=== PATIENT | male | born 1955 | race American Indian/Alaskan Native ===

== ENCOUNTER 2016-11-07 17:17 | Inpatient (IN) | payer OTHER ==
[2016-11-07] MEDS ORDERED: Morphine 2 mg/ml ISec IVP STA (18:21)
[2016-11-07] MEDS ORDERED: Iohexol 240 (50 ml) ONE (18:22)
--- NOTE | 2016-11-07 18:25 | ED PDOC ---
Arrival/HPI - General Chief Complaint: Abdominal Pain Time Seen by Provider: 11/07/16 18:05 Historian: Patient - History of Present Illness Narrative History of Present Illness (Text): 11/07/16 18:22 61 y/o male, pmh including brain and lung cancer which diagnosed 07/2016 metastatic from lung, nkda, c/o rt. sided lower rib and rt. upper quadrant abdominal pain x 3 weeks with no fall or trauma. Aching pain, on and off, no nausea or vomiting, no history of leg or extremity pain currently, no chest pain or shortness of breath, no coughing, no night sweat, no palpitation, no other medical or psychological complaints. Past Medical History - Provider Review Nursing Documentation Reviewed: Yes - Infectious Disease Hx of Infectious Diseases: None - Cardiac Hx Cardiac Disorders: No - Pulmonary Hx Asthma: Yes - Neurological Hx Neurological Disorder: No - HEENT Hx HEENT Disorder: No - Renal Hx Renal Disorder: No - Endocrine/Metabolic Hx Endocrine Disorders: No - Hematological/Oncological Hx Blood Disorders: No - Integumentary Hx Dermatological Disorder: No - Musculoskeletal/Rheumatological Hx Musculoskeletal Disorders: No - Gastrointestinal Hx Gastrointestinal Disorders: No - Genitourinary/Gynecological Hx Genitourinary Disorders: No - Psychiatric Hx Psychophysiologic Disorder: No Hx Substance Use: No - Surgical History Other/Comment: CA brain, left port, B/L lower extremity edema. - Anesthesia Hx Anesthesia: No Hx Anesthesia Reactions: No Hx Malignant Hyperthermia: No Family/Social History - Physician Review Nursing Documentation Reviewed: Yes Family/Social History: Unknown Family HX Smoking Status: Former Smoker Hx Alcohol Use: Yes Frequency of alcohol use: Socially Hx Substance Use: No Allergies/Home Meds Allergies/Adverse Reactions: Allergies No Known Allergies Allergy (Verified 11/07/16 17:56) Home Medications: Home Meds Medication Instructions Recorded Confirmed Dexamethasone [Decadron] 2 mg PO DAILY 11/08/16 11/08/16 Folic Acid 1 mg PO DAILY 11/08/16 11/08/16 Thiamine Mononitrate [Optimum 100 mg PO DAILY 11/08/16 11/08/16 Vitamin B-1] Review of Systems - Review of Systems Constitutional: absent: Fatigue, Fevers Eyes: absent: Vision Changes ENT: absent: Hearing Changes Respiratory: absent: Cough, Sputum Cardiovascular: absent: Chest Pain Gastrointestinal: Abdominal Pain. absent: Diarrhea, Nausea, Vomiting Musculoskeletal: Arthralgias. absent: Back Pain, Neck Pain, Joint Swelling, Myalgias Skin: absent: Rash, Pruritis, Skin Lesions, Laceration, Abscess, Ulcer, Cellulitis Neurological: absent: Headache, Dizziness, Focal Weakness, Gait Changes, Speech Changes, Facial Droop, Disequilibrium, Seizure, Other Physical Exam Vital Signs Reviewed: Yes Vital Signs Temp Pulse Resp BP Pulse Ox 11/08/16 02:00 75 11/08/16 01:00 98 F 80 22 148/81 97 11/07/16 17:57 98.7 F 76 18 153/86 H 92 L Temperature: Afebrile Blood Pressure: Hypertensive Pulse: Regular Respiratory Rate: Normal Appearance: Positive for: Well-Appearing, Non-Toxic, Uncomfortable Pain Distress: Mild Mental Status: Positive for: Alert and Oriented X 3 - Systems Exam Head: Present: Atraumatic, Normocephalic Pupils: Present: PERRL Extroacular Muscles: Present: EOMI Conjunctiva: Present: Normal Mouth: Present: Moist Mucous Membranes Nose (External): Present: Atraumatic. No: Abrasion, Contusion, Laceration, Lesions Nose (Internal): Present: Normal Inspection, No Active Bleeding. No: Rhinorrhea , Septal Hematoma, Epistaxis Neck: Present: Normal Range of Motion Respiratory/Chest: Present: Clear to Auscultation, Good Air Exchange. No: Respiratory Distress, Accessory Muscle Use Cardiovascular: Present: Regular Rate and Rhythm, Normal S1, S2. No: Murmurs Abdomen: Present: Tenderness (+ttp on the rt. upper quadrant. ), Normal Bowel Sounds. No: Distention, Peritoneal Signs, Rebound, Guarding Rectal: Present: Hemorrhoids (external), Normal Rectal Tone, Other (Female Roofing Technician: CATHLEEN Braswell, Guaiac negative). No: Occult Blood, Rectal Tenderness, Gross Blood, Melena, Fissures, Nodule/Mass/Lesions Back: Present: Normal Inspection. No: CVA Tenderness, Midline Tenderness, Paraspinal Tenderness Upper Extremity: Present: Normal Inspection. No: Cyanosis, Edema Lower Extremity: Present: Normal Inspection. No: Edema Neurological: Present: GCS=15, CN II-XII Intact, Speech Normal Skin: Present: Warm, Dry, Normal Color. No: Rashes Psychiatric: Present: Alert, Oriented x 3, Normal Insight, Normal Concentration Medical Decision Making ED Course and Treatment: 11/07/16 18:25 -labs/ua -sonogram gall bladder -CT chest and abdomen -3L oxygen -observe and reassess 11/07/16 22:43 -Sonogram show: incidental rt. pleural effusion, echogenic liver and fatty infiltration. -CT chest/abdomen show possible PE with pleural effusion. -Labs are non-significant except wbc 11.5 and Na 128. -PT/PTT added. -Hyponatremia 128, not dehydrated which I keep him NPO water in the ER. -Pt. is high risk for PE which I will put on the lovenox and he will need v/q scan tomorrow or repeat CTA. There is no emergent indication of the DVT studies as he has no leg pain or history of extremity pain plus I will anticoagulate him. -Pt. is high risk for pneumonia as there is pleural effusion with wbc 11.5 which I will put him on rocephine and azithromycin. Pleural effusion might be an effect of PE vs. Lung cancer vs. Pneumonia which I can not rule out at this time. -Covering Dr. Renteria doesn't accept the [facility] which I will give it to the hospitalist service. -I discussed with the patient and he agreed to be admitted. -I can not rule if the patient has PE or pneumonia that causes pleural effusion but he is hypoxic in room air which I have no baseline to compared to. He will need to be admitted to telemetry for further evaluation with jacquard card cutter and more work up for him. 11/07/16 23:06 -I spoke to Dr. Dumont and the medical terminologist working with him which they will come down to the ER to admit the patient. -I spoke to the current ER attending Dr. Wilson (Dr. Price is off shift now) which he agreed the treatment which he will put in the admission to telemetry. - Lab Interpretations Lab Results: 11/07/16 20:00 11/07/16 20:00 Lab Results 11/07/16 20:00: WBC 11.5 H, RBC 4.26, Hgb 12.7 L, Hct 37.5 L, MCV 88.0, MCH 29.8 , MCHC 33.9, RDW 18.8 H, Plt Count 81 L, MPV 10.6, Neutrophils % (Manual) 84 H, Lymphocytes % (Manual) 9 L, Monocytes % (Manual) 5, Eosinophils % (Manual) 2, Giant Platelets Present, PT 13.4 H, INR 1.24 H, APTT 22.9 L, Sodium 128 L, Potassium 4.3, Chloride 93 L, Carbon Dioxide 30, Anion Gap 9 L, BUN 17, Creatinine 0.6, Est GFR ( Amer) > 60, Est GFR (Non-Af Amer) > 60, Random Glucose 93, Calcium 8.8, Total Bilirubin 0.8, AST 31, ALT 89 H, Alkaline Phosphatase 71, NT-Pro-B Natriuret Pep 287, Total Protein 6.2, Albumin 3.2, Globulin 2.9, Albumin/Globulin Ratio 1.1, Lipase 25 I have reviewed the lab results: Yes Interpretation: Abnormal lab values (Na 128, wbc 11.5) - RAD Interpretation Radiology Orders: 11/07/16 18:19 CHEST,ABD,PEL W/IV&PO CONTRAST [CT] Stat 11/07/16 18:23 GALL BLADDER [US] Stat Gallbladder sonogram: HISTORY: RUQ pain COMPARISON: None available. TECHNIQUE: Sonographic evaluation of the right upper quadrant of the abdomen. FINDINGS: LIVER: Measures 13.2 cm in length. Echogenic liver may be seen in setting of hepatic parenchymal disease or fatty infiltration. No focal hepatic mass identified. The main portal vein appears patent with normal directional flow. No intrahepatic bile duct dilatation. GALLBLADDER: No gallstones. No gallbladder wall thickening or pericholecystic edema. Negative sonographic Dubose's sign as assessed by the translator and interpreter. COMMON BILE DUCT: Measures 5 mm. PANCREAS: Not well-visualized. RIGHT KIDNEY: Measures 10.9 x 3.8 x 5.3 cm. No obstructing calculus or hydronephrosis identified. AORTA: Limited visualization appears grossly unremarkable. IVC: Limited visualization appears grossly unremarkable. OTHER FINDINGS: Incidental note is made of right-sided pleural effusion. IMPRESSION: Echogenic liver may be seen in setting of hepatic parenchymal disease or fatty infiltration. Incidental note is made of right-sided pleural effusion. CT Chest/Abdomen and pelvis: CT Scan CHEST,ABD,PEL W/IV PO CONTRAST Exam Date: 11/07/16 This imaging exam was performed at [facility] ADDENDUM Addendum created by Shelley Obrien MD on 11/07/2016 10:23:53 PM EDT THIS REPORT CONTAINS FINDINGS THAT MAY BE CRITICAL TO PATIENT CARE. The findings were verbally communicated via telephone conference with Ramón Alvares PA-C at 10:23 PM EDT on 11/07/2016. The findings were acknowledged and understood. Initial report created on 11/07/2016 10:21:03 PM EDT EXAM: CT Chest, Abdomen and Pelvis With Intravenous Contrast CLINICAL HISTORY: 61 years old, male; Pain; Abdominal pain; Acute; Chest wall pain; Patient HX : Currently on chemo; Additional info: Lung/brain cancer since 07/2016, rt. Lower rib/stephanie TECHNIQUE: Axial computed tomography images of the chest, abdomen and pelvis with intravenous contrast. This CT exam was performed using one or more of the following dose reduction techniques: automated exposure control, adjustment of the mA and/or kV according to patient size, and/or use of iterative reconstruction technique. Coronal and sagittal reformatted images were created and reviewed. CONTRAST: 100 mL of OMNI administered intravenously. COMPARISON: No relevant prior studies available. FINDINGS: Near complete opacification of right lung field. Moderate right effusion, partially loculated. Right upper lobe bronchus is completely obstructed by a large enhancing masslike area. Right middle lobe and lower lobe bronchi also affected. Adenopathy causing mass effect along right suprahilar through infrahilar region. Supraclavicular adenopathy, right greater than left. Significant mediastinal and hilar adenopathy. Although technique limits evaluation for pulmonary artery embolism, there is concern for filling defects involving pulmonary arteries consistent with pulmonary artery embolism. Left lung field demonstrates emphysematous changes and atelectasis. Atherosclerosis. Small pericardial effusion. The spleen, pancreas and right adrenal gland demonstrate no acute abnormalities. Subtle subcentimeter hypoattenuating lesion in the left lobe of the liver. 1 cm left adrenal nodule. The kidneys are symmetric with no evidence of hydronephrosis. The small and large bowel as visualized demonstrate no evidence of obstruction or clear focus of inflammation. Diverticulosis. No ascites. No free air. Scoliosis. Degenerative changes. IMPRESSION: Although technique limits evaluation for pulmonary artery embolism, there is concern for filling defects involving pulmonary arteries consistent with pulmonary artery embolism. Followup evaluation recommended for confirmation. Near complete opacification of right lung field. Moderate right effusion, partially loculated. Right upper lobe bronchus is completely obstructed by a large enhancing masslike area. Right middle lobe and lower lobe bronchi also affected. Adenopathy causing mass effect along right suprahilar through infrahilar region. Supraclavicular adenopathy, right greater than left. Significant mediastinal and hilar adenopathy. Small pericardial effusion. Subtle subcentimeter hypoattenuating lesion in the left lobe of the liver. 1 cm left adrenal nodule. Diverticulosis. Additional details/findings as above. Addendum Dictated By: Shelley Obrien Addendum Dictated Date Time:11/07/16 Addendum Signed by:Shelley Obrien Addendum signed Date Time: 11/07/162222 Addendum Transcribed By: RABIA Addendum Transcribed Date Time: 11/07/16 KEN/KANDI EXAM: CT Chest, Abdomen and Pelvis With Intravenous Contrast CLINICAL HISTORY: 61 years old, male; Pain; Abdominal pain; Acute; Chest wall pain; Patient HX : Currently on chemo; Additional info: Lung/brain cancer since 07/2016, rt. Lower rib/stephanie TECHNIQUE: Axial computed tomography images of the chest, abdomen and pelvis with intravenous contrast. This CT exam was performed using one or more of the following dose reduction techniques: automated exposure control, adjustment of the mA and/or kV according to patient size, and/or use of iterative reconstruction technique. Coronal and sagittal reformatted images were created and reviewed. CONTRAST: 100 mL of OMNI administered intravenously. COMPARISON: No relevant prior studies available. FINDINGS: Near complete opacification of right lung field. Moderate right effusion, partially loculated. Right upper lobe bronchus is completely obstructed by a large enhancing masslike area. Right middle lobe and lower lobe bronchi also affected. Adenopathy causing mass effect along right suprahilar through infrahilar region. Supraclavicular adenopathy, right greater than left. Significant mediastinal and hilar adenopathy. Although technique limits evaluation for pulmonary artery embolism, there is concern for filling defects involving pulmonary arteries consistent with pulmonary artery embolism. Left lung field demonstrates emphysematous changes and atelectasis. Atherosclerosis. Small pericardial effusion. The spleen, pancreas and right adrenal gland demonstrate no acute abnormalities. Subtle subcentimeter hypoattenuating lesion in the left lobe of the liver. 1 cm left adrenal nodule. The kidneys are symmetric with no evidence of hydronephrosis. The small and large bowel as visualized demonstrate no evidence of obstruction or clear focus of inflammation. Diverticulosis. No ascites. No free air. Scoliosis. Degenerative changes. IMPRESSION: Although technique limits evaluation for pulmonary artery embolism, there is concern for filling defects involving pulmonary arteries consistent with pulmonary artery embolism. Followup evaluation recommended for confirmation. Near complete opacification of right lung field. Moderate right effusion, partially loculated. Right upper lobe bronchus is completely obstructed by a large enhancing masslike area. Right middle lobe and lower lobe bronchi also affected. Adenopathy causing mass effect along right suprahilar through infrahilar region. Supraclavicular adenopathy, right greater than left. Significant mediastinal and hilar adenopathy. Small pericardial effusion. Subtle subcentimeter hypoattenuating lesion in the left lobe of the liver. 1 cm left adrenal nodule. Diverticulosis. Additional details/findings as above. Dictated By: Shelley Obrien MD Dictated Date/Time: 11/07/162220 Signed By: Shelley Obrien Date Signed: 2220 Transcribed By: RABIA Transcribe Date/Time : 11/07/162220 Russian Language Instructor: Radiologist - Medication Orders Current Medication Orders: Dexamethasone (Decadron) 4 mg PO DAILY [facility] Last Admin: 11/08/16 10:24 Dose: 4 MG Enoxaparin Sodium (Lovenox) 70 mg SC Q12 [facility] PRN Reason: Protocol Last Admin: 11/08/16 10:24 Dose: 70 MG Subcutaneous Administrations Document 11/08/16 10:24 MIKHAIL (Rec: 11/08/16 10:24 MIKHAIL [id number]) Injection Site MAR Injection Site Left Abdomen Charges for Administration # of Subcutaneous Administrations 1 Folic Acid (Folic Acid) 1 mg PO DAILY [facility] Last Admin: 11/08/16 10:23 Dose: 1 MG Piperacillin Sod/Tazobactam Sod (Zosyn 3.375 In Ns 100ml) 100 mls @ 200 mls/hr IVPB Q6 [facility] PRN Reason: Protocol Stop: 11/08/16 18:29 Last Admin: 11/08/16 12:45 Dose: 200 MLS/HR eMAR Start Stop Document 11/08/16 12:45 MIKHAIL (Rec: 11/08/16 12:45 MIKHAIL [id number]) Intravenous Solution Start Date 11/08/16 Start Time 12:45 Vancomycin HCl (Vancomycin 1gm) 250 mls @ 167 mls/hr IVPB Q12H [facility] PRN Reason: Protocol Last Admin: 11/08/16 13:55 Dose: 167 MLS/HR eMAR Start Stop Document 11/08/16 13:55 MIKHAIL (Rec: 11/08/16 13:55 MIKHAIL [id number]) Intravenous Solution Start Date 11/08/16 Start Time 13:55 End Date 11/08/16 End time 15:25 Total Infusion Time 90 Non-Formulary Medication (Thiamine Mononitrate [Vitamin B-1]) 100 mg PO DAILY [facility] Last Admin: 11/08/16 13:20 Dose: Pantoprazole Sodium (Protonix Ec Tab) 40 mg PO ACB [facility] Last Admin: 11/08/16 08:12 Dose: 40 MG Discontinued Medications Enoxaparin Sodium (Lovenox) 70 mg SC STAT STA PRN Reason: Protocol Stop: 11/07/16 22:59 Last Admin: 11/08/16 00:13 Dose: 70 MG Subcutaneous Administrations Document 11/08/16 00:13 FERN (Rec: 11/08/16 00:13 RJR [id number]) Injection Site MAR Injection Site Right Abdomen Charges for Administration # of Subcutaneous Administrations 1 Azithromycin (Zithromax 500mg In Ns) 250 mls @ 167 mls/hr IVPB STAT STA PRN Reason: Protocol Stop: 11/08/16 00:02 Last Admin: 11/08/16 02:03 Dose: 167 MLS/HR eMAR Start Stop Document 11/08/16 02:03 RJR (Rec: 11/08/16 02:04 RJR [id number]) Intravenous Solution Start Date 11/08/16 Start Time 02:03 End Date 11/08/16 End time 03:32 Total Infusion Time 89 Ceftriaxone Sodium (Rocephin 1 Gram Ivpb) 100 mls @ 200 mls/hr IVPB STAT STA PRN Reason: Protocol Stop: 11/07/16 23:02 Last Admin: 11/08/16 00:12 Dose: 200 MLS/HR eMAR Start Stop Document 11/08/16 00:12 RJR (Rec: 11/08/16 00:12 RJR [id number]) Intravenous Solution Start Date 11/08/16 Start Time 00:12 End Date 11/08/16 End time 00:42 Total Infusion Time 30 Iohexol (Omnipaque 240 (50 Ml)) Confirm Administered Dose 50 ml .ROUTE .STK-MED ONE Stop: 11/07/16 18:23 Iohexol (Omnipaque 350 100 Ml) Confirm Administered Dose 350 mg .ROUTE .STK-MED ONE Stop: 11/07/16 20:08 Iohexol (Omnipaque 350 100 Ml) Confirm Administered Dose 350 mg .ROUTE .STK-MED ONE Stop: 11/08/16 01:12 Pneumococcal Polyvalent Vaccine (Pneumovax 23 Vaccine) 0.5 ml IM .ONCE ONE Stop: 11/08/16 02:41 Last Admin: 11/08/16 08:13 Dose: - PA / FORMING MACHINE OPERATOR / Resident Statement / has reviewed & agrees with the documentation as recorded. Disposition/Present on Arrival - Present on Arrival Any Indicators Present on Arrival: No History of DVT/PE: No History of Uncontrolled Diabetes: No Urinary Catheter: No History of Decub. Ulcer: No History Surgical Site Infection Following: None - Disposition Have Diagnosis and Disposition been Completed?: Yes Diagnosis: Hypoxemia, Leukocytosis (leucocytosis), Pleural effusion, Lung cancer, Hyponatremia Disposition: HOSPITALIZED Disposition Time: 22:38 Patient Plan: Admission, Telemetry Patient Problems: Current Active Problems Problem Status Diagnosed Hyponatremia Acute Hypoxemia Acute Leukocytosis (leucocytosis) Acute Lung cancer Acute Pleural effusion Acute Condition: STABLE
--- NOTE | 2016-11-07 18:57 | US ---
HISTORY: RUQ pain COMPARISON: None available. TECHNIQUE: Sonographic evaluation of the right upper quadrant of the abdomen. FINDINGS: LIVER: Measures 13.2 cm in length. Echogenic liver may be seen in setting of hepatic parenchymal disease or fatty infiltration. No focal hepatic mass identified. The main portal vein appears patent with normal directional flow. No intrahepatic bile duct dilatation. GALLBLADDER: No gallstones. No gallbladder wall thickening or pericholecystic edema. Negative sonographic Dubose's sign as assessed by the transportation lead. COMMON BILE DUCT: Measures 5 mm. PANCREAS: Not well-visualized. RIGHT KIDNEY: Measures 10.9 x 3.8 x 5.3 cm. No obstructing calculus or hydronephrosis identified. AORTA: Limited visualization appears grossly unremarkable. IVC: Limited visualization appears grossly unremarkable. OTHER FINDINGS: Incidental note is made of right-sided pleural effusion. IMPRESSION: Echogenic liver may be seen in setting of hepatic parenchymal disease or fatty infiltration. Incidental note is made of right-sided pleural effusion.
[2016-11-07] MEDS ORDERED: Iohexol 350 MG/100 ML VIAL ONE (20:07)
[2016-11-07 20:39] LABS: HEMATOCRIT 37.5 % (42.0-52.0); MEAN CORPUSCULAR HEMOGLOBIN 29.8 pg (25.0-35.0); MEAN CORPUSCULAR HGB CONC 33.9 g/dl (31.0-37.0); MEAN PLATELET VOLUME 10.6 fl (7.0-11.0); PLATELET COUNT 81 10^3/uL (120.0-450.0); RED CELL DISTRIBUTION WIDTH 18.8 % (11.5-14.5); WHITE BLOOD COUNT 11.5 10^3/ul (4.5-11.0)
[2016-11-07 20:44] LABS: ALB/GLOB RATIO 1.1 (1.1-1.8); ALKALINE PHOSPHATASE 71 U/L (38-133); ALT/SGPT 89 U/L (7-56); AST/SGOT 31 U/L (15-59); BILIRUBIN,TOTAL 0.8 mg/dL (0.2-1.3); BLOOD UREA NITROGEN 17 mg/dL (7-21); CALCIUM 8.8 mg/dL (8.4-10.5); CARBON DIOXIDE 30 mmol/L (21-33); CHLORIDE 93 mmol/L (98-107); GFR AFRICAN-AMERICAN > 60; GLUCOSE,RANDOM 93 mg/dL (70-110); LIPASE 25 U/L (23-300); POTASSIUM 4.3 mmol/L (3.6-5.0); SODIUM 128 mmol/L (132-148); TOTAL PROTEIN 6.2 g/dL (5.8-8.3)
[2016-11-07 20:59] LABS: ADD MANUAL DIFF? YES
[2016-11-07 21:21] LABS: EOSINOPHIL 2 % (0.0-3.0); NEUTROPHIL 84 % (50.0-70.0)
[2016-11-07 21:22] LABS: GIANT PLATELETS PRESENT
--- NOTE | 2016-11-07 22:21 | CT ---
EXAM: CT Chest, Abdomen and Pelvis With Intravenous Contrast CLINICAL HISTORY: 61 years old, male; Pain; Abdominal pain; Acute; Chest wall pain; Patient HX: Currently on chemo; Additional info: Lung/brain cancer since 07/2016, rt. Lower rib/stephanie TECHNIQUE: Axial computed tomography images of the chest, abdomen and pelvis with intravenous contrast. This CT exam was performed using one or more of the following dose reduction techniques: automated exposure control, adjustment of the mA and/or kV according to patient size, and/or use of iterative reconstruction technique. Coronal and sagittal reformatted images were created and reviewed. CONTRAST: 100 mL of OMNI administered intravenously. COMPARISON: No relevant prior studies available. FINDINGS: Near complete opacification of right lung field. Moderate right effusion, partially loculated. Right upper lobe bronchus is completely obstructed by a large enhancing masslike area. Right middle lobe and lower lobe bronchi also affected. Adenopathy causing mass effect along right suprahilar through infrahilar region. Supraclavicular adenopathy, right greater than left. Significant mediastinal and hilar adenopathy. Although technique limits evaluation for pulmonary artery embolism, there is concern for filling defects involving pulmonary arteries consistent with pulmonary artery embolism. Left lung field demonstrates emphysematous changes and atelectasis. Atherosclerosis. Small pericardial effusion. The spleen, pancreas and right adrenal gland demonstrate no acute abnormalities. Subtle subcentimeter hypoattenuating lesion in the left lobe of the liver. 1 cm left adrenal nodule. The kidneys are symmetric with no evidence of hydronephrosis. The small and large bowel as visualized demonstrate no evidence of obstruction or clear focus of inflammation. Diverticulosis. No ascites. No free air. Scoliosis. Degenerative changes. IMPRESSION: Although technique limits evaluation for pulmonary artery embolism, there is concern for filling defects involving pulmonary arteries consistent with pulmonary artery embolism. Followup evaluation recommended for confirmation. Near complete opacification of right lung field. Moderate right effusion, partially loculated. Right upper lobe bronchus is completely obstructed by a large enhancing masslike area. Right middle lobe and lower lobe bronchi also affected. Adenopathy causing mass effect along right suprahilar through infrahilar region. Supraclavicular adenopathy, right greater than left. Significant mediastinal and hilar adenopathy. Small pericardial effusion. Subtle subcentimeter hypoattenuating lesion in the left lobe of the liver. 1 cm left adrenal nodule. Diverticulosis. Additional details/findings as above.
[2016-11-07] MEDS ORDERED: cefTRIAXone 1 gm 100 ML IVPB STA (22:33)
[2016-11-07] MEDS ORDERED: Azithromycin 500MG/NS 250ml 250 ML IVPB STA (22:33)
[2016-11-07 22:55] VITALS: BMI 22.6
[2016-11-07] MEDS ORDERED: Enoxaparin 80 mg Syringe SC STA (22:58)
[2016-11-08 00:10] LABS: INR 1.24 (0.93-1.08); PARTIAL THROMBOPLASTIN TIME 22.9 Seconds (23.7-30.8)
[2016-11-08] MEDS ORDERED: Iohexol 350 MG/100 ML VIAL ONE ×2 (01:11→21:33)
--- NOTE | 2016-11-08 01:18 | CP.PCM.HP ---
<Joyce Kidd - Last Filed: 11/08/16 01:05> History of Present Illness - History of Present Illness History of Present Illness: This is a 61Y M with PMH of metastatic lung cancer that came to the ED for abdominal pain x 3 weeks. Patient reports having RUQ abdominal pain that has gotten progressively worse over the past 3 weeks. It is worse with movement and is described as moving back and forth from RUQ to epigastric. It is not associated with food. He does have decreased appetite which he says it is due to chemotherapy He also noticed increased swelling in the leg and SOB for the past two weeks. He finished chemotherapy 2 weeks ago. He also got a power port placed on the L one week ago. In the ED, he had a CT chest/abd/pelvis which showed moderate pleural effusion, possible PE with perfusion defect, obstruction of R upper lobe bronchus due to large mass, and adenopathy. 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 Lives with daughter. also has cancer FH: Mom- 94yo living PMD: Dr. Lockett Oncologist: Dr. Bucky Stock Present on Admission - Present on Admission Any Indicators Present on Admission: No Review of Systems - Review of Systems Review of Systems: Pt admits to increased leg swelling, SOB and abdominal pain. Denies CP, n/v/d, numbness/tingling, vision changes, dysuria or hematuria Past Patient History - Infectious Disease Hx of Infectious Diseases: None - Past Social History Smoking Status: Former Smoker Alcohol: Other (former heavy drinker) Home Situation {Lives}: With Family - CARDIAC Hx Cardiac Disorders: No - PULMONARY Hx Asthma: Yes - NEUROLOGICAL Hx Neurological Disorder: No - HEENT Hx HEENT Problems: No - RENAL Hx Chronic Kidney Disease: No - ENDOCRINE/METABOLIC Hx Endocrine Disorders: No - HEMATOLOGICAL/ONCOLOGICAL Hx Blood Disorders: No - INTEGUMENTARY Hx Dermatological Problems: No - MUSCULOSKELETAL/RHEUMATOLOGICAL Hx Musculoskeletal Disorders: No - GASTROINTESTINAL Hx Gastrointestinal Disorders: No - GENITOURINARY/GYNECOLOGICAL Hx Genitourinary Disorders: No - PSYCHIATRIC Hx Psychophysiologic Disorder: No Hx Substance Use: No - SURGICAL HISTORY Other/Comment: CA brain, left port, B/L lower extremity edema. - ANESTHESIA Hx Anesthesia: No Hx Anesthesia Reactions: No Hx Malignant Hyperthermia: No Meds Allergies/Adverse Reactions: Allergies Allergy/AdvReac Type Severity Reaction Status Date / Time No Known Allergies Allergy Verified 11/07/16 17:56 Physical Exam - Constitutional Appears: No Acute Distress - Head Exam Head Exam: ATRAUMATIC, NORMAL INSPECTION, NORMOCEPHALIC - Eye Exam Eye Exam: Normal appearance Pupil Exam: NORMAL ACCOMODATION, PERRL (on L eye only ) - ENT Exam ENT Exam: Mucous Membranes Moist - Respiratory Exam Respiratory Exam: Decreased Breath Sounds (on R ), Rales (on R base ), Wheezes ( on R ), NORMAL BREATHING PATTERN. absent: Respiratory Distress - Cardiovascular Exam Cardiovascular Exam: REGULAR RHYTHM, +S1, +S2. absent: Gallop, Rubs, Systolic Murmur - GI/Abdominal Exam GI & Abdominal Exam: Normal Bowel Sounds, Soft, Tenderness (mild tenderness on RUQ). absent: Mass, Rebound, Rigid - Extremities Exam Extremities exam: Positive for: pedal edema (+4 pitting edema above knee up to mid thigh ). Negative for: tenderness - Neurological Exam Neurological exam: Alert, CN II-XII Intact, Oriented x3 - Psychiatric Exam Psychiatric exam: Normal Affect, Normal Mood - Skin Skin Exam: Dry, Intact, Normal Color, Warm Results - Vital Signs Recent Vital Signs: Last Vital Signs Temp 98 F 11/08/16 01:00 Pulse 80 11/08/16 01:00 Resp 22 11/08/16 01:00 BP 148/81 11/08/16 01:00 Pulse Ox 97 11/08/16 01:00 - Labs Result Diagrams: 11/07/16 20:00 11/07/16 20:00 Assessment & Plan - Assessment and Plan (Free Text) Assessment: This is a 61Y M with PMH of metastatic lung cancer admitted for pleural effusion of R lung and possible PE. Plan: 1. PE - CT chest showed possible PE with pleural effusion on R - CTA in 24hrs since pt already had IV contrast to r/o PE - Lovenox 70 BID SC - U/S of legs-r/o DVT 2. Bilateral leg edema - U/S of legs-r/o DVT - Echo to r/o CHF 3. Hyponatremia - r/o SIADH - will check Urine Osm and Na - fluid restriction 4. Metastatic cancer - continue Dexamethasone - Will check head CT for extent of metastasis - Consult oncologist Dr. Stock for further hx GI ppx: Protonix DVT ppx: Lovenox Case seen, reviewed and discussed with attending Marleny Kidd PGY1 - Date & Time Date: 11/08/16 Time: 01:24 <Martínez Dumont P - Last Filed: 11/16/16 20:19> Results - Vital Signs Recent Vital Signs: Last Vital Signs Temp 99.6 F 11/16/16 17:11 Pulse 106 H 11/16/16 18:28 Resp 19 11/16/16 17:11 BP 124/85 11/16/16 17:11 Pulse Ox 95 11/16/16 17:11 - Labs Result Diagrams: 11/15/16 07:15 11/15/16 07:15 Attending/Attestation - Attestation I have personally seen and examined this patient.: Yes I have fully participated in the care of the patient.: Yes I have reviewed all pertinent clinical information: Yes
[2016-11-08] MEDS ORDERED: Pneumococcal 23-Valent Vaccine IM ONE (02:40)
[2016-11-08 07:00] LABS: ADD MANUAL DIFF? NO
[2016-11-08 07:04] LABS: BASO # 0.05 K/mm3 (0.0-2.0); BASO % 0.5 % (0.0-3.0); EOS % 0.2 % (1.5-5.0); GRAN # 8.66 (1.4-6.5); GRAN % 82.2 % (50.0-68.0); HEMATOCRIT 39.3 % (42.0-52.0); LYMPH # 1.2 (1.2-3.4); LYMPH % 11.3 % (22.0-35.0); MEAN CELL VOLUME 88.5 fL (80.0-105.0); MEAN CORPUSCULAR HEMOGLOBIN 29.7 pg (25.0-35.0); MEAN CORPUSCULAR HGB CONC 33.6 g/dl (31.0-37.0); MONO # 0.6 (0.1-0.6); MONO % 5.8 % (1.0-6.0); PLATELET COUNT 85 10^3/uL (120.0-450.0); WHITE BLOOD COUNT 10.5 10^3/ul (4.5-11.0)
[2016-11-08 07:26] LABS: ALKALINE PHOSPHATASE 77 U/L (38-133); ALT/SGPT 74 U/L (7-56); AST/SGOT 35 U/L (15-59); BILIRUBIN,TOTAL 0.7 mg/dL (0.2-1.3); BLOOD UREA NITROGEN 16 mg/dL (7-21); CALCIUM 8.4 mg/dL (8.4-10.5); CARBON DIOXIDE 29 mmol/L (21-33); CHLORIDE 97 mmol/L (98-107); GFR AFRICAN-AMERICAN > 60; GLUCOSE,RANDOM 74 mg/dL (70-110); POTASSIUM 4.3 mmol/L (3.6-5.0); SODIUM 129 mmol/L (132-148); TOTAL PROTEIN 5.6 g/dL (5.8-8.3)
[2016-11-08] MEDS: Pantoprazole 40 mg EC Tab PO SCH (08:12)
[2016-11-08] MEDS ORDERED: Non Formulary Medication (Thiamine Mononitrate [Vitamin B-1] 100 MG) PO SCH (10:00)
[2016-11-08] MEDS: Enoxaparin 80 mg Syringe SC SCH ×2 (10:24→22:33)
[2016-11-08] MEDS: Piperacillin/Tazobact 3.375 gm 100 ML IVPB SCH ×3 (12:45→18:15)
--- NOTE | 2016-11-08 12:52 | US ---
HISTORY: Leg pain and swelling. Evaluate for DVT PHYSICIAN(S): Henry Hayden MD. TECHNIQUE: Duplex sonography and color-flow Doppler with graded compression were used to evaluate the deep venous systems of both lower extremities. FINDINGS: There is isolated thrombus in the right posterior tibial veins. The right popliteal vein, right femoral vein, and right common femoral vein are patent and compressible. There is no sonographic evidence for DVT in the visualized segments of left lower extremity. IMPRESSION: Isolated right tibial DVT. A followup ultrasound in 7-10 days is recommended.
--- NOTE | 2016-11-08 13:00 | CT ---
PROCEDURE: CT scan of the brain dated 11/08/2016 HISTORY: brain metastasis COMPARISON: No prior study available for comparison. TECHNIQUE: Axial computed tomography images were obtained through the head/brain without intravenous contrast. Radiation dose: Total exam DLP = 774.23 mGy-cm. This CT exam was performed using one or more of the following dose reduction techniques: Automated exposure control, adjustment of the mA and/or kV according to patient size, and/or use of iterative reconstruction technique. FINDINGS: HEMORRHAGE: No acute parenchymal, subarachnoid or extra-axial hemorrhage. . . BRAIN: There is a vague area of low attenuation in the right cerebellar region with surrounding edema that extends superiorly and anteromedially towards the vermian region. There is also an area of low attenuation in the left vermian region as well. Findings could represent metastatic lesions Recommend pre and post-contrast MRI of the brain to confirm. In addition, there is mild chronic periventricular white matter ischemic changes that extend peripherally into the deep and subcortical regions of both cerebral hemispheres. The changes are somewhat more pronounced and conspicuous in the parietal regions though somewhat more discrete in the right posterior superior parietal white matter above the level of the posterior aspect body right lateral ventricle. Metastatic deposit in this location not excluded. VENTRICLES: Moderate generalized volume loss with enlargement of the ventricles and sulci. No evidence of obstructive hydrocephalus CALVARIUM: There are no acute calvarial fracture seen. No suspicious lytic or blastic calvarial lesions are identified. PARANASAL SINUSES: The frontal sinuses are hypoplastic particularly the right chamber compared the left. The remaining paranasal sinuses are well-developed. No fluid levels seen to suggest acute sinusitis. MASTOID AIR CELLS: Unremarkable as visualized. No inflammatory changes. OTHER FINDINGS: Status post buckle procedure right globe. IMPRESSION: Low-attenuation lesion right cerebellar hemisphere what could represent metastatic deposit. Low-attenuation changes extend superiorly and anteromedially into the vermian region. . Recommend followup of pre and post-contrast MRI of the brain for further evaluation. Chronic white matter low attenuation ischemic changes of somewhat more conspicuous in the parietal regions right greater than left. Metastatic deposit in this location also not excluded.
[2016-11-08] MEDS: Non Formulary Medication (Thiamine Mononitrate [Vitamin B-1] 100 MG) PO SCH (13:20)
[2016-11-08] MEDS: Vancomycin 1gm in NS 250ml 250 ML IVPB SCH ×2 (13:55→22:33)
--- NOTE | 2016-11-08 17:57 | CP.PCM.CON ---
History of Present Illness - History of Present Illness History of Present Illness: Infectious Disease Consultation: November 08, 2016 61 yo male with history of metastatic lung cancer with three week history of abdominal pain that has progressively worsened. Last chemotherapy was two weeks ago. CT displays large mass in Right upper lobe bronchus with obstruction and possible PE with moderate pleural effusion. He also has increased leg swelling and SOB for the past two weeks as well. PMHx: Metastatic lung cancer to brain, loss of vision in Right eye due to detached retina PSHx: Detached retina repair 2001, tonsilectomy, Left power port placement 1 week ago. Allergies: NKDA Social Hx: Heavy smoker stopped 3 months ago, heavy drinker (manuel mostly) stopped 3 weeks ago, no illicit drug use. Lives with daughter. also has cancer. Active Medications Arformoterol Tartrate (Brovana) 15 mcg IH [id number] FRANCO Budesonide (Pulmicort Respules) 0.5 mg IH [id number] FRANCO Dexamethasone (Decadron) 4 mg PO DAILY [facility] Last Admin: 11/08/16 10:24 Dose: 4 mg Doxycycline Hyclate (Doryx) 100 mg PO Q12 FRANCO PRN Reason: Protocol Enoxaparin Sodium (Lovenox) 70 mg SC Q12 FRANCO PRN Reason: Protocol Last Admin: 11/08/16 10:24 Dose: 70 mg Folic Acid (Folic Acid) 1 mg PO DAILY [facility] Last Admin: 11/08/16 10:23 Dose: 1 mg Piperacillin Sod/Tazobactam Sod (Zosyn 3.375 In Ns 100ml) 100 mls @ 200 mls/hr IVPB Q6 FRANCO PRN Reason: Protocol Stop: 11/08/16 18:29 Last Admin: 11/08/16 17:36 Dose: 200 mls/hr Vancomycin HCl (Vancomycin 1gm) 250 mls @ 167 mls/hr IVPB Q12H FRANCO PRN Reason: Protocol Last Admin: 11/08/16 13:55 Dose: 167 mls/hr Non-Formulary Medication (Thiamine Mononitrate [Vitamin B-1]) 100 mg PO DAILY [facility] Last Admin: 11/08/16 13:20 Dose: Not Given Pantoprazole Sodium (Protonix Ec Tab) 40 mg PO ACB [facility] Last Admin: 11/08/16 08:12 Dose: 40 mg Family Hx: Mother alive at 94 yo. ROS: Abdominal pain. SOB. Leg swelling. No fevers, chills, nausea, vomiting, diarrhea, headaches, dizziness, chest pain, melena, hematuria, hematemesis, hematochezia. Past Patient History - Infectious Disease Hx of Infectious Diseases: None - Past Social History Smoking Status: Former Smoker - CARDIAC Hx Cardiac Disorders: No - PULMONARY Hx Asthma: Yes - NEUROLOGICAL Hx Neurological Disorder: No - HEENT Hx HEENT Problems: No - RENAL Hx Chronic Kidney Disease: No - ENDOCRINE/METABOLIC Hx Endocrine Disorders: No - HEMATOLOGICAL/ONCOLOGICAL Hx Blood Disorders: No - INTEGUMENTARY Hx Dermatological Problems: No - MUSCULOSKELETAL/RHEUMATOLOGICAL Hx Musculoskeletal Disorders: No - GASTROINTESTINAL Hx Gastrointestinal Disorders: No - GENITOURINARY/GYNECOLOGICAL Hx Genitourinary Disorders: No - PSYCHIATRIC Hx Psychophysiologic Disorder: No Hx Substance Use: No - SURGICAL HISTORY Other/Comment: CA brain, left port, B/L lower extremity edema. - ANESTHESIA Hx Anesthesia: No Hx Anesthesia Reactions: No Hx Malignant Hyperthermia: No Meds Allergies/Adverse Reactions: Allergies Allergy/AdvReac Type Severity Reaction Status Date / Time No Known Allergies Allergy Verified 11/07/16 17:56 - Medications Medications: Current Medications Dexamethasone (Decadron) 4 mg PO DAILY [facility] Last Admin: 11/08/16 10:24 Dose: 4 mg Enoxaparin Sodium (Lovenox) 70 mg SC Q12 FRANCO PRN Reason: Protocol Last Admin: 11/08/16 10:24 Dose: 70 mg Folic Acid (Folic Acid) 1 mg PO DAILY [facility] Last Admin: 11/08/16 10:23 Dose: 1 mg Piperacillin Sod/Tazobactam Sod (Zosyn 3.375 In Ns 100ml) 100 mls @ 200 mls/hr IVPB Q6 FRANCO PRN Reason: Protocol Stop: 11/08/16 18:29 Last Admin: 11/08/16 12:45 Dose: 200 mls/hr Vancomycin HCl (Vancomycin 1gm) 250 mls @ 167 mls/hr IVPB Q12H FRANCO PRN Reason: Protocol Last Admin: 11/08/16 13:55 Dose: 167 mls/hr Non-Formulary Medication (Thiamine Mononitrate [Vitamin B-1]) 100 mg PO DAILY [facility] Last Admin: 11/08/16 13:20 Dose: Not Given Pantoprazole Sodium (Protonix Ec Tab) 40 mg PO ACB FRANCO Last Admin: 11/08/16 08:12 Dose: 40 mg Physical Exam - Constitutional Appears: Non-toxic, No Acute Distress, Chronically Ill - Head Exam Head Exam: ATRAUMATIC, NORMOCEPHALIC - Eye Exam Eye Exam: EOMI, PERRL Pupil Exam: NORMAL ACCOMODATION, PERRL - ENT Exam ENT Exam: Mucous Membranes Moist, Normal External Ear Exam, TM's Normal Bilaterally - Neck Exam Neck exam: Positive for: Full Rom, Normal Inspection - Respiratory Exam Respiratory Exam: Decreased Breath Sounds, Rales, NORMAL BREATHING PATTERN. absent: Rhonchi, Wheezes Additional comments: Right lower lung rales with no air movement in right upper lobe. - Cardiovascular Exam Cardiovascular Exam: REGULAR RHYTHM, RRR, +S1, +S2 - Extremities Exam Extremities exam: Positive for: full ROM, normal inspection - Neurological Exam Neurological exam: Alert, CN II-XII Intact, Normal Gait, Oriented x3 - Psychiatric Exam Psychiatric exam: Normal Affect, Normal Mood - Skin Skin Exam: Intact, Normal Color Results - Vital Signs Recent Vital Signs: Last Vital Signs Temp 98.8 F 11/08/16 17:00 Pulse 72 11/08/16 17:00 Resp 18 11/08/16 17:00 BP 125/81 11/08/16 17:00 Pulse Ox 96 11/08/16 17:00 - Labs Result Diagrams: 11/08/16 06:30 11/08/16 06:30 Labs: Laboratory Results - last 24 hr 11/08/16 06:30 WBC 10.5 RBC 4.44 Hgb 13.2 L Hct 39.3 L MCV 88.5 MCH 29.7 MCHC 33.6 RDW 19.0 H Plt Count 85 L MPV 10.0 Gran % 82.2 H Lymph % (Auto) 11.3 L [place] % (Auto) 5.8 Eos % (Auto) 0.2 L Baso % (Auto) 0.5 Gran # 8.66 H Lymph # 1.2 [place] # 0.6 Eos # 0.0 Baso # 0.05 Sodium 129 L Potassium 4.3 Chloride 97 L Carbon Dioxide 29 Anion Gap 7 L BUN 16 Creatinine 0.6 Est GFR ( Amer) > 60 Est GFR (Non-Af Amer) > 60 Random Glucose 74 Calcium 8.4 Total Bilirubin 0.7 AST 35 ALT 74 H Alkaline Phosphatase 77 Total Protein 5.6 L Albumin 2.8 L Globulin 2.8 Albumin/Globulin Ratio 1.0 L TSH 3rd Generation 2.71 Assessment & Plan - Assessment and Plan (Free Text) Assessment: 61 yo male with metastatic lung cancer to the brain with worsening abdominal pain, lower leg edema, and SOB. Only on dexamethasone on admission. Unable to rule out pneumonia. On Vancomycin, Doxycycline, and Zosyn for antibiotic coverage for now. Will maintain this regimen for the time being. Supportive care. Thank you for allowing me to participate in the care of this patient, we will follow with you.
--- NOTE | 2016-11-08 19:42 | CON ---
DATE: 11/08/2016 REFERRING PHYSICIAN: . REASON FOR CONSULT: Chronic lung disease, pleural effusion, has a lung cancer with metastases to the brain. HISTORY OF PRESENT ILLNESS: This is a 61-year-old gentleman with known history of lung cancer with m ets to the brain. Recently completed radiation therapy to the brain; also has a placement of the Por [id number]. Been having abdominal pain for a few days which progressively getting worse. Also com plaining about shortness of breath. No hemoptysis, no hematemesis, no melena. No dysuria. No leg p ain or leg swelling reported. PAST MEDICAL HISTORY: Metastatic lung cancer, mets to the brain, status post completing radiation th erapy to the brain, status post left chest , pleural effusion, chronic lung disease. ALLERGIES: None known. SOCIAL HISTORY: Positive history of smoking, just recently stopped. Denies any excessive alcohol us e. FAMILY HISTORY: No significant cardiopulmonary disease reported. MEDICATIONS: He is on Decadron 4 mg p.o. daily, folic acid 1 mg daily, Lovenox 70 mg subQ twice a da y, Protonix 40 mg ACB, thiamine 100 mg daily, vancomycin 1 g q. 12 hours, Zosyn 3.375 g IV q. 6 hours . REVIEW OF SYSTEMS: No headache, no rhinitis. Admits to have shortness of breath, has some cough. N o chest pain, no nausea, or abdominal discomfort. No dysuria. He does have leg swelling. PHYSICAL EXAMINATION: Lying in the bed, mild distress. Temp is 98, heart rate 72, respiratory rate is 20, blood pressure 137/81, pulse ox 96% on nasal cannu la. HENT: Moist mucous membranes. Crowded airway. NECK: Supple. No JVD. LUNGS: Has decreased breath sounds 1/3 up on the right with scattered rhonchi and few wheezing. HEART: S1 and S2. ABDOMEN: Soft, nontender. No organomegaly. EXTREMITIES: Does have edema. NEUROLOGICALLY: Awake, alert. Follows simple commands. LABORATORY DATA: Shows hemoglobin 13.2, hematocrit 39.3, WBC 10.5, platelet count is 85. INR 1.24. PTT is 23. Sodium is 129, potassium 4.3, chloride 97, bicarbonate 29, BUN 16, creatinine 0.6, calci um 8.4, total bilirubin 0.7. AST 35, ALT 74, alk phos is 77, albumin is 2.8. TSH is 2.71. VENOUS DOPPLER OF LOWER EXTREMITIES: There is a right tibial DVT. CAT scan of the head is done in ER; shows low attenuation lesion in the right cerebral hemisphere, pr obably representing metastatic disease. There is also chronic white matter low attenuation. Ischemi c changes somewhat more in the parietal region, right greater than the left, and it could be me tastatic deposits. Echocardiogram is done; report is pending. Also had abdominal ultrasound done which shows echogenic liver may be seen in the setting hepatic par enchymal disease. There is also right-sided pleural effusion. There is also CT of the abdomen was d one which incidentally also shows that there is an artery embolism, large right pleural effusion, hil ar mass. Bronchus of upper lobe is completely obstructed by large enhancing mass-like area. Right m iddle and lower lobe bronchus is also affected. There is also adenopathy. IMPRESSION AND PLAN: Metastatic lung cancer with endobronchial obstruction, pleural effusion, metast ases to the brain status post radiation therapy, now also have a pulmonary embolism, some mild deep v ein thrombosis, hypernatremia. The patient already started on weight-based heparin protocol. Gastric prophylaxis. Add inhaled bron chodilator. Also added IV Solu-Medrol. Will speak to oncology services. Hope the patient responds so far on what chemotherapy he received. He may need radiation to the right hilar area. Once stable with pulmonary embolism will also consider for debulking tumor endobronchially, and may benefit in t he stent, but those issues will be discussed once we can treat the PE and stabilize the patient. Thank you, and will follow with you. Ashia Fletcher MD cc: [phone] TT: 11/08/2016 19:41:49 Confirmation # [id number] Dictation # [id number] tammy
[2016-11-08] MEDS: Arformoterol 15 mcg/2 ml Inh Sol IH SCH (21:09)
[2016-11-08] MEDS: Budesonide 0.5 mg/2 ml Inhal Susp UD IH SCH (21:09)
[2016-11-09] MEDS: Piperacillin/Tazobact 3.375 gm 100 ML IVPB SCH ×4 (00:23→17:22)
[2016-11-09 04:37] LABS: URINE BILIRUBIN NEGATIVE (NEGATIVE); URINE BLOOD TRACE-INTACT (NEGATIVE); URINE GLUCOSE (UA) NEGATIVE (NEGATIVE); URINE KETONE NEGATIVE (NEGATIVE); URINE LEUKOCYTE ESTERASE NEGATIVE Leu/uL (NEGATIVE); URINE PROTEIN NEGATIVE mg/dL (<30 mg/dL); URINE UROBILINOGEN 0.2 E.U./dL (<1 E.U./dL)
[2016-11-09 04:41] LABS: URINE APPEARANCE CLEAR (CLEAR); URINE COLOR YELLOW (YELLOW)
[2016-11-09 04:43] LABS: URINE EPITHELIAL CELLS 0 - 2 /hpf (0-5); URINE RBC 0 - 2 /hpf (0-2); URINE WBC 0 - 2 /hpf (0-6)
[2016-11-09 07:00] LABS: ADD MANUAL DIFF? NO
[2016-11-09 07:23] LABS: BASO # 0.01 K/mm3 (0.0-2.0); BASO % 0.1 % (0.0-3.0); EOS % 0.1 % (1.5-5.0); GRAN % 85.4 % (50.0-68.0); HEMATOCRIT 35.2 % (42.0-52.0); LYMPH # 0.9 (1.2-3.4); LYMPH % 10.8 % (22.0-35.0); MEAN CELL VOLUME 88.2 fL (80.0-105.0); MEAN CORPUSCULAR HEMOGLOBIN 29.6 pg (25.0-35.0); MEAN CORPUSCULAR HGB CONC 33.5 g/dl (31.0-37.0); MEAN PLATELET VOLUME 9.9 fl (7.0-11.0); MONO # 0.3 (0.1-0.6); MONO % 3.6 % (1.0-6.0); PLATELET COUNT 97 10^3/uL (120.0-450.0); RED CELL DISTRIBUTION WIDTH 19.6 % (11.5-14.5); WHITE BLOOD COUNT 7.9 10^3/ul (4.5-11.0)
[2016-11-09 07:26] LABS: ALB/GLOB RATIO 1.1 (1.1-1.8); ALKALINE PHOSPHATASE 64 U/L (38-133); ALT/SGPT 60 U/L (7-56); AST/SGOT 21 U/L (15-59); BILIRUBIN,TOTAL 0.6 mg/dL (0.2-1.3); BLOOD UREA NITROGEN 15 mg/dL (7-21); CALCIUM 7.7 mg/dL (8.4-10.5); CARBON DIOXIDE 26 mmol/L (21-33); CHLORIDE 99 mmol/L (95-110); GFR AFRICAN-AMERICAN > 60; GLUCOSE,RANDOM 81 mg/dL (70-110); POTASSIUM 3.9 mmol/L (3.6-5.0); SODIUM 131 mmol/L (132-148); TOTAL PROTEIN 5.2 g/dL (5.8-8.3)
[2016-11-09] MEDS: Pantoprazole 40 mg EC Tab PO SCH (08:29)
[2016-11-09] MEDS: Arformoterol 15 mcg/2 ml Inh Sol IH SCH ×2 (08:30→21:30)
[2016-11-09] MEDS: Budesonide 0.5 mg/2 ml Inhal Susp UD IH SCH ×2 (08:30→21:30)
--- NOTE | 2016-11-09 09:28 | CARD ---
APPROVED REPORT EXAM: Two-dimensional and M-mode echocardiogram with Doppler and color Doppler. Other Information Quality : AverageRhythm : INDICATION CHF, PE 2D DIMENSIONS Left Atrium (2D)2.1 (1.6-4.0cm)IVSd0.9 (0.7-1.1cm) LVDd4.4 (3.9-5.9cm)PWd1.1 (0.7-1.1cm) LVDs3.1 (2.5-4.0cm)FS (%) 30.8 % LVEF (%)58.0 (>50%) M-Mode DIMENSIONS Aortic Root3.80 (2.2-3.7cm)Aortic Cusp Exc.2.00 (1.5-2.0cm) Aortic Valve AoV Peak Lwkrowqi744.0cm/sAoV VTI21.8cmLVOT Peak Qyfyexvq98.7cm/s LVOT VTI19.10cm Mitral Valve MV E Xarurlni75.2cm/sMV A Jszecakv09.6cm/sE/A ratio0.9 TDI Lateral E' Peak V8.77cm/sMedial E' Peak V5.36cm/sE/Lateral E'7.1 E/Medial E'11.6 Tricuspid Valve TR Peak Cuxazwrb604kp/sTR Peak Gr.97goJhSIOW40sjOu LEFT VENTRICLE The left ventricle is normal size. There is normal left ventricular wall thickness. The left ventricular function is normal. The left ventricular ejection fraction is within the normal range. There is normal LV segmental wall motion. RIGHT VENTRICLE The right ventricle is normal size. ATRIA The left atrium size is normal. The right atrium size is normal. The interatrial septum is intact with no evidence for an atrial septal defect. AORTIC VALVE The aortic valve is normal in structure. MITRAL VALVE The mitral valve is normal in structure. Mitral regurgitation is trace. TRICUSPID VALVE The tricuspid valve is normal in structure. There is trace tricuspid regurgitation. PULMONIC VALVE The pulmonic valve is not well visualized. GREAT VESSELS The aortic root is normal in size. PERICARDIAL EFFUSION There is no pericardial effusion. <Conclusion> The left ventricle is normal size. There is normal left ventricular wall thickness. The left ventricular function is normal.
--- NOTE | 2016-11-09 10:06 | CT ---
PROCEDURE: CT angiogram of the chest dated 11/08/2016. HISTORY: Rule out PE. TECHNIQUE: Technique: CT angiogram of the chest performed in standard fashion following intravenous injection of approximately 96 cc of Omnipaque 350 contrast material employing CTA protocol. Additional 2 dimensional sagittal and coronal reformats provided. Correlation made with noncontrast CT scan chest dated 11/07/2016. . Radiation dose: Total exam DLP = 398.14 mGy-cm. This CT exam was performed using one or more of the following dose reduction techniques: Automated exposure control, adjustment of the mA and/or kV according to patient size, and/or use of iterative reconstruction technique. Findings: The visualized pulmonary trunk, right and left main, segmental and proximal subsegmental branches of the pulmonary arteries are well opacified with no filling defects seen to suggest pulmonary embolus. The pulmonary trunk measures approximately 3.3 cm. Rule out mild pulmonary arterial hypertension. Heart size is within range of normal. There is a small pericardial effusion. Ascending thoracic aorta measures approximately 3.0 cm and descending thoracic aorta measures approximately 2.38 cm. Three-vessel arch. Bulky adenopathy within mediastinum. There also appears to be small lymph nodes in the left hilar region. Evaluation for right hilar adenopathy is limited due to near complete opacification of the right subha thorax however alum bulky adenopathy in the right hilum is of present though seen to better advantage on prior exam. As mentioned above, there is a with large right-sided effusion likely partially loculated with significant atelectasis. There is some aeration of the right lower lobe and to a lesser degree of portion of the right upper lobe. Right upper lobe bronchus appears occluded. Underlying upper lobe mass not excluded. . Upper lobe significant central lobular emphysematous changes with left upper lobe predominance. There may also be some interstitial fibrosis as well. Mild left basilar atelectasis. Moderate dextroscoliosis. Mild multilevel degenerative spondylosis of the thoracic spine. . Questionable infiltrative lesion within C7 segment. Changes of gynecomastia are present bilaterally. Impression: No evidence of pulmonary embolus. Findings suggest mild underlying pulmonary hypertension. Small pericardial effusion. Significant bulky mediastinal and right hilar and to a lesser degree left hilar adenopathy. There is occlusion of the right upper lobe bronchus with large effusion likely partially loculated with atelectasis. There is some aeration of the right lower and to a lesser degree right upper lobes. Underlying right-sided hilar and upper lobe/apical mass suspected Significant centrilobular emphysematous changes seen in the left lung (upper lobe predominance). . . Questionable infiltrative lesion within the C7 vertebral body segment. .
[2016-11-09] MEDS: Enoxaparin 80 mg Syringe SC SCH ×2 (10:18→22:10)
[2016-11-09] MEDS: Non Formulary Medication (Thiamine Mononitrate [Vitamin B-1] 100 MG) PO SCH (10:19)
[2016-11-09 11:12] LABS: INR 1.03 (0.93-1.08); PARTIAL THROMBOPLASTIN TIME 29.6 Seconds (23.7-30.8)
--- NOTE | 2016-11-09 11:15 | CP.PCM.PN ---
<VinodLatha - Last Filed: 11/10/16 07:02> Subjective - Date & Time of Evaluation Date of Evaluation: 11/09/16 Time of Evaluation: 08:50 - Subjective Subjective: Pt seen and evaluated at the bedside. Pt reports improved breathing, eating and walking. Denies N/V. Afebrile overnight. Objective - Vital Signs/Intake and Output Vital Signs (last 24 hours): Temp Pulse Resp BP Pulse Ox 98.4 F 74 20 119/87 98 11/09/16 05:38 11/09/16 05:38 11/09/16 05:38 11/09/16 05:38 11/09/16 05:38 Intake and Output: 11/09/16 11/09/16 06:59 18:59 Intake Total 800 Output Total 1050 Balance -250 - Medications Medications: Current Medications Arformoterol Tartrate (Brovana) 15 mcg IH [id number] [facility] Last Admin: 11/09/16 08:30 Dose: 15 mcg Budesonide (Pulmicort Respules) 0.5 mg IH [id number] [facility] Last Admin: 11/09/16 08:30 Dose: 0.5 mg Dexamethasone (Decadron) 4 mg PO DAILY [facility] Last Admin: 11/09/16 10:17 Dose: 4 mg Doxycycline Hyclate (Doryx) 100 mg PO Q12 [facility]ANCO PRN Reason: Protocol Last Admin: 11/09/16 10:17 Dose: 100 mg Enoxaparin Sodium (Lovenox) 70 mg SC Q12 [facility]ANCO PRN Reason: Protocol Last Admin: 11/09/16 10:18 Dose: 70 mg Folic Acid (Folic Acid) 1 mg PO DAILY [facility] Last Admin: 11/09/16 10:17 Dose: 1 mg Vancomycin HCl (Vancomycin 1gm) 250 mls @ 167 mls/hr IVPB Q12H [facility]ANCO PRN Reason: Protocol Last Admin: 11/08/16 22:33 Dose: 167 mls/hr Piperacillin Sod/Tazobactam Sod (Zosyn 3.375 In Ns 100ml) 100 mls @ 200 mls/hr IVPB Q6 [facility]ANCO PRN Reason: Protocol Stop: 11/14/16 00:29 Last Admin: 11/09/16 05:12 Dose: 200 mls/hr Non-Formulary Medication (Thiamine Mononitrate [Vitamin B-1]) 100 mg PO DAILY [facility] Last Admin: 11/09/16 10:19 Dose: Not Given Pantoprazole Sodium (Protonix Ec Tab) 40 mg PO ACB [facility] Last Admin: 11/09/16 08:29 Dose: 40 mg - Labs Labs: 11/09/16 06:57 11/09/16 06:57 PT 11.1 Seconds (9.9-11.8) 11/09/16 10:59 INR 1.03 (0.93-1.08) 11/09/16 10:59 APTT 29.6 Seconds (23.7-30.8) 11/09/16 10:59 - Additional Findings Additional findings: - Constitutional Appears: No Acute Distress - Head Exam Head Exam: ATRAUMATIC, NORMOCEPHALIC - Eye Exam Eye Exam: Normal appearance, EOMI - ENT Exam ENT Exam: Mucous Membranes Moist - Respiratory Exam Respiratory Exam: NORMAL BREATHING PATTERN absent: Respiratory Distress - Cardiovascular Exam Cardiovascular Exam: REGULAR RHYTHM, +S1, +S2. absent: Gallop, Rubs, Systolic Murmur - GI/Abdominal Exam GI & Abdominal Exam: Normal Bowel Sounds, Soft, R sided abdominal Tenderness, large hard ecchymosis of R abdomen, approximately 10 cm by 3 cm. absent: Mass, Rebound, Rigid - Extremities Exam Extremities exam: Positive for: pedal edema (+3 pitting edema above knee up to mid thigh ). Negative for: tenderness - Neurological Exam Neurological exam: Alert, Oriented x3 - Psychiatric Exam Psychiatric exam: Normal Affect, Normal Mood - Skin Skin Exam: Dry, Intact, Normal Color, Warm Assessment and Plan - Assessment and Plan (Free Text) Plan: This is a 61Y M with PMH of metastatic lung cancer admitted for pleural effusion of R lung and possible PE. Plan: 1. PE - CT chest showed possible PE with pleural effusion on R - CTA negative for PE - Lovenox 70 BID SC - U/S of legs-isolated r tibial DVT -ECHO is unremarkable with EF 58% 2. Bilateral leg edema - U/S of legs-isolated r tibial DVT, repeat u/s in 5 days - Echo to r/o CHF 3. Hyponatremia - r/o SIADH - Urine Osm and Na wnl -fluid restriction 4. Metastatic cancer - continue Dexamethasone - Will check head CT for extent of metastasis - Consult oncologist Dr. Stock for further hx 5. Large ecchymosis of R abdomen -warm compresses ordered monitor h/h GI ppx: Protonix DVT ppx: Lovenox Case seen, reviewed and discussed with attending Marleny Brock PGY1 <Delmar Joyner - Last Filed: 11/10/16 12:10> Objective - Vital Signs/Intake and Output Vital Signs (last 24 hours): Temp Pulse Resp BP Pulse Ox 98.4 F 85 20 131/80 22 L 11/10/16 11:56 11/10/16 11:56 11/10/16 11:56 11/10/16 11:56 11/10/16 05:40 Intake and Output: 11/10/16 11/10/16 06:59 18:59 Intake Total 690 Output Total 775 Balance -85 - Medications Medications: Current Medications Acetaminophen (Tylenol 325mg Tab) 650 mg PO Q6H PRN PRN Reason: Pain, Mild (1-3) Arformoterol Tartrate (Brovana) 15 mcg IH [id number] [facility] Last Admin: 11/10/16 07:13 Dose: 15 mcg Budesonide (Pulmicort Respules) 0.5 mg IH [id number] [facility] Last Admin: 11/10/16 07:12 Dose: 0.5 mg Dexamethasone (Decadron) 2 mg PO DAILY [facility] Doxycycline Hyclate (Doryx) 100 mg PO Q12 FRANCO PRN Reason: Protocol Last Admin: 11/10/16 09:21 Dose: 100 mg Enoxaparin Sodium (Lovenox) 70 mg SC Q12 [facility]ANCO PRN Reason: Protocol Last Admin: 11/09/16 22:10 Dose: 70 mg Folic Acid (Folic Acid) 1 mg PO DAILY [facility] Last Admin: 11/10/16 09:21 Dose: 1 mg Vancomycin HCl (Vancomycin 1gm) 250 mls @ 167 mls/hr IVPB Q12H [facility] PRN Reason: Protocol Last Admin: 11/10/16 11:11 Dose: 167 mls/hr Piperacillin Sod/Tazobactam Sod (Zosyn 3.375 In Ns 100ml) 100 mls @ 200 mls/hr IVPB Q6 [facility]ANCO PRN Reason: Protocol Stop: 11/14/16 00:29 Last Admin: 11/10/16 11:11 Dose: 200 mls/hr Morphine Sulfate (Morphine) 2 mg IVP Q4H PRN PRN Reason: Pain, moderate (4-7) Pantoprazole Sodium (Protonix Ec Tab) 40 mg PO ACB [facility] Last Admin: 11/10/16 09:21 Dose: 40 mg Thiamine HCl (Vitamin B1 Tab) 100 mg PO DAILY [facility] Last Admin: 11/10/16 09:56 Dose: 100 mg - Labs Labs: 11/10/16 06:30 11/10/16 06:30 PT 11.1 Seconds (9.9-11.8) 11/09/16 10:59 INR 1.03 (0.93-1.08) 11/09/16 10:59 APTT 29.6 Seconds (23.7-30.8) 11/09/16 10:59 Attending/Attestation - Attestation I have personally seen and examined this patient.: Yes I have fully participated in the care of the patient.: Yes I have reviewed all pertinent clinical information, including history, physical exam and plan: Yes Notes (Text): 11/09/16 61 year old male with past medical history of metastatic lung cancer who presented with RUQ pain. Workup including sonogram / CT showed fatty liver without gallstones. CT scan also showed moderate right pleural effusion and lung mass. LE doppler was positive for isolated right tibial DVT. Pulmonary, ID and hematology evaluations were appreciated. Patient is on antibiotics. He is on lovenox for anticoagulation. He is on dexamethasone; taper as per hematology. Will request for IR evaluation in AM for evaluation for thoracocentesis and biopsy for tissue diagnosis. He has right abdominal wall ecchymosis from prior lovenox injection site; monitor closely for hematoma. Instructed nursing staff for compresses to site and use alternate site for future injections. Delmar Joyner MD Hospitalist.
--- NOTE | 2016-11-09 11:49 | CP.PCM.CON ---
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 The patient was supposed to have repeat tissue biopsy as prior brushing sample was insufficient to perform further tumor analysis needed for systemic therapy decision but was unable to f/ u with his pulmonary doctor in [place]. The patient notes to increasing shortness of breath and generalized body discomfort. Past medical history: COPD, lung cancer Past surgical history: Portacath placement Family history: Denies hematologic and oncologic problems Social history: Former tobacco abuse, for alcohol, denies illicit drug use. Allergies: NKA Review of systems: All remaining review of systems including HEENT, cardiovacular, respiratory, gastrointestinal, genitourinary, musculoskeletal, dermatologic, neurologic, and psychiatric are negative unless mentioned in the HPI. Past Patient History - Infectious Disease Hx of Infectious Diseases: None - Past Social History Smoking Status: Former Smoker - CARDIAC Hx Cardiac Disorders: No - PULMONARY Hx Asthma: Yes - NEUROLOGICAL Hx Neurological Disorder: No - HEENT Hx HEENT Problems: No - RENAL Hx Chronic Kidney Disease: No - ENDOCRINE/METABOLIC Hx Endocrine Disorders: No - HEMATOLOGICAL/ONCOLOGICAL Hx Blood Disorders: No - INTEGUMENTARY Hx Dermatological Problems: No - MUSCULOSKELETAL/RHEUMATOLOGICAL Hx Musculoskeletal Disorders: No - GASTROINTESTINAL Hx Gastrointestinal Disorders: No - GENITOURINARY/GYNECOLOGICAL Hx Genitourinary Disorders: No - PSYCHIATRIC Hx Psychophysiologic Disorder: No Hx Substance Use: No - SURGICAL HISTORY Other/Comment: CA brain, left port, B/L lower extremity edema. - ANESTHESIA Hx Anesthesia: No Hx Anesthesia Reactions: No Hx Malignant Hyperthermia: No Meds Allergies/Adverse Reactions: Allergies Allergy/AdvReac Type Severity Reaction Status Date / Time No Known Allergies Allergy Verified 11/07/16 17:56 - Medications Medications: Current Medications Arformoterol Tartrate (Brovana) 15 mcg IH [id number] [facility] Last Admin: 11/09/16 08:30 Dose: 15 mcg Budesonide (Pulmicort Respules) 0.5 mg IH [id number] [facility] Last Admin: 11/09/16 08:30 Dose: 0.5 mg Dexamethasone (Decadron) 4 mg PO DAILY [facility] Last Admin: 11/09/16 10:17 Dose: 4 mg Doxycycline Hyclate (Doryx) 100 mg PO Q12 [facility]ANCO PRN Reason: Protocol Last Admin: 11/09/16 10:17 Dose: 100 mg Enoxaparin Sodium (Lovenox) 70 mg SC Q12 [facility]ANCO PRN Reason: Protocol Last Admin: 11/09/16 10:18 Dose: 70 mg Folic Acid (Folic Acid) 1 mg PO DAILY [facility] Last Admin: 11/09/16 10:17 Dose: 1 mg Vancomycin HCl (Vancomycin 1gm) 250 mls @ 167 mls/hr IVPB Q12H [facility] PRN Reason: Protocol Last Admin: 11/08/16 22:33 Dose: 167 mls/hr Piperacillin Sod/Tazobactam Sod (Zosyn 3.375 In Ns 100ml) 100 mls @ 200 mls/hr IVPB Q6 [facility]ANCO PRN Reason: Protocol Stop: 11/14/16 00:29 Last Admin: 11/09/16 11:32 Dose: 200 mls/hr Non-Formulary Medication (Thiamine Mononitrate [Vitamin B-1]) 100 mg PO DAILY [facility] Last Admin: 11/09/16 10:19 Dose: Not Given Pantoprazole Sodium (Protonix Ec Tab) 40 mg PO ACB [facility] Last Admin: 11/09/16 08:29 Dose: 40 mg Physical Exam - Head Exam Head Exam: ATRAUMATIC - Eye Exam Eye Exam: Normal appearance - ENT Exam ENT Exam: Mucous Membranes Dry - Respiratory Exam Respiratory Exam: NORMAL BREATHING PATTERN - Cardiovascular Exam Cardiovascular Exam: +S1, +S2 - GI/Abdominal Exam GI & Abdominal Exam: Normal Bowel Sounds - Extremities Exam Extremities exam: Positive for: pedal edema - Neurological Exam Neurological exam: Oriented x3 - Psychiatric Exam Psychiatric exam: Anxious, Normal Affect - Skin Skin Exam: Warm Results - Vital Signs Recent Vital Signs: Last Vital Signs Temp 98.4 F 11/09/16 05:38 Pulse 74 11/09/16 05:38 Resp 20 11/09/16 05:38 BP 119/87 11/09/16 05:38 Pulse Ox 98 11/09/16 05:38 - Labs Result Diagrams: 11/09/16 06:57 11/09/16 06:57 Labs: Laboratory Results - last 24 hr 11/08/16 11/09/16 11/09/16 14:50 04:25 06:57 WBC 7.9 D RBC 3.99 Hgb 11.8 L Hct 35.2 L MCV 88.2 MCH 29.6 MCHC 33.5 RDW 19.6 H Plt Count 97 L MPV 9.9 Gran % 85.4 H Lymph % (Auto) 10.8 L [place] % (Auto) 3.6 Eos % (Auto) 0.1 L Baso % (Auto) 0.1 Gran # 6.70 H Lymph # 0.9 L [place] # 0.3 Eos # 0.0 Baso # 0.01 PT INR APTT Sodium 131 L Potassium 3.9 Chloride 99 Carbon Dioxide 26 Anion Gap 10 BUN 15 Creatinine 0.7 Est GFR ( Amer) > 60 Est GFR (Non-Af Amer) > 60 Random Glucose 81 Calcium 7.7 L Total Bilirubin 0.6 AST 21 ALT 60 H Alkaline Phosphatase 64 Total Protein 5.2 L Albumin 2.7 L Globulin 2.5 Albumin/Globulin Ratio 1.1 Procalcitonin 0.14 L Urine Color Yellow Urine Appearance Clear Urine pH 6.0 Ur Specific [place] <= 1.005 Urine Protein Negative Urine Glucose (UA) Negative Urine Ketones Negative Urine Blood Trace-intact H Urine Nitrate Negative Urine Bilirubin Negative Urine Urobilinogen 0.2 Ur Leukocyte Esterase Negative Urine RBC 0 - 2 Urine WBC 0 - 2 Ur Epithelial Cells 0 - 2 Urine Osmolality 500 Ur Random Sodium 102 11/09/16 10:59 WBC RBC Hgb Hct MCV MCH MCHC RDW Plt Count MPV Gran % Lymph % (Auto) [place] % (Auto) Eos % (Auto) Baso % (Auto) Gran # Lymph # [place] # Eos # Baso # PT 11.1 INR 1.03 APTT 29.6 Sodium Potassium Chloride Carbon Dioxide Anion Gap BUN Creatinine Est GFR ( Amer) Est GFR (Non-Af Amer) Random Glucose Calcium Total Bilirubin AST ALT Alkaline Phosphatase Total Protein Albumin Globulin Albumin/Globulin Ratio Procalcitonin Urine Color Urine Appearance Urine pH Ur Specific [place] Urine Protein Urine Glucose (UA) Urine Ketones Urine Blood Urine Nitrate Urine Bilirubin Urine Urobilinogen Ur Leukocyte Esterase Urine RBC Urine WBC Ur Epithelial Cells Urine Osmolality Ur Random Sodium Assessment & Plan (1) Pulmonary embolism Assessment and Plan: with DVT provoked from malignancy agree with therapeutic anticoagulation Status: Acute (2) Lung cancer Assessment and Plan: stage IV diffuse lymphadenopathy, liver, adrenal lesion, likely malignant pleural effusion brain mets s/p whole brain radiotherapy will need core tissue biopsy for additional cancer analysis for optimal treatment selection (PDL1, EGFR, ALK testing); pulmonary and IR f/u outpatient chemotherapy +/- radiation and bronchial stenting for palliation Status: Acute (3) Thrombocytopenia Assessment and Plan: improving Status: Acute (4) Anemia Assessment and Plan: chronic disease Thank you for this interesting consult. Status: Acute
[2016-11-09] MEDS: Vancomycin 1gm in NS 250ml 250 ML IVPB SCH ×2 (12:15→22:15)
--- NOTE | 2016-11-09 14:57 | CP.PCM.PN ---
Subjective - Date & Time of Evaluation Date of Evaluation: 11/09/16 Time of Evaluation: 13:00 - Subjective Subjective: Infectious Disease Follow Up: November 09, 2016 61 yo male with history of metastatic lung cancer with three week history of abdominal pain that has progressively worsened. Last chemotherapy was two weeks ago. CT displays large mass in Right upper lobe bronchus with obstruction and possible PE with moderate pleural effusion. He also has increased leg swelling and SOB for the past two weeks as well. He is breathing easier today. Objective - Vital Signs/Intake and Output Vital Signs (last 24 hours): Temp Pulse Resp BP Pulse Ox 98.3 F 77 20 135/81 98 11/09/16 12:00 11/09/16 12:00 11/09/16 12:00 11/09/16 12:00 11/09/16 05:38 Intake and Output: 11/09/16 11/09/16 06:59 18:59 Intake Total 800 0 Output Total 1050 0 Balance -250 0 - Medications Medications: Current Medications Arformoterol Tartrate (Brovana) 15 mcg IH [id number] [facility] Last Admin: 11/09/16 08:30 Dose: 15 mcg Budesonide (Pulmicort Respules) 0.5 mg IH [id number] [facility] Last Admin: 11/09/16 08:30 Dose: 0.5 mg Dexamethasone (Decadron) 4 mg PO DAILY [facility] Last Admin: 11/09/16 10:17 Dose: 4 mg Doxycycline Hyclate (Doryx) 100 mg PO Q12 [facility]ANCO PRN Reason: Protocol Last Admin: 11/09/16 10:17 Dose: 100 mg Enoxaparin Sodium (Lovenox) 70 mg SC Q12 [facility]ANCO PRN Reason: Protocol Last Admin: 11/09/16 10:18 Dose: 70 mg Folic Acid (Folic Acid) 1 mg PO DAILY [facility] Last Admin: 11/09/16 10:17 Dose: 1 mg Vancomycin HCl (Vancomycin 1gm) 250 mls @ 167 mls/hr IVPB Q12H [facility] PRN Reason: Protocol Last Admin: 11/09/16 12:15 Dose: 167 mls/hr Piperacillin Sod/Tazobactam Sod (Zosyn 3.375 In Ns 100ml) 100 mls @ 200 mls/hr IVPB Q6 [facility]ANCO PRN Reason: Protocol Stop: 11/14/16 00:29 Last Admin: 11/09/16 11:32 Dose: 200 mls/hr Non-Formulary Medication (Thiamine Mononitrate [Vitamin B-1]) 100 mg PO DAILY [facility] Last Admin: 11/09/16 10:19 Dose: Not Given Pantoprazole Sodium (Protonix Ec Tab) 40 mg PO ACB [facility] Last Admin: 11/09/16 08:29 Dose: 40 mg - Labs Labs: 11/09/16 06:57 11/09/16 06:57 PT 11.1 Seconds (9.9-11.8) 11/09/16 10:59 INR 1.03 (0.93-1.08) 11/09/16 10:59 APTT 29.6 Seconds (23.7-30.8) 11/09/16 10:59 - Constitutional Appears: Non-toxic, No Acute Distress, Chronically Ill - Head Exam Head Exam: ATRAUMATIC, NORMOCEPHALIC - Eye Exam Eye Exam: EOMI, PERRL Pupil Exam: NORMAL ACCOMODATION, PERRL - ENT Exam ENT Exam: Mucous Membranes Moist, Normal External Ear Exam, TM's Normal Bilaterally - Neck Exam Neck Exam: Full ROM, Normal Inspection - Respiratory Exam Respiratory Exam: Decreased Breath Sounds, Rales. absent: Rhonchi, Wheezes Additional comments: Right lower lung rales with no air movement in right upper lobe. - Cardiovascular Exam Cardiovascular Exam: REGULAR RHYTHM, RRR, +S1, +S2 - GI/Abdominal Exam GI & Abdominal Exam: Soft, Normal Bowel Sounds. absent: Distended, Tenderness - Extremities Exam Extremities Exam: Full ROM, Normal Inspection - Neurological Exam Neurological Exam: Alert, Awake, CN II-XII Intact, Oriented x3 - Psychiatric Exam Psychiatric exam: Normal Affect, Normal Mood - Skin Skin Exam: Intact, Normal Color Assessment and Plan - Assessment and Plan (Free Text) Assessment: 61 yo male with metastatic lung cancer to the brain with worsening abdominal pain, lower leg edema, and SOB. Only on dexamethasone on admission. Unable to rule out pneumonia. On Vancomycin, Doxycycline, and Zosyn for antibiotic coverage for now. Will maintain this regimen for the time being. Supportive care. CT scan of chest suggested lesion in C7. Effusion possibly loculated in right lower lobe. Thank you for allowing me to participate in the care of this patient, we will follow with you.
--- NOTE | 2016-11-09 17:21 | PN ---
DATE: 11/09/2016 REFERRING PHYSICIAN: SUBJECTIVE: He is sitting on the side of the bed, having lunch, feels much better compared to yester day. Breathing is improved. No nausea, no vomiting, tolerating . No abdominal pain, no dysuri a. Still having significant leg swelling. OBJECTIVE: GENERAL: No acute distress. VITAL SIGNS: Temperature is 98, heart rate is 96, respiratory rate is 20, blood pressure 135/81, pul se ox 98% on nasal cannula. HEENT: Moist mucous membranes. Crowded airway. Mallampati score is 4. NECK: Supple. No JVD. LUNGS: Has decreased breath sounds on the right lung, a few scattered rhonchi and wheezing. HEART: S1 and S2. ABDOMEN: Soft, nontender. No organomegaly. EXTREMITIES: Does have significant edema. NEUROLOGIC: Awake, alert, follows simple commands. MEDICATIONS: He is on Brovana 15 mcg inhaled twice a day, Decadron 4 mg daily, doxycycline 100 mg tw ice a day, folic acid 1 mg daily, Lovenox 70 mg subQ q. 12 hours, Protonix 40 mg daily, Pulmicort inh aled twice a day, vitamin B 100 mg daily, vancomycin 1 g q. 12 hours, Zosyn 3.375 g IV q. 6 hours. LABORATORY DATA: Shows hemoglobin 11.8, hematocrit 35.2, WBC 7.9, platelet count is 97. INR 1.03, P TT is 30. Sodium 131, potassium 3.9, chloride 99, bicarbonate 26, BUN 15, creatinine 0.7, glucose is 81, calcium is 7.7, AST 21, ALT 60, alkaline phosphatase is 64, albumin is 2.7. Procalcitonin is 0. 14. He had echocardiogram done, which shows good LV function, right ventricular pressures are not av ailable. IMPRESSION AND PLAN: Metastatic seems like a lung cancer, mets to the brain. There has been no radi ation therapy. He was admitted with nausea, vomiting, shortness of breath, found to have pulmonary e mbolism, started on anticoagulation. Also, bronchial obstruction and deep venous thrombosis, hyperna tremia. According to patient, he was never biopsied and his lung cancer is not biopsy proven. We wi ll check with Dr. Stock, his oncologist. If that is true, before converting to Coumadin, we ca n hold overnight Lovenox the next 2-3 days, and then try to get a thoracentesis and see if the fluid is malignant, but not continue Lovenox. Continue bronchodilator. Keep head at 45 degrees. Has leg swelling, probably related to abdominal ascites and disease. Echocardiogram has no mention of right heart pressure or if there is any right heart failure. Continue with supplemental oxygen and broncho dilators. Ashia Fletcher MD cc: [id number] TT: 11/09/2016 17:20:01 Confirmation # [id number] Dictation # [id number] dn
[2016-11-10] MEDS: Piperacillin/Tazobact 3.375 gm 100 ML IVPB SCH ×4 (00:34→17:18)
[2016-11-10 06:52] LABS: ADD MANUAL DIFF? NO
[2016-11-10 07:05] LABS: BASO # 0.01 K/mm3 (0.0-2.0); BASO % 0.1 % (0.0-3.0); EOS % 0.1 % (1.5-5.0); GRAN # 7.37 (1.4-6.5); GRAN % 83.6 % (50.0-68.0); HEMATOCRIT 34.9 % (42.0-52.0); LYMPH % 11.8 % (22.0-35.0); MEAN CELL VOLUME 88.6 fL (80.0-105.0); MEAN CORPUSCULAR HEMOGLOBIN 29.2 pg (25.0-35.0); MEAN PLATELET VOLUME 9.3 fl (7.0-11.0); MONO # 0.4 (0.1-0.6); MONO % 4.4 % (1.0-6.0); PLATELET COUNT 111 10^3/uL (120.0-450.0); RED CELL DISTRIBUTION WIDTH 19.6 % (11.5-14.5); WHITE BLOOD COUNT 8.8 10^3/ul (4.5-11.0)
[2016-11-10] MEDS: Budesonide 0.5 mg/2 ml Inhal Susp UD IH SCH ×2 (07:12→20:17)
[2016-11-10] MEDS: Arformoterol 15 mcg/2 ml Inh Sol IH SCH ×2 (07:13→20:16)
[2016-11-10 07:46] LABS: ALKALINE PHOSPHATASE 63 U/L (38-133); ALT/SGPT 55 U/L (7-56); AST/SGOT 29 U/L (15-59); BILIRUBIN,TOTAL 0.6 mg/dL (0.2-1.3); BLOOD UREA NITROGEN 13 mg/dL (7-21); CARBON DIOXIDE 28 mmol/L (21-33); CHLORIDE 100 mmol/L (98-107); GFR AFRICAN-AMERICAN > 60; GLUCOSE,RANDOM 83 mg/dL (70-110); SODIUM 133 mmol/L (132-148); TOTAL PROTEIN 5.4 g/dL (5.8-8.3)
[2016-11-10] MEDS: Pantoprazole 40 mg EC Tab PO SCH (09:21)
[2016-11-10] MEDS ORDERED: Morphine 2 mg/ml ISec IVP PRN (10:05)
[2016-11-10] MEDS: Vancomycin 1gm in NS 250ml 250 ML IVPB SCH ×2 (11:11→23:17)
--- NOTE | 2016-11-10 16:38 | CP.PCM.PN ---
<Lionel Sanchez - Last Filed: 11/10/16 16:34> Subjective - Date & Time of Evaluation Date of Evaluation: 11/10/16 Time of Evaluation: 09:00 - Subjective Subjective: Dr. Sanchez PGY 1 Hospitalist note Patient seen and evaluated at bedside. He reports the swelling in his legs has increased but denies any pain. He reports continued pain in the area he has a hematoma but says it is improving. He denies any nausea, vomiting, SOB, chest pain, or diaphoresis. Objective - Vital Signs/Intake and Output Vital Signs (last 24 hours): Temp Pulse Resp BP Pulse Ox 98.4 F 85 20 131/80 22 L 11/10/16 11:56 11/10/16 11:56 11/10/16 11:56 11/10/16 11:56 11/10/16 05:40 Intake and Output: 11/10/16 11/10/16 06:59 18:59 Intake Total 690 600 Output Total 775 Balance -85 600 - Medications Medications: Current Medications Acetaminophen (Tylenol 325mg Tab) 650 mg PO Q6H PRN PRN Reason: Pain, Mild (1-3) Arformoterol Tartrate (Brovana) 15 mcg IH [id number] [facility] Last Admin: 11/10/16 07:13 Dose: 15 mcg Budesonide (Pulmicort Respules) 0.5 mg IH [id number] [facility] Last Admin: 11/10/16 07:12 Dose: 0.5 mg Dexamethasone (Decadron) 2 mg PO DAILY [facility] Doxycycline Hyclate (Doryx) 100 mg PO Q12 [facility] PRN Reason: Protocol Last Admin: 11/10/16 09:21 Dose: 100 mg Enoxaparin Sodium (Lovenox) 70 mg SC Q12 [facility] PRN Reason: Protocol Last Admin: 11/09/16 22:10 Dose: 70 mg Folic Acid (Folic Acid) 1 mg PO DAILY [facility] Last Admin: 11/10/16 09:21 Dose: 1 mg Vancomycin HCl (Vancomycin 1gm) 250 mls @ 167 mls/hr IVPB Q12H [facility] PRN Reason: Protocol Last Admin: 11/10/16 11:11 Dose: 167 mls/hr Piperacillin Sod/Tazobactam Sod (Zosyn 3.375 In Ns 100ml) 100 mls @ 200 mls/hr IVPB Q6 [facility] PRN Reason: Protocol Stop: 11/14/16 00:29 Last Admin: 11/10/16 11:11 Dose: 200 mls/hr Morphine Sulfate (Morphine) 2 mg IVP Q4H PRN PRN Reason: Pain, moderate (4-7) Pantoprazole Sodium (Protonix Ec Tab) 40 mg PO ACB [facility] Last Admin: 11/10/16 09:21 Dose: 40 mg Thiamine HCl (Vitamin B1 Tab) 100 mg PO DAILY [facility] Last Admin: 11/10/16 09:56 Dose: 100 mg - Labs Labs: 11/10/16 06:30 11/10/16 06:30 PT 11.1 Seconds (9.9-11.8) 11/09/16 10:59 INR 1.03 (0.93-1.08) 11/09/16 10:59 APTT 29.6 Seconds (23.7-30.8) 11/09/16 10:59 - Constitutional Appears: Non-toxic, No Acute Distress - Head Exam Head Exam: ATRAUMATIC, NORMOCEPHALIC - Eye Exam Eye Exam: EOMI, Normal appearance, PERRL Pupil Exam: NORMAL ACCOMODATION, PERRL - ENT Exam ENT Exam: Mucous Membranes Moist, Normal Oropharynx - Respiratory Exam Respiratory Exam: Decreased Breath Sounds (RUL and RLL), NORMAL BREATHING PATTERN. absent: Rales, Rhonchi, Wheezes - Cardiovascular Exam Cardiovascular Exam: REGULAR RHYTHM, +S1, +S2. absent: Gallop, Rubs - GI/Abdominal Exam GI & Abdominal Exam: Soft, Tenderness (on hematoma), Normal Bowel Sounds Additional comments: hematoma along right lower quadrant - Extremities Exam Extremities Exam: Normal Capillary Refill, Pedal Edema (+2 bilaterally). absent : Tenderness - Back Exam Back Exam: NORMAL INSPECTION. absent: rash noted, tenderness - Neurological Exam Neurological Exam: Alert, Awake, CN II-XII Intact, Oriented x3 - Psychiatric Exam Psychiatric exam: Normal Affect, Normal Mood - Skin Skin Exam: Dry, Intact, Warm Assessment and Plan - Assessment and Plan (Free Text) Assessment: This is a 61Y M with PMH of metastatic lung cancer admitted for pleural effusion of R lung and possible PE. Bilateral lower extremity edema and abdominal hematoma. Plan: 1. Pleural effusion * Infection vs malignancy vs CHF * ID consulted help appreciated * Pulmonology consulted, help appreciated * IR consulted, help appreciated * CT chest showed possible PE with pleural effusion on R [see full report] * F/U CTA negative for PE [see full report] * Started on Lovenox 70 BID SC, held for thoracentesis * U/S of legs-isolated r tibial DVT [see full report] * ECHO is unremarkable with EF 58% * Continue Vanc, Zosyn, and Doxycycline * Patient afebrile w/o leukocytosis * NPO aftermidnight for thoracentesis and mass biopsy tomorrow * Continue Brovana and pulmicort 2. Bilateral leg edema * U/S of legs-isolated r tibial DVT, repeat u/s in 5 days * Decadron dose decreased to 2mg PO daily * ECHO is unremarkable with EF 58% 3. Hyponatremia * Improved with IVF * r/o SIADH * Urine Osm and Na wnl 4. Metastatic cancer * Consult oncologist Dr. Stock for further hx * continue Dexamethasone * Head CT shows lesion in right cerebella hemisphere, low attenuation changes superiorly and anteromedially to verminal region [see full report] 5. Hematoma of R abdomen * warm compresses ordered * monitor h/h (stable) * Lovenox injections on other side of abdomen GI ppx: Protonix DVT ppx: Lovenox Case seen, reviewed and discussed with attending <Umberto LOPEZ,Ashia - Last Filed: 11/10/16 17:12> Objective - Vital Signs/Intake and Output Vital Signs (last 24 hours): Temp Pulse Resp BP Pulse Ox 98.4 F 85 20 131/80 22 L 11/10/16 11:56 11/10/16 11:56 11/10/16 11:56 11/10/16 11:56 11/10/16 05:40 Intake and Output: 11/10/16 11/10/16 06:59 18:59 Intake Total 690 600 Output Total 775 Balance -85 600 - Medications Medications: Current Medications Acetaminophen (Tylenol 325mg Tab) 650 mg PO Q6H PRN PRN Reason: Pain, Mild (1-3) Arformoterol Tartrate (Brovana) 15 mcg IH [id number] [facility] Last Admin: 11/10/16 07:13 Dose: 15 mcg Budesonide (Pulmicort Respules) 0.5 mg IH [id number] [facility] Last Admin: 11/10/16 07:12 Dose: 0.5 mg Dexamethasone (Decadron) 2 mg PO DAILY [facility] Doxycycline Hyclate (Doryx) 100 mg PO Q12 [facility] PRN Reason: Protocol Last Admin: 11/10/16 09:21 Dose: 100 mg Enoxaparin Sodium (Lovenox) 70 mg SC Q12 [facility] PRN Reason: Protocol Last Admin: 11/09/16 22:10 Dose: 70 mg Folic Acid (Folic Acid) 1 mg PO DAILY [facility] Last Admin: 11/10/16 09:21 Dose: 1 mg Vancomycin HCl (Vancomycin 1gm) 250 mls @ 167 mls/hr IVPB Q12H [facility] PRN Reason: Protocol Last Admin: 11/10/16 11:11 Dose: 167 mls/hr Piperacillin Sod/Tazobactam Sod (Zosyn 3.375 In Ns 100ml) 100 mls @ 200 mls/hr IVPB Q6 [facility] PRN Reason: Protocol Stop: 11/14/16 00:29 Last Admin: 11/10/16 11:11 Dose: 200 mls/hr Morphine Sulfate (Morphine) 2 mg IVP Q4H PRN PRN Reason: Pain, moderate (4-7) Pantoprazole Sodium (Protonix Ec Tab) 40 mg PO ACB [facility] Last Admin: 11/10/16 09:21 Dose: 40 mg Thiamine HCl (Vitamin B1 Tab) 100 mg PO DAILY [facility] Last Admin: 11/10/16 09:56 Dose: 100 mg - Labs Labs: 11/10/16 06:30 11/10/16 06:30 PT 11.1 Seconds (9.9-11.8) 11/09/16 10:59 INR 1.03 (0.93-1.08) 11/09/16 10:59 APTT 29.6 Seconds (23.7-30.8) 11/09/16 10:59 Attending/Attestation - Attestation I have personally seen and examined this patient.: Yes I have fully participated in the care of the patient.: Yes I have reviewed all pertinent clinical information, including history, physical exam and plan: Yes Notes (Text): Patient was seen and examined with medical aides teacher .Agreed with resident assessment and plan. 61 year old male with past medical history of metastatic lung cancer who presented with RUQ pain. Workup including sonogram / CT showed fatty liver without gallstones. CT scan also showed moderate right pleural effusion and lung mass. LE doppler was positive for isolated right tibial DVT.Patient case was discussed with PCP and with IR , plan for tissue biopsy of lung mass and thoracentesis tomorrow by IR. Management plan was discussed in detail with patient and family who is at bed side. Education was provided.
--- NOTE | 2016-11-10 17:54 | CP.PCM.PN ---
Subjective - Date & Time of Evaluation Date of Evaluation: 11/10/16 Time of Evaluation: 17:00 - Subjective Subjective: Infectious Disease Follow Up: November 10, 2016 61 yo male with history of metastatic lung cancer with three week history of abdominal pain that has progressively worsened. Last chemotherapy was two weeks ago. CT displays large mass in Right upper lobe bronchus with obstruction and possible PE with moderate pleural effusion. He also has increased leg swelling and SOB for the past two weeks as well. He is breathing easier today. He is awaiting biopsy of the lung mass and thoracentesis by IR tomorrow. Objective - Vital Signs/Intake and Output Vital Signs (last 24 hours): Temp Pulse Resp BP Pulse Ox 98.4 F 85 20 131/80 22 L 11/10/16 11:56 11/10/16 11:56 11/10/16 11:56 11/10/16 11:56 11/10/16 05:40 Intake and Output: 11/10/16 11/10/16 06:59 18:59 Intake Total 690 600 Output Total 775 Balance -85 600 - Medications Medications: Current Medications Acetaminophen (Tylenol 325mg Tab) 650 mg PO Q6H PRN PRN Reason: Pain, Mild (1-3) Arformoterol Tartrate (Brovana) 15 mcg IH [id number] [facility] Last Admin: 11/10/16 07:13 Dose: 15 mcg Budesonide (Pulmicort Respules) 0.5 mg IH [id number] [facility] Last Admin: 11/10/16 07:12 Dose: 0.5 mg Dexamethasone (Decadron) 2 mg PO DAILY [facility] Doxycycline Hyclate (Doryx) 100 mg PO Q12 [facility] PRN Reason: Protocol Last Admin: 11/10/16 09:21 Dose: 100 mg Enoxaparin Sodium (Lovenox) 70 mg SC Q12 [facility] PRN Reason: Protocol Last Admin: 11/09/16 22:10 Dose: 70 mg Folic Acid (Folic Acid) 1 mg PO DAILY [facility] Last Admin: 11/10/16 09:21 Dose: 1 mg Vancomycin HCl (Vancomycin 1gm) 250 mls @ 167 mls/hr IVPB Q12H [facility] PRN Reason: Protocol Last Admin: 11/10/16 11:11 Dose: 167 mls/hr Piperacillin Sod/Tazobactam Sod (Zosyn 3.375 In Ns 100ml) 100 mls @ 200 mls/hr IVPB Q6 [facility] PRN Reason: Protocol Stop: 11/14/16 00:29 Last Admin: 11/10/16 17:18 Dose: 200 mls/hr Morphine Sulfate (Morphine) 2 mg IVP Q4H PRN PRN Reason: Pain, moderate (4-7) Pantoprazole Sodium (Protonix Ec Tab) 40 mg PO ACB [facility] Last Admin: 11/10/16 09:21 Dose: 40 mg Thiamine HCl (Vitamin B1 Tab) 100 mg PO DAILY [facility] Last Admin: 11/10/16 09:56 Dose: 100 mg - Labs Labs: 11/10/16 06:30 11/10/16 06:30 PT 11.1 Seconds (9.9-11.8) 11/09/16 10:59 INR 1.03 (0.93-1.08) 11/09/16 10:59 APTT 29.6 Seconds (23.7-30.8) 11/09/16 10:59 - Constitutional Appears: Non-toxic, No Acute Distress - Head Exam Head Exam: ATRAUMATIC, NORMOCEPHALIC - Eye Exam Eye Exam: EOMI, PERRL Pupil Exam: NORMAL ACCOMODATION, PERRL - ENT Exam ENT Exam: Mucous Membranes Moist, Normal External Ear Exam, TM's Normal Bilaterally - Neck Exam Neck Exam: Full ROM, Normal Inspection - Respiratory Exam Respiratory Exam: Decreased Breath Sounds. absent: Rhonchi, Wheezes Additional comments: Right lower lung rales with no air movement in right upper lobe. - Cardiovascular Exam Cardiovascular Exam: REGULAR RHYTHM, RRR, +S1, +S2 - GI/Abdominal Exam GI & Abdominal Exam: Soft, Normal Bowel Sounds. absent: Distended, Tenderness Additional comments: RLQ Hematoma. - Extremities Exam Extremities Exam: Full ROM, Normal Inspection - Neurological Exam Neurological Exam: Alert, Awake, CN II-XII Intact, Oriented x3 - Psychiatric Exam Psychiatric exam: Normal Affect, Normal Mood - Skin Skin Exam: Intact, Normal Color Assessment and Plan - Assessment and Plan (Free Text) Assessment: 61 yo male with metastatic lung cancer to the brain with worsening abdominal pain, lower leg edema, and SOB. Only on dexamethasone on admission. Unable to rule out pneumonia. On Vancomycin, Doxycycline, and Zosyn for antibiotic coverage for now. Will maintain this regimen for the time being. Supportive care. CT scan of chest suggested lesion in C7. Effusion possibly loculated in right lower lobe. For biopsy and thoracentesis tomorrow. Thank you for allowing me to participate in the care of this patient, we will follow with you.
--- NOTE | 2016-11-10 19:47 | PN ---
DATE: 11/10/2016 REFERRING PHYSICIAN: Dr. Ramirez. SUBJECTIVE: He is sitting side of the bed, having lunch. The night was unremarkable. He feels bett er, decreased cough, decreased shortness of breath. No nausea, no vomiting, no diarrhea. He does covarrubias ve leg swelling. OBJECTIVE: GENERAL: In no acute distress. VITAL SIGNS: Temperature is 98, heart rate is 94, respiratory rate is 20, blood pressure 131/80, pul se ox 96% on nasal cannula. HEENT: Moist mucous membranes. Crowded airway. NECK: Supple, no JVD. LUNGS: One-third up on the right-sided there is breath sounds. HEART: S1, S2. ABDOMEN: Soft, nontender. No organomegaly. EXTREMITIES: Does have edema. NEUROLOGIC: Awake, alert, follows simple commands. MEDICATIONS: He is on Brovana 15 mcg inhaled twice a day, Decadron 2 mg daily, doxycycline 100 mg tw ice a day, folic acid 1 mg daily, Lovenox 70 mg subQ twice a day, morphine 2 mg IV q.4 hours p.r.n., Protonix 40 mg daily, Pulmicort inhaled twice a day, Tylenol on a p.r.n. basis, vancomycin 1 gram q.1 2 hours, vitamin B 100 mg daily, Zosyn is 3.375 grams q.6 hours. LABORATORY DATA: Shows hemoglobin 11.5, hematocrit 34.9, WBC 8.8, platelet count is 111. Sodium 133 , potassium 4.0, chloride 100, bicarbonate 28, BUN 13, creatinine 0.6, glucose is 83, calcium 8.0, T 29, ALT 55, alkaline phosphatase is 63, albumin is 2.7. Procalcitonin yesterday was 0.14. Microbi ology: Urine culture, there is no growth. IMPRESSION AND PLAN: It seems like a metastatic lung cancer with bronchial lesion, brain metastases, status post radiation therapy, now admitted with shortness of breath, found to have a pulmonary embo lism and also a large right pleural effusion. There is may be a component of chronic obstructive sebastian g disease. Case discussed with Dr. Joyner yesterday in detail. It is okay to Lovenox the night before the procedure and will restart Lovenox after the procedure as dictated by Dr. Henry Hayden. F or now, continue bronchodilator, keep head elevated at 45 degrees, supplement oxygen. Thank you and will follow with you. Ashia Fletcher MD cc: [phone] TT: 11/10/2016 19:46:54 Confirmation # [id number] Dictation # [id number]
[2016-11-11] MEDS: Piperacillin/Tazobact 3.375 gm 100 ML IVPB SCH ×4 (01:04→17:12)
[2016-11-11 06:46] LABS: ADD MANUAL DIFF? NO
[2016-11-11 07:07] LABS: INR 0.98 (0.93-1.08)
[2016-11-11 07:16] LABS: BASO # 0.01 K/mm3 (0.0-2.0); BASO % 0.1 % (0.0-3.0); EOS % 0.3 % (1.5-5.0); GRAN # 7.39 (1.4-6.5); GRAN % 82.5 % (50.0-68.0); HEMATOCRIT 35.8 % (42.0-52.0); LYMPH # 1.2 (1.2-3.4); LYMPH % 12.8 % (22.0-35.0); MEAN CELL VOLUME 88.8 fL (80.0-105.0); MEAN CORPUSCULAR HEMOGLOBIN 29.8 pg (25.0-35.0); MEAN CORPUSCULAR HGB CONC 33.5 g/dl (31.0-37.0); MEAN PLATELET VOLUME 9.4 fl (7.0-11.0); MONO # 0.4 (0.1-0.6); MONO % 4.3 % (1.0-6.0); PLATELET COUNT 128 10^3/uL (120.0-450.0); RED CELL DISTRIBUTION WIDTH 19.8 % (11.5-14.5)
[2016-11-11 07:20] LABS: ALKALINE PHOSPHATASE 66 U/L (38-133); ALT/SGPT 57 U/L (7-56); AST/SGOT 37 U/L (15-59); BILIRUBIN,TOTAL 0.7 mg/dL (0.2-1.3); BLOOD UREA NITROGEN 14 mg/dL (7-21); CALCIUM 8.4 mg/dL (8.4-10.5); CARBON DIOXIDE 27 mmol/L (21-33); CHLORIDE 102 mmol/L (95-110); GFR AFRICAN-AMERICAN > 60; GLUCOSE,RANDOM 76 mg/dL (70-110); SODIUM 135 mmol/L (132-148); TOTAL PROTEIN 5.5 g/dL (5.8-8.3)
[2016-11-11] MEDS: Arformoterol 15 mcg/2 ml Inh Sol IH SCH ×2 (07:36→19:40)
[2016-11-11] MEDS: Budesonide 0.5 mg/2 ml Inhal Susp UD IH SCH ×2 (07:36→19:40)
[2016-11-11] MEDS: Pantoprazole 40 mg EC Tab PO SCH ×2 (07:42→08:06)
[2016-11-11] MEDS: Vancomycin 1gm in NS 250ml 250 ML IVPB SCH ×2 (10:49→21:20)
[2016-11-11] MEDS: Enoxaparin 80 mg Syringe SC SCH (11:41)
[2016-11-11] MEDS ORDERED: Midazolam 2 MG/2 ML VIAL ONE (14:21)
--- NOTE | 2016-11-11 15:29 | CP.PCM.PN ---
<Lionel Sanchez - Last Filed: 11/11/16 15:26> Subjective - Date & Time of Evaluation Date of Evaluation: 11/11/16 Time of Evaluation: 07:35 - Subjective Subjective: Dr. Sancehz PGY1 Hospitalist note Patient seen and evaluated at bedside. He states his abdominal pain is improving ; however, he leg swelling has not improved. He is awaiting his thoracentesis and biopsy today. He says his breathing is improved and denies any chest pain, cough, hemoptysis, palpitations, fever, or chills. No adverse events overnight reported by nursing. Objective - Vital Signs/Intake and Output Vital Signs (last 24 hours): Temp Pulse Resp BP Pulse Ox 98.5 F 84 18 135/96 H 95 11/11/16 11:43 11/11/16 14:00 11/11/16 11:43 11/11/16 11:43 11/11/16 08:33 Intake and Output: 11/11/16 11/11/16 06:59 18:59 Intake Total 1010 Output Total 450 Balance 560 - Medications Medications: Current Medications Acetaminophen (Tylenol 325mg Tab) 650 mg PO Q6H PRN PRN Reason: Pain, Mild (1-3) Arformoterol Tartrate (Brovana) 15 mcg IH [id number] [facility] Last Admin: 11/11/16 07:36 Dose: 15 mcg Budesonide (Pulmicort Respules) 0.5 mg IH [id number] [facility] Last Admin: 11/11/16 07:36 Dose: 0.5 mg Dexamethasone (Decadron) 2 mg PO DAILY [facility] Last Admin: 11/11/16 10:51 Dose: 2 mg Doxycycline Hyclate (Doryx) 100 mg PO Q12 [facility] PRN Reason: Protocol Last Admin: 11/11/16 10:48 Dose: 100 mg Enoxaparin Sodium (Lovenox) 70 mg SC Q12 [facility] PRN Reason: Protocol Last Admin: 11/11/16 11:41 Dose: Not Given Folic Acid (Folic Acid) 1 mg PO DAILY [facility] Last Admin: 11/11/16 10:48 Dose: 1 mg Vancomycin HCl (Vancomycin 1gm) 250 mls @ 167 mls/hr IVPB Q12H [facility] PRN Reason: Protocol Last Admin: 11/11/16 10:49 Dose: 167 mls/hr Piperacillin Sod/Tazobactam Sod (Zosyn 3.375 In Ns 100ml) 100 mls @ 200 mls/hr IVPB Q6 [facility] PRN Reason: Protocol Stop: 11/14/16 00:29 Last Admin: 11/11/16 13:01 Dose: 100 mls/hr Sodium Chloride (Sodium Chloride 0.45%) 1,000 mls @ 80 mls/hr IV .[id number] [facility] Stop: 11/12/16 08:00 Morphine Sulfate (Morphine) 2 mg IVP Q4H PRN PRN Reason: Pain, moderate (4-7) Pantoprazole Sodium (Protonix Ec Tab) 40 mg PO ACB [facility] Last Admin: 11/11/16 08:06 Dose: 40 mg Thiamine HCl (Vitamin B1 Tab) 100 mg PO DAILY [facility] Last Admin: 11/11/16 10:48 Dose: 100 mg - Labs Labs: 11/11/16 06:15 11/11/16 06:15 PT 10.6 Seconds (9.9-11.8) 11/11/16 06:15 INR 0.98 (0.93-1.08) 11/11/16 06:15 APTT 29.6 Seconds (23.7-30.8) 11/09/16 10:59 - Constitutional Appears: Non-toxic, No Acute Distress - Head Exam Head Exam: ATRAUMATIC, NORMOCEPHALIC - Eye Exam Eye Exam: EOMI, PERRL. absent: Normal appearance (cataract right eye) Pupil Exam: NORMAL ACCOMODATION, PERRL - ENT Exam ENT Exam: Mucous Membranes Moist. absent: Normal Oropharynx - Respiratory Exam Respiratory Exam: Decreased Breath Sounds (right side), NORMAL BREATHING PATTERN. absent: Rhonchi, Wheezes - Cardiovascular Exam Cardiovascular Exam: REGULAR RHYTHM, +S1, +S2. absent: Gallop, Rubs, Murmur - GI/Abdominal Exam GI & Abdominal Exam: Soft, Tenderness (right sided hematoma), Normal Bowel Sounds - Extremities Exam Extremities Exam: Pedal Edema. absent: Tenderness - Back Exam Back Exam: NORMAL INSPECTION. absent: rash noted, tenderness - Neurological Exam Neurological Exam: Alert, Awake, CN II-XII Intact, Oriented x3 - Psychiatric Exam Psychiatric exam: Normal Affect, Normal Mood - Skin Skin Exam: Dry, Normal Color, Warm Additional comments: hematoma right side (improving) Assessment and Plan - Assessment and Plan (Free Text) Assessment: This is a 61Y M with PMH of metastatic lung cancer admitted for pleural effusion of R lung and possible PE. Bilateral lower extremity edema and abdominal hematoma. Plan: 1. Pleural effusion * Infection vs malignancy vs CHF * ID consulted help appreciated * Pulmonology consulted, help appreciated * IR consulted, help appreciated * CT chest showed possible PE with pleural effusion on R [see full report] * F/U CTA negative for PE [see full report] * Started on Lovenox 70 BID SC, held for thoracentesis * U/S of legs-isolated r tibial DVT [see full report] * ECHO is unremarkable with EF 58% * Continue Vanc, Zosyn, and Doxycycline * Patient afebrile w/o leukocytosis * NPO aftermidnight * Awaiting thoracentesis and mass biopsy * Continue Brovana and pulmicort 2. Bilateral leg edema * U/S of legs-isolated r tibial DVT, repeat u/s in 5 days * Decadron dose decreased to 2mg PO daily * ECHO is unremarkable with EF 58% 3. Hyponatremia * Improved with IVF * r/o SIADH * Urine Osm and Na wnl 4. Metastatic cancer * Consult oncologist Dr. Stock for further hx * Continue Dexamethasone * Head CT shows lesion in right cerebella hemisphere, low attenuation changes superiorly and anteromedially to verminal region [see full report] 5. Hematoma of R abdomen * Warm compresses ordered * Monitor h/h (stable) * Lovenox injections on other side of abdomen, held till after thoracentesis. GI ppx: Protonix DVT ppx: Lovenox Case seen, reviewed and discussed with attending <Umberto LOPEZ,Ashia - Last Filed: 11/11/16 17:35> Objective - Vital Signs/Intake and Output Vital Signs (last 24 hours): Temp Pulse Resp BP Pulse Ox 98.2 F 74 18 127/81 91 L 11/11/16 16:10 11/11/16 16:10 11/11/16 16:10 11/11/16 16:10 11/11/16 16:10 Intake and Output: 11/11/16 11/11/16 06:59 18:59 Intake Total 1010 50 Output Total 450 Balance 560 50 - Medications Medications: Current Medications Acetaminophen (Tylenol 325mg Tab) 650 mg PO Q6H PRN PRN Reason: Pain, Mild (1-3) Arformoterol Tartrate (Brovana) 15 mcg IH [id number] [facility] Last Admin: 11/11/16 07:36 Dose: 15 mcg Budesonide (Pulmicort Respules) 0.5 mg IH [id number] [facility] Last Admin: 11/11/16 07:36 Dose: 0.5 mg Dexamethasone (Decadron) 2 mg PO DAILY [facility] Last Admin: 11/11/16 10:51 Dose: 2 mg Doxycycline Hyclate (Doryx) 100 mg PO Q12 [facility] PRN Reason: Protocol Last Admin: 11/11/16 10:48 Dose: 100 mg Enoxaparin Sodium (Lovenox) 70 mg SC Q12 [facility] PRN Reason: Protocol Last Admin: 11/11/16 11:41 Dose: Not Given Folic Acid (Folic Acid) 1 mg PO DAILY [facility] Last Admin: 11/11/16 10:48 Dose: 1 mg Vancomycin HCl (Vancomycin 1gm) 250 mls @ 167 mls/hr IVPB Q12H [facility] PRN Reason: Protocol Last Admin: 11/11/16 10:49 Dose: 167 mls/hr Piperacillin Sod/Tazobactam Sod (Zosyn 3.375 In Ns 100ml) 100 mls @ 200 mls/hr IVPB Q6 [facility] PRN Reason: Protocol Stop: 11/14/16 00:29 Last Admin: 11/11/16 17:12 Dose: 100 mls/hr Sodium Chloride (Sodium Chloride 0.45%) 1,000 mls @ 80 mls/hr IV .[id number] [facility] Stop: 11/12/16 08:00 Last Admin: 11/11/16 17:02 Dose: 80 mls/hr Morphine Sulfate (Morphine) 2 mg IVP Q4H PRN PRN Reason: Pain, moderate (4-7) Pantoprazole Sodium (Protonix Ec Tab) 40 mg PO ACB [facility] Last Admin: 11/11/16 08:06 Dose: 40 mg Thiamine HCl (Vitamin B1 Tab) 100 mg PO DAILY [facility] Last Admin: 11/11/16 10:48 Dose: 100 mg - Labs Labs: 11/11/16 06:15 11/11/16 06:15 PT 10.6 Seconds (9.9-11.8) 11/11/16 06:15 INR 0.98 (0.93-1.08) 11/11/16 06:15 APTT 29.6 Seconds (23.7-30.8) 11/09/16 10:59 Attending/Attestation - Attestation I have personally seen and examined this patient.: Yes I have fully participated in the care of the patient.: Yes I have reviewed all pertinent clinical information, including history, physical exam and plan: Yes Notes (Text): Patient was seen and examined with medical director/head team physician .Agreed with resident assessment and plan. 61 year old male with past medical history of metastatic non small cell lung cancer, sp radiation of brain for metastatic lesion was presented with RUQ pain. Workup including sonogram / CT showed fatty liver without gallstones. CT scan also showed moderate right pleural effusion and lung mass. LE doppler was positive for isolated right tibial DVT.Patient is mildly dyspnic today , he is afebrile, and is scheduled for lung biopsy and thoracentesis by IR. The issue of DNR and DNI was discussed in detail with patient.Patient is a full code at this time. Prognosis is guarded. Management plan was discussed in detail with patient Education was provided.
[2016-11-11] MEDS: Sodium Chloride 0.45% 1,000 ML IV SCH (17:02)
--- NOTE | 2016-11-11 17:49 | CP.PCM.PN ---
Subjective - Date & Time of Evaluation Date of Evaluation: 11/11/16 Time of Evaluation: 17:00 - Subjective Subjective: Infectious Disease Follow Up: November 11, 2016 61 yo male with history of metastatic lung cancer with three week history of abdominal pain that has progressively worsened. Last chemotherapy was two weeks ago. CT displays large mass in Right upper lobe bronchus with obstruction and possible PE with moderate pleural effusion. He also has increased leg swelling and SOB for the past two weeks as well. He is breathing easier today. He had biopsy of the lung mass and thoracentesis by IR this afternoon. Objective - Vital Signs/Intake and Output Vital Signs (last 24 hours): Temp Pulse Resp BP Pulse Ox 98.2 F 74 18 127/81 91 L 11/11/16 16:10 11/11/16 16:10 11/11/16 16:10 11/11/16 16:10 11/11/16 16:10 Intake and Output: 11/11/16 11/11/16 06:59 18:59 Intake Total 1010 50 Output Total 450 Balance 560 50 - Medications Medications: Current Medications Acetaminophen (Tylenol 325mg Tab) 650 mg PO Q6H PRN PRN Reason: Pain, Mild (1-3) Arformoterol Tartrate (Brovana) 15 mcg IH [id number] [facility] Last Admin: 11/11/16 07:36 Dose: 15 mcg Budesonide (Pulmicort Respules) 0.5 mg IH [id number] [facility] Last Admin: 11/11/16 07:36 Dose: 0.5 mg Dexamethasone (Decadron) 2 mg PO DAILY [facility] Last Admin: 11/11/16 10:51 Dose: 2 mg Doxycycline Hyclate (Doryx) 100 mg PO Q12 [facility] PRN Reason: Protocol Last Admin: 11/11/16 10:48 Dose: 100 mg Enoxaparin Sodium (Lovenox) 70 mg SC Q12 [facility] PRN Reason: Protocol Last Admin: 11/11/16 11:41 Dose: Not Given Folic Acid (Folic Acid) 1 mg PO DAILY [facility] Last Admin: 11/11/16 10:48 Dose: 1 mg Vancomycin HCl (Vancomycin 1gm) 250 mls @ 167 mls/hr IVPB Q12H [facility] PRN Reason: Protocol Last Admin: 11/11/16 10:49 Dose: 167 mls/hr Piperacillin Sod/Tazobactam Sod (Zosyn 3.375 In Ns 100ml) 100 mls @ 200 mls/hr IVPB Q6 [facility] PRN Reason: Protocol Stop: 11/14/16 00:29 Last Admin: 11/11/16 17:12 Dose: 100 mls/hr Sodium Chloride (Sodium Chloride 0.45%) 1,000 mls @ 80 mls/hr IV .[id number] [facility] Stop: 11/12/16 08:00 Last Admin: 11/11/16 17:02 Dose: 80 mls/hr Morphine Sulfate (Morphine) 2 mg IVP Q4H PRN PRN Reason: Pain, moderate (4-7) Pantoprazole Sodium (Protonix Ec Tab) 40 mg PO ACB [facility] Last Admin: 11/11/16 08:06 Dose: 40 mg Thiamine HCl (Vitamin B1 Tab) 100 mg PO DAILY [facility] Last Admin: 11/11/16 10:48 Dose: 100 mg - Labs Labs: 11/11/16 06:15 11/11/16 06:15 PT 10.6 Seconds (9.9-11.8) 11/11/16 06:15 INR 0.98 (0.93-1.08) 11/11/16 06:15 APTT 29.6 Seconds (23.7-30.8) 11/09/16 10:59 - Constitutional Appears: Non-toxic, No Acute Distress, Chronically Ill - Head Exam Head Exam: ATRAUMATIC, NORMOCEPHALIC - Eye Exam Eye Exam: EOMI, PERRL Pupil Exam: NORMAL ACCOMODATION, PERRL - ENT Exam ENT Exam: Mucous Membranes Moist, Normal External Ear Exam, TM's Normal Bilaterally - Neck Exam Neck Exam: Full ROM, Normal Inspection - Respiratory Exam Respiratory Exam: Decreased Breath Sounds, NORMAL BREATHING PATTERN. absent: Rales, Rhonchi, Wheezes Additional comments: Right lower lung rales with no air movement in right upper lobe. - Cardiovascular Exam Cardiovascular Exam: REGULAR RHYTHM, RRR, +S1, +S2 - GI/Abdominal Exam GI & Abdominal Exam: Soft, Normal Bowel Sounds. absent: Distended, Tenderness Additional comments: RLQ Hematoma. - Extremities Exam Extremities Exam: Full ROM, Normal Inspection - Neurological Exam Neurological Exam: Alert, Awake, CN II-XII Intact, Oriented x3 - Psychiatric Exam Psychiatric exam: Normal Affect, Normal Mood - Skin Skin Exam: Intact, Normal Color Assessment and Plan - Assessment and Plan (Free Text) Assessment: 61 yo male with metastatic lung cancer to the brain with worsening abdominal pain, lower leg edema, and SOB. Only on dexamethasone on admission. Unable to rule out pneumonia. On Vancomycin, Doxycycline, and Zosyn for antibiotic coverage for now. Will maintain this regimen for the time being. Supportive care. CT scan of chest suggested lesion in C7. Effusion possibly loculated in right lower lobe. For biopsy and thoracentesis... done this afternoon. Thank you for allowing me to participate in the care of this patient, we will follow with you.
--- NOTE | 2016-11-11 19:22 | US ---
PROCEDURE: Ultrasound guided right thoracentesis. CLINICAL HISTORY: Lung CA. Moderate to large right pleural effusion with shortness of breath. Needs right thoracentesis PHYSICIAN(S): Henry Hayden MD. TECHNIQUE: The relative risks and indications of the procedure were explained to the patient and consent obtained. The patient was placed in a sitting position on the stretcher and sonography of the right chest performed. This revealed a moderate sized rightpleural effusion. A right posterolateral intercostal approach was selected and the area prepped and draped usual sterile fashion. 1% Xylocaine was used to anesthetize the skin and soft tissues. A 7 Frisian thoracentesis catheter was trocared into the right pleural cavity and 2000ccof zoey fluid aspirated. A cytology specimen was sent. IMPRESSION: 1. Ultrasound guided right thoracentesis. 2000cc of amberfluid were aspirated.
--- NOTE | 2016-11-11 19:34 | CT ---
PROCEDURE: CT guided right hilar biopsy biopsy. HISTORY: Large right hilar mass. Evaluate for malignancy and markers. Known brain metastasis. PHYSICIAN(S): Henry Hayden MD. TECHNIQUE: The relative risks and indications of the procedure were explained to the patient and consent obtained. The patient was placed supine on the CT scanner and preliminary images through the mid lungs obtained. Conscious sedation and monitoring were provided throughout the procedure by a nurse. There is a 5 cm mass in the region of the right hilum. Postobstructive volume loss is seen. There is a small residual pleural effusion. The mass is associated mediastinal adenopathy. . A right anterior approach was selected and the area prepped and draped in the usual sterile fashion. 1% Xylocaine was used to anesthetize the skin and soft tissues. A 19 gauge guiding needle was advanced into the 5 cm right hilar mass. Its position was confirmed with CT. Using coaxial technique, multiple core biopsies were obtained. The postprocedure images show no evidence of pneumothorax or significant hemorrhage.. IMPRESSION: 1. CT-guided right hilum biopsy as described above.
--- NOTE | 2016-11-11 21:16 | PN ---
DATE: 11/11/2016 REFERRING PHYSICIAN: SUBJECTIVE: The patient is sitting out of bed to chair. Family is at bedside. Night was unremarkab le, n.p.o. for possible procedure. Cough is better. Shortness of breath is better. No nausea, no v omiting, no diarrhea. Does have leg swelling. OBJECTIVE: GENERAL: No acute distress. VITAL SIGNS: Temperature is 98, heart rate 76, respiratory rate is 18, blood pressure 144/95. Pulse ox 96% on 3 liters nasal cannula. HEENT: Moist mucous membranes. Crowded airway. NECK: Supple. No JVD. LUNGS: Has a , decreased breath sounds. HEART: S1, S2. ABDOMEN: Soft, nontender. No organomegaly. EXTREMITIES: Does have edema. NEUROLOGIC: Awake, alert, follows simple commands. MEDICATIONS: He is on Brovana 15 mcg inhaled twice a day, Decadron 2 mg daily, doxycycline 100 mg tw ice a day, folic acid 1 mg daily, Lovenox 70 mg subQ twice a day, morphine 2 mg q. 4 hours p.r.n., Pr otonix 40 mg daily, Pulmicort inhaled twice a day, IV fluid half normal saline 80 mL per hour, Tyleno l p.r.n., vancomycin 1 g IV q. 12 hours, vitamin B 100 mg daily, Zosyn 3.375 grams q. 6 hours. LABORATORY DATA: Shows hemoglobin 12.0, hematocrit 35.8, WBC 9.0, platelet is 128. INR is 1.98. So dium 135, potassium 4.0, chloride 102, bicarbonate 27, BUN 14, creatinine 0.7, glucose is 76, calcium is 8.4, AST is 37, ALT 57, alkaline phosphatase is 66, albumin is 2.8. Laboratory data later in the afternoon, the patient has a CT-guided right lung biopsy by Dr. Henry Hayden and also have thoracente sis removing about 2 L of fluid. IMPRESSION AND PLAN: Lung mass with brain metastatic disease, status post radiation therapy to the b rain, bronchial obstruction, chronic obstructive lung disease, pulmonary embolism, pleural effusion s tatus post lung biopsy and thoracentesis. Spoke to patient's family at bedside. All the questions a nswered. Restart anticoagulation. If clear intervention of radiology. Gastric prophylaxis. Continue steroids. Continue bronchodilator. Follow up chest x-ray in the morning. Thank you and we will follow with you. Ashia Fletcher MD cc: [phone] TT: 11/11/2016 21:15:27 Confirmation # [id number] Dictation # [id number] cn
[2016-11-12] MEDS: Piperacillin/Tazobact 3.375 gm 100 ML IVPB SCH ×5 (00:16→23:33)
--- NOTE | 2016-11-12 00:33 | CP.PCM.PN ---
Subjective - Date & Time of Evaluation Date of Evaluation: 11/10/16 Time of Evaluation: 19:00 - Subjective Subjective: No complaints, awaiting biopsy and thoracentesis Objective - Vital Signs/Intake and Output Vital Signs (last 24 hours): Temp Pulse Resp BP Pulse Ox 98.8 F 78 18 144/95 H 96 11/11/16 17:45 11/11/16 22:00 11/11/16 17:45 11/11/16 17:45 11/11/16 16:45 Intake and Output: 11/11/16 11/12/16 18:59 06:59 Intake Total 50 480 Balance 50 480 - Medications Medications: Current Medications Acetaminophen (Tylenol 325mg Tab) 650 mg PO Q6H PRN PRN Reason: Pain, Mild (1-3) Arformoterol Tartrate (Brovana) 15 mcg IH [id number] [facility] Last Admin: 11/11/16 19:40 Dose: 15 mcg Budesonide (Pulmicort Respules) 0.5 mg IH [id number] [facility] Last Admin: 11/11/16 19:40 Dose: 0.5 mg Dexamethasone (Decadron) 2 mg PO DAILY [facility] Last Admin: 11/11/16 10:51 Dose: 2 mg Doxycycline Hyclate (Doryx) 100 mg PO Q12 [facility] PRN Reason: Protocol Last Admin: 11/11/16 21:01 Dose: 100 mg Enoxaparin Sodium (Lovenox) 70 mg SC Q12 [facility] PRN Reason: Protocol Last Admin: 11/11/16 11:41 Dose: Not Given Folic Acid (Folic Acid) 1 mg PO DAILY [facility] Last Admin: 11/11/16 10:48 Dose: 1 mg Vancomycin HCl (Vancomycin 1gm) 250 mls @ 167 mls/hr IVPB Q12H [facility] PRN Reason: Protocol Last Admin: 11/11/16 21:20 Dose: 167 mls/hr Piperacillin Sod/Tazobactam Sod (Zosyn 3.375 In Ns 100ml) 100 mls @ 200 mls/hr IVPB Q6 [facility] PRN Reason: Protocol Stop: 11/14/16 00:29 Last Admin: 11/12/16 00:16 Dose: 200 mls/hr Sodium Chloride (Sodium Chloride 0.45%) 1,000 mls @ 80 mls/hr IV .[id number] [facility] Stop: 11/12/16 08:00 Last Admin: 11/11/16 17:02 Dose: 80 mls/hr Morphine Sulfate (Morphine) 2 mg IVP Q4H PRN PRN Reason: Pain, moderate (4-7) Pantoprazole Sodium (Protonix Ec Tab) 40 mg PO ACB [facility] Last Admin: 11/11/16 08:06 Dose: 40 mg Thiamine HCl (Vitamin B1 Tab) 100 mg PO DAILY [facility] Last Admin: 11/11/16 10:48 Dose: 100 mg - Labs Labs: 11/11/16 06:15 11/11/16 06:15 PT 10.6 Seconds (9.9-11.8) 11/11/16 06:15 INR 0.98 (0.93-1.08) 11/11/16 06:15 APTT 29.6 Seconds (23.7-30.8) 11/09/16 10:59 - Head Exam Head Exam: ATRAUMATIC - Eye Exam Eye Exam: Normal appearance - ENT Exam ENT Exam: Mucous Membranes Dry - Respiratory Exam Respiratory Exam: Decreased Breath Sounds - Cardiovascular Exam Cardiovascular Exam: +S1, +S2 - GI/Abdominal Exam GI & Abdominal Exam: Normal Bowel Sounds - Extremities Exam Extremities Exam: Pedal Edema Assessment and Plan (1) Pulmonary embolism Assessment & Plan: anticoagulation on hold for biopsy restart anticoagulation post biopsy Status: Acute (2) Lung cancer Assessment & Plan: stage IV brain mets s/p whole brain radiotherapy biopsy for additional lung cancer markers to guide treatment Status: Acute (3) Thrombocytopenia Assessment & Plan: mild improving Status: Acute (4) Anemia Assessment & Plan: chronic disease Status: Acute
[2016-11-12] MEDS: Sodium Chloride 0.45% 1,000 ML IV SCH (05:01)
[2016-11-12 07:24] LABS: ADD MANUAL DIFF? NO
[2016-11-12] MEDS: Arformoterol 15 mcg/2 ml Inh Sol IH SCH ×2 (07:28→20:12)
[2016-11-12] MEDS: Budesonide 0.5 mg/2 ml Inhal Susp UD IH SCH ×2 (07:28→20:12)
[2016-11-12 07:30] LABS: BASO # 0.01 K/mm3 (0.0-2.0); BASO % 0.1 % (0.0-3.0); EOS % 0.1 % (1.5-5.0); GRAN % 83.7 % (50.0-68.0); HEMATOCRIT 34.9 % (42.0-52.0); LYMPH % 11.4 % (22.0-35.0); MEAN CELL VOLUME 88.8 fL (80.0-105.0); MEAN CORPUSCULAR HEMOGLOBIN 29.3 pg (25.0-35.0); MEAN PLATELET VOLUME 10.1 fl (7.0-11.0); MONO # 0.4 (0.1-0.6); MONO % 4.7 % (1.0-6.0); PLATELET COUNT 126 10^3/uL (120.0-450.0); RED CELL DISTRIBUTION WIDTH 19.3 % (11.5-14.5); WHITE BLOOD COUNT 9.1 10^3/ul (4.5-11.0)
[2016-11-12] MEDS: Pantoprazole 40 mg EC Tab PO SCH (08:15)
--- NOTE | 2016-11-12 09:20 | RAD ---
HISTORY: rt lung bx and thora COMPARISON: 11/07/2016 FINDINGS: LUNGS: There is a large mass and consolidation in the right lung apex. There is a small right pleural effusion. PLEURA: No significant pleural effusion identified, no pneumothorax apparent. CARDIOVASCULAR: Normal. OSSEOUS STRUCTURES: No significant abnormalities. VISUALIZED UPPER ABDOMEN: Normal. OTHER FINDINGS: None. IMPRESSION: No evidence of pneumothorax. Right apical mass
--- NOTE | 2016-11-12 10:01 | RAD ---
HISTORY: rt thora COMPARISON: 11/11/2016 TECHNIQUE: Chest PA and lateral FINDINGS: LUNGS: No change in right upper lobe lung mass and small pleural effusion. PLEURA: No significant pleural effusion identified. No pneumothorax apparent. CARDIOVASCULAR: Normal. OSSEOUS STRUCTURES: No significant abnormalities. VISUALIZED UPPER ABDOMEN: Normal. OTHER FINDINGS: None. IMPRESSION: No change in right upper lobe lung mass and small right pleural effusion
[2016-11-12 10:03] LABS: ALB/GLOB RATIO 0.9 (1.1-1.8); ALKALINE PHOSPHATASE 52 U/L (38-133); ALT/SGPT 48 U/L (7-56); AST/SGOT 32 U/L (15-59); BILIRUBIN,TOTAL 0.6 mg/dL (0.2-1.3); BLOOD UREA NITROGEN 15 mg/dL (7-21); CALCIUM 8.2 mg/dL (8.4-10.5); CARBON DIOXIDE 28 mmol/L (21-33); CHLORIDE 101 mmol/L (95-110); GFR AFRICAN-AMERICAN > 60; GLUCOSE,RANDOM 67 mg/dL (70-110); SODIUM 134 mmol/L (132-148)
[2016-11-12 10:08] LABS: POTASSIUM 4.1 mmol/L (3.6-5.0)
[2016-11-12] MEDS: Vancomycin 1gm in NS 250ml 250 ML IVPB SCH ×2 (11:48→23:33)
--- NOTE | 2016-11-12 14:02 | CP.PCM.PN ---
Subjective - Date & Time of Evaluation Date of Evaluation: 11/12/16 Time of Evaluation: 13:00 - Subjective Subjective: Infectious Disease Follow Up: November 12, 2016 61 yo male with history of metastatic lung cancer with three week history of abdominal pain that has progressively worsened. Last chemotherapy was two weeks ago. CT displays large mass in Right upper lobe bronchus with obstruction and possible PE with moderate pleural effusion. He also has increased leg swelling and SOB for the past two weeks as well. He is breathing easier today. He had biopsy of the lung mass and thoracentesis by IR yesterday afternoon. He is more comfortable. Bilateral leg swelling has improved significantly. Objective - Vital Signs/Intake and Output Vital Signs (last 24 hours): Temp Pulse Resp BP Pulse Ox 97.4 F L 94 H 18 123/77 95 11/12/16 12:00 11/12/16 12:00 11/12/16 12:00 11/12/16 12:00 11/12/16 05:55 Intake and Output: 11/12/16 11/12/16 06:59 18:59 Intake Total 1680 Output Total 700 Balance 980 - Medications Medications: Current Medications Acetaminophen (Tylenol 325mg Tab) 650 mg PO Q6H PRN PRN Reason: Pain, Mild (1-3) Arformoterol Tartrate (Brovana) 15 mcg IH [id number] [facility] Last Admin: 11/12/16 07:28 Dose: 15 mcg Budesonide (Pulmicort Respules) 0.5 mg IH [id number] [facility] Last Admin: 11/12/16 07:28 Dose: 0.5 mg Dexamethasone (Decadron) 2 mg PO DAILY [facility] Last Admin: 11/12/16 11:31 Dose: 2 mg Doxycycline Hyclate (Doryx) 100 mg PO Q12 [facility] PRN Reason: Protocol Last Admin: 11/12/16 11:32 Dose: 100 mg Enoxaparin Sodium (Lovenox) 70 mg SC Q12 [facility] PRN Reason: Protocol Last Admin: 11/11/16 11:41 Dose: Not Given Folic Acid (Folic Acid) 1 mg PO DAILY [facility] Last Admin: 11/12/16 11:31 Dose: 1 mg Vancomycin HCl (Vancomycin 1gm) 250 mls @ 167 mls/hr IVPB Q12H [facility] PRN Reason: Protocol Last Admin: 11/12/16 11:48 Dose: 167 mls/hr Piperacillin Sod/Tazobactam Sod (Zosyn 3.375 In Ns 100ml) 100 mls @ 200 mls/hr IVPB Q6 [facility] PRN Reason: Protocol Stop: 11/14/16 00:29 Last Admin: 11/12/16 05:02 Dose: 200 mls/hr Morphine Sulfate (Morphine) 2 mg IVP Q4H PRN PRN Reason: Pain, moderate (4-7) Pantoprazole Sodium (Protonix Ec Tab) 40 mg PO ACB [facility] Last Admin: 11/12/16 08:15 Dose: 40 mg Thiamine HCl (Vitamin B1 Tab) 100 mg PO DAILY [facility] Last Admin: 11/12/16 11:31 Dose: 100 mg - Labs Labs: 11/12/16 06:30 11/12/16 06:30 PT 10.6 Seconds (9.9-11.8) 11/11/16 06:15 INR 0.98 (0.93-1.08) 11/11/16 06:15 APTT 29.6 Seconds (23.7-30.8) 11/09/16 10:59 - Constitutional Appears: Non-toxic, No Acute Distress, Chronically Ill - Head Exam Head Exam: ATRAUMATIC, NORMOCEPHALIC - Eye Exam Eye Exam: EOMI, PERRL Pupil Exam: NORMAL ACCOMODATION, PERRL - ENT Exam ENT Exam: Mucous Membranes Moist, Normal External Ear Exam, TM's Normal Bilaterally - Neck Exam Neck Exam: Full ROM, Normal Inspection - Respiratory Exam Respiratory Exam: Decreased Breath Sounds. absent: Rales, Rhonchi, Wheezes Additional comments: Mild Right lower lung rales with no air movement in right upper lobe. - Cardiovascular Exam Cardiovascular Exam: REGULAR RHYTHM, RRR, +S1, +S2 - GI/Abdominal Exam GI & Abdominal Exam: Soft, Normal Bowel Sounds. absent: Distended, Tenderness Additional comments: RLQ Hematoma. - Extremities Exam Extremities Exam: Full ROM, Normal Inspection - Neurological Exam Neurological Exam: Alert, Awake, CN II-XII Intact, Oriented x3 - Psychiatric Exam Psychiatric exam: Normal Affect, Normal Mood - Skin Skin Exam: Intact, Normal Color Assessment and Plan - Assessment and Plan (Free Text) Assessment: 61 yo male with metastatic lung cancer to the brain with worsening abdominal pain, lower leg edema, and SOB. Only on dexamethasone on admission. Unable to rule out pneumonia. On Vancomycin, Doxycycline, and Zosyn for antibiotic coverage for now. Will maintain this regimen for the time being. Supportive care. CT scan of chest suggested lesion in C7. Effusion possibly loculated in right lower lobe. For biopsy and thoracentesis... done yesterday afternoon. Patient is more comfortable now compared to admission. Bilateral leg swelling has improved significantly. Thank you for allowing me to participate in the care of this patient, we will follow with you.
--- NOTE | 2016-11-12 16:10 | PN ---
DATE: 11/12/2016 REFERRING PHYSICIAN: Dr. Riccardo Wick. SUBJECTIVE: He is out of bed to chair. Feels much better. Breathing is better. No chest pain, no nausea, no vomiting, no diarrhea. Still has leg swelling. OBJECTIVE: GENERAL: No acute distress. VITAL SIGNS: Temperature is 98, heart rate 94, respiratory rate is 20, blood pressure 123/77, pulse ox 95% on 2 liters nasal cannula. HEENT: Moist mucous membrane. Crowded airway. NECK: Supple, no JVD. LUNGS: Still has decreased breath sounds on the right base but improved airflow compared to yesterda y. HEART: S1 and S2. ABDOMEN: Soft, nontender. No organomegaly. EXTREMITIES: Does have edema. NEUROLOGIC: Awake, alert, follows simple command. MEDICATIONS: He is on Brovana 15 mcg inhaled twice, Decadron 2 mg daily, doxycycline 100 mg twice a day, folic acid 1 mg daily, Lovenox 70 mg subQ twice a day, morphine 2 mg IV q. 4 hours p.r.n., Alejandra nix 40 mg daily, Pulmicort inhaled twice a day, Tylenol on a p.r.n. basis, vancomycin 1 g IV q. 12 ho urs, vitamin B 100 mg daily, Zosyn 3.375 grams q. 6 hours. LABORATORY DATA: Shows hemoglobin 11.5, hematocrit 34.9, WBC 9.1, platelet is 126. Sodium 134, pota ssium 4.1, chloride 101, bicarbonate 28, BUN 15, creatinine 0.6, glucose 67, calcium 8.2. AST 32, AL T 48, alkaline phosphatase is 52, albumin 2.6. Chest x-ray done today shows no change in right upper lobe lung rosa and small right pleural effusi on. IMPRESSION AND PLAN: Lung mass with brain metastatic disease, right pleural effusion, chronic obstru ctive lung disease, pulmonary embolus, lower extremity edema with deep venous thrombosis. From pulmo nary point of view, he is much improved. Continue supplemental oxygen, incentive spirometer. Contin ue anticoagulation, gastric prophylaxis. Awaiting fluid cytology and pathology report. Thank you, and will follow with you. Ashia Fletcher MD cc: [id number] TT: 11/12/2016 16:09:45 Confirmation # [id number] Dictation # [id number] mn
--- NOTE | 2016-11-12 16:51 | CP.PCM.PN ---
<Lionel Sanchez - Last Filed: 11/12/16 16:46> Subjective - Date & Time of Evaluation Date of Evaluation: 11/12/16 Time of Evaluation: 07:30 - Subjective Subjective: Dr. Sanchez PGY 1 Hospitalist Note Patient seen and evaluated at bedside with family present. He states his abdominal pain has improved and does not feel any tenderness at the biopsy site. He notes some tenderness where the thoracentesis was done. He says the swelling in his legs has improved. He denies any fever, chills, nausea, vomiting , chest pain, but continues to have some SOB but improved since the thoracentesis. He is awaiting physical therapy and social work. He and his voiced concerns about his oncologist and are requesting a second opinion. No adverse events over night per nursing. Objective - Vital Signs/Intake and Output Vital Signs (last 24 hours): Temp Pulse Resp BP Pulse Ox 97.4 F L 94 H 18 123/77 95 11/12/16 12:00 11/12/16 12:00 11/12/16 12:00 11/12/16 12:00 11/12/16 05:55 Intake and Output: 11/12/16 11/12/16 06:59 18:59 Intake Total 1680 480 Output Total 700 700 Balance 980 -220 - Medications Medications: Current Medications Acetaminophen (Tylenol 325mg Tab) 650 mg PO Q6H PRN PRN Reason: Pain, Mild (1-3) Arformoterol Tartrate (Brovana) 15 mcg IH [id number] [facility] Last Admin: 11/12/16 07:28 Dose: 15 mcg Budesonide (Pulmicort Respules) 0.5 mg IH [id number] [facility] Last Admin: 11/12/16 07:28 Dose: 0.5 mg Dexamethasone (Decadron) 2 mg PO DAILY [facility] Last Admin: 11/12/16 11:31 Dose: 2 mg Doxycycline Hyclate (Doryx) 100 mg PO Q12 [facility] PRN Reason: Protocol Last Admin: 11/12/16 11:32 Dose: 100 mg Enoxaparin Sodium (Lovenox) 70 mg SC Q12 [facility] PRN Reason: Protocol Last Admin: 11/11/16 11:41 Dose: Not Given Folic Acid (Folic Acid) 1 mg PO DAILY [facility] Last Admin: 11/12/16 11:31 Dose: 1 mg Vancomycin HCl (Vancomycin 1gm) 250 mls @ 167 mls/hr IVPB Q12H [facility] PRN Reason: Protocol Last Admin: 11/12/16 11:48 Dose: 167 mls/hr Piperacillin Sod/Tazobactam Sod (Zosyn 3.375 In Ns 100ml) 100 mls @ 200 mls/hr IVPB Q6 [facility] PRN Reason: Protocol Stop: 11/14/16 00:29 Last Admin: 11/12/16 14:19 Dose: 200 mls/hr Morphine Sulfate (Morphine) 2 mg IVP Q4H PRN PRN Reason: Pain, moderate (4-7) Pantoprazole Sodium (Protonix Ec Tab) 40 mg PO ACB [facility] Last Admin: 11/12/16 08:15 Dose: 40 mg Thiamine HCl (Vitamin B1 Tab) 100 mg PO DAILY [facility] Last Admin: 11/12/16 11:31 Dose: 100 mg - Labs Labs: 11/12/16 06:30 11/12/16 06:30 PT 10.6 Seconds (9.9-11.8) 11/11/16 06:15 INR 0.98 (0.93-1.08) 11/11/16 06:15 APTT 29.6 Seconds (23.7-30.8) 11/09/16 10:59 - Constitutional Appears: Non-toxic, No Acute Distress - Head Exam Head Exam: ATRAUMATIC, NORMOCEPHALIC - Eye Exam Eye Exam: EOMI. absent: Normal appearance (right eye cataract), PERRL Pupil Exam: NORMAL ACCOMODATION. absent: PERRL - ENT Exam ENT Exam: Mucous Membranes Moist, Normal Oropharynx - Respiratory Exam Respiratory Exam: Decreased Breath Sounds (right upper and lower lobe), NORMAL BREATHING PATTERN. absent: Rhonchi, Wheezes - Cardiovascular Exam Cardiovascular Exam: REGULAR RHYTHM, +S1, +S2. absent: Gallop, Rubs, Murmur - GI/Abdominal Exam GI & Abdominal Exam: Soft, Tenderness (around hematoma on right side of abdomen) , Normal Bowel Sounds - Extremities Exam Extremities Exam: Normal Capillary Refill, Pedal Edema. absent: Normal Inspection, Tenderness - Back Exam Back Exam: tenderness (around thoracentesis site, clean and dressed). absent: NORMAL INSPECTION - Neurological Exam Neurological Exam: Alert, Awake, CN II-XII Intact, Oriented x3 - Psychiatric Exam Psychiatric exam: Normal Affect, Normal Mood - Skin Skin Exam: Dry, Normal Color, Warm. absent: Rash Assessment and Plan - Assessment and Plan (Free Text) Assessment: This is a 61Y M with PMH of metastatic lung cancer admitted for pleural effusion of R lung and possible PE. Bilateral lower extremity edema and abdominal hematoma. S/p lung biopsy and thoracentesis. Plan: 1. Pleural effusion * Infection vs malignancy vs CHF * ID consulted help appreciated * Pulmonology consulted, help appreciated * IR consulted, help appreciated * CT chest showed possible PE with pleural effusion on R [see full report] * CTA negative for PE [see full report] * U/S of legs-isolated r tibial DVT [see full report] * ECHO is unremarkable with EF 58% * Continue Vanc, Zosyn, and Doxycycline * Patient afebrile w/o leukocytosis * S/p thoracentesis and mass biopsy * F/U path and cytology report * Continue Brovana and pulmicort 2. Bilateral leg edema * U/S of legs-isolated r tibial DVT, repeat u/s in 5 days * Decadron dose decreased to 2mg PO daily * ECHO is unremarkable with EF 58% * Continue Lovenox 70 BID SC 3. Hyponatremia * Improved with IVF * r/o SIADH * Urine Osm and Na wnl 4. Metastatic cancer * Oncology consulted, help appreciated * Continue Dexamethasone * Head CT shows lesion in right cerebella hemisphere, low attenuation changes superiorly and anteromedially to verminal region [see full report] * Will discuss consulting another oncologist as per patient request. 5. Hematoma of R abdomen * Improving * Conitnue warm compresses * Monitor h/h (stable) * Lovenox injections on other side of abdomen. GI ppx: Protonix DVT ppx: Lovenox Case seen, reviewed and discussed with attending <Umberto LOPEZ,Ashia - Last Filed: 11/12/16 18:06> Objective - Vital Signs/Intake and Output Vital Signs (last 24 hours): Temp Pulse Resp BP Pulse Ox 97.4 F L 94 H 18 123/77 95 11/12/16 12:00 11/12/16 12:00 11/12/16 12:00 11/12/16 12:00 11/12/16 05:55 Intake and Output: 11/12/16 11/12/16 06:59 18:59 Intake Total 1680 480 Output Total 700 700 Balance 980 -220 - Medications Medications: Current Medications Acetaminophen (Tylenol 325mg Tab) 650 mg PO Q6H PRN PRN Reason: Pain, Mild (1-3) Arformoterol Tartrate (Brovana) 15 mcg IH [id number] [facility] Last Admin: 11/12/16 07:28 Dose: 15 mcg Budesonide (Pulmicort Respules) 0.5 mg IH [id number] [facility] Last Admin: 11/12/16 07:28 Dose: 0.5 mg Dexamethasone (Decadron) 2 mg PO DAILY [facility] Last Admin: 11/12/16 11:31 Dose: 2 mg Doxycycline Hyclate (Doryx) 100 mg PO Q12 [facility] PRN Reason: Protocol Last Admin: 11/12/16 11:32 Dose: 100 mg Enoxaparin Sodium (Lovenox) 70 mg SC Q12 [facility] PRN Reason: Protocol Last Admin: 11/11/16 11:41 Dose: Not Given Folic Acid (Folic Acid) 1 mg PO DAILY [facility] Last Admin: 11/12/16 11:31 Dose: 1 mg Vancomycin HCl (Vancomycin 1gm) 250 mls @ 167 mls/hr IVPB Q12H [facility] PRN Reason: Protocol Last Admin: 11/12/16 11:48 Dose: 167 mls/hr Piperacillin Sod/Tazobactam Sod (Zosyn 3.375 In Ns 100ml) 100 mls @ 200 mls/hr IVPB Q6 [facility] PRN Reason: Protocol Stop: 11/14/16 00:29 Last Admin: 11/12/16 14:19 Dose: 200 mls/hr Morphine Sulfate (Morphine) 2 mg IVP Q4H PRN PRN Reason: Pain, moderate (4-7) Pantoprazole Sodium (Protonix Ec Tab) 40 mg PO ACB [facility] Last Admin: 11/12/16 08:15 Dose: 40 mg Thiamine HCl (Vitamin B1 Tab) 100 mg PO DAILY [facility] Last Admin: 11/12/16 11:31 Dose: 100 mg - Labs Labs: 11/12/16 06:30 11/12/16 06:30 PT 10.6 Seconds (9.9-11.8) 11/11/16 06:15 INR 0.98 (0.93-1.08) 11/11/16 06:15 APTT 29.6 Seconds (23.7-30.8) 11/09/16 10:59 Attending/Attestation - Attestation I have personally seen and examined this patient.: Yes I have fully participated in the care of the patient.: Yes I have reviewed all pertinent clinical information, including history, physical exam and plan: Yes Notes (Text): Patient was seen and examined with medical office secretary .Agreed with resident assessment and plan. 61 year old male with pmh of metastatic lung cancer who presented with RUQ pain. US/CT showed no gallstones but fatty liver. Workup also showed RLE DVT, moderate right pleural effusion, lung mass. He is on lovenox and antibiotics. He had lung biopsy yesterday , procalcitonin is normal, antibiotics can be discontinued.He will need home oxygen prior to discharge.He will also need life long anticoagulation with Lovenox for DVT. Management plan was discussed in detail with patient Education was provided.
[2016-11-12] MEDS: Enoxaparin 80 mg Syringe SC SCH (23:32)
--- NOTE | 2016-11-13 00:49 | CP.PCM.PN ---
Subjective - Date & Time of Evaluation Date of Evaluation: 11/12/16 Time of Evaluation: 18:25 - Subjective Subjective: Breathing better post thoracentesis but still feels better using oxygen Objective - Vital Signs/Intake and Output Vital Signs (last 24 hours): Temp Pulse Resp BP Pulse Ox 98.4 F 100 H 20 119/81 95 11/12/16 18:00 11/12/16 18:00 11/12/16 18:00 11/12/16 18:00 11/12/16 05:55 Intake and Output: 11/12/16 11/13/16 18:59 06:59 Intake Total 480 Output Total 700 Balance -220 - Medications Medications: Current Medications Acetaminophen (Tylenol 325mg Tab) 650 mg PO Q6H PRN PRN Reason: Pain, Mild (1-3) Arformoterol Tartrate (Brovana) 15 mcg IH [id number] [facility] Last Admin: 11/12/16 20:12 Dose: 15 mcg Budesonide (Pulmicort Respules) 0.5 mg IH [id number] [facility] Last Admin: 11/12/16 20:12 Dose: 0.5 mg Dexamethasone (Decadron) 2 mg PO DAILY [facility] Last Admin: 11/12/16 11:31 Dose: 2 mg Doxycycline Hyclate (Doryx) 100 mg PO Q12 [facility] PRN Reason: Protocol Last Admin: 11/12/16 23:32 Dose: 100 mg Enoxaparin Sodium (Lovenox) 70 mg SC Q12 [facility] PRN Reason: Protocol Last Admin: 11/12/16 23:32 Dose: 70 mg Folic Acid (Folic Acid) 1 mg PO DAILY [facility] Last Admin: 11/12/16 11:31 Dose: 1 mg Vancomycin HCl (Vancomycin 1gm) 250 mls @ 167 mls/hr IVPB Q12H [facility] PRN Reason: Protocol Last Admin: 11/12/16 23:33 Dose: 167 mls/hr Piperacillin Sod/Tazobactam Sod (Zosyn 3.375 In Ns 100ml) 100 mls @ 200 mls/hr IVPB Q6 [facility] PRN Reason: Protocol Stop: 11/14/16 00:29 Last Admin: 11/12/16 23:33 Dose: 200 mls/hr Morphine Sulfate (Morphine) 2 mg IVP Q4H PRN PRN Reason: Pain, moderate (4-7) Pantoprazole Sodium (Protonix Ec Tab) 40 mg PO ACB [facility] Last Admin: 11/12/16 08:15 Dose: 40 mg Thiamine HCl (Vitamin B1 Tab) 100 mg PO DAILY [facility] Last Admin: 11/12/16 11:31 Dose: 100 mg - Labs Labs: 11/12/16 06:30 11/12/16 06:30 PT 10.6 Seconds (9.9-11.8) 11/11/16 06:15 INR 0.98 (0.93-1.08) 11/11/16 06:15 APTT 29.6 Seconds (23.7-30.8) 11/09/16 10:59 - Head Exam Head Exam: ATRAUMATIC - Eye Exam Eye Exam: Normal appearance - Respiratory Exam Respiratory Exam: Decreased Breath Sounds - Cardiovascular Exam Cardiovascular Exam: +S1, +S2 - GI/Abdominal Exam GI & Abdominal Exam: Normal Bowel Sounds - Extremities Exam Extremities Exam: Pedal Edema Assessment and Plan (1) Pulmonary embolism Assessment & Plan: right tibial artery DVT repeat CT chest negative for PE on therapeutic lovenox Status: Acute (2) Lung cancer Assessment & Plan: 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 Poe non small cell lung cancer not other pimentel specified; s/p repeat biopsy for further determination of histology and EGFR, EML4-ALK, and PDL1 testing to guide systemic treatment. Pt requesting 2nd opinion regarding lung cancer treatment; recommend oncology consult with Dr. Castillo Status: Acute (3) Thrombocytopenia Assessment & Plan: improving Status: Acute (4) Anemia Status: Acute
[2016-11-13] MEDS: Vancomycin 1gm in NS 250ml 250 ML IVPB SCH ×3 (04:52→22:15)
[2016-11-13] MEDS: Piperacillin/Tazobact 3.375 gm 100 ML IVPB SCH ×3 (05:39→18:00)
[2016-11-13 07:20] LABS: ADD MANUAL DIFF? NO
[2016-11-13 07:24] LABS: BASO # 0.01 K/mm3 (0.0-2.0); BASO % 0.1 % (0.0-3.0); EOS % 0.1 % (1.5-5.0); GRAN # 6.89 (1.4-6.5); GRAN % 80.6 % (50.0-68.0); HEMATOCRIT 34.3 % (42.0-52.0); LYMPH # 1.2 (1.2-3.4); LYMPH % 13.9 % (22.0-35.0); MEAN CELL VOLUME 88.6 fL (80.0-105.0); MEAN CORPUSCULAR HEMOGLOBIN 29.2 pg (25.0-35.0); MEAN CORPUSCULAR HGB CONC 32.9 g/dl (31.0-37.0); MEAN PLATELET VOLUME 10.4 fl (7.0-11.0); MONO # 0.5 (0.1-0.6); MONO % 5.3 % (1.0-6.0); PLATELET COUNT 129 10^3/uL (120.0-450.0); RED CELL DISTRIBUTION WIDTH 19.3 % (11.5-14.5); WHITE BLOOD COUNT 8.6 10^3/ul (4.5-11.0)
[2016-11-13] MEDS: Arformoterol 15 mcg/2 ml Inh Sol IH SCH ×2 (07:40→19:23)
[2016-11-13] MEDS: Budesonide 0.5 mg/2 ml Inhal Susp UD IH SCH ×2 (07:40→19:23)
[2016-11-13 07:44] LABS: BLOOD UREA NITROGEN 13 mg/dL (7-21); CALCIUM 8.1 mg/dL (8.4-10.5); CARBON DIOXIDE 29 mmol/L (21-33); CHLORIDE 102 mmol/L (98-107); GFR AFRICAN-AMERICAN > 60; GLUCOSE,RANDOM 79 mg/dL (70-110); POTASSIUM 3.8 mmol/L (3.6-5.0); SODIUM 136 mmol/L (132-148)
[2016-11-13] MEDS: Pantoprazole 40 mg EC Tab PO SCH (10:28)
[2016-11-13] MEDS: Enoxaparin 80 mg Syringe SC SCH ×2 (10:28→22:15)
--- NOTE | 2016-11-13 16:50 | CP.PCM.PN ---
<Lionel Sanchez - Last Filed: 11/13/16 16:46> Subjective - Date & Time of Evaluation Date of Evaluation: 11/13/16 Time of Evaluation: 07:15 - Subjective Subjective: Dr. Sanchez PGY 1 Hospitalist Note Patient seen and evaluated at bedside. He states his breathing is better and his abdominal pain is well controlled. He does continue to have lower extremity edema. He denies any nausea, vomiting, chest pain, fever, chills, or SOB. He is awaiting evaluation by second oncologist. Objective - Vital Signs/Intake and Output Vital Signs (last 24 hours): Temp Pulse Resp BP Pulse Ox 98.6 F 94 H 18 132/72 93 L 11/13/16 11:58 11/13/16 11:58 11/13/16 11:58 11/13/16 11:58 11/13/16 06:00 Intake and Output: 11/13/16 11/13/16 06:59 18:59 Intake Total 690 360 Output Total 0 Balance 690 360 - Medications Medications: Current Medications Acetaminophen (Tylenol 325mg Tab) 650 mg PO Q6H PRN PRN Reason: Pain, Mild (1-3) Arformoterol Tartrate (Brovana) 15 mcg IH [id number] [facility] Last Admin: 11/13/16 07:40 Dose: 15 mcg Budesonide (Pulmicort Respules) 0.5 mg IH [id number] [facility] Last Admin: 11/13/16 07:40 Dose: 0.5 mg Dexamethasone (Decadron) 2 mg PO DAILY [facility] Last Admin: 11/13/16 10:27 Dose: 2 mg Doxycycline Hyclate (Doryx) 100 mg PO Q12 [facility] PRN Reason: Protocol Last Admin: 11/13/16 10:28 Dose: 100 mg Enoxaparin Sodium (Lovenox) 70 mg SC Q12 [facility] PRN Reason: Protocol Last Admin: 11/13/16 10:28 Dose: 70 mg Folic Acid (Folic Acid) 1 mg PO DAILY [facility] Last Admin: 11/13/16 10:28 Dose: 1 mg Vancomycin HCl (Vancomycin 1gm) 250 mls @ 167 mls/hr IVPB Q12H [facility] PRN Reason: Protocol Last Admin: 11/13/16 10:29 Dose: 167 mls/hr Piperacillin Sod/Tazobactam Sod (Zosyn 3.375 In Ns 100ml) 100 mls @ 200 mls/hr IVPB Q6 [facility] PRN Reason: Protocol Stop: 11/14/16 00:29 Last Admin: 11/13/16 14:15 Dose: 200 mls/hr Morphine Sulfate (Morphine) 2 mg IVP Q4H PRN PRN Reason: Pain, moderate (4-7) Pantoprazole Sodium (Protonix Ec Tab) 40 mg PO ACB [facility] Last Admin: 11/13/16 10:28 Dose: 40 mg Thiamine HCl (Vitamin B1 Tab) 100 mg PO DAILY [facility] Last Admin: 11/13/16 10:28 Dose: 100 mg - Labs Labs: 11/13/16 06:45 11/13/16 06:45 PT 10.6 Seconds (9.9-11.8) 11/11/16 06:15 INR 0.98 (0.93-1.08) 11/11/16 06:15 APTT 29.6 Seconds (23.7-30.8) 11/09/16 10:59 - Constitutional Appears: Non-toxic, No Acute Distress - Head Exam Head Exam: ATRAUMATIC, NORMOCEPHALIC - Eye Exam Eye Exam: PERRL. absent: Normal appearance (right eye cataract ) Pupil Exam: NORMAL ACCOMODATION, PERRL - ENT Exam ENT Exam: Mucous Membranes Moist, Normal Oropharynx - Respiratory Exam Respiratory Exam: Decreased Breath Sounds (right upper and lower lobes), NORMAL BREATHING PATTERN. absent: Rales, Rhonchi, Wheezes - Cardiovascular Exam Cardiovascular Exam: REGULAR RHYTHM, +S1, +S2. absent: Gallop, Rubs, Murmur - GI/Abdominal Exam GI & Abdominal Exam: Soft, Normal Bowel Sounds. absent: Tenderness Additional comments: slow healing hematoma on right flank - Extremities Exam Extremities Exam: Pedal Edema. absent: Tenderness - Back Exam Back Exam: NORMAL INSPECTION. absent: rash noted, tenderness - Neurological Exam Neurological Exam: Alert, Awake, CN II-XII Intact, Oriented x3 - Psychiatric Exam Psychiatric exam: Normal Affect, Normal Mood - Skin Skin Exam: Dry, Normal Color, Warm Additional comments: right flank hematoma Assessment and Plan - Assessment and Plan (Free Text) Assessment: This is a 61Y M with PMH of metastatic lung cancer admitted for pleural effusion of R lung and possible PE. Bilateral lower extremity edema and abdominal hematoma. S/p lung biopsy and thoracentesis awaiting path results. Plan: 1. Pleural effusion * Infection vs malignancy vs CHF * ID consulted help appreciated * Pulmonology consulted, help appreciated * IR consulted, help appreciated * CT chest showed possible PE with pleural effusion on R [see full report] * CTA negative for PE [see full report] * U/S of legs-isolated r tibial DVT [see full report] * ECHO is unremarkable with EF 58% * Continue Vanc, Zosyn, and Doxycycline * Patient afebrile w/o leukocytosis * S/p thoracentesis and mass biopsy * F/U path and cytology report * Continue Brovana and pulmicort 2. Bilateral leg edema * U/S of legs-isolated r tibial DVT, repeat u/s in 5 days * Decadron dose decreased to 2mg PO daily * ECHO is unremarkable with EF 58% * Continue Lovenox 70 BID SC 3. Hyponatremia * Improved with IVF * r/o SIADH * Urine Osm and Na wnl 4. Metastatic cancer * Oncology consulted, help appreciated * Continue Dexamethasone * Head CT shows lesion in right cerebella hemisphere, low attenuation changes superiorly and anteromedially to verminal region [see full report] * Consulted Dr. Call for second opinion. 5. Hematoma of R abdomen * Improving * Conitnue warm compresses * Monitor h/h (stable) * Lovenox injections on other side of abdomen. GI ppx: Protonix DVT ppx: Lovenox Case seen, reviewed and discussed with attending <Delmar Joyner - Last Filed: 11/13/16 17:03> Objective - Vital Signs/Intake and Output Vital Signs (last 24 hours): Temp Pulse Resp BP Pulse Ox 98.6 F 94 H 18 132/72 93 L 11/13/16 11:58 11/13/16 11:58 11/13/16 11:58 11/13/16 11:58 11/13/16 06:00 Intake and Output: 11/13/16 11/13/16 06:59 18:59 Intake Total 690 360 Output Total 0 Balance 690 360 - Medications Medications: Current Medications Acetaminophen (Tylenol 325mg Tab) 650 mg PO Q6H PRN PRN Reason: Pain, Mild (1-3) Arformoterol Tartrate (Brovana) 15 mcg IH [id number] [facility] Last Admin: 11/13/16 07:40 Dose: 15 mcg Budesonide (Pulmicort Respules) 0.5 mg IH [id number] [facility] Last Admin: 11/13/16 07:40 Dose: 0.5 mg Dexamethasone (Decadron) 2 mg PO DAILY [facility] Last Admin: 11/13/16 10:27 Dose: 2 mg Doxycycline Hyclate (Doryx) 100 mg PO Q12 [facility] PRN Reason: Protocol Last Admin: 11/13/16 10:28 Dose: 100 mg Enoxaparin Sodium (Lovenox) 70 mg SC Q12 [facility] PRN Reason: Protocol Last Admin: 11/13/16 10:28 Dose: 70 mg Folic Acid (Folic Acid) 1 mg PO DAILY [facility] Last Admin: 11/13/16 10:28 Dose: 1 mg Vancomycin HCl (Vancomycin 1gm) 250 mls @ 167 mls/hr IVPB Q12H [facility] PRN Reason: Protocol Last Admin: 11/13/16 10:29 Dose: 167 mls/hr Piperacillin Sod/Tazobactam Sod (Zosyn 3.375 In Ns 100ml) 100 mls @ 200 mls/hr IVPB Q6 [facility] PRN Reason: Protocol Stop: 11/14/16 00:29 Last Admin: 11/13/16 14:15 Dose: 200 mls/hr Morphine Sulfate (Morphine) 2 mg IVP Q4H PRN PRN Reason: Pain, moderate (4-7) Pantoprazole Sodium (Protonix Ec Tab) 40 mg PO ACB [facility] Last Admin: 11/13/16 10:28 Dose: 40 mg Thiamine HCl (Vitamin B1 Tab) 100 mg PO DAILY [facility] Last Admin: 11/13/16 10:28 Dose: 100 mg - Labs Labs: 11/13/16 06:45 11/13/16 06:45 PT 10.6 Seconds (9.9-11.8) 11/11/16 06:15 INR 0.98 (0.93-1.08) 11/11/16 06:15 APTT 29.6 Seconds (23.7-30.8) 11/09/16 10:59 Attending/Attestation - Attestation I have personally seen and examined this patient.: Yes I have fully participated in the care of the patient.: Yes I have reviewed all pertinent clinical information, including history, physical exam and plan: Yes Notes (Text): 11/13/16 16:59 61 year old male with past medical history of metastatic lung cancer who presented with RUQ pain. US/CT showed fatty liver without gallstones. CT chest showed moderate right pleural effusion and lung mass. Patient also have RLE DVT. He is on lovenox and antibiotics. He is s/p thoracocentesis and lung biopsy. Patient and have requested for second oncologic opinion. I did discuss with Dr. Devi who will see patient later today. His right abdominal wall ecchymosis is improving. Patient will need home oxygen arrangement prior to discharge. He will also need life long anticoagulation. This was discussed with the patient and at bedside today. Delmar Joyner MD Hospitalist.
--- NOTE | 2016-11-13 18:19 | CP.PCM.PN ---
Subjective - Date & Time of Evaluation Date of Evaluation: 11/13/16 Time of Evaluation: 16:30 - Subjective Subjective: Infectious Disease Follow Up: November 13, 2016 61 yo male with history of metastatic lung cancer with three week history of abdominal pain that has progressively worsened. Last chemotherapy was two weeks ago. CT displays large mass in Right upper lobe bronchus with obstruction and possible PE with moderate pleural effusion. He also has increased leg swelling and SOB for the past two weeks as well. He is breathing easier today. He had biopsy of the lung mass and thoracentesis by IR yesterday afternoon. He is more comfortable. Bilateral leg swelling has improved significantly. Biopsy showing adenocarcinoma that is poorly differentiated with lymphovascular invasion. Objective - Vital Signs/Intake and Output Vital Signs (last 24 hours): Temp Pulse Resp BP Pulse Ox 98.6 F 94 H 18 132/72 93 L 11/13/16 11:58 11/13/16 11:58 11/13/16 11:58 11/13/16 11:58 11/13/16 06:00 Intake and Output: 11/13/16 11/13/16 06:59 18:59 Intake Total 690 360 Output Total 0 Balance 690 360 - Medications Medications: Current Medications Acetaminophen (Tylenol 325mg Tab) 650 mg PO Q6H PRN PRN Reason: Pain, Mild (1-3) Arformoterol Tartrate (Brovana) 15 mcg IH [id number] [facility] Last Admin: 11/13/16 07:40 Dose: 15 mcg Budesonide (Pulmicort Respules) 0.5 mg IH [id number] [facility] Last Admin: 11/13/16 07:40 Dose: 0.5 mg Dexamethasone (Decadron) 2 mg PO DAILY [facility] Last Admin: 11/13/16 10:27 Dose: 2 mg Doxycycline Hyclate (Doryx) 100 mg PO Q12 [facility] PRN Reason: Protocol Last Admin: 11/13/16 10:28 Dose: 100 mg Enoxaparin Sodium (Lovenox) 70 mg SC Q12 [facility] PRN Reason: Protocol Last Admin: 11/13/16 10:28 Dose: 70 mg Folic Acid (Folic Acid) 1 mg PO DAILY [facility] Last Admin: 11/13/16 10:28 Dose: 1 mg Vancomycin HCl (Vancomycin 1gm) 250 mls @ 167 mls/hr IVPB Q12H [facility] PRN Reason: Protocol Last Admin: 11/13/16 10:29 Dose: 167 mls/hr Piperacillin Sod/Tazobactam Sod (Zosyn 3.375 In Ns 100ml) 100 mls @ 200 mls/hr IVPB Q6 [facility] PRN Reason: Protocol Stop: 11/14/16 00:29 Last Admin: 11/13/16 14:15 Dose: 200 mls/hr Morphine Sulfate (Morphine) 2 mg IVP Q4H PRN PRN Reason: Pain, moderate (4-7) Pantoprazole Sodium (Protonix Ec Tab) 40 mg PO ACB [facility] Last Admin: 11/13/16 10:28 Dose: 40 mg Thiamine HCl (Vitamin B1 Tab) 100 mg PO DAILY [facility] Last Admin: 11/13/16 10:28 Dose: 100 mg - Labs Labs: 11/13/16 06:45 11/13/16 06:45 PT 10.6 Seconds (9.9-11.8) 11/11/16 06:15 INR 0.98 (0.93-1.08) 11/11/16 06:15 APTT 29.6 Seconds (23.7-30.8) 11/09/16 10:59 - Constitutional Appears: Non-toxic, No Acute Distress, Chronically Ill - Head Exam Head Exam: ATRAUMATIC, NORMOCEPHALIC - Eye Exam Eye Exam: EOMI, PERRL Pupil Exam: NORMAL ACCOMODATION, PERRL - ENT Exam ENT Exam: Mucous Membranes Moist, Normal External Ear Exam, TM's Normal Bilaterally - Neck Exam Neck Exam: Full ROM, Normal Inspection - Respiratory Exam Respiratory Exam: Decreased Breath Sounds, NORMAL BREATHING PATTERN. absent: Rales, Rhonchi, Wheezes Additional comments: Mild Right lower lung rales with no air movement in right upper lobe. - Cardiovascular Exam Cardiovascular Exam: REGULAR RHYTHM, RRR, +S1, +S2 - GI/Abdominal Exam GI & Abdominal Exam: Soft, Normal Bowel Sounds. absent: Distended, Tenderness Additional comments: RLQ Hematoma. - Extremities Exam Extremities Exam: Full ROM, Normal Inspection - Neurological Exam Neurological Exam: Alert, Awake, CN II-XII Intact, Oriented x3 - Psychiatric Exam Psychiatric exam: Normal Affect, Normal Mood - Skin Skin Exam: Intact, Normal Color Assessment and Plan - Assessment and Plan (Free Text) Assessment: 61 yo male with metastatic lung cancer to the brain with worsening abdominal pain, lower leg edema, and SOB. Only on dexamethasone on admission. Unable to rule out pneumonia. On Vancomycin, Doxycycline, and Zosyn for antibiotic coverage for now. Will maintain this regimen for the time being. Supportive care. CT scan of chest suggested lesion in C7. Effusion possibly loculated in right lower lobe. For biopsy and thoracentesis... done. Patient is more comfortable now compared to admission. Bilateral leg swelling has improved significantly. Biopsy showing adenocarcinoma that is poorly differentiated with lymphovascular invasion. Thank you for allowing me to participate in the care of this patient, we will follow with you.
--- NOTE | 2016-11-13 22:07 | CON ---
DATE: 11/13/2016 This is the patient's hospital consult. For Dr. Castillo. CHIEF COMPLAINT: Poorly-differentiated adenocarcinoma on right lung mass biopsy. Second opinion. 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 One is referred to his notes. He was admitted to [facility] approximately 6 days prior for abdominal pain with the luann ent in need of systemic therapy, with the patient now being seen resting in bed, status post thoracen tesis by Dr. Henry Hayden, with tissue diagnosis as related above for a 7 cm right hilar mass. He celestine ears to be in no acute distress, with his abdominal pain improved; for discharge home soon. ALLERGIES: No known allergies. The patient's medications at present include Brovana, Decadron, doxycycline, folic acid, Lovenox, mor phine, Protonix, Pulmicort, Tylenol, vancomycin, thiamine, and piperacillin/tazobactam. The past medical history for this patient is that of stage IV metastatic lung cancer to the brain, st atus post completed radiation therapy to left chest pleural effusion, COPD, questionable pulmonary em bolism, DVT. History of detached retina on the right, loss of vision there, with repair in 2001; status post port placement. FAMILY HISTORY/SOCIAL HISTORY: Heavy smoker, quit 3 months ago. Heavy drinker, manuel, quit 3 month s ago. Lives with his daughter. also has cancer, according to previous notes. Otherwise, non contributory. REVIEW OF SYSTEMS: Essentially negative to questioning except as above. OBJECTIVE: PHYSICAL EXAMINATION: VITAL SIGNS: Temperature 97.7, pulse 106, respirations 20, blood pressure 130/82, with a pulse ox of 91%. HENT: Unremarkable. Status post detached retina on the left eye with blindness there. NECK: Supple. HEART: Regular rate. Occasional ectopic beat. LUNGS: Minimal decreased breath sounds bilaterally. ABDOMEN: Soft. Minimal tenderness to the right mid-lower quadrant. EXTREMITIES: +1 edema. NEUROLOGIC: Awake, alert, and oriented x 3. SKIN: Otherwise, warm, dry, and clear. The patient's labs were done today. White blood cell count of 8.6, hemoglobin 11.3, hematocrit 34.3, platelet count of 129,000, with a chem metabolic panel done today within normal limits, with a total protein done yesterday of 5.0, albumin of 2.4. Procalcitonin done 5 days prior 0.14. Urinalysis sh owed trace of blood. The patient did have a CT scan of the chest, abdomen, and pelvis done on 11/07. It was read as near- complete opacification of the right lung field with an addendum saying that there is filling defects pulmonary arteries consistent with pulmonary artery embolism. Near-complete opacification of t he right lung field, moderate right pleural effusion, partially loculated right upper lobe bronchus c ompletely obstructed by a large enhancing mass-like area, right middle lobe and lower lobe bronchi al so affect adenopathy causing mass effect along the right suprahilar hilar region. Supraclavic ular adenopathy, right greater than left. Significant mediastinal hilar adenopathy, small pericardia l effusion, subtle subcentimeter hypoattenuating lesion left lower lobe of the liver, 1 cm left adren al nodule, diverticulosis. With this addendum there is a embolism at this time with that reading. He had a gallbladder ultrasound done 11/07. It was read as echogenic liver may be seen in the settin g of hepatic parenchymal disease or fatty infiltration. Right-sided pleural effusion. The patient had echocardiogram done on 11/08. It was read as left ventricular function normal. His extremity ultrasound on 11/08 was read as: His extremity ultrasound which showed isolated right tibial DVT. Followup ultrasound in 7-10 days re commended. The patient had a CT scan of his head done on 11/08. It was read as low-attenuation lesion right cer ebellar hemisphere could represent metastatic deposit; low-attenuation changes, extensive. Anteromed ial region. Recommend followup pre and post-contrast MRI of the brain for further evaluation. Chronic white matter low-attenuation ischemic changes. Metastatic deposits of this location is also not excluded. The patient had a CT scan of his chest done 11/08. It was read as no evidence of pulmonary wall embo lism, however, the previous testing was addended finally suggesting pulmonary hypertension, small per icardial effusion, significant bulky mediastinal right hilar, left hilar adenopathy, occlusion of the right upper lobe bronchus, large effusion likely partially loculated with atelectasis. Some a eriation in the right lower right upper lobe, underlying right-sided hilar super and upper lobe apical mass. Suspected significant centrilobular emphysematous changes in the left lung, question o f infiltrative lesions C7 in vertebral body segment. The patient had a thoracentesis ultrasound done on 11/11 for which 2 L of zoey fluid were obtained, with tissue biopsy also done. The pathologic specimen from 11/11 was read as 7 cm right hilar mass. CT-guided biopsy adenocarcinoma with poorly differentiated lymphovascular invasion. A chest x-ray was done 11/11. It was read as no evidence of pneumothorax, right apical mass. A ches t x-ray was done yesterday, 11/12. It was read as no change in right upper lung mass with small righ t pleural effusion. The assessment for this patient is stage IV poorly differentiated adenocarcinoma with lymphovascular invasion, with pleural effusion status post thoracentesis of 2 L. Chronic obstructive pulmonary dise ase. Mediastinal involvement. Questionable C7 lesion. Pulmonary embolism, DVT, suspected hepatic i nvolvement. Adrenal nodules. Brain metastases status post brain radiotherapy completed 10/06/2016 w carla Poe. Thrombocytopenia, improved. Mild anemia. The plan for this patient after conversation with Dr. Castillo, is to continue present medical regimen as per Dr. Stock, and current consultants, Dr. Jeter, Dr. Fletcher, with monitoring clinically and with l abs, with anticoagulation and steroid use, with prognosis for this patient guarded. We will add a CE A to his labs and monitor clinically. Dr. Castillo will see the patient tomorrow prior to discharge, if he is planned for discharge home, with further treatment as an outpatient as indicated as per Dr. Stock, or with Dr. Castillo as per the patient and family's request. Jesus Davis MD cc: [phone] TT: 11/13/2016 22:07:15 Confirmation # [id number] Dictation # [id number] tammy
[2016-11-14] MEDS: Piperacillin/Tazobact 3.375 gm 100 ML IVPB SCH ×2 (00:03→17:44)
--- NOTE | 2016-11-14 00:12 | PN ---
DATE: 11/13/2016 REFERRING PHYSICIAN: Dr. Riccardo Wick. SUBJECTIVE: The patient is sitting side of the bed. Son is at bedside. Feels better and would like to go home. No headache, no rhinitis. Cough is better. No nausea, no vomiting, no diarrhea. Stil l having leg swelling. OBJECTIVE: GENERAL: No acute distress. VITAL SIGNS: Temperature is 98, heart rate is 106, respiratory rate is 20, blood pressure 139/82, pu lse ox 93% on nasal cannula. HEENT: Moist mucous membranes. Crowded airway. Mallampati score is 4. NECK: Supple. No JVD. LUNGS: Have decreased breath sounds in the right lung. HEART: S1, S2. ABDOMEN: Soft, nontender. No organomegaly. EXTREMITY: Does have edema. NEUROLOGIC: Awake, alert, follows simple command. MEDICATIONS: He is on Brovana 15 mcg inhaled twice a day, Decadron 2 mg daily, doxycycline 100 mg tw ice a day, folic acid 1 mg daily, Lovenox 70 mg subQ twice a day, morphine 2 mg q. 4 hours p.r.n., Pr otonix 40 mg daily, Pulmicort inhaled twice a day, Tylenol on a p.r.n. basis, vancomycin 1 g q. 12 ho urs, vitamin D 100 mg daily, Zosyn 3.375 grams q. 6 hours. LABORATORY DATA: Shows hemoglobin 11.3, hematocrit 34.3, WBC 8.6, platelet count is 129. Sodium 136 , potassium 3.8, chloride 102, bicarbonate 29, BUN 16, creatinine 0.8, glucose is 79, calcium is 8.1. IMPRESSION AND PLAN: Lung pain, metastatic disease. Pathologist poor positive or poorly diffe rentiated adenocarcinoma, recurrent pleural effusion, chronic obstructive lung disease, pulmonary emb olus, lower extremity edema. Pulmonary point of view, doing okay. Continue anticoagulation, bronchodilator. Oncology followup. Need attended sleep study as the patient needs supplement oxygen for discharge. Ashia Fletcher MD cc: [phone] TT: 11/14/2016 00:11:42 Confirmation # [id number] Dictation # [id number] mn
[2016-11-14 07:17] LABS: ADD MANUAL DIFF? NO
[2016-11-14 07:31] LABS: BASO # 0.01 K/mm3 (0.0-2.0); BASO % 0.1 % (0.0-3.0); GRAN # 6.74 (1.4-6.5); GRAN % 80.7 % (50.0-68.0); HEMATOCRIT 34.8 % (42.0-52.0); LYMPH # 1.1 (1.2-3.4); MEAN CELL VOLUME 89.2 fL (80.0-105.0); MEAN CORPUSCULAR HGB CONC 32.5 g/dl (31.0-37.0); MONO # 0.5 (0.1-0.6); MONO % 6.2 % (1.0-6.0); PLATELET COUNT 146 10^3/uL (120.0-450.0); RED CELL DISTRIBUTION WIDTH 19.6 % (11.5-14.5); WHITE BLOOD COUNT 8.4 10^3/ul (4.5-11.0)
[2016-11-14] MEDS: Arformoterol 15 mcg/2 ml Inh Sol IH SCH ×2 (07:54→19:56)
[2016-11-14] MEDS: Budesonide 0.5 mg/2 ml Inhal Susp UD IH SCH ×2 (07:54→19:56)
[2016-11-14 08:02] LABS: ALKALINE PHOSPHATASE 61 U/L (38-133); ALT/SGPT 46 U/L (7-56); AST/SGOT 30 U/L (15-59); BILIRUBIN,TOTAL 0.6 mg/dL (0.2-1.3); BLOOD UREA NITROGEN 13 mg/dL (7-21); CALCIUM 8.3 mg/dL (8.4-10.5); CARBON DIOXIDE 29 mmol/L (21-33); CHLORIDE 102 mmol/L (98-107); GFR AFRICAN-AMERICAN > 60; GLUCOSE,RANDOM 76 mg/dL (70-110); SODIUM 138 mmol/L (132-148); TOTAL PROTEIN 5.3 g/dL (5.8-8.3)
[2016-11-14] MEDS: Pantoprazole 40 mg EC Tab PO SCH (08:03)
[2016-11-14] MEDS: Vancomycin 1gm in NS 250ml 250 ML IVPB SCH ×2 (10:15→22:15)
[2016-11-14] MEDS: Enoxaparin 80 mg Syringe SC SCH ×2 (10:21→22:15)
--- NOTE | 2016-11-14 13:18 | CP.PCM.PN ---
Subjective - Date & Time of Evaluation Date of Evaluation: 11/14/16 Time of Evaluation: 11:30 - Subjective Subjective: Infectious Disease Follow Up: November 14, 2016 61 yo male with history of metastatic lung cancer with three week history of abdominal pain that has progressively worsened. Last chemotherapy was two weeks ago. CT displays large mass in Right upper lobe bronchus with obstruction and possible PE with moderate pleural effusion. He also has increased leg swelling and SOB for the past two weeks as well. He is breathing easier today. He had biopsy of the lung mass and thoracentesis by IR yesterday afternoon. He is more comfortable. Bilateral leg swelling has improved significantly. Biopsy showing adenocarcinoma that is poorly differentiated with lymphovascular invasion. Objective - Vital Signs/Intake and Output Vital Signs (last 24 hours): Temp Pulse Resp BP Pulse Ox 98.1 F 102 H 20 133/88 94 L 11/14/16 12:00 11/14/16 12:00 11/14/16 12:00 11/14/16 12:00 11/14/16 06:00 Intake and Output: 11/14/16 11/14/16 06:59 18:59 Intake Total 700 Output Total 200 Balance 500 - Medications Medications: Current Medications Acetaminophen (Tylenol 325mg Tab) 650 mg PO Q6H PRN PRN Reason: Pain, Mild (1-3) Arformoterol Tartrate (Brovana) 15 mcg IH [id number] [facility] Last Admin: 11/14/16 07:54 Dose: 15 mcg Budesonide (Pulmicort Respules) 0.5 mg IH [id number] [facility] Last Admin: 11/14/16 07:54 Dose: 0.5 mg Dexamethasone (Decadron) 1 mg PO DAILY [facility] Last Admin: 11/14/16 10:31 Dose: 1 mg Doxycycline Hyclate (Doryx) 100 mg PO Q12 [facility] PRN Reason: Protocol Last Admin: 11/14/16 10:14 Dose: 100 mg Enoxaparin Sodium (Lovenox) 70 mg SC Q12 [facility] PRN Reason: Protocol Last Admin: 11/14/16 10:21 Dose: 70 mg Folic Acid (Folic Acid) 1 mg PO DAILY [facility] Last Admin: 11/14/16 10:14 Dose: 1 mg Vancomycin HCl (Vancomycin 1gm) 250 mls @ 167 mls/hr IVPB Q12H [facility] PRN Reason: Protocol Last Admin: 11/14/16 10:15 Dose: 167 mls/hr Morphine Sulfate (Morphine) 2 mg IVP Q4H PRN PRN Reason: Pain, moderate (4-7) Pantoprazole Sodium (Protonix Ec Tab) 40 mg PO ACB [facility] Last Admin: 11/14/16 08:03 Dose: 40 mg Thiamine HCl (Vitamin B1 Tab) 100 mg PO DAILY [facility] Last Admin: 11/14/16 10:13 Dose: 100 mg - Labs Labs: 11/14/16 07:00 11/14/16 07:00 PT 10.6 Seconds (9.9-11.8) 11/11/16 06:15 INR 0.98 (0.93-1.08) 11/11/16 06:15 APTT 29.6 Seconds (23.7-30.8) 11/09/16 10:59 - Constitutional Appears: Non-toxic, No Acute Distress, Chronically Ill - Head Exam Head Exam: ATRAUMATIC, NORMOCEPHALIC - Eye Exam Eye Exam: EOMI, PERRL Pupil Exam: NORMAL ACCOMODATION, PERRL - ENT Exam ENT Exam: Mucous Membranes Moist, Normal External Ear Exam, TM's Normal Bilaterally - Neck Exam Neck Exam: Full ROM, Normal Inspection - Respiratory Exam Respiratory Exam: Decreased Breath Sounds, NORMAL BREATHING PATTERN. absent: Rales, Rhonchi, Wheezes - Cardiovascular Exam Cardiovascular Exam: REGULAR RHYTHM, RRR, +S1, +S2 Additional comments: Mild Right lower lung rales with no air movement in right upper lobe. - GI/Abdominal Exam GI & Abdominal Exam: Soft, Normal Bowel Sounds. absent: Distended, Tenderness Additional comments: RLQ Hematoma. - Extremities Exam Extremities Exam: Full ROM, Normal Inspection - Neurological Exam Neurological Exam: Alert, Awake, CN II-XII Intact, Oriented x3 - Psychiatric Exam Psychiatric exam: Normal Affect, Normal Mood - Skin Skin Exam: Intact, Normal Color Assessment and Plan - Assessment and Plan (Free Text) Assessment: 61 yo male with metastatic lung cancer to the brain with worsening abdominal pain, lower leg edema, and SOB. Only on dexamethasone on admission. Unable to rule out pneumonia. On Vancomycin, Doxycycline, and Zosyn for antibiotic coverage for now. Will maintain this regimen for the time being. Supportive care. CT scan of chest suggested lesion in C7. Effusion possibly loculated in right lower lobe. For biopsy and thoracentesis... done. Patient is more comfortable now compared to admission. Bilateral leg swelling has improved significantly. Biopsy showing adenocarcinoma that is poorly differentiated with lymphovascular invasion. Can maintain on Doxycycline and Zosyn while in hospital. Thank you for allowing me to participate in the care of this patient, we will follow with you.
--- NOTE | 2016-11-14 13:33 | RAD ---
HISTORY: lung congestion COMPARISON: 11/12/2016 TECHNIQUE: Chest PA and lateral FINDINGS: LUNGS: Complete opacification of the right lung which has increased PLEURA: No significant pleural effusion identified. No pneumothorax apparent. CARDIOVASCULAR: Normal. OSSEOUS STRUCTURES: No significant abnormalities. VISUALIZED UPPER ABDOMEN: Normal. OTHER FINDINGS: None. IMPRESSION: Complete opacification right lung. No mediastinal shift
--- NOTE | 2016-11-14 14:58 | CP.PCM.PN ---
<Lionel Sanchez - Last Filed: 11/14/16 14:55> Subjective - Date & Time of Evaluation Date of Evaluation: 11/14/16 Time of Evaluation: 14:55 - Subjective Subjective: Dr. Sanchez PGY 1 Hospitalist Note Patient seen and evaluated at bedside with family present. He says his breathing is worsening and he has coughed up some blood tinged sputum. He notes he continues to have edema in both legs. His appetite has diminished a little while here but he attributes it to not moving around much. He denies any fever, chills, nausea, vomiting, diarrhea, or constipation. He reports his abdominal pain has improved and the hematoma is getting better. Objective - Vital Signs/Intake and Output Vital Signs (last 24 hours): Temp Pulse Resp BP Pulse Ox 98.1 F 102 H 20 133/88 94 L 11/14/16 12:00 11/14/16 12:00 11/14/16 12:00 11/14/16 12:00 11/14/16 06:00 Intake and Output: 11/14/16 11/14/16 06:59 18:59 Intake Total 700 420 Output Total 200 1500 Balance 500 -1080 - Medications Medications: Current Medications Acetaminophen (Tylenol 325mg Tab) 650 mg PO Q6H PRN PRN Reason: Pain, Mild (1-3) Arformoterol Tartrate (Brovana) 15 mcg IH [id number] [facility] Last Admin: 11/14/16 07:54 Dose: 15 mcg Budesonide (Pulmicort Respules) 0.5 mg IH [id number] [facility] Last Admin: 11/14/16 07:54 Dose: 0.5 mg Dexamethasone (Decadron) 1 mg PO DAILY [facility] Last Admin: 11/14/16 10:31 Dose: 1 mg Doxycycline Hyclate (Doryx) 100 mg PO Q12 [facility] PRN Reason: Protocol Last Admin: 11/14/16 10:14 Dose: 100 mg Enoxaparin Sodium (Lovenox) 70 mg SC Q12 [facility] PRN Reason: Protocol Last Admin: 11/14/16 10:21 Dose: 70 mg Folic Acid (Folic Acid) 1 mg PO DAILY [facility] Last Admin: 11/14/16 10:14 Dose: 1 mg Vancomycin HCl (Vancomycin 1gm) 250 mls @ 167 mls/hr IVPB Q12H [facility] PRN Reason: Protocol Last Admin: 11/14/16 10:15 Dose: 167 mls/hr Piperacillin Sod/Tazobactam Sod (Zosyn 3.375 In Ns 100ml) 100 mls @ 200 mls/hr IVPB Q6 [facility] PRN Reason: Protocol Stop: 11/15/16 00:29 Morphine Sulfate (Morphine) 2 mg IVP Q4H PRN PRN Reason: Pain, moderate (4-7) Pantoprazole Sodium (Protonix Ec Tab) 40 mg PO ACB [facility] Last Admin: 11/14/16 08:03 Dose: 40 mg Thiamine HCl (Vitamin B1 Tab) 100 mg PO DAILY [facility] Last Admin: 11/14/16 10:13 Dose: 100 mg - Labs Labs: 11/14/16 07:00 11/14/16 07:00 PT 10.6 Seconds (9.9-11.8) 11/11/16 06:15 INR 0.98 (0.93-1.08) 11/11/16 06:15 APTT 29.6 Seconds (23.7-30.8) 11/09/16 10:59 - Constitutional Appears: Non-toxic, No Acute Distress, Older Than Stated Age - Head Exam Head Exam: ATRAUMATIC, NORMOCEPHALIC - Eye Exam Eye Exam: EOMI, PERRL. absent: Normal appearance (right eye cataract) Pupil Exam: NORMAL ACCOMODATION, PERRL - ENT Exam ENT Exam: Mucous Membranes Moist, Normal Oropharynx - Neck Exam Neck Exam: Normal Inspection. absent: Tenderness, Thyromegaly - Respiratory Exam Respiratory Exam: Decreased Breath Sounds (right upper lobe and lower lobe), Rhonchi (bilateral lower lobes), NORMAL BREATHING PATTERN - Cardiovascular Exam Cardiovascular Exam: REGULAR RHYTHM, +S1, +S2. absent: Gallop, Rubs, Murmur - GI/Abdominal Exam GI & Abdominal Exam: Soft, Normal Bowel Sounds. absent: Distended, Tenderness Additional comments: hematoma right lower quadrant - Extremities Exam Extremities Exam: Pedal Edema. absent: Tenderness - Back Exam Back Exam: NORMAL INSPECTION. absent: rash noted, tenderness - Neurological Exam Neurological Exam: Alert, Awake, CN II-XII Intact, Oriented x3 - Psychiatric Exam Psychiatric exam: Normal Affect, Normal Mood - Skin Skin Exam: Dry, Intact, Normal Color, Warm Assessment and Plan - Assessment and Plan (Free Text) Assessment: This is a 61Y M with PMH of metastatic lung cancer admitted for pleural effusion of R lung and possible PE. Bilateral lower extremity edema and abdominal hematoma. S/p lung biopsy and thoracentesis, path results show poorly differentiated adenocarcinoma with lymphovascular invasion, cytology positive for malignant non-small cell carcinoma. Plan: Pleural effusion * Infection vs malignancy vs CHF * ID consulted help appreciated * Pulmonology consulted, help appreciated * IR consulted, help appreciated * CT chest showed possible PE with pleural effusion on R [see full report] * CTA negative for PE [see full report] * U/S of legs-isolated r tibial DVT [see full report] * ECHO is unremarkable with EF 58% * Continue Vanc, Zosyn, and Doxycycline as per ID * Patient afebrile w/o leukocytosis * S/p thoracentesis and mass biopsy- 2000cc drained * Path results show poorly differentiated adenocarcinoma with lymphovascular invasion * Cytology positive for malignant non-small cell carcinoma * Continue Brovana and pulmicort * Patient SOB today, * Chest x-ray today showed complete opacification right lung. no mediastinal shift. * given 40mg IV lasix, * possible pigtail drain by IR Metastatic cancer * Oncology consulted, help appreciated * Continue Dexamethasone * Head CT shows lesion in right cerebella hemisphere, low attenuation changes superiorly and anteromedially to verminal region [see full report] * Consulted Dr. Call for second opinion. * consider drain placement by IR * Chemo and radiation as per oncology Bilateral leg edema * U/S of legs-isolated r tibial DVT, repeat u/s in 5 days * Decadron dose decreased to 2mg PO daily * ECHO is unremarkable with EF 58% * Continue Lovenox 70 BID SC * Start SCD's and tammy wraps Hyponatremia * Improved with IVF * r/o SIADH * Urine Osm and Na wnl Hematoma of R abdomen * Improving * Continue warm compresses * Monitor h/h (stable) * Lovenox injections on other side of abdomen. GI ppx: Protonix DVT ppx: Lovenox Case seen, reviewed and discussed with attending <Delmar Joyner - Last Filed: 11/14/16 15:30> Objective - Vital Signs/Intake and Output Vital Signs (last 24 hours): Temp Pulse Resp BP Pulse Ox 98.1 F 102 H 20 133/88 94 L 11/14/16 12:00 11/14/16 12:00 11/14/16 12:00 11/14/16 12:00 11/14/16 06:00 Intake and Output: 11/14/16 11/14/16 06:59 18:59 Intake Total 700 420 Output Total 200 1500 Balance 500 -1080 - Medications Medications: Current Medications Acetaminophen (Tylenol 325mg Tab) 650 mg PO Q6H PRN PRN Reason: Pain, Mild (1-3) Arformoterol Tartrate (Brovana) 15 mcg IH [id number] [facility] Last Admin: 11/14/16 07:54 Dose: 15 mcg Budesonide (Pulmicort Respules) 0.5 mg IH [id number] [facility] Last Admin: 11/14/16 07:54 Dose: 0.5 mg Dexamethasone (Decadron) 1 mg PO DAILY [facility] Last Admin: 11/14/16 10:31 Dose: 1 mg Doxycycline Hyclate (Doryx) 100 mg PO Q12 [facility] PRN Reason: Protocol Last Admin: 11/14/16 10:14 Dose: 100 mg Enoxaparin Sodium (Lovenox) 70 mg SC Q12 [facility] PRN Reason: Protocol Last Admin: 11/14/16 10:21 Dose: 70 mg Folic Acid (Folic Acid) 1 mg PO DAILY [facility] Last Admin: 11/14/16 10:14 Dose: 1 mg Vancomycin HCl (Vancomycin 1gm) 250 mls @ 167 mls/hr IVPB Q12H [facility] PRN Reason: Protocol Last Admin: 11/14/16 10:15 Dose: 167 mls/hr Piperacillin Sod/Tazobactam Sod (Zosyn 3.375 In Ns 100ml) 100 mls @ 200 mls/hr IVPB Q6 [facility] PRN Reason: Protocol Stop: 11/15/16 00:29 Morphine Sulfate (Morphine) 2 mg IVP Q4H PRN PRN Reason: Pain, moderate (4-7) Pantoprazole Sodium (Protonix Ec Tab) 40 mg PO ACB [facility] Last Admin: 11/14/16 08:03 Dose: 40 mg Thiamine HCl (Vitamin B1 Tab) 100 mg PO DAILY [facility] Last Admin: 11/14/16 10:13 Dose: 100 mg - Labs Labs: 11/14/16 07:00 11/14/16 07:00 PT 10.6 Seconds (9.9-11.8) 11/11/16 06:15 INR 0.98 (0.93-1.08) 11/11/16 06:15 APTT 29.6 Seconds (23.7-30.8) 11/09/16 10:59 Attending/Attestation - Attestation I have personally seen and examined this patient.: Yes I have fully participated in the care of the patient.: Yes I have reviewed all pertinent clinical information, including history, physical exam and plan: Yes Notes (Text): 11/14/16 15:26 61 year old male with past medical history of metastatic lung cancer who presented with RUQ pain. US/CT showed fatty liver without gallstones. CT chest showed moderate right pleural effusion and lung mass and LE doppler showed RLE DVT. He was started on iv antibiotics and lovenox. He is also s/p thoracocentesis and lung biopsy. Family and patient requested second oncologic opinion for which Dr. Devi was consulted. Today patient complains of shortness of breath. Repeat cxr shows opacification of right lung. IR has been notified for re-evaluation for possible pleurex catheter. He received iv lasix today as well. His right abdominal wall ecchymosis is imroving. Case was discussed with caseworker protective services earlier today as patient will need home O2 arrangement prior to discharge. Delmar Joyner MD Hospitalist.
--- NOTE | 2016-11-14 17:41 | PN ---
DATE: 11/14/2016 REFERRING PHYSICIAN: Dr. Wick. SUBJECTIVE: He is lying in the bed, head at 45 degrees, more short of breath today. No headache, no rhinitis, no nausea, no vomiting. Does have leg swelling. OBJECTIVE: GENERAL: No acute distress. VITAL SIGNS: Temperature is 98, heart rate is 110, respiratory rate is 20, blood pressure 133/88, pu lse ox 94% on nasal cannula. HEENT: Moist mucous membranes. Crowded airway. Mallampati score is 4. NECK: Supple, no JVD. LUNGS: No breath sounds in the right lung. HEART: S1, S2. ABDOMEN: Soft, nontender. No organomegaly. EXTREMITIES: Does have edema. NEUROLOGIC: Awake, alert, follows simple command. MEDICATIONS: He is on Brovana 15 mcg inhaled twice a day, Decadron 1 mg daily, doxycycline 100 mg tw ice a day, folic acid 1 mg daily, Lovenox 70 mg subQ twice a day, morphine 2 mg IV q. 4 hours p.r.n., Protonix 40 mg daily, Pulmicort inhaled twice a day, Tylenol on a p.r.n. basis, vancomycin 1 gram q. 12 hours, vitamin B 100 mg daily, Zosyn 3.375 grams q. 6 hours. LABORATORY DATA: Shows hemoglobin 11.3, hematocrit 34.8, WBC 8.4, platelet count is 146. Sodium 138 , potassium 4.0, chloride 102, bicarbonate 29, BUN 13, creatinine 0.7, glucose is 76, calcium 8.3, T 30, ALT 46, alkaline phosphatase is 61, albumin is 2.6, carcinoembryonic antigen 12.3. Chest x-ray today showed totally white out right lung. IMPRESSION AND PLAN: Metastatic adenocarcinoma, mets to the brain, requiring radiation therapy, admi tted with acute PE, has a large right pleural effusion status post thoracentesis. Also, status post right lung biopsy with pathology poorly differentiated adenocarcinoma, had recurrent effusion, reoccu rred within 3 days of first thoracentesis. Case discussed in detail with Dr. Castillo. I agree with his ____, the patient showed a PleurX catheter. Dr. Castillo already spoke to Dr. Henry Hayden. Of co urse will continue anticoagulation after the PleurX catheter placement. May not be a bad idea to rad iate his right hilar area. If we can open up bronchus to the extent that for interventional pulmonar y, they can place the ____ and may be able to put the stent. Will continue steroids, continue inhale d bronchodilator. Elevate lower extremity. Also, need to get echocardiogram to assure the LV functi on is normal. Thank you and will follow with you. Ashia Fletcher MD cc: [id number] TT: 11/14/2016 17:40:19 Confirmation # [id number] Dictation # [id number]
[2016-11-15] MEDS: Piperacillin/Tazobact 3.375 gm 100 ML IVPB SCH ×3 (00:15→18:44)
--- NOTE | 2016-11-15 04:35 | PN ---
DATE: 11/14/2016 The patient is in room 363, bed 2. REASON FOR CONSULTATION: This is a 61-year-old -Citizen Of [place] male who [facility], the background history of having a diagnosis of stage IV carcinoma of the lung, status post radiation to the brain with a large right hilar mass, which has not yet been biopsied prior to admission. The patient's information was obtained through the notes from this adm ission including notes from ____ and upon my interviewing the patient and his , who happens t o be at the bedside. Apparently, the patient is a heavy smoker and has history of ethanolism also in the past. 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 The patient has only vision through the left eye and rece ntly at the beginning of the year, he was having problems where he was having coordination issues. T he thought he may be coming down with a stroke and and that is when they had discovered th at the patient had metastatic disease to the cerebellum very close to the vermis and the patient rece ived 10 treatments with radiation. Subsequent to that, the patient was supposed to get a biopsy to d elineate a treatment plan and management based on molecular analysis. The patient was admitted to [facility] with right upper quadrant pain. At that time, workup showed that the pain was p robably related to local injection for Lovenox and there was no significant findings in the abdomen. The patient on the workup was also noted to have DVT in the tibial vein for which he has been placed on blood thinners. The patient also was noted to have DVT with PE based upon the testing that he covarrubias d upon admission. CT of the chest done showed that the patient had a very large right-sided pleural effusion with significant atelectasis. There is a small pericardial effusion. There is bulky adenop athy within the mediastinum. Also, there were small lymph nodes in the left hilar region. Evaluatio n of the right hilum was not possible because of the significant effusion. There was some aeration o f the right lower lobe and to a lesser extent of the right upper lobe. The right upper lobe bronchus appears to be occluded from possibly underlying mass. Upper lobe significant centrilobular emphysem atous changes are seen with left upper lobe predominance. This might be some interstitial fibrosis a s well. There is no evidence of pulmonary embolus on the CAT scan of the chest with findings suggest [place] of underlying pulmonary hypertension with a small pericardial effusion along with the bulky adeno adrianna. As I mentioned, the DVT study also was done and the patient was noted to have on the DVT stud y an isolated right tibial DVT for which he has been placed on blood thinners. The patient has just had a CT-guided biopsy of the right lung mass and mediastinal adenopathy. Along with this, the patie nt had a pleural tap as well. More than 2 liters of serosanguineous fluid has been removed. I review ed the pathology on both the lung biopsy and the pleural fluid. Both are consistent with poorly diff erentiated adenocarcinoma. The pleural fluid cytology is loaded with tumor cells indicating the reas on why he has such a significant pleural effusion. There is also a vascular invasion seen on the sebastian g biopsy of the mass itself. Objectively, the patient says that he felt a little bit better after the tapping yesterday. It laste d for 20 hours and he feels again that his breathing has worsened today after the tap. The patient d enies any fevers or chills, denies any problems with headaches, nausea or vomiting. Denies any leg s welling. He is lying in bed with head end at 45 degrees. PHYSICAL EXAMINATION: GENERAL: The patient is examined at the bedside. He is not in any acute distress with nasal cannula on. VITAL SIGNS: Stable. T-max is 98.4, heart rate is 110, respirations are 20, blood pressure is 133/8 8 and pulse ox is 94% on nasal cannula. HEENT: Head is normocephalic, atraumatic. Conjunctivae pale. Sclerae are anicteric. Temporal musc le wasting is noted. Pupils are equally reactive to light and accommodation. Examination of the [place] pharynx reveals no oropharyngeal lesions. NECK: Supple. There is no adenopathy. No jugular venous distention noted. LUNGS: Reveals absent breath sounds in the right lung posteriorly. HEART: Reveals S1 and S2 to be normal. No gallop or murmur is heard. ABDOMEN: Soft and nontender. Liver and spleen not palpable. There is a huge ecchymosis on the righ t side of his upper quadrant of his abdomen that he probably had a Lovenox injection. No rebound, ri gidity or guarding is noted. EXTREMITIES: Reveals no cyanosis, clubbing or edema. NEUROLOGIC: functions are normal. No focal deficits are noted. MEDICATIONS: Were reviewed. He is on Brovana 15 mcg inhaled twice a day, Decadron 1 mg daily, doxyc ycline 100 mg twice a day and folic acid 1 mg daily. He is on Lovenox 70 mg subcu twice a day, morph ine 2 mg IV q. 4 hours, Protonix 40 mg daily, Pulmicort inhaled twice a day, Tylenol p.r.n., vancomyc in 1 gram IV q. 12 hours, vitamin B 100 mg daily and Zosyn 3.375 grams q. 6 hours. LABORATORY DATA: Shows a hemoglobin of 11.3, hematocrit 34, platelet count 146,000 with a white coun t of 8.4. Sodium is 138, K is 4, chloride is 102, bicarbonate is 29, BUN is 13, creatinine 0.7, gluc ose is 76, calcium is 8.3, AST is 30, ALT is 46, alkaline phosphatase is 61, albumin is 2.6 and CEA i s 12.3. Chest x-ray shows a total white out of the right lung. ASSESSMENT NOTES AND PLAN: I had a detailed discussion with the patient, the patient's and expl ained to them what the problem with the situation right now is, but it is indefinitely upon review of the slides and have given the copies of the path report to the as well as metastatic adenocarci noma with the finding of compressive atelectasis of the right main stem bronchus with decreased air e ntry into the right upper lobe and now with persistent pleural effusion with encasement of the pulmon yusuf artery as well by the tumor. The question at this time would be how best to approach it, especia lly in the fact that he is still symptomatic with breathing. I discussed the case with wallace Gerber division service manager. I discussed the case with Dr. Henry Hayden. I presented the case to our radiation oncologist, and we came up with the plan which is as follows: 1. The patient is going to be assessed for radiation on Thursday to relieve the compressive obstructiv e atelectasis in the right mainstem area. 2. The patient is going to have Dr. Henry Hayden evaluate and assess him for a PleurX catheter also o n Thursday. Subsequent to this, Dr. Fletcher is going to see if he is a candidate after weeks of radiati on therapy whether we should put in a stent to alleviate and help the patient to breathe easier. 3. We are going to assess the patient for treatment based on molecular targeting. The patient's darren or specimen has already been sent at the request of and later on by me for the following: He has been sent for EGFR, ALK and PL1. They have added as well. These tests will take some time to come back. In the meantime, if we have to initiate therapy, we will proceed and go ahea d with systemic chemotherapy. Since he already had brain mets, a combinations such as Alimta m ay not be unreasonable, especially because he has adenocarcinoma. Carboplatin does penetrate the blo od brain barrier. The only relative concern would be that the pleural effusion we have to be careful with the doses of Alimta is better to give it after complete drainage or maximal drainage. I told the patient and his that he may also need a PET/CT scan and this would include the brain at the same time to see the response to the therapy. Prognosis is guarded. The patient and the a re willing to fight it and I told them that what needs to take we will offer it to them along as long as they are willing to understand that there is no magic in the management of metastatic cancer. Beltran th the and the are cognizant of all these facts and they want to proceed and the want me to be involved in the care and I told them that I would be happy to do so with the understanding brielle t I did not want to step on anybody's toes. Family is understanding and I would reach out to the othe r physicians as well involved in the care of this patient. Pan Castillo MD cc: [id number] TT: 11/15/2016 02:12:36 Confirmation # [id number] Dictation # [id number]
[2016-11-15 07:28] LABS: ADD MANUAL DIFF? NO
[2016-11-15 07:30] LABS: BASO # 0.02 K/mm3 (0.0-2.0); BASO % 0.3 % (0.0-3.0); EOS % 0.1 % (1.5-5.0); GRAN # 6.07 (1.4-6.5); GRAN % 77.5 % (50.0-68.0); HEMATOCRIT 33.1 % (42.0-52.0); LYMPH # 1.1 (1.2-3.4); LYMPH % 14.4 % (22.0-35.0); MEAN CELL VOLUME 88.5 fL (80.0-105.0); MEAN CORPUSCULAR HEMOGLOBIN 29.1 pg (25.0-35.0); MEAN CORPUSCULAR HGB CONC 32.9 g/dl (31.0-37.0); MEAN PLATELET VOLUME 9.8 fl (7.0-11.0); MONO # 0.6 (0.1-0.6); MONO % 7.7 % (1.0-6.0); PLATELET COUNT 147 10^3/uL (120.0-450.0); WHITE BLOOD COUNT 7.8 10^3/ul (4.5-11.0)
[2016-11-15 07:40] LABS: BLOOD UREA NITROGEN 14 mg/dL (7-21); CALCIUM 8.7 mg/dL (8.4-10.5); CARBON DIOXIDE 29 mmol/L (21-33); CHLORIDE 102 mmol/L (95-110); GFR AFRICAN-AMERICAN > 60; GLUCOSE,RANDOM 84 mg/dL (70-110); POTASSIUM 3.6 mmol/L (3.6-5.0); SODIUM 137 mmol/L (132-148)
[2016-11-15] MEDS: Budesonide 0.5 mg/2 ml Inhal Susp UD IH SCH ×2 (08:09→19:40)
[2016-11-15] MEDS: Arformoterol 15 mcg/2 ml Inh Sol IH SCH ×2 (08:09→19:40)
[2016-11-15] MEDS: Enoxaparin 80 mg Syringe SC SCH ×2 (09:32→22:00)
[2016-11-15] MEDS: Pantoprazole 40 mg EC Tab PO SCH (09:32)
[2016-11-15] MEDS: Vancomycin 1gm in NS 250ml 250 ML IVPB SCH ×2 (11:08→22:15)
--- NOTE | 2016-11-15 11:09 | CP.PCM.PN ---
<Lionel Sanchez - Last Filed: 11/15/16 11:05> Subjective - Date & Time of Evaluation Date of Evaluation: 11/15/16 Time of Evaluation: 07:45 - Subjective Subjective: Dr. Sanchez PGY 1 Hospitalist Note Patient seen and evaluated at bedside. He says his breathing has improved after getting lasix yesterday. He reports urinating well and the swelling in his legs decreasing. He currently reports feeling tired and not having an appetite. He denies any nausea, vomiting, chest pain, cough, abdominal pain, diarrhea, constipation or dysurea. As per nursing, no adverse events over night. Objective - Vital Signs/Intake and Output Vital Signs (last 24 hours): Temp Pulse Resp BP Pulse Ox 99.4 F 95 H 20 128/82 93 L 11/15/16 06:00 11/15/16 06:00 11/15/16 06:00 11/15/16 06:00 11/15/16 06:00 Intake and Output: 11/15/16 11/15/16 06:59 18:59 Intake Total 880 Output Total 525 Balance 355 - Medications Medications: Current Medications Acetaminophen (Tylenol 325mg Tab) 650 mg PO Q6H PRN PRN Reason: Pain, Mild (1-3) Arformoterol Tartrate (Brovana) 15 mcg IH [id number] [facility] Last Admin: 11/15/16 08:09 Dose: 15 mcg Budesonide (Pulmicort Respules) 0.5 mg IH [id number] [facility] Last Admin: 11/15/16 08:09 Dose: 0.5 mg Dexamethasone (Decadron) 1 mg PO DAILY [facility] Last Admin: 11/14/16 10:31 Dose: 1 mg Doxycycline Hyclate (Doryx) 100 mg PO Q12 [facility] PRN Reason: Protocol Last Admin: 11/15/16 09:32 Dose: 100 mg Enoxaparin Sodium (Lovenox) 70 mg SC Q12 [facility] PRN Reason: Protocol Last Admin: 11/15/16 09:32 Dose: 70 mg Folic Acid (Folic Acid) 1 mg PO DAILY [facility] Last Admin: 11/15/16 09:32 Dose: 1 mg Vancomycin HCl (Vancomycin 1gm) 250 mls @ 167 mls/hr IVPB Q12H [facility] PRN Reason: Protocol Last Admin: 11/14/16 22:15 Dose: 167 mls/hr Piperacillin Sod/Tazobactam Sod (Zosyn 3.375 In Ns 100ml) 100 mls @ 200 mls/hr IVPB Q6 [facility] PRN Reason: Protocol Stop: 11/15/16 18:29 Morphine Sulfate (Morphine) 2 mg IVP Q4H PRN PRN Reason: Pain, moderate (4-7) Pantoprazole Sodium (Protonix Ec Tab) 40 mg PO ACB [facility] Last Admin: 11/15/16 09:32 Dose: 40 mg Thiamine HCl (Vitamin B1 Tab) 100 mg PO DAILY [facility] Last Admin: 11/15/16 09:32 Dose: 100 mg - Labs Labs: 11/15/16 07:15 11/15/16 07:15 PT 10.6 Seconds (9.9-11.8) 11/11/16 06:15 INR 0.98 (0.93-1.08) 11/11/16 06:15 APTT 29.6 Seconds (23.7-30.8) 11/09/16 10:59 - Constitutional Appears: Non-toxic, No Acute Distress - Head Exam Head Exam: ATRAUMATIC, NORMOCEPHALIC - Eye Exam Eye Exam: EOMI, PERRL. absent: Normal appearance (cataract right eye) Pupil Exam: NORMAL ACCOMODATION, PERRL - ENT Exam ENT Exam: Mucous Membranes Moist, Normal Oropharynx - Respiratory Exam Respiratory Exam: Decreased Breath Sounds (right side), Rhonchi (right side), NORMAL BREATHING PATTERN - Cardiovascular Exam Cardiovascular Exam: REGULAR RHYTHM, +S1, +S2. absent: Gallop, Rubs, Murmur - GI/Abdominal Exam GI & Abdominal Exam: Soft, Normal Bowel Sounds. absent: Tenderness Additional comments: RLQ hematoma - Extremities Exam Extremities Exam: Normal Capillary Refill, Pedal Edema. absent: Normal Inspection, Tenderness - Back Exam Back Exam: NORMAL INSPECTION. absent: rash noted, tenderness - Neurological Exam Neurological Exam: Alert, Awake, CN II-XII Intact, Oriented x3 - Psychiatric Exam Psychiatric exam: Normal Affect, Normal Mood - Skin Skin Exam: Dry, Intact Additional comments: right flank hematoma Assessment and Plan - Assessment and Plan (Free Text) Assessment: This is a 61Y M with PMH of metastatic lung cancer admitted for pleural effusion of R lung and possible PE. Bilateral lower extremity edema and abdominal hematoma. S/p lung biopsy and thoracentesis, path results show poorly differentiated adenocarcinoma with lymphovascular invasion, cytology positive for malignant non-small cell carcinoma. Awaiting pleurex placement. Plan: Pleural effusion * Infection vs malignancy vs CHF * ID consulted help appreciated * Pulmonology consulted, help appreciated * IR consulted, help appreciated * CT chest showed possible PE with pleural effusion on R [see full report] * CTA negative for PE [see full report] * U/S of legs-isolated r tibial DVT [see full report] * ECHO is unremarkable with EF 58% * Continue Vanc, Zosyn, and Doxycycline as per ID * Patient afebrile w/o leukocytosis * S/p thoracentesis and mass biopsy- 2000cc drained * Path results show poorly differentiated adenocarcinoma with lymphovascular invasion * Cytology positive for malignant non-small cell carcinoma * Continue Brovana and pulmicort * Patient SOB improved * Chest x-ray today showed complete opacification right lung. no mediastinal shift. * Give Lasix 20mg PO once * pleaurex to be placed by IR thursday * will hold Lovenox thursday night Metastatic cancer * Oncology consulted, help appreciated * Continue Dexamethasone * Head CT shows lesion in right cerebella hemisphere, low attenuation changes superiorly and anteromedially to verminal region [see full report] * Consulted Dr. Call for second opinion. * pleaurex to be placed by IR thursday * Chemo and radiation as per oncology Bilateral leg edema * U/S of legs-isolated r tibial DVT, repeat u/s in 5 days * Decadron dose decreased to 2mg PO daily * ECHO is unremarkable with EF 58% * Continue Lovenox 70 BID SC * Continue Papi wraps, SCD's held due to edema Hyponatremia * Improved with IVF * r/o SIADH * Urine Osm and Na wnl Hematoma of R abdomen * Improving * Continue warm compresses * Monitor h/h (stable) * Lovenox injections on other side of abdomen. GI ppx: Protonix DVT ppx: Lovenox Case seen, reviewed and discussed with attending <Umberto LOPEZ,Ashia - Last Filed: 11/15/16 11:25> Objective - Vital Signs/Intake and Output Vital Signs (last 24 hours): Temp Pulse Resp BP Pulse Ox 99.4 F 95 H 20 110/70 93 L 11/15/16 06:00 11/15/16 06:00 11/15/16 06:00 11/15/16 11:05 11/15/16 06:00 Intake and Output: 11/15/16 11/15/16 06:59 18:59 Intake Total 880 Output Total 525 Balance 355 - Medications Medications: Current Medications Acetaminophen (Tylenol 325mg Tab) 650 mg PO Q6H PRN PRN Reason: Pain, Mild (1-3) Arformoterol Tartrate (Brovana) 15 mcg IH [id number] [facility] Last Admin: 11/15/16 08:09 Dose: 15 mcg Budesonide (Pulmicort Respules) 0.5 mg IH [id number] [facility] Last Admin: 11/15/16 08:09 Dose: 0.5 mg Dexamethasone (Decadron) 1 mg PO DAILY [facility] Last Admin: 11/15/16 11:04 Dose: 1 mg Doxycycline Hyclate (Doryx) 100 mg PO Q12 [facility] PRN Reason: Protocol Last Admin: 11/15/16 09:32 Dose: 100 mg Enoxaparin Sodium (Lovenox) 70 mg SC Q12 [facility] PRN Reason: Protocol Last Admin: 11/15/16 09:32 Dose: 70 mg Folic Acid (Folic Acid) 1 mg PO DAILY [facility] Last Admin: 11/15/16 09:32 Dose: 1 mg Vancomycin HCl (Vancomycin 1gm) 250 mls @ 167 mls/hr IVPB Q12H [facility] PRN Reason: Protocol Last Admin: 11/15/16 11:08 Dose: 167 mls/hr Piperacillin Sod/Tazobactam Sod (Zosyn 3.375 In Ns 100ml) 100 mls @ 200 mls/hr IVPB Q6 [facility] PRN Reason: Protocol Stop: 11/15/16 18:29 Last Admin: 11/15/16 11:09 Dose: 200 mls/hr Morphine Sulfate (Morphine) 2 mg IVP Q4H PRN PRN Reason: Pain, moderate (4-7) Pantoprazole Sodium (Protonix Ec Tab) 40 mg PO ACB [facility] Last Admin: 11/15/16 09:32 Dose: 40 mg Thiamine HCl (Vitamin B1 Tab) 100 mg PO DAILY [facility] Last Admin: 11/15/16 09:32 Dose: 100 mg - Labs Labs: 11/15/16 07:15 11/15/16 07:15 PT 10.6 Seconds (9.9-11.8) 11/11/16 06:15 INR 0.98 (0.93-1.08) 11/11/16 06:15 APTT 29.6 Seconds (23.7-30.8) 11/09/16 10:59 Attending/Attestation - Attestation I have personally seen and examined this patient.: Yes I have fully participated in the care of the patient.: Yes I have reviewed all pertinent clinical information, including history, physical exam and plan: Yes Notes (Text): Patient was seen and examined with biomedical equipment specialist .Agreed with resident assessment and plan. 61 year old male with metastatic non small cell lung cancer,SP Radiation of brain,with recent thoracentesis and repeat biopsy of lung to find the molecular status, now with complate opacification of right lung resulting in dyspnea and hypoxia, dyspnea is better today.Patient is for pleurex catheter on Thursday.Patient will also be evaluated by radiation oncology on Thursday. Low grade fever is likely due to mailidnancy, may have post obstructive Pneumonia, on broad spectrum antibiotics as per ID Right lower extremity DVT, on anticoagulation with lovenox. Management plan was discussed in detail with patient Education was provided.
--- NOTE | 2016-11-15 15:12 | PN ---
DATE: 11/15/2016 REFERRING PHYSICIAN: Dr. Riccardo Wick. SUBJECTIVE: The patient is lying in the bed, head at 45 degrees. Short of breath with exertion. No cough, no sputum production, no nausea, no vomiting, and no diarrhea. Decreased leg swelling. OBJECTIVE: GENERAL: No acute distress. VITAL SIGNS: Temp is 98, heart rate is 99, respiratory rate is 20, blood pressure 125/75, pulse ox 9 3% on nasal cannula. HEENT: Moist mucous membrane. Crowded airway. NECK: Supple, no JVD. LUNGS: Have no breath sounds on the right lung. HEART: S1 and S2. ABDOMEN: Soft, nontender. No organomegaly. EXTREMITIES: Decreased edema. NEUROLOGIC: Awake, alert, follows simple commands. MEDICATIONS: He is on Brovana 15 mcg inhaled twice a day, Decadron 1 mg daily, doxycycline 100 mg tw ice a day, folic acid 1 mg daily, Lovenox 70 mg subQ q. 12 hours, morphine 2 mg q. 4 hours for pain, Pulmicort inhaled twice a day, Tylenol p.r.n. basis, vancomycin 1 g IV q. 12 hours, vitamin B1100 mg daily, Zosyn 3.375 grams q. 6 hours. LABORATORY DATA: Shows hemoglobin 10.9, hematocrit 33.1, WBC 7.8, platelet is 147. Sodium 137, pota ssium 3.6, chloride 102, bicarbonate 29, BUN 14, creatinine 0.8, glucose is 84, calcium is 8.7. IMPRESSION AND PLAN: Metastatic adenocarcinoma, malignant effusion, metastasis to the brain, status post brain radiation, status post thoracentesis, reoccurrence of right pleural effusion with a pulmon yusuf embolus, chronic obstructive lung disease, awaiting for PleurX catheter to be replaced. Also rec ommended start right mediastinal area radiation. Continue bronchodilator. Continue steroids, antibi otics as per infectious diseases. Gastric prophylaxis. Anticoagulation. Need to hold anticoagulati on before PleurX catheter. We will follow with you. Ashia Fletcher MD cc: [id number] TT: 11/15/2016 15:11:46 Confirmation # [id number] Dictation # [id number]
--- NOTE | 2016-11-15 17:31 | CP.PCM.PN ---
Subjective - Date & Time of Evaluation Date of Evaluation: 11/15/16 Time of Evaluation: 15:00 - Subjective Subjective: No acute problems. Getting some sleep earlier today. ROS: 12 ROS otherwise negative Objective - Vital Signs/Intake and Output Vital Signs (last 24 hours): Temp Pulse Resp BP Pulse Ox 97.1 F L 97 H 19 125/75 93 L 11/15/16 12:00 11/15/16 14:00 11/15/16 12:00 11/15/16 12:00 11/15/16 06:00 Intake and Output: 11/15/16 11/15/16 06:59 18:59 Intake Total 880 Output Total 525 Balance 355 - Medications Medications: Current Medications Acetaminophen (Tylenol 325mg Tab) 650 mg PO Q6H PRN PRN Reason: Pain, Mild (1-3) Arformoterol Tartrate (Brovana) 15 mcg IH [id number] COUNT INCLUDES [facility] Last Admin: 11/15/16 08:09 Dose: 15 mcg Budesonide (Pulmicort Respules) 0.5 mg IH [id number] COUNT INCLUDES THE [facility] Last Admin: 11/15/16 08:09 Dose: 0.5 mg Dexamethasone (Decadron) 1 mg PO DAILY COUNT INCLUDES [facility] Last Admin: 11/15/16 11:04 Dose: 1 mg Doxycycline Hyclate (Doryx) 100 mg PO Q12 [facility] PRN Reason: Protocol Last Admin: 11/15/16 09:32 Dose: 100 mg Enoxaparin Sodium (Lovenox) 70 mg SC Q12 [facility] PRN Reason: Protocol Last Admin: 11/15/16 09:32 Dose: 70 mg Folic Acid (Folic Acid) 1 mg PO DAILY [facility]CLUDES [facility] Last Admin: 11/15/16 09:32 Dose: 1 mg Vancomycin HCl (Vancomycin 1gm) 250 mls @ 167 mls/hr IVPB Q12H [facility] PRN Reason: Protocol Last Admin: 11/15/16 11:08 Dose: 167 mls/hr Piperacillin Sod/Tazobactam Sod (Zosyn 3.375 In Ns 100ml) 100 mls @ 200 mls/hr IVPB Q6 [facility] PRN Reason: Protocol Stop: 11/15/16 18:29 Last Admin: 11/15/16 11:09 Dose: 200 mls/hr Morphine Sulfate (Morphine) 2 mg IVP Q4H PRN PRN Reason: Pain, moderate (4-7) Pantoprazole Sodium (Protonix Ec Tab) 40 mg PO ACB [facility] Last Admin: 11/15/16 09:32 Dose: 40 mg Thiamine HCl (Vitamin B1 Tab) 100 mg PO DAILY COUNT INCLUDES [facility] Last Admin: 11/15/16 09:32 Dose: 100 mg - Labs Labs: 11/15/16 07:15 11/15/16 07:15 PT 10.6 Seconds (9.9-11.8) 11/11/16 06:15 INR 0.98 (0.93-1.08) 11/11/16 06:15 APTT 29.6 Seconds (23.7-30.8) 11/09/16 10:59 - Constitutional Appears: Well - Head Exam Head Exam: ATRAUMATIC, NORMAL INSPECTION, NORMOCEPHALIC - Eye Exam Eye Exam: EOMI, Normal appearance, PERRL - Respiratory Exam Respiratory Exam: Decreased Breath Sounds. absent: Accessory Muscle Use, Chest Wall Tenderness, Respiratory Distress - Cardiovascular Exam Cardiovascular Exam: REGULAR RHYTHM, +S1, +S2. absent: Murmur - GI/Abdominal Exam GI & Abdominal Exam: Soft, Normal Bowel Sounds. absent: Tenderness - Extremities Exam Extremities Exam: Full ROM, Normal Capillary Refill, Normal Inspection. absent : Joint Swelling, Pedal Edema Assessment and Plan (1) Lung cancer Status: Acute - Assessment and Plan (Free Text) Assessment: Mr. Garcia is a 61 y/o kamron with pmhx significant for stage IV NSCLC s/p XRT to brain and LLE DVT (on lovenox) admitted with RLL mass s/p CT guided biopsy and currently being treated empirically for infection and consideration of pleurex catheter. Patient doing ok. Continue to await complete pathology with molecular and PDL1 testing. Patient will likely require XRT and/or possibly bronchial stenting. Continue anticoagulation for now but will hold evening dose prior to pleurex procedure. Ultimately will require some form of systemic treatment for cancer
--- NOTE | 2016-11-15 17:50 | CP.PCM.PN ---
Subjective - Date & Time of Evaluation Date of Evaluation: 11/15/16 Time of Evaluation: 16:30 - Subjective Subjective: Infectious Disease Follow Up: November 15, 2016 61 yo male with history of metastatic lung cancer with three week history of abdominal pain that has progressively worsened. Last chemotherapy was two weeks ago. CT displays large mass in Right upper lobe bronchus with obstruction and possible PE with moderate pleural effusion. He also has increased leg swelling and SOB for the past two weeks as well. He is breathing easier today. He had biopsy of the lung mass and thoracentesis by IR yesterday afternoon. He is more comfortable. Bilateral leg swelling has improved significantly since admission. Biopsy showing adenocarcinoma that is poorly differentiated with lymphovascular invasion. Objective - Vital Signs/Intake and Output Vital Signs (last 24 hours): Temp Pulse Resp BP Pulse Ox 97.1 F L 97 H 19 125/75 93 L 11/15/16 12:00 11/15/16 14:00 11/15/16 12:00 11/15/16 12:00 11/15/16 06:00 Intake and Output: 11/15/16 11/15/16 06:59 18:59 Intake Total 880 Output Total 525 Balance 355 - Medications Medications: Current Medications Acetaminophen (Tylenol 325mg Tab) 650 mg PO Q6H PRN PRN Reason: Pain, Mild (1-3) Arformoterol Tartrate (Brovana) 15 mcg IH [id number] [facility] Last Admin: 11/15/16 08:09 Dose: 15 mcg Budesonide (Pulmicort Respules) 0.5 mg IH [id number] [facility] Last Admin: 11/15/16 08:09 Dose: 0.5 mg Dexamethasone (Decadron) 1 mg PO DAILY [facility] Last Admin: 11/15/16 11:04 Dose: 1 mg Doxycycline Hyclate (Doryx) 100 mg PO Q12 [facility] PRN Reason: Protocol Last Admin: 11/15/16 09:32 Dose: 100 mg Enoxaparin Sodium (Lovenox) 70 mg SC Q12 [facility] PRN Reason: Protocol Last Admin: 11/15/16 09:32 Dose: 70 mg Folic Acid (Folic Acid) 1 mg PO DAILY [facility] Last Admin: 11/15/16 09:32 Dose: 1 mg Vancomycin HCl (Vancomycin 1gm) 250 mls @ 167 mls/hr IVPB Q12H [facility] PRN Reason: Protocol Last Admin: 11/15/16 11:08 Dose: 167 mls/hr Piperacillin Sod/Tazobactam Sod (Zosyn 3.375 In Ns 100ml) 100 mls @ 200 mls/hr IVPB Q6 [facility] PRN Reason: Protocol Stop: 11/15/16 18:29 Last Admin: 11/15/16 11:09 Dose: 200 mls/hr Morphine Sulfate (Morphine) 2 mg IVP Q4H PRN PRN Reason: Pain, moderate (4-7) Pantoprazole Sodium (Protonix Ec Tab) 40 mg PO ACB [facility] Last Admin: 11/15/16 09:32 Dose: 40 mg Thiamine HCl (Vitamin B1 Tab) 100 mg PO DAILY [facility] Last Admin: 11/15/16 09:32 Dose: 100 mg - Labs Labs: 11/15/16 07:15 11/15/16 07:15 PT 10.6 Seconds (9.9-11.8) 11/11/16 06:15 INR 0.98 (0.93-1.08) 11/11/16 06:15 APTT 29.6 Seconds (23.7-30.8) 11/09/16 10:59 - Eye Exam Eye Exam: EOMI, PERRL Pupil Exam: NORMAL ACCOMODATION, PERRL - ENT Exam ENT Exam: Mucous Membranes Moist, Normal External Ear Exam, TM's Normal Bilaterally - Neck Exam Neck Exam: Full ROM, Normal Inspection - Respiratory Exam Respiratory Exam: Decreased Breath Sounds, NORMAL BREATHING PATTERN. absent: Rales, Rhonchi, Wheezes Additional comments: Mild Right lower lung rales with no air movement in right upper lobe. - Cardiovascular Exam Cardiovascular Exam: REGULAR RHYTHM, RRR, +S1, +S2 - GI/Abdominal Exam GI & Abdominal Exam: Soft, Normal Bowel Sounds. absent: Distended, Tenderness Additional comments: RLQ Hematoma. - Extremities Exam Extremities Exam: Full ROM, Normal Inspection - Neurological Exam Neurological Exam: Alert, Awake, CN II-XII Intact, Oriented x3 - Psychiatric Exam Psychiatric exam: Normal Affect, Normal Mood - Skin Skin Exam: Intact, Normal Color Assessment and Plan - Assessment and Plan (Free Text) Assessment: 61 yo male with metastatic lung cancer to the brain with worsening abdominal pain, lower leg edema, and SOB. Only on dexamethasone on admission. Unable to rule out pneumonia. On Vancomycin, Doxycycline, and Zosyn for antibiotic coverage for now. Will maintain this regimen for the time being. Supportive care. CT scan of chest suggested lesion in C7. Effusion possibly loculated in right lower lobe. For biopsy and thoracentesis... done. Patient is more comfortable now compared to admission. Bilateral leg swelling has improved significantly. Biopsy showing adenocarcinoma that is poorly differentiated with lymphovascular invasion. Can maintain on Doxycycline and Zosyn while in hospital. Thank you for allowing me to participate in the care of this patient, we will follow with you.
[2016-11-16] MEDS: Pantoprazole 40 mg EC Tab PO SCH (07:41)
[2016-11-16] MEDS: Budesonide 0.5 mg/2 ml Inhal Susp UD IH SCH ×2 (07:49→19:43)
[2016-11-16] MEDS: Arformoterol 15 mcg/2 ml Inh Sol IH SCH ×2 (07:49→19:43)
--- NOTE | 2016-11-16 09:14 | CP.PCM.PN ---
<Lionel Sanchez - Last Filed: 11/16/16 11:39> Subjective - Date & Time of Evaluation Date of Evaluation: 11/16/16 Time of Evaluation: 09:00 - Subjective Subjective: Dr. Sanchez PGY 1 Hospitalist Note Patient seen and evaluated at bedside with attending physician. He states his breathing and leg swelling has improved with the lasix. He has more appetite today and ate breakfast. He denies any nausea, vomiting, chest pain, cough, fever, chills, or body aches. He states his abdominal pain has improved and has minimal tenderness on his side. Objective - Vital Signs/Intake and Output Vital Signs (last 24 hours): Temp Pulse Resp BP Pulse Ox 98.8 F 96 H 20 126/89 96 11/16/16 05:47 11/16/16 05:47 11/16/16 05:47 11/16/16 05:47 11/16/16 05:47 Intake and Output: 11/16/16 11/16/16 06:59 18:59 Intake Total 360 Output Total 1400 Balance -1040 - Medications Medications: Current Medications Acetaminophen (Tylenol 325mg Tab) 650 mg PO Q6H PRN PRN Reason: Pain, Mild (1-3) Arformoterol Tartrate (Brovana) 15 mcg IH [id number] [facility] Last Admin: 11/16/16 07:49 Dose: 15 mcg Budesonide (Pulmicort Respules) 0.5 mg IH [id number] [facility] Last Admin: 11/16/16 07:49 Dose: 0.5 mg Dexamethasone (Decadron) 1 mg PO DAILY [facility] Last Admin: 11/15/16 11:04 Dose: 1 mg Doxycycline Hyclate (Doryx) 100 mg PO Q12 [facility] PRN Reason: Protocol Last Admin: 11/15/16 21:59 Dose: 100 mg Enoxaparin Sodium (Lovenox) 70 mg SC Q12 [facility] PRN Reason: Protocol Last Admin: 11/15/16 22:00 Dose: 70 mg Folic Acid (Folic Acid) 1 mg PO DAILY [facility] Last Admin: 11/15/16 09:32 Dose: 1 mg Furosemide (Lasix) 20 mg PO ONCE ONE Stop: 11/16/16 10:01 Vancomycin HCl (Vancomycin 1gm) 250 mls @ 167 mls/hr IVPB Q12H [facility] PRN Reason: Protocol Last Admin: 11/15/16 22:15 Dose: 167 mls/hr Morphine Sulfate (Morphine) 2 mg IVP Q4H PRN PRN Reason: Pain, moderate (4-7) Pantoprazole Sodium (Protonix Ec Tab) 40 mg PO ACB [facility] Last Admin: 11/16/16 07:41 Dose: Not Given Thiamine HCl (Vitamin B1 Tab) 100 mg PO DAILY [facility] Last Admin: 11/15/16 09:32 Dose: 100 mg - Labs Labs: 11/15/16 07:15 11/15/16 07:15 PT 10.6 Seconds (9.9-11.8) 11/11/16 06:15 INR 0.98 (0.93-1.08) 11/11/16 06:15 APTT 29.6 Seconds (23.7-30.8) 11/09/16 10:59 - Constitutional Appears: Non-toxic, No Acute Distress, Older Than Stated Age - Head Exam Head Exam: ATRAUMATIC, NORMOCEPHALIC - Eye Exam Eye Exam: EOMI, PERRL. absent: Normal appearance (cataract right eye) Pupil Exam: NORMAL ACCOMODATION, PERRL - ENT Exam ENT Exam: Mucous Membranes Moist, Normal Oropharynx - Respiratory Exam Respiratory Exam: Decreased Breath Sounds (right upper and lower lobe), NORMAL BREATHING PATTERN. absent: Rales, Rhonchi, Wheezes - Cardiovascular Exam Cardiovascular Exam: REGULAR RHYTHM, +S1, +S2. absent: Gallop, Rubs, Murmur - GI/Abdominal Exam GI & Abdominal Exam: Soft, Normal Bowel Sounds. absent: Tenderness Additional comments: hematoma RLQ - Extremities Exam Extremities Exam: Pedal Edema (bilateral up to calf). absent: Normal Inspection , Tenderness - Back Exam Back Exam: NORMAL INSPECTION. absent: rash noted, tenderness - Neurological Exam Neurological Exam: Alert, Awake, CN II-XII Intact, Oriented x3 - Psychiatric Exam Psychiatric exam: Normal Affect, Normal Mood - Skin Skin Exam: Dry, Intact, Normal Color, Warm Additional comments: hematoma RLQ Assessment and Plan - Assessment and Plan (Free Text) Assessment: This is a 61Y M with PMH of metastatic lung cancer admitted for pleural effusion of R lung and possible PE. Bilateral lower extremity edema and abdominal hematoma. S/p lung biopsy and thoracentesis, path results show poorly differentiated adenocarcinoma with lymphovascular invasion, cytology positive for malignant non-small cell carcinoma. Awaiting pleurex placement. Plan: Pleural effusion * Infection vs malignancy vs CHF * ID consulted help appreciated * Pulmonology consulted, help appreciated * IR consulted, help appreciated * CT chest showed possible PE with pleural effusion on R [see full report] * CTA negative for PE [see full report] * U/S of legs-isolated r tibial DVT [see full report] * ECHO is unremarkable with EF 58% * Continue Vanc, Zosyn, and Doxycycline as per ID * Patient afebrile w/o leukocytosis * S/p thoracentesis and mass biopsy- 2000cc drained * Path results show poorly differentiated adenocarcinoma with lymphovascular invasion * Cytology positive for malignant non-small cell carcinoma * Continue Brovana and pulmicort * Patient SOB improved * Chest x-ray today showed complete opacification right lung. no mediastinal shift. * Continue Lasix 20mg PO as improved symptoms, continue to monitor BP * pleaurex to be placed by IR thursday * will hold Lovenox tonight Metastatic cancer * Oncology consulted, help appreciated * Continue Dexamethasone * Head CT shows lesion in right cerebella hemisphere, low attenuation changes superiorly and anteromedially to verminal region [see full report] * Consulted Dr. Call for second opinion. * pleaurex to be placed by IR tomorrow * Chemo and radiation as per oncology Bilateral leg edema * U/S of legs-isolated r tibial DVT, prior to discharge * Decadron dose decreased to 2mg PO daily * ECHO is unremarkable with EF 58% * Continue Lovenox 70 BID SC (held for procedure) * Continue Papi wraps, SCD's held due to edema Hyponatremia * Improved with IVF * r/o SIADH * Urine Osm and Na wnl Hematoma of R abdomen * Improving * Continue warm compresses * Monitor h/h (stable) * Lovenox injections on other side of abdomen. GI ppx: Protonix DVT ppx: Lovenox Case seen, reviewed and discussed with attending <Umberto LOPEZ,Ashia - Last Filed: 11/16/16 12:01> Objective - Vital Signs/Intake and Output Vital Signs (last 24 hours): Temp Pulse Resp BP Pulse Ox 98.8 F 112 H 20 126/89 96 11/16/16 05:47 11/16/16 11:46 11/16/16 05:47 11/16/16 10:31 11/16/16 05:47 Intake and Output: 11/16/16 11/16/16 06:59 18:59 Intake Total 360 Output Total 1400 Balance -1040 - Medications Medications: Current Medications Acetaminophen (Tylenol 325mg Tab) 650 mg PO Q6H PRN PRN Reason: Pain, Mild (1-3) Arformoterol Tartrate (Brovana) 15 mcg IH [id number] [facility] Last Admin: 11/16/16 07:49 Dose: 15 mcg Budesonide (Pulmicort Respules) 0.5 mg IH [id number] [facility] Last Admin: 11/16/16 07:49 Dose: 0.5 mg Dexamethasone (Decadron) 1 mg PO DAILY [facility] Last Admin: 11/16/16 10:28 Dose: 1 mg Doxycycline Hyclate (Doryx) 100 mg PO Q12 [facility] PRN Reason: Protocol Last Admin: 11/16/16 10:28 Dose: 100 mg Enoxaparin Sodium (Lovenox) 70 mg SC Q12 [facility] PRN Reason: Protocol Last Admin: 11/16/16 10:43 Dose: Not Given Folic Acid (Folic Acid) 1 mg PO DAILY [facility] Last Admin: 11/16/16 10:28 Dose: 1 mg Vancomycin HCl (Vancomycin 1gm) 250 mls @ 167 mls/hr IVPB Q12H [facility] PRN Reason: Protocol Last Admin: 11/16/16 10:27 Dose: 167 mls/hr Piperacillin Sod/Tazobactam Sod (Zosyn 3.375 In Ns 100ml) 100 mls @ 200 mls/hr IVPB Q6 [facility] PRN Reason: Protocol Stop: 11/16/16 18:29 Morphine Sulfate (Morphine) 2 mg IVP Q4H PRN PRN Reason: Pain, moderate (4-7) Pantoprazole Sodium (Protonix Ec Tab) 40 mg PO ACB [facility] Last Admin: 11/16/16 07:41 Dose: Not Given Thiamine HCl (Vitamin B1 Tab) 100 mg PO DAILY [facility] Last Admin: 11/16/16 10:29 Dose: 100 mg - Labs Labs: 11/15/16 07:15 11/15/16 07:15 PT 10.6 Seconds (9.9-11.8) 11/11/16 06:15 INR 0.98 (0.93-1.08) 11/11/16 06:15 APTT 29.6 Seconds (23.7-30.8) 11/09/16 10:59 Attending/Attestation - Attestation I have personally seen and examined this patient.: Yes I have fully participated in the care of the patient.: Yes I have reviewed all pertinent clinical information, including history, physical exam and plan: Yes Notes (Text): Patient was seen and examined with medical technologist clinical .Agreed with resident assessment and plan. 61 year old male with pmh of metastatic lung cancer who presented with RUQ pain. US/CT showed no gallstones but fatty liver. Patient workup revealed RLE DVT, moderate right pleural effusion, lung mass. 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 Hypoxia is stable, scheduled for pleurex catheter by Dr. Maurizio Tavarez , he will also be evaluated by radiation oncology.He is on anticoagulation with lovenox for right tibial vein DVT., also on antibiotics for post obstructive Pneumonia as per Id Management plan was discussed in detail with patient Education was provided.
[2016-11-16] MEDS: Vancomycin 1gm in NS 250ml 250 ML IVPB SCH ×2 (10:27→22:27)
[2016-11-16] MEDS: Enoxaparin 80 mg Syringe SC SCH ×3 (10:29→13:57)
[2016-11-16] MEDS: Piperacillin/Tazobact 3.375 gm 100 ML IVPB SCH ×2 (13:56→17:28)
--- NOTE | 2016-11-16 15:53 | CP.PCM.PN ---
Subjective - Date & Time of Evaluation Date of Evaluation: 11/16/16 Time of Evaluation: 14:00 - Subjective Subjective: Slept well yesterday. Continues to have non-productive cough. But otherwise doing ok. Refused lovenox earlier this morning b/c he though he was not suppose to have it today. ROS: 12 ROS otherwise negative Objective - Vital Signs/Intake and Output Vital Signs (last 24 hours): Temp Pulse Resp BP Pulse Ox 98.7 F 101 H 19 137/91 H 96 11/16/16 12:00 11/16/16 15:36 11/16/16 12:00 11/16/16 12:00 11/16/16 05:47 Intake and Output: 11/16/16 11/16/16 06:59 18:59 Intake Total 360 Output Total 1400 Balance -1040 - Medications Medications: Current Medications Acetaminophen (Tylenol 325mg Tab) 650 mg PO Q6H PRN PRN Reason: Pain, Mild (1-3) Arformoterol Tartrate (Brovana) 15 mcg IH [id number] [facility] Last Admin: 11/16/16 07:49 Dose: 15 mcg Budesonide (Pulmicort Respules) 0.5 mg IH [id number] [facility] Last Admin: 11/16/16 07:49 Dose: 0.5 mg Dexamethasone (Decadron) 1 mg PO DAILY [facility] Last Admin: 11/16/16 10:28 Dose: 1 mg Doxycycline Hyclate (Doryx) 100 mg PO Q12 [facility] PRN Reason: Protocol Last Admin: 11/16/16 10:28 Dose: 100 mg Enoxaparin Sodium (Lovenox) 70 mg SC Q12 [facility] PRN Reason: Protocol Last Admin: 11/16/16 13:57 Dose: 70 mg Folic Acid (Folic Acid) 1 mg PO DAILY [facility] Last Admin: 11/16/16 10:28 Dose: 1 mg Vancomycin HCl (Vancomycin 1gm) 250 mls @ 167 mls/hr IVPB Q12H [facility] PRN Reason: Protocol Last Admin: 11/16/16 10:27 Dose: 167 mls/hr Piperacillin Sod/Tazobactam Sod (Zosyn 3.375 In Ns 100ml) 100 mls @ 200 mls/hr IVPB Q6 [facility] PRN Reason: Protocol Stop: 11/16/16 18:29 Last Admin: 11/16/16 13:56 Dose: 200 mls/hr Morphine Sulfate (Morphine) 2 mg IVP Q4H PRN PRN Reason: Pain, moderate (4-7) Pantoprazole Sodium (Protonix Ec Tab) 40 mg PO ACB [facility] Last Admin: 11/16/16 07:41 Dose: Not Given Thiamine HCl (Vitamin B1 Tab) 100 mg PO DAILY [facility] Last Admin: 11/16/16 10:29 Dose: 100 mg - Labs Labs: 11/15/16 07:15 11/15/16 07:15 PT 10.6 Seconds (9.9-11.8) 11/11/16 06:15 INR 0.98 (0.93-1.08) 11/11/16 06:15 APTT 29.6 Seconds (23.7-30.8) 11/09/16 10:59 - Constitutional Appears: Well, Non-toxic - Respiratory Exam Respiratory Exam: Decreased Breath Sounds. absent: Accessory Muscle Use, Wheezes, Respiratory Distress - Cardiovascular Exam Cardiovascular Exam: REGULAR RHYTHM, +S1, +S2. absent: Murmur - GI/Abdominal Exam GI & Abdominal Exam: Soft, Normal Bowel Sounds. absent: Tenderness - Extremities Exam Extremities Exam: Full ROM, Normal Capillary Refill, Normal Inspection. absent : Joint Swelling, Pedal Edema - Skin Skin Exam: Dry, Intact, Normal Color, Warm Assessment and Plan (1) Lung cancer Status: Acute (2) Pulmonary embolism Status: Acute - Assessment and Plan (Free Text) Assessment: Mr. Garcia is a 61 y/o kamron with pmhx significant for stage IV NSCLC s/p XRT to brain and LLE DVT (on lovenox) admitted with RLL mass s/p CT guided biopsy and currently being treated empirically for infection and consideration of pleurex catheter. Patient doing ok. Continue to await complete pathology with molecular and PDL1 testing. Patient will likely require XRT and/or possibly bronchial stenting. Patient to get AM dose of loveox now (which he had previously declined ) but will hold subsequent evening dosing in preparation for procedure tomorrow Noé Vera MD Oncology Service
--- NOTE | 2016-11-16 17:41 | PN ---
DATE: 11/16/2016 REFERRING PHYSICIAN: Dr. Riccardo Wick. SUBJECTIVE: The patient is lying in the bed, head at 45 degrees, elevated lower extremity feels oka y. Short of breath with minimal exertion. No cough, no sputum production, no nausea, no vomiting, n o diarrhea. Still has leg swelling. OBJECTIVE: GENERAL: No acute distress. VITAL SIGNS: Temperature is 98, heart rate is 110, respiratory rate is 20, blood pressure 137/91, pu lse ox 96% on nasal cannula. HEENT: Moist mucous membranes. Crowded airway. Mallampati score is 4. NECK: Supple. No JVD. LUNGS: There are no breath sounds in the right lung. HEART: S1, S2. ABDOMEN: Soft, nontender. No organomegaly. EXTREMITIES: There is edema of the lower extremities. NEUROLOGIC: Awake, alert, follows simple commands. MEDICATIONS: He is on Brovana 15 mcg inhaled twice a day, Decadron 1 mg daily, doxycycline 100 mg tw ice a day, folic acid 1 mg daily, Lovenox 70 mg subQ twice a day, morphine 2 mg q. 4 hours p.r.n., Pr otonix 40 mg daily, Pulmicort inhaled twice a day, Tylenol on a p.r.n. basis, vancomycin 1 g IV q. 12 hours, vitamin B 100 mg daily, Zosyn 3.375 g IV q. 6 hours. LABORATORY DATA: Reviewed. No new lab is available since yesterday. IMPRESSION AND PLAN: Metastatic adenocarcinoma, malignant effusion, mets to the brain, status post r adiation therapy, has a pulmonary embolism, recurrent accumulation of pleural effusion present in the right chest cavity, waiting for PleurX catheter. Will see how much lung can inflate out the PleurX catheter. Agree with radiation therapy to the right hilar area. Try to shrink the tumor and see if the endobronchial opening will be good enough to do the bronchial stent. Continue bronchodilator. K eep head elevated at 45 degrees. Continue anticoagulation, gastric prophylaxis. We will follow with you. Ashia Fletcher MD cc: [id number] TT: 11/16/2016 17:40:28 Confirmation # [id number] Dictation # [id number] rn
--- NOTE | 2016-11-16 18:11 | CP.PCM.PN ---
Subjective - Date & Time of Evaluation Date of Evaluation: 11/16/16 Time of Evaluation: 17:00 - Subjective Subjective: Infectious Disease Follow Up: November 16, 2016 61 yo male with history of metastatic lung cancer with three week history of abdominal pain that has progressively worsened. Last chemotherapy was two weeks ago. CT displays large mass in Right upper lobe bronchus with obstruction and possible PE with moderate pleural effusion. He also has increased leg swelling and SOB for the past two weeks as well. He is breathing easier today. He had biopsy of the lung mass and thoracentesis by IR yesterday afternoon. He is more comfortable. Bilateral leg swelling has improved significantly since admission. Biopsy showing adenocarcinoma that is poorly differentiated with lymphovascular invasion. No new issues. Objective - Vital Signs/Intake and Output Vital Signs (last 24 hours): Temp Pulse Resp BP Pulse Ox 99.6 F 101 H 19 124/85 95 11/16/16 17:11 11/16/16 17:11 11/16/16 17:11 11/16/16 17:11 11/16/16 17:11 Intake and Output: 11/16/16 11/16/16 06:59 18:59 Intake Total 360 Output Total 1400 Balance -1040 - Medications Medications: Current Medications Acetaminophen (Tylenol 325mg Tab) 650 mg PO Q6H PRN PRN Reason: Pain, Mild (1-3) Arformoterol Tartrate (Brovana) 15 mcg IH [id number] [facility] Last Admin: 11/16/16 07:49 Dose: 15 mcg Budesonide (Pulmicort Respules) 0.5 mg IH [id number] [facility] Last Admin: 11/16/16 07:49 Dose: 0.5 mg Dexamethasone (Decadron) 1 mg PO DAILY [facility] Last Admin: 11/16/16 10:28 Dose: 1 mg Doxycycline Hyclate (Doryx) 100 mg PO Q12 [facility] PRN Reason: Protocol Last Admin: 11/16/16 10:28 Dose: 100 mg Enoxaparin Sodium (Lovenox) 70 mg SC Q12 [facility] PRN Reason: Protocol Last Admin: 11/16/16 13:57 Dose: 70 mg Folic Acid (Folic Acid) 1 mg PO DAILY [facility] Last Admin: 11/16/16 10:28 Dose: 1 mg Vancomycin HCl (Vancomycin 1gm) 250 mls @ 167 mls/hr IVPB Q12H [facility] PRN Reason: Protocol Last Admin: 11/16/16 10:27 Dose: 167 mls/hr Piperacillin Sod/Tazobactam Sod (Zosyn 3.375 In Ns 100ml) 100 mls @ 200 mls/hr IVPB Q6 [facility] PRN Reason: Protocol Stop: 11/16/16 18:29 Last Admin: 11/16/16 17:28 Dose: 200 mls/hr Morphine Sulfate (Morphine) 2 mg IVP Q4H PRN PRN Reason: Pain, moderate (4-7) Pantoprazole Sodium (Protonix Ec Tab) 40 mg PO ACB [facility] Last Admin: 11/16/16 07:41 Dose: Not Given Thiamine HCl (Vitamin B1 Tab) 100 mg PO DAILY [facility] Last Admin: 11/16/16 10:29 Dose: 100 mg - Labs Labs: 11/15/16 07:15 11/15/16 07:15 PT 10.6 Seconds (9.9-11.8) 11/11/16 06:15 INR 0.98 (0.93-1.08) 11/11/16 06:15 APTT 29.6 Seconds (23.7-30.8) 11/09/16 10:59 - Constitutional Appears: Non-toxic, No Acute Distress, Chronically Ill - Head Exam Head Exam: ATRAUMATIC, NORMOCEPHALIC - Eye Exam Eye Exam: EOMI, PERRL Pupil Exam: NORMAL ACCOMODATION, PERRL - ENT Exam ENT Exam: Mucous Membranes Moist, Normal External Ear Exam, TM's Normal Bilaterally - Neck Exam Neck Exam: Full ROM, Normal Inspection - Respiratory Exam Respiratory Exam: Decreased Breath Sounds, NORMAL BREATHING PATTERN. absent: Rales, Rhonchi, Wheezes Additional comments: Mild Right lower lung rales with no air movement in right upper lobe. - Cardiovascular Exam Cardiovascular Exam: REGULAR RHYTHM, RRR, +S1, +S2 - GI/Abdominal Exam GI & Abdominal Exam: Soft, Normal Bowel Sounds. absent: Distended, Tenderness Additional comments: RLQ Hematoma. - Extremities Exam Extremities Exam: Full ROM, Normal Inspection - Neurological Exam Neurological Exam: Alert, Awake, CN II-XII Intact, Oriented x3 - Psychiatric Exam Psychiatric exam: Normal Affect, Normal Mood - Skin Skin Exam: Intact, Normal Color Assessment and Plan - Assessment and Plan (Free Text) Assessment: 61 yo male with metastatic lung cancer to the brain with worsening abdominal pain, lower leg edema, and SOB. Only on dexamethasone on admission. Unable to rule out pneumonia. On Vancomycin, Doxycycline, and Zosyn for antibiotic coverage for now. Will maintain this regimen for the time being. Supportive care. CT scan of chest suggested lesion in C7. Effusion possibly loculated in right lower lobe. For biopsy and thoracentesis... done. Patient is more comfortable now compared to admission. Bilateral leg swelling has improved significantly. Biopsy showing adenocarcinoma that is poorly differentiated with lymphovascular invasion. Can maintain on Doxycycline and Zosyn while in hospital. Has chronic non- productive cough. No major complaints. Thank you for allowing me to participate in the care of this patient, we will follow with you.
[2016-11-17 07:53] LABS: ADD MANUAL DIFF? NO
[2016-11-17 07:58] LABS: BASO # 0.01 K/mm3 (0.0-2.0); BASO % 0.1 % (0.0-3.0); EOS % 0.2 % (1.5-5.0); GRAN # 6.31 (1.4-6.5); GRAN % 77.3 % (50.0-68.0); HEMATOCRIT 33.4 % (42.0-52.0); LYMPH # 1.2 (1.2-3.4); LYMPH % 14.9 % (22.0-35.0); MEAN CELL VOLUME 89.8 fL (80.0-105.0); MEAN CORPUSCULAR HEMOGLOBIN 28.8 pg (25.0-35.0); MEAN PLATELET VOLUME 10.6 fl (7.0-11.0); MONO # 0.6 (0.1-0.6); MONO % 7.5 % (1.0-6.0); PLATELET COUNT 163 10^3/uL (120.0-450.0); RED CELL DISTRIBUTION WIDTH 19.1 % (11.5-14.5); WHITE BLOOD COUNT 8.2 10^3/ul (4.5-11.0)
[2016-11-17 08:22] LABS: BLOOD UREA NITROGEN 15 mg/dL (7-21); CALCIUM 8.7 mg/dL (8.4-10.5); CARBON DIOXIDE 28 mmol/L (21-33); CHLORIDE 102 mmol/L (95-110); GFR AFRICAN-AMERICAN > 60; GLUCOSE,RANDOM 104 mg/dL (70-110); POTASSIUM 3.6 mmol/L (3.6-5.0); SODIUM 138 mmol/L (132-148)
[2016-11-17] MEDS: Pantoprazole 40 mg EC Tab PO SCH ×2 (08:38→08:45)
[2016-11-17] MEDS: Arformoterol 15 mcg/2 ml Inh Sol IH SCH ×3 (08:38→20:06)
[2016-11-17] MEDS: Budesonide 0.5 mg/2 ml Inhal Susp UD IH SCH ×2 (08:51→20:06)
[2016-11-17 10:22] LABS: INR 0.97 (0.93-1.08)
[2016-11-17] MEDS: Lidocaine 2% Inj (20ml) ONE ×2 (12:37→14:29)
[2016-11-17] MEDS: Midazolam 2 MG/2 ML VIAL ONE ×2 (12:37→14:29)
[2016-11-17] MEDS ORDERED: Sodium Chloride 0.45% 1,000 ML IV SCH (13:00)
--- NOTE | 2016-11-17 14:07 | CP.PCM.PN ---
<Lionel Sanchez - Last Filed: 11/17/16 14:42> Subjective - Date & Time of Evaluation Date of Evaluation: 11/17/16 Time of Evaluation: 07:45 - Subjective Subjective: Dr. Sanchez PGY 1 Hospitalist Note Patient seen and evaluated at bedside. He says his breathing has become worse and he feels the fluid in his chest but notes the swelling in his legs has improved. He says he has no appetite today and has not eaten anything since last night. His abdominal tenderness has drastically improved over the past few days. He denies any fever,chills, nausea, vomiting, chest pain, abdominal pain or diarrhea. Per nursing, no adverse events reported over night. Objective - Vital Signs/Intake and Output Vital Signs (last 24 hours): Temp Pulse Resp BP Pulse Ox 99.3 F 68 18 127/69 99 11/17/16 13:35 11/17/16 13:35 11/17/16 13:35 11/17/16 13:35 11/17/16 13:35 Intake and Output: 11/17/16 11/17/16 06:59 18:59 Intake Total 420 Output Total 1100 Balance -680 - Medications Medications: Current Medications Acetaminophen (Tylenol 325mg Tab) 650 mg PO Q6H PRN PRN Reason: Pain, Mild (1-3) Arformoterol Tartrate (Brovana) 15 mcg IH [id number] [facility] Last Admin: 11/17/16 08:51 Dose: 15 mcg Budesonide (Pulmicort Respules) 0.5 mg IH [id number] [facility] Last Admin: 11/17/16 08:51 Dose: 0.5 mg Dexamethasone (Decadron) 1 mg PO DAILY [facility] Last Admin: 11/16/16 10:28 Dose: 1 mg Doxycycline Hyclate (Doryx) 100 mg PO Q12 [facility] PRN Reason: Protocol Last Admin: 11/16/16 22:27 Dose: 100 mg Enoxaparin Sodium (Lovenox) 70 mg SC Q12 [facility] PRN Reason: Protocol Last Admin: 11/16/16 13:57 Dose: 70 mg Folic Acid (Folic Acid) 1 mg PO DAILY [facility] Last Admin: 11/16/16 10:28 Dose: 1 mg Vancomycin HCl (Vancomycin 1gm) 250 mls @ 167 mls/hr IVPB Q12H [facility] PRN Reason: Protocol Last Admin: 11/16/16 22:27 Dose: 167 mls/hr Sodium Chloride (Sodium Chloride 0.45%) 1,000 mls @ 80 mls/hr IV .[id number] [facility] Stop: 11/17/16 21:00 Morphine Sulfate (Morphine) 2 mg IVP Q4H PRN PRN Reason: Pain, moderate (4-7) Pantoprazole Sodium (Protonix Ec Tab) 40 mg PO ACB [facility] Last Admin: 11/17/16 08:45 Dose: 40 mg Thiamine HCl (Vitamin B1 Tab) 100 mg PO DAILY [facility] Last Admin: 11/16/16 10:29 Dose: 100 mg - Labs Labs: 11/17/16 06:45 11/17/16 06:45 PT 10.5 Seconds (9.9-11.8) 11/17/16 09:45 INR 0.97 (0.93-1.08) 11/17/16 09:45 APTT 29.6 Seconds (23.7-30.8) 11/09/16 10:59 - Constitutional Appears: Non-toxic, No Acute Distress - Head Exam Head Exam: ATRAUMATIC, NORMOCEPHALIC - Eye Exam Eye Exam: EOMI, PERRL. absent: Normal appearance (right eye cataract) Pupil Exam: NORMAL ACCOMODATION, PERRL - ENT Exam ENT Exam: Mucous Membranes Moist, Normal Oropharynx - Respiratory Exam Respiratory Exam: Decreased Breath Sounds (right upper and lower lobe), Rhonchi (bilaterally), NORMAL BREATHING PATTERN. absent: Wheezes - Cardiovascular Exam Cardiovascular Exam: REGULAR RHYTHM, +S1, +S2 - GI/Abdominal Exam GI & Abdominal Exam: Soft, Normal Bowel Sounds. absent: Tenderness Additional comments: hematoma on right lower quadrant - Extremities Exam Extremities Exam: Normal Capillary Refill, Pedal Edema. absent: Tenderness - Neurological Exam Neurological Exam: Alert, Awake, CN II-XII Intact, Oriented x3 - Psychiatric Exam Psychiatric exam: Normal Affect, Normal Mood - Skin Skin Exam: Dry, Intact, Normal Color, Warm Additional comments: hematoma right lower quadrant abdomen Assessment and Plan - Assessment and Plan (Free Text) Assessment: This is a 61Y M with PMH of metastatic lung cancer admitted for pleural effusion of R lung and possible PE. Bilateral lower extremity edema and abdominal hematoma. S/p lung biopsy and thoracentesis, path results show poorly differentiated adenocarcinoma with lymphovascular invasion, cytology positive for malignant non-small cell carcinoma. Awaiting pleurex placement. Plan: Pleural effusion * Infection vs malignancy vs CHF * ID consulted help appreciated * Pulmonology consulted, help appreciated * IR consulted, help appreciated * CT chest showed possible PE with pleural effusion on R [see full report] * CTA negative for PE [see full report] * U/S of legs-isolated r tibial DVT [see full report] * ECHO is unremarkable with EF 58% * Continue Vanc, Zosyn, and Doxycycline as per ID * Patient afebrile w/o leukocytosis * S/p thoracentesis and mass biopsy- 2000cc drained * Path results show poorly differentiated adenocarcinoma with lymphovascular invasion * Cytology positive for malignant non-small cell carcinoma * Continue Brovana and pulmicort * Patient SOB worsened today * Per pulmonology, hold lasix until after thoracentesis and pleurex cath * pleaurex to be placed by It this morning * Lovenox held over night, NPO. Metastatic cancer * Oncology consulted, help appreciated * Continue Dexamethasone * Head CT shows lesion in right cerebella hemisphere, low attenuation changes superiorly and anteromedially to verminal region [see full report] * Consulted Dr. Call for second opinion. * pleaurex to be placed by IR today * Chemo and radiation as per oncology Bilateral leg edema * U/S of legs-isolated r tibial DVT, prior to discharge * Decadron dose decreased to 2mg PO daily * ECHO is unremarkable with EF 58% * Continue Lovenox 70 BID SC (held for procedure) * Continue Papi wraps, SCD's held due to edema Hyponatremia * Improved with IVF * r/o SIADH * Urine Osm and Na wnl Hematoma of R abdomen * Improving * Continue warm compresses * Monitor h/h (stable) * Lovenox injections on other side of abdomen. GI ppx: Protonix DVT ppx: Lovenox Case seen, reviewed and discussed with attending <Delmar Joyner - Last Filed: 11/17/16 16:05> Objective - Vital Signs/Intake and Output Vital Signs (last 24 hours): Temp Pulse Resp BP Pulse Ox 99.3 F 68 18 127/69 99 11/17/16 13:35 11/17/16 13:35 11/17/16 13:35 11/17/16 13:35 11/17/16 13:35 Intake and Output: 11/17/16 11/17/16 06:59 18:59 Intake Total 420 0 Output Total 1100 200 Balance -680 -200 - Medications Medications: Current Medications Acetaminophen (Tylenol 325mg Tab) 650 mg PO Q6H PRN PRN Reason: Pain, Mild (1-3) Arformoterol Tartrate (Brovana) 15 mcg IH [id number] [facility] Last Admin: 11/17/16 08:51 Dose: 15 mcg Budesonide (Pulmicort Respules) 0.5 mg IH [id number] [facility] Last Admin: 11/17/16 08:51 Dose: 0.5 mg Dexamethasone (Decadron) 1 mg PO DAILY [facility] Last Admin: 11/17/16 14:55 Dose: 1 mg Doxycycline Hyclate (Doryx) 100 mg PO Q12 [facility] PRN Reason: Protocol Last Admin: 11/17/16 14:54 Dose: 100 mg Enoxaparin Sodium (Lovenox) 70 mg SC Q12 [facility] PRN Reason: Protocol Last Admin: 11/16/16 13:57 Dose: 70 mg Folic Acid (Folic Acid) 1 mg PO DAILY [facility] Last Admin: 11/17/16 14:55 Dose: 1 mg Vancomycin HCl (Vancomycin 1gm) 250 mls @ 167 mls/hr IVPB Q12H [facility] PRN Reason: Protocol Last Admin: 11/17/16 14:54 Dose: 167 mls/hr Sodium Chloride (Sodium Chloride 0.45%) 1,000 mls @ 80 mls/hr IV .[id number] [facility] Stop: 11/17/16 21:00 Last Admin: 11/17/16 14:54 Dose: 80 mls/hr Morphine Sulfate (Morphine) 2 mg IVP Q4H PRN PRN Reason: Pain, moderate (4-7) Pantoprazole Sodium (Protonix Ec Tab) 40 mg PO ACB [facility] Last Admin: 11/17/16 08:45 Dose: 40 mg Thiamine HCl (Vitamin B1 Tab) 100 mg PO DAILY [facility] Last Admin: 11/17/16 14:55 Dose: 100 mg - Labs Labs: 11/17/16 06:45 11/17/16 06:45 PT 10.5 Seconds (9.9-11.8) 11/17/16 09:45 INR 0.97 (0.93-1.08) 11/17/16 09:45 APTT 29.6 Seconds (23.7-30.8) 11/09/16 10:59 Attending/Attestation - Attestation I have personally seen and examined this patient.: Yes I have fully participated in the care of the patient.: Yes I have reviewed all pertinent clinical information, including history, physical exam and plan: Yes Notes (Text): 11/17/16 15:57 61 year old male with past medical history of recently diagnosed metastatic lung cancer s/p radiation therapy for brain lesion who presented with complaint of right upper quadrant pain. Ultrasound and CT showed fatty liver without gallstones CT chest showed lung mass and right pleural effusion. He thoracocentesis last week. However repeat CXR few days later showed complete opacification. Plan is for pleurex catheter today. He is also on antibiotics for pneumonia. He is being followed by hematology/oncology and radiation/ oncology. He is on lovenox for anticoagulation for right tibial DVT. is at bedside and questions were answered. Delmar Joyner MD Hospitalist.
[2016-11-17] MEDS: Vancomycin 1gm in NS 250ml 250 ML IVPB SCH (14:54)
--- NOTE | 2016-11-17 15:48 | CP.PCM.PN ---
Subjective - Date & Time of Evaluation Date of Evaluation: 11/17/16 Time of Evaluation: 14:30 - Subjective Subjective: Infectious Disease Follow Up: November 17, 2016 61 yo male with history of metastatic lung cancer with three week history of abdominal pain that has progressively worsened. Last chemotherapy was two weeks ago. CT displays large mass in Right upper lobe bronchus with obstruction and possible PE with moderate pleural effusion. He also has increased leg swelling and SOB for the past two weeks as well. He is breathing easier today. He had biopsy of the lung mass and thoracentesis by IR yesterday afternoon. He is more comfortable. Bilateral leg swelling has improved significantly since admission. Biopsy showing adenocarcinoma that is poorly differentiated with lymphovascular invasion. No new issues but patient feels that his breathing is a little worse today. Objective - Vital Signs/Intake and Output Vital Signs (last 24 hours): Temp Pulse Resp BP Pulse Ox 99.3 F 68 18 127/69 99 11/17/16 13:35 11/17/16 13:35 11/17/16 13:35 11/17/16 13:35 11/17/16 13:35 Intake and Output: 11/17/16 11/17/16 06:59 18:59 Intake Total 420 0 Output Total 1100 200 Balance -680 -200 - Medications Medications: Current Medications Acetaminophen (Tylenol 325mg Tab) 650 mg PO Q6H PRN PRN Reason: Pain, Mild (1-3) Arformoterol Tartrate (Brovana) 15 mcg IH [id number] [facility] Last Admin: 11/17/16 08:51 Dose: 15 mcg Budesonide (Pulmicort Respules) 0.5 mg IH [id number] [facility] Last Admin: 11/17/16 08:51 Dose: 0.5 mg Dexamethasone (Decadron) 1 mg PO DAILY [facility] Last Admin: 11/17/16 14:55 Dose: 1 mg Doxycycline Hyclate (Doryx) 100 mg PO Q12 [facility] PRN Reason: Protocol Last Admin: 11/17/16 14:54 Dose: 100 mg Enoxaparin Sodium (Lovenox) 70 mg SC Q12 [facility] PRN Reason: Protocol Last Admin: 11/16/16 13:57 Dose: 70 mg Folic Acid (Folic Acid) 1 mg PO DAILY [facility] Last Admin: 11/17/16 14:55 Dose: 1 mg Vancomycin HCl (Vancomycin 1gm) 250 mls @ 167 mls/hr IVPB Q12H [facility] PRN Reason: Protocol Last Admin: 11/17/16 14:54 Dose: 167 mls/hr Sodium Chloride (Sodium Chloride 0.45%) 1,000 mls @ 80 mls/hr IV .[id number] [facility] Stop: 11/17/16 21:00 Last Admin: 11/17/16 14:54 Dose: 80 mls/hr Morphine Sulfate (Morphine) 2 mg IVP Q4H PRN PRN Reason: Pain, moderate (4-7) Pantoprazole Sodium (Protonix Ec Tab) 40 mg PO ACB [facility] Last Admin: 11/17/16 08:45 Dose: 40 mg Thiamine HCl (Vitamin B1 Tab) 100 mg PO DAILY [facility] Last Admin: 11/17/16 14:55 Dose: 100 mg - Labs Labs: 11/17/16 06:45 11/17/16 06:45 PT 10.5 Seconds (9.9-11.8) 11/17/16 09:45 INR 0.97 (0.93-1.08) 11/17/16 09:45 APTT 29.6 Seconds (23.7-30.8) 11/09/16 10:59 - Constitutional Appears: Non-toxic, No Acute Distress, Chronically Ill - Head Exam Head Exam: ATRAUMATIC, NORMOCEPHALIC - Eye Exam Eye Exam: EOMI, PERRL Pupil Exam: NORMAL ACCOMODATION, PERRL - ENT Exam ENT Exam: Mucous Membranes Moist, Normal External Ear Exam, TM's Normal Bilaterally - Neck Exam Neck Exam: Full ROM, Normal Inspection - Respiratory Exam Respiratory Exam: Decreased Breath Sounds Additional comments: Mild Right lower lung rales with no air movement in right upper lobe. - Cardiovascular Exam Cardiovascular Exam: REGULAR RHYTHM, RRR, +S1, +S2 - GI/Abdominal Exam GI & Abdominal Exam: Soft, Normal Bowel Sounds. absent: Distended, Tenderness Additional comments: RLQ Hematoma. - Extremities Exam Extremities Exam: Full ROM, Normal Inspection - Neurological Exam Neurological Exam: Alert, Awake, CN II-XII Intact, Oriented x3 - Psychiatric Exam Psychiatric exam: Normal Affect, Normal Mood - Skin Skin Exam: Intact, Normal Color Assessment and Plan - Assessment and Plan (Free Text) Assessment: 61 yo male with metastatic lung cancer to the brain with worsening abdominal pain, lower leg edema, and SOB. Only on dexamethasone on admission. Unable to rule out pneumonia. On Vancomycin, Doxycycline, and Zosyn for antibiotic coverage for now. Will maintain this regimen for the time being. Supportive care. CT scan of chest suggested lesion in C7. Effusion possibly loculated in right lower lobe. For biopsy and thoracentesis... done. Patient is more comfortable now compared to admission. Bilateral leg swelling has improved significantly. Biopsy showing adenocarcinoma that is poorly differentiated with lymphovascular invasion. Can maintain on Doxycycline and Zosyn while in hospital. Has chronic non- productive cough. No major complaints. Would consider no more than 14 days of antibiotics. Thank you for allowing me to participate in the care of this patient, we will follow with you.
--- NOTE | 2016-11-17 17:22 | PN ---
DATE: 11/17/2016 REFERRING PHYSICIAN: Dr. Riccardo Wick SUBJECTIVE: He is lying in the bed. residential manager at bedside. Mildly short of breath with cough , no sputum production, no nausea, no vomiting, no diarrhea. Still having leg swelling. OBJECTIVE: GENERAL: In no acute distress. VITAL SIGNS: Temp is 98, heart rate is 68, respiratory rate is 18, blood pressure 127/69, pulse ox 9 9% on 2 liters nasal cannula. HEENT: Moist mucous membranes. Crowded airway. NECK: Supple. No JVD. LUNGS: the right lung. HEART: S1, S2. ABDOMEN: Soft, nontender. No organomegaly. EXTREMITIES: Does have edema. NEUROLOGIC: Awake, alert, follows simple commands. MEDICATIONS: Brovana 15 mcg inhaled twice a day, Decadron 1 mg daily, doxycycline 100 mg twice a day , folic acid 1 mg daily, Lovenox 70 mg subQ twice a day, morphine 2 mg IV q. 4 hours p.r.n., Protoni x 40 mg daily, Pulmicort inhaled twice a day, IV fluid half normal saline Tylenol p.r.n., vitam in mg daily. LABORATORY DATA: Shows hemoglobin 10.7, hematocrit 33.4, WBC 8.2, platelet count is . INR 0.97 . Sodium 138, potassium 3.6, chloride 102, bicarbonate 28, BUN 15, creatinine 0.9, glucose is 104, c alcium is 8.7. IMPRESSION AND PLAN: Poorly differentiated adenocarcinoma with metastatic disease to the brain and m alignant pleural effusion, white out right chest cavity, status post radiation therapy to the brain, also pulmonary embolism on anticoagulation, scheduled for PleurX catheter. We will restart anticoagu lation once cleared by interventional radiology. Awaiting start of radiation therapy to the right hi lar and mediastinal areas. Continue bronchodilator. Keep head elevated at 45 degrees, elevate lower extremities. Follow up labs in the morning. We will follow with you. Ashia Fletcher MD cc: [phone] TT: 11/17/2016 17:21:52 Confirmation # [id number] Dictation # [id number]
--- NOTE | 2016-11-17 19:07 | VASCULAR ---
PROCEDURE: Ultrasound and fluoroscopically placed tunneled right pleural catheter HISTORY: Advanced lung carcinoma. Recurrent malignant pleural effusion with shortness of breath. Needs tunneled catheter PHYSICIAN(S): Henry Hayden MD. TECHNIQUE: The relative risks and indication of the procedure were explained the patient consent obtained. The patient is placed supine on the arteriogram table in a slight left decubitus position and sonography of the right chest performed. This revealed a recurrent large right pleural effusion. A right posterior lateral intercostal approach was selected the area prepped and draped usual sterile fashion. Conscious sedation monitoring were provided throughout the procedure by a nurse. The right pleural space was punctured with an 18 gauge needle. A 0.035 glidewire was directed posteriorly and superiorly. The peel-away sheath was placed. Next the 15.5 Mongolian aspirate tunneled pleural catheter was advanced over the guidewire and through the sheath. The catheter was tunneled along the costal margin. The catheter was secured. Thoracentesis was performed. 2700 cc of serosanguineous fluid was removed. No labs were sent. FINDINGS: . IMPRESSION: Ultrasound and fluoroscopically placed tunneled right pleural catheter. Thoracentesis. 2700 cc of serosanguineous fluid were removed from the right pleural space.
[2016-11-17] MEDS: Enoxaparin 80 mg Syringe SC SCH (22:14)
--- NOTE | 2016-11-17 22:40 | PN ---
DATE: 11/17/2016 The patient is in room 263, bed 2. SUBJECTIVE: The patient is lying in bed. The patient had a PleurX catheter placed on the right side , 2700 mL of serosanguineous fluid was removed. The patient feels a whole lot better with his breath ing at this point in time. He can breath and talk at the same time, which he could not do until yest erday. No coughing. No nausea, no vomiting, no diarrhea. Still has lower extremity swelling. PHYSICAL EXAMINATION: GENERAL: The patient is in no acute distress. VITAL SIGNS: T-max is 98.4, heart rate is 68, respirations 18, blood pressure is 126/69, pulse ox is 99% on 2 liters of nasal cannula. HEENT: Head is normocephalic, atraumatic. Temporal muscle wasting is noted. No oropharyngeal lesio ns. NECK: Supple. There is no adenopathy. No jugular venous distention noted. LUNGS: Decreased breath sounds on the right side posteriorly is noted, scattered wheezes. Left lung is clear. CARDIOVASCULAR: Reveals S1 and S2 to be normal. No gallop is heard. ABDOMEN: Soft, nontender. Liver and spleen not palpable. Ecchymosis from the prior Lovenox injecti ons noted. EXTREMITIES: Reveals no significant edema, but it is still present. The patient is being treated fo r DVT in the tibial vein on the right side. NEUROLOGIC: Reveals higher functions to be normal, no focal deficits noted. GENITOURINARY: Rectal is deferred. MEDICATIONS: The patient's medications were reviewed. He is on Brovana 15 mcg inhaled twice a day, Decadron 1 mg daily, doxycycline 100 mg twice a day, folic acid 1 mg daily, Lovenox 70 mg subQ twice a day, morphine 2 mg IV q. 4 hours p.r.n., Protonix 40 mg daily, Pulmicort inhaled twice a day. He i s on normal saline IV fluids, Tylenol p.r.n. LABORATORY DATA: From today shows a white count of 8.2, hemoglobin 10.7, hematocrit 33.4. Platelet count was all within normal limits. Sodium is 138, K is 3.6, chloride is 102, bicarbonate is 28, BUN is 15, creatinine 0.8, glucose is 104, calcium is 8.7. ASSESSMENT NOTES AND PLAN: The patient has stage IV metastatic poorly differentiated adenocarcinoma of the lung based on the biopsy and the pleural fluid state, history of documented brain mets, status post radiation with dramatic response to the treatment, had PleurX catheter put on the right side fo r recurrent pleural effusion and large volume thoracentesis has been required x 2. The patient is go ing to restart his anticoagulation after the radiology gives the clearance. The patient had 1 dose o f radiation therapy today. Plan is to give him 5 days' worth of radiation and reassess him at that p oint. We will continue the patient on PPIs and also medications for his DVT of the lower extremities . Will follow the labs in a.m. The patient will also be assessed for systemic chemotherapy while we are waiting for the molecular testing guidelines to come through. I told the patient that I will ta lk to him and his once we have all the details. Labs for the a.m. have been requested. Pan Castillo MD cc: [id number] TT: 11/17/2016 22:39:47 Confirmation # [id number] Dictation # [id number] tammy
[2016-11-18 07:06] LABS: ADD MANUAL DIFF? NO
[2016-11-18 07:10] LABS: BASO # 0.01 K/mm3 (0.0-2.0); BASO % 0.1 % (0.0-3.0); EOS % 0.4 % (1.5-5.0); GRAN # 5.99 (1.4-6.5); GRAN % 79.8 % (50.0-68.0); HEMATOCRIT 34.2 % (42.0-52.0); LYMPH % 13.3 % (22.0-35.0); MEAN CELL VOLUME 89.8 fL (80.0-105.0); MEAN CORPUSCULAR HEMOGLOBIN 29.1 pg (25.0-35.0); MEAN CORPUSCULAR HGB CONC 32.5 g/dl (31.0-37.0); MEAN PLATELET VOLUME 10.5 fl (7.0-11.0); MONO # 0.5 (0.1-0.6); MONO % 6.4 % (1.0-6.0); PLATELET COUNT 159 10^3/uL (120.0-450.0); RED CELL DISTRIBUTION WIDTH 18.9 % (11.5-14.5); WHITE BLOOD COUNT 7.5 10^3/ul (4.5-11.0)
[2016-11-18 07:15] LABS: ALB/GLOB RATIO 0.8 (1.1-1.8); ALKALINE PHOSPHATASE 71 U/L (38-133); ALT/SGPT 38 U/L (7-56); AST/SGOT 34 U/L (15-59); BILIRUBIN,TOTAL 0.6 mg/dL (0.2-1.3); BLOOD UREA NITROGEN 20 mg/dL (7-21); CALCIUM 8.4 mg/dL (8.4-10.5); CARBON DIOXIDE 26 mmol/L (21-33); CHLORIDE 102 mmol/L (98-107); GFR AFRICAN-AMERICAN > 60; GLUCOSE,RANDOM 105 mg/dL (70-110); POTASSIUM 3.9 mmol/L (3.6-5.0); SODIUM 138 mmol/L (132-148); TOTAL PROTEIN 5.7 g/dL (5.8-8.3)
[2016-11-18 07:54] LABS: ARTERIAL BLOOD GAS HCO3 25.4 mmol/L (21-28); ARTERIAL BLOOD GAS O2 CAPACITY 16.5 mL/dl (16-24); ARTERIAL BLOOD GAS O2 CONTENT 16.2 ML/dl (15-23); ARTERIAL BLOOD HGB O2 SAT 94.8 % (95.0-98.0); CARBOXYHEMOGLOBIN 2.9 % (0.5-1.5); HHB 1.7 % (0-5); METHEMOGLOBIN 0.7 % (0.0-3.0)
[2016-11-18] MEDS: Arformoterol 15 mcg/2 ml Inh Sol IH SCH ×2 (08:00→19:52)
[2016-11-18] MEDS: Budesonide 0.5 mg/2 ml Inhal Susp UD IH SCH ×2 (08:00→19:52)
--- NOTE | 2016-11-18 08:21 | RAD ---
HISTORY: rt chest tube COMPARISON: 11/14/2016 FINDINGS: LUNGS: Almost complete diffuse right-sided pulmonary opacity, minimally improved compared to prior examination. Extensive ill-defined left-sided pulmonary opacity, nonspecific. This has worsened when compared to prior examination. PLEURA: No definite pleural effusion. CARDIOVASCULAR: Normal heart size. Left central venous infusion port. OSSEOUS STRUCTURES: No significant abnormalities. VISUALIZED UPPER ABDOMEN: Normal. OTHER FINDINGS: None. IMPRESSION: Almost complete opacification of right subha thorax, nominally improved. Increasing ill-defined opacity in left subha thorax, possibly infectious etiology.
[2016-11-18] MEDS: Pantoprazole 40 mg EC Tab PO SCH (09:07)
[2016-11-18] MEDS: Vancomycin 1gm in NS 250ml 1 GM/250 ML BAG IVPB SCH ×2 (11:01→21:48)
[2016-11-18] MEDS: Piperacillin/Tazobact 3.375 gm 100 ML IVPB SCH ×2 (11:01→17:11)
--- NOTE | 2016-11-18 14:31 | CP.PCM.PN ---
<Lionel Sanchez - Last Filed: 11/18/16 14:27> Subjective - Date & Time of Evaluation Date of Evaluation: 11/18/16 Time of Evaluation: 07:30 - Subjective Subjective: Dr. Sanchez PGY 1 Hospitalist Note Patient seen and evaluated at bedside. He stated he felt as though he has ten breaths left and he won't be able to breathe more. He was then placed on a non- rebreather mask and chest x-ray and ABG ordered. After placement on non- rebreather, he stated his breathing was becoming easier. He was given a stat dose of Lasix 40mg. He currently denies any abdominal pain, chest pain, palpitations, nausea, or vomiting. He is awaiting radiation therapy this morning. Objective - Vital Signs/Intake and Output Vital Signs (last 24 hours): Temp Pulse Resp BP Pulse Ox 98.0 F 111 H 20 114/71 99 11/18/16 12:00 11/18/16 12:00 11/18/16 12:00 11/18/16 12:00 11/17/16 13:35 Intake and Output: 11/18/16 11/18/16 06:59 18:59 Intake Total 360 Output Total 300 Balance 60 - Medications Medications: Current Medications Acetaminophen (Tylenol 325mg Tab) 650 mg PO Q6H PRN PRN Reason: Pain, Mild (1-3) Last Admin: 11/17/16 17:48 Dose: 650 mg Arformoterol Tartrate (Brovana) 15 mcg IH [id number] [facility] Last Admin: 11/18/16 08:00 Dose: 15 mcg Budesonide (Pulmicort Respules) 0.5 mg IH [id number] [facility] Last Admin: 11/18/16 08:00 Dose: 0.5 mg Dexamethasone (Decadron) 1 mg PO DAILY [facility] Last Admin: 11/18/16 09:06 Dose: 1 mg Doxycycline Hyclate (Doryx) 100 mg PO Q12 [facility] PRN Reason: Protocol Last Admin: 11/18/16 09:07 Dose: 100 mg Enoxaparin Sodium (Lovenox) 70 mg SC Q12 [facility] PRN Reason: Protocol Last Admin: 11/17/16 22:14 Dose: 70 mg Folic Acid (Folic Acid) 1 mg PO DAILY [facility] Last Admin: 11/18/16 09:07 Dose: 1 mg Vancomycin HCl (Vancomycin 1gm) 1 gm in 250 mls @ 167 mls/hr IVPB Q12H [facility] PRN Reason: Protocol Last Admin: 11/18/16 11:01 Dose: 167 mls/hr Piperacillin Sod/Tazobactam Sod (Zosyn 3.375 In Ns 100ml) 100 mls @ 200 mls/hr IVPB Q6 [facility] PRN Reason: Protocol Stop: 11/18/16 18:29 Last Admin: 11/18/16 11:01 Dose: 200 mls/hr Morphine Sulfate (Morphine) 2 mg IVP Q4H PRN PRN Reason: Pain, moderate (4-7) Last Admin: 11/17/16 22:14 Dose: 2 mg Pantoprazole Sodium (Protonix Ec Tab) 40 mg PO ACB [facility] Last Admin: 11/18/16 09:07 Dose: 40 mg Thiamine HCl (Vitamin B1 Tab) 100 mg PO DAILY [facility] Last Admin: 11/18/16 09:06 Dose: 100 mg - Labs Labs: 11/18/16 06:30 11/18/16 06:30 PT 10.5 Seconds (9.9-11.8) 11/17/16 09:45 INR 0.97 (0.93-1.08) 11/17/16 09:45 APTT 29.6 Seconds (23.7-30.8) 11/09/16 10:59 - Constitutional Appears: In Acute Distress, Cachectic - Head Exam Head Exam: ATRAUMATIC, NORMOCEPHALIC - Eye Exam Eye Exam: EOMI, PERRL. absent: Normal appearance (cataract in right eye) Pupil Exam: NORMAL ACCOMODATION, PERRL - ENT Exam ENT Exam: Mucous Membranes Moist, Normal Oropharynx - Respiratory Exam Respiratory Exam: Decreased Breath Sounds (right side), Rales (bilaterally), Wheezes. absent: NORMAL BREATHING PATTERN (tachypnic) - Cardiovascular Exam Cardiovascular Exam: Tachycardia, +S1, +S2. absent: Gallop, Rubs, Murmur - GI/Abdominal Exam GI & Abdominal Exam: Soft, Normal Bowel Sounds. absent: Distended, Guarding, Tenderness Additional comments: healing hematoma on RLQ - Extremities Exam Extremities Exam: Pedal Edema. absent: Tenderness - Back Exam Back Exam: NORMAL INSPECTION. absent: rash noted, tenderness - Neurological Exam Neurological Exam: Alert, Awake, CN II-XII Intact, Oriented x3 - Psychiatric Exam Psychiatric exam: Anxious - Skin Skin Exam: Dry, Intact, Normal Color, Warm Additional comments: hematoma right lower quadrant of abdomen Assessment and Plan - Assessment and Plan (Free Text) Assessment: This is a 61Y M with PMH of metastatic lung cancer admitted for pleural effusion of R lung and possible PE. Bilateral lower extremity edema and abdominal hematoma. S/p lung biopsy and thoracentesis, path results show poorly differentiated adenocarcinoma with lymphovascular invasion, cytology positive for malignant non-small cell carcinoma. Became dyspnic and started on non- rebreather mask. Fevers overnight so restarted IV abx. Plan: Pleural effusion * Infection vs malignancy vs CHF * ID consulted help appreciated * Pulmonology consulted, help appreciated * IR consulted, help appreciated * CT chest showed possible PE with pleural effusion on R [see full report] * CTA negative for PE [see full report] * U/S of legs-isolated r tibial DVT [see full report] * ECHO is unremarkable with EF 58% * Continue Vanc, Zosyn, and Doxycycline as per ID * Patient had fever overnight, Tmax- 102 * S/p thoracentesis and mass biopsy (11/12/16)- 2000cc drained * repeate thoracentesis (11/18) 2700cc drained * Path results show poorly differentiated adenocarcinoma with lymphovascular invasion * Cytology positive for malignant non-small cell carcinoma * Continue Brovana and pulmicort * Patient SOB worsened today (11/18) * Given stat Lasix 40mg * Chest xray (11/18) almost complete opacification of right hemithorax, nominally improved, increasing ill-defined opacity in left hemithorax. * Pleurex tubein place, * Continue monitoring I's and O's * Daily weights Metastatic cancer * Oncology consulted, help appreciated * Continue Dexamethasone * Head CT shows lesion in right cerebella hemisphere, low attenuation changes superiorly and anteromedially to verminal region [see full report] * Consulted Dr. Call for second opinion. * Chemo and radiation as per oncology Bilateral leg edema * U/S of legs-isolated r tibial DVT, prior to discharge * Decadron dose decreased to 2mg PO daily * ECHO is unremarkable with EF 58% * Continue Lovenox 70 BID SC * Continue Papi wraps, SCD's held due to edema Hyponatremia * Improved with IVF * r/o SIADH * Urine Osm and Na wnl Hematoma of R abdomen * Improving * Continue warm compresses * Monitor h/h (stable) * Lovenox injections on other side of abdomen. GI ppx: Protonix DVT ppx: Lovenox Case seen, reviewed and discussed with attending <Delmar Joyner - Last Filed: 11/18/16 14:49> Objective - Vital Signs/Intake and Output Vital Signs (last 24 hours): Temp Pulse Resp BP Pulse Ox 98.0 F 111 H 20 114/71 99 11/18/16 12:00 11/18/16 12:00 11/18/16 12:00 11/18/16 12:00 11/17/16 13:35 Intake and Output: 11/18/16 11/18/16 06:59 18:59 Intake Total 360 540 Output Total 300 550 Balance 60 -10 - Medications Medications: Current Medications Acetaminophen (Tylenol 325mg Tab) 650 mg PO Q6H PRN PRN Reason: Pain, Mild (1-3) Last Admin: 11/17/16 17:48 Dose: 650 mg Arformoterol Tartrate (Brovana) 15 mcg IH [id number] [facility] Last Admin: 11/18/16 08:00 Dose: 15 mcg Budesonide (Pulmicort Respules) 0.5 mg IH [id number] [facility] Last Admin: 11/18/16 08:00 Dose: 0.5 mg Dexamethasone (Decadron) 1 mg PO DAILY [facility] Last Admin: 11/18/16 09:06 Dose: 1 mg Doxycycline Hyclate (Doryx) 100 mg PO Q12 [facility] PRN Reason: Protocol Last Admin: 11/18/16 09:07 Dose: 100 mg Enoxaparin Sodium (Lovenox) 70 mg SC Q12 [facility] PRN Reason: Protocol Last Admin: 11/17/16 22:14 Dose: 70 mg Folic Acid (Folic Acid) 1 mg PO DAILY [facility] Last Admin: 11/18/16 09:07 Dose: 1 mg Vancomycin HCl (Vancomycin 1gm) 1 gm in 250 mls @ 167 mls/hr IVPB Q12H [facility] PRN Reason: Protocol Last Admin: 11/18/16 11:01 Dose: 167 mls/hr Piperacillin Sod/Tazobactam Sod (Zosyn 3.375 In Ns 100ml) 100 mls @ 200 mls/hr IVPB Q6 [facility] PRN Reason: Protocol Stop: 11/18/16 18:29 Last Admin: 11/18/16 11:01 Dose: 200 mls/hr Morphine Sulfate (Morphine) 2 mg IVP Q4H PRN PRN Reason: Pain, moderate (4-7) Last Admin: 11/17/16 22:14 Dose: 2 mg Pantoprazole Sodium (Protonix Ec Tab) 40 mg PO ACB [facility] Last Admin: 11/18/16 09:07 Dose: 40 mg Thiamine HCl (Vitamin B1 Tab) 100 mg PO DAILY [facility] Last Admin: 11/18/16 09:06 Dose: 100 mg - Labs Labs: 11/18/16 06:30 11/18/16 06:30 PT 10.5 Seconds (9.9-11.8) 11/17/16 09:45 INR 0.97 (0.93-1.08) 11/17/16 09:45 APTT 29.6 Seconds (23.7-30.8) 11/09/16 10:59 Attending/Attestation - Attestation I have personally seen and examined this patient.: Yes I have fully participated in the care of the patient.: Yes I have reviewed all pertinent clinical information, including history, physical exam and plan: Yes Notes (Text): 11/18/16 14:47 61 year old male with past medical history of recently diagnosed metastatic lung cancer s/p radiation therapy for brain lesion who presented with complaint of right upper quadrant pain. Ultrasound and CT showed fatty liver without gallstones CT chest showed lung mass and right pleural effusion. He thoracocentesis last week and pleurex catheter placement yesterday. He is on antibiotics as per ID. Hematology and pulmonary are also following the patient. He is on lovenox for anticoagulation for right tibial DVT. This morning he was short of breath. Repeat CXR was reviewed. Symptoms improved with lasix and oxygen supplementation. IR follow up was requested. is at bedside and questions were answered. Delmar Joyner MD Hospitalist.
--- NOTE | 2016-11-18 16:44 | US ---
HISTORY: Leg pain and swelling. Evaluate for DVT PHYSICIAN(S): Henry Hayden MD. TECHNIQUE: Duplex sonography and color-flow Doppler with graded compression were used to evaluate the deep venous systems of both lower extremities. FINDINGS: The visualized deep venous systems of both lower extremities are sonographically normal and compressible. Normal wave forms and augmentation are seen. There is no sonographic evidence for deep venous thrombosis in the visualized segments of both lower extremities. IMPRESSION: No sonographic evidence for deep venous thrombosis in the visualized segments of both lower extremities.
--- NOTE | 2016-11-18 16:59 | CP.PCM.PN ---
Subjective - Date & Time of Evaluation Date of Evaluation: 11/18/16 Time of Evaluation: 16:00 - Subjective Subjective: Infectious Disease Follow Up: November 18, 2016 61 yo male with history of metastatic lung cancer with three week history of abdominal pain that has progressively worsened. Last chemotherapy was two weeks ago. CT displays large mass in Right upper lobe bronchus with obstruction and possible PE with moderate pleural effusion. He also has increased leg swelling and SOB for the past two weeks as well. He is breathing easier today. He had biopsy of the lung mass and thoracentesis by IR during this hospitalization. He is more comfortable. Bilateral leg swelling has improved significantly since admission. Biopsy showing adenocarcinoma that is poorly differentiated with lymphovascular invasion. No new issues but patient feels that his breathing is worse today. Patient required non-rebreather mask today. Objective - Vital Signs/Intake and Output Vital Signs (last 24 hours): Temp Pulse Resp BP Pulse Ox 98.0 F 111 H 20 114/71 99 11/18/16 12:00 11/18/16 12:00 11/18/16 12:00 11/18/16 12:00 11/17/16 13:35 Intake and Output: 11/18/16 11/18/16 06:59 18:59 Intake Total 360 540 Output Total 300 550 Balance 60 -10 - Medications Medications: Current Medications Acetaminophen (Tylenol 325mg Tab) 650 mg PO Q6H PRN PRN Reason: Pain, Mild (1-3) Last Admin: 11/17/16 17:48 Dose: 650 mg Arformoterol Tartrate (Brovana) 15 mcg IH [id number] [facility] Last Admin: 11/18/16 08:00 Dose: 15 mcg Budesonide (Pulmicort Respules) 0.5 mg IH [id number] [facility] Last Admin: 11/18/16 08:00 Dose: 0.5 mg Dexamethasone (Decadron) 1 mg PO DAILY [facility] Last Admin: 11/18/16 09:06 Dose: 1 mg Doxycycline Hyclate (Doryx) 100 mg PO Q12 [facility] PRN Reason: Protocol Last Admin: 11/18/16 09:07 Dose: 100 mg Enoxaparin Sodium (Lovenox) 70 mg SC Q12 [facility] PRN Reason: Protocol Last Admin: 11/17/16 22:14 Dose: 70 mg Folic Acid (Folic Acid) 1 mg PO DAILY [facility] Last Admin: 11/18/16 09:07 Dose: 1 mg Vancomycin HCl (Vancomycin 1gm) 1 gm in 250 mls @ 167 mls/hr IVPB Q12H [facility] PRN Reason: Protocol Last Admin: 11/18/16 11:01 Dose: 167 mls/hr Piperacillin Sod/Tazobactam Sod (Zosyn 3.375 In Ns 100ml) 100 mls @ 200 mls/hr IVPB Q6 [facility] PRN Reason: Protocol Stop: 11/18/16 18:29 Last Admin: 11/18/16 11:01 Dose: 200 mls/hr Morphine Sulfate (Morphine) 2 mg IVP Q4H PRN PRN Reason: Pain, moderate (4-7) Last Admin: 11/17/16 22:14 Dose: 2 mg Pantoprazole Sodium (Protonix Ec Tab) 40 mg PO ACB [facility] Last Admin: 11/18/16 09:07 Dose: 40 mg Thiamine HCl (Vitamin B1 Tab) 100 mg PO DAILY [facility] Last Admin: 11/18/16 09:06 Dose: 100 mg - Labs Labs: 11/18/16 06:30 11/18/16 06:30 PT 10.5 Seconds (9.9-11.8) 11/17/16 09:45 INR 0.97 (0.93-1.08) 11/17/16 09:45 APTT 29.6 Seconds (23.7-30.8) 11/09/16 10:59 - Constitutional Appears: Non-toxic, Chronically Ill - Head Exam Head Exam: ATRAUMATIC, NORMOCEPHALIC - Eye Exam Eye Exam: EOMI, PERRL Pupil Exam: NORMAL ACCOMODATION, PERRL - ENT Exam ENT Exam: Mucous Membranes Moist, Normal External Ear Exam, TM's Normal Bilaterally - Neck Exam Neck Exam: Full ROM, Normal Inspection - Respiratory Exam Respiratory Exam: Decreased Breath Sounds, Rales. absent: Rhonchi, Wheezes Additional comments: Mild Right lower lung rales with no air movement in right upper lobe. - Cardiovascular Exam Cardiovascular Exam: REGULAR RHYTHM, RRR, +S1, +S2 - GI/Abdominal Exam GI & Abdominal Exam: Soft, Normal Bowel Sounds. absent: Distended, Tenderness Additional comments: RLQ Hematoma. - Extremities Exam Extremities Exam: Full ROM, Normal Inspection - Neurological Exam Neurological Exam: Alert, Awake, CN II-XII Intact, Oriented x3 - Psychiatric Exam Psychiatric exam: Normal Affect, Normal Mood - Skin Skin Exam: Intact, Normal Color Assessment and Plan - Assessment and Plan (Free Text) Assessment: 61 yo male with metastatic lung cancer to the brain with worsening abdominal pain, lower leg edema, and SOB. Only on dexamethasone on admission. Unable to rule out pneumonia. On Vancomycin, Doxycycline, and Zosyn for antibiotic coverage for now. Will maintain this regimen for the time being. Supportive care. CT scan of chest suggested lesion in C7. Effusion possibly loculated in right lower lobe. For biopsy and thoracentesis... done. Patient is more comfortable now compared to admission. Bilateral leg swelling has improved significantly. Biopsy showing adenocarcinoma that is poorly differentiated with lymphovascular invasion. Can maintain on Doxycycline and Zosyn while in hospital. Has chronic non- productive cough. Increasing SOB the last 48 hours. Would consider no more than 14 days of antibiotics. Thank you for allowing me to participate in the care of this patient, we will follow with you.
[2016-11-18] MEDS: Enoxaparin 80 mg Syringe SC SCH (21:49)
--- NOTE | 2016-11-19 00:25 | PN ---
DATE: 11/18/2016 REFERRING PHYSICIAN: . SUBJECTIVE: He is lying in the bed, requiring high flow oxygen, status post PleurX catheter placemen t, more than 2500 fluid was obtained. Increased shortness of breath after fluid removal, no na usea, no vomiting, no diarrhea. Decreased leg swelling. OBJECTIVE: GENERAL: No acute distress. VITAL SIGNS: Temperature is 98, heart rate is 105, respiratory rate is 20, blood pressure 135/90, pu lse ox 99% noted with breathing mask. HEENT: Moist mucous membrane. Crowded airway. NECK: Supple. No JVD. LUNGS: Has crackles on the right lung. HEART: S1, S2. ABDOMEN: Soft, nontender. No organomegaly. EXTREMITIES: There is no edema. NEUROLOGIC: Awake, alert, follows simple commands. Ashia Fletcher MD cc: [phone] TT: 11/19/2016 00:25:30 Confirmation # [id number] Dictation # [id number] mn
--- NOTE | 2016-11-19 00:32 | PN ---
DATE: 11/18/2016 ADDENDUM: LABORATORY DATA: Shows hemoglobin 11.1, hematocrit 34.2, WBC 7.5, platelet count is 159. Blood gase s today shows pH 7.40, pCO2 of 41, O2 88. This is on nonrebreather mask. Sodium 138, potassium 3.9, chloride 102, bicarbonate 26, BUN 20, creatinine 1.2, glucose 105, calcium is 8.4, AST 34, ALT 38, a lkaline phosphatase is 71. Albumin is 2.6. Had a venous Doppler done today, which shows no evidence of DVT of both lower extremities post PleurX catheter. Chest x-ray shows almost complete opacificat ion of the right hemithorax, many, many improvement. IMPRESSION AND PLAN: Poorly differentiated adenocarcinoma with metastatic disease to brain requiring radiation therapy to the brain, had a malignant pleural effusion, status post PleurX catheter removal, no more than 2.5 li ters of serosanguinous fluid, also had a pulmonary embolism, chronic obstructive lung disease. Proba janeth, he is in reexpansion pulmonary edema. I agree with the Lasix, high flow oxygen. Continue to mo nitor patient closely. If his condition deteriorates, we may have to transfer to intensive care unit . Follow up chest x-ray, in the morning. Thank you and will follow with you. Ashia Fletcher MD cc: [phone] TT: 11/19/2016 00:31:43 Confirmation # [id number] Dictation # [id number] mn
[2016-11-19 07:15] LABS: ADD MANUAL DIFF? NO
[2016-11-19 07:23] LABS: BASO # 0.01 K/mm3 (0.0-2.0); BASO % 0.2 % (0.0-3.0); EOS % 0.5 % (1.5-5.0); GRAN # 5.22 (1.4-6.5); HEMATOCRIT 30.6 % (42.0-52.0); LYMPH # 0.7 (1.2-3.4); LYMPH % 10.5 % (22.0-35.0); MEAN CELL VOLUME 89.7 fL (80.0-105.0); MEAN CORPUSCULAR HGB CONC 32.4 g/dl (31.0-37.0); MEAN PLATELET VOLUME 9.9 fl (7.0-11.0); MONO # 0.3 (0.1-0.6); MONO % 4.8 % (1.0-6.0); PLATELET COUNT 141 10^3/uL (120.0-450.0); RED CELL DISTRIBUTION WIDTH 18.9 % (11.5-14.5); WHITE BLOOD COUNT 6.2 10^3/ul (4.5-11.0)
[2016-11-19 07:46] LABS: BLOOD UREA NITROGEN 24 mg/dL (7-21); CALCIUM 8.5 mg/dL (8.4-10.5); CARBON DIOXIDE 28 mmol/L (21-33); CHLORIDE 105 mmol/L (95-110); GFR AFRICAN-AMERICAN > 60; GLUCOSE,RANDOM 101 mg/dL (70-110); POTASSIUM 3.5 mmol/L (3.6-5.0); SODIUM 141 mmol/L (132-148)
[2016-11-19] MEDS ORDERED: Potassium Chloride 40 mEq/30 ml LIQ UD PO ONE (08:22)
[2016-11-19] MEDS: Arformoterol 15 mcg/2 ml Inh Sol IH SCH ×3 (10:20→19:29)
[2016-11-19] MEDS: Pantoprazole 40 mg EC Tab PO SCH (10:22)
[2016-11-19] MEDS: Vancomycin 1gm in NS 250ml 1 GM/250 ML BAG IVPB SCH ×2 (10:23→22:00)
[2016-11-19] MEDS: Enoxaparin 80 mg Syringe SC SCH (10:24)
[2016-11-19] MEDS: Budesonide 0.5 mg/2 ml Inhal Susp UD IH SCH ×3 (10:25→19:29)
--- NOTE | 2016-11-19 10:58 | CP.PCM.PN ---
<Lionel Sanchez - Last Filed: 11/19/16 10:51> Subjective - Date & Time of Evaluation Date of Evaluation: 11/19/16 Time of Evaluation: 07:30 - Subjective Subjective: Dr. Sanchez PGY 1 Hospitalist Note Patient seen and evaluated at beside. He says he slept with the ventimask last night and had little SOB. He says his breathing has been improving but when he takes the ventimask off he gets anxious. He describes this as feeling the ventimask is a safety blanket. He said he would try to only use the nasal cannula for this morning. His abdominal pain is subsided and denies any nausea, vomiting, chest pain, fever, or chills. He says his care goal is to see his son advance to the next stage of his life. He is anticipating radiation therapy today. Objective - Vital Signs/Intake and Output Vital Signs (last 24 hours): Temp Pulse Resp BP Pulse Ox 98.7 F 105 H 20 134/92 H 99 11/19/16 06:00 11/19/16 06:00 11/19/16 06:00 11/19/16 10:21 11/17/16 13:35 Intake and Output: 11/19/16 11/19/16 06:59 18:59 Intake Total 360 Output Total 400 Balance -40 - Medications Medications: Current Medications Acetaminophen (Tylenol 325mg Tab) 650 mg PO Q6H PRN PRN Reason: Pain, Mild (1-3) Last Admin: 11/17/16 17:48 Dose: 650 mg Arformoterol Tartrate (Brovana) 15 mcg IH [id number] [facility] Last Admin: 11/19/16 10:20 Dose: Not Given Budesonide (Pulmicort Respules) 0.5 mg IH [id number] [facility] Last Admin: 11/19/16 10:25 Dose: Not Given Dexamethasone (Decadron) 1 mg PO DAILY [facility] Last Admin: 11/19/16 10:20 Dose: 1 mg Doxycycline Hyclate (Doryx) 100 mg PO Q12 [facility] PRN Reason: Protocol Last Admin: 11/19/16 10:21 Dose: 100 mg Enoxaparin Sodium (Lovenox) 70 mg SC Q12 [facility] PRN Reason: Protocol Last Admin: 11/19/16 10:24 Dose: 70 mg Folic Acid (Folic Acid) 1 mg PO DAILY [facility] Last Admin: 11/19/16 10:21 Dose: 1 mg Vancomycin HCl (Vancomycin 1gm) 1 gm in 250 mls @ 167 mls/hr IVPB Q12H [facility] PRN Reason: Protocol Last Admin: 11/19/16 10:23 Dose: 167 mls/hr Piperacillin Sod/Tazobactam Sod (Zosyn 3.375 In Ns 100ml) 100 mls @ 200 mls/hr IVPB Q6 [facility] PRN Reason: Protocol Stop: 11/19/16 18:29 Morphine Sulfate (Morphine) 2 mg IVP Q4H PRN PRN Reason: Pain, moderate (4-7) Last Admin: 11/17/16 22:14 Dose: 2 mg Pantoprazole Sodium (Protonix Ec Tab) 40 mg PO ACB [facility] Last Admin: 11/19/16 10:22 Dose: 40 mg Thiamine HCl (Vitamin B1 Tab) 100 mg PO DAILY [facility] Last Admin: 11/19/16 10:23 Dose: 100 mg - Labs Labs: 11/19/16 06:30 11/19/16 06:30 PT 10.5 Seconds (9.9-11.8) 11/17/16 09:45 INR 0.97 (0.93-1.08) 11/17/16 09:45 APTT 29.6 Seconds (23.7-30.8) 11/09/16 10:59 - Constitutional Appears: No Acute Distress, Older Than Stated Age, Chronically Ill - Head Exam Head Exam: ATRAUMATIC, NORMOCEPHALIC - Eye Exam Eye Exam: EOMI. absent: Normal appearance (cataract right eye) Pupil Exam: NORMAL ACCOMODATION, PERRL - ENT Exam ENT Exam: Mucous Membranes Moist - Respiratory Exam Respiratory Exam: Rales, Rhonchi. absent: Wheezes, NORMAL BREATHING PATTERN ( tachypnic) - Cardiovascular Exam Cardiovascular Exam: REGULAR RHYTHM, +S1, +S2. absent: Gallop, Rubs, Murmur - GI/Abdominal Exam GI & Abdominal Exam: Soft, Normal Bowel Sounds. absent: Tenderness Additional comments: hematoma right lower quadrant - Extremities Exam Extremities Exam: Pedal Edema (bilateral lower ext improving). absent: Calf Tenderness, Tenderness - Back Exam Back Exam: NORMAL INSPECTION. absent: rash noted, tenderness - Neurological Exam Neurological Exam: Alert, Awake, CN II-XII Intact, Oriented x3 - Psychiatric Exam Psychiatric exam: Anxious - Skin Skin Exam: Dry, Intact, Normal Color, Warm Additional comments: heamtoma right lower quadrant abdomen Assessment and Plan - Assessment and Plan (Free Text) Assessment: This is a 61Y M with PMH of metastatic lung cancer admitted for pleural effusion of R lung and possible PE. Bilateral lower extremity edema and abdominal hematoma. S/p lung biopsy and thoracentesis, path results show poorly differentiated adenocarcinoma with lymphovascular invasion, cytology positive for malignant non-small cell carcinoma. Breathing has improved on venti-mask and fevers have resolved on abx. Plan: Pleural effusion * Infection vs malignancy vs CHF * ID consulted help appreciated * Pulmonology consulted, help appreciated * IR consulted, help appreciated * CT chest showed possible PE with pleural effusion on R [see full report] * CTA negative for PE [see full report] * ECHO is unremarkable with EF 58% * Continue Zosyn, and Doxycycline as per ID, however Zosyn continues to fall of SEP * Patient had fever of Tmax- 102 (11/17) remains afebrile overnight * S/p thoracentesis and mass biopsy (11/12/16)- 2000cc drained * repeat thoracentesis (11/18) 2700cc drained * Path results show poorly differentiated adenocarcinoma with lymphovascular invasion * Cytology positive for malignant non-small cell carcinoma * Continue Brovana and pulmicort * Patient SOB improved today (11/19) * Continue Lasix 40mg * Chest xray (11/18) almost complete opacification of right hemithorax, nominally improved, increasing ill-defined opacity in left hemithorax. * Pleurex tube in place, minimal drainage yesterday * Continue monitoring I's and O's * Daily weights Metastatic cancer * Oncology consulted, help appreciated * Continue Dexamethasone * Head CT shows lesion in right cerebella hemisphere, low attenuation changes superiorly and anteromedially to verminal region [see full report] * Consulted Dr. Call for second opinion. * Chemo and radiation as per oncology Bilateral leg edema * U/S of legs-isolated r tibial DVT * repeat U/S (11/18) shows no evidence of DVT * Decadron dose decreased to 2mg PO daily * ECHO is unremarkable with EF 58% * Will speak with heme/onc about anticoagulation plans * Continue Lovenox 70 BID SC * Continue Papi wraps, SCD's held due to edema Electrolyte Imbalance * Potassium low * Possibly due to Lasix * replenish as needed Hematoma of R abdomen * Improving * Continue warm compresses * Monitor h/h (stable) * Lovenox injections on other side of abdomen. GI ppx: Protonix DVT ppx: Lovenox Case seen, reviewed and discussed with attending <Delmar Joyner - Last Filed: 11/19/16 11:35> Objective - Vital Signs/Intake and Output Vital Signs (last 24 hours): Temp Pulse Resp BP Pulse Ox 98.7 F 105 H 20 134/92 H 99 11/19/16 06:00 11/19/16 06:00 11/19/16 06:00 11/19/16 10:21 11/17/16 13:35 Intake and Output: 11/19/16 11/19/16 06:59 18:59 Intake Total 360 Output Total 400 Balance -40 - Medications Medications: Current Medications Acetaminophen (Tylenol 325mg Tab) 650 mg PO Q6H PRN PRN Reason: Pain, Mild (1-3) Last Admin: 11/17/16 17:48 Dose: 650 mg Arformoterol Tartrate (Brovana) 15 mcg IH [id number] [facility] Last Admin: 11/19/16 11:02 Dose: 15 mcg Budesonide (Pulmicort Respules) 0.5 mg IH [id number] [facility] Last Admin: 11/19/16 11:02 Dose: 0.5 mg Dexamethasone (Decadron) 1 mg PO DAILY [facility] Last Admin: 11/19/16 10:20 Dose: 1 mg Doxycycline Hyclate (Doryx) 100 mg PO Q12 [facility] PRN Reason: Protocol Last Admin: 11/19/16 10:21 Dose: 100 mg Enoxaparin Sodium (Lovenox) 70 mg SC Q12 [facility] PRN Reason: Protocol Last Admin: 11/19/16 10:24 Dose: 70 mg Folic Acid (Folic Acid) 1 mg PO DAILY [facility] Last Admin: 11/19/16 10:21 Dose: 1 mg Vancomycin HCl (Vancomycin 1gm) 1 gm in 250 mls @ 167 mls/hr IVPB Q12H [facility] PRN Reason: Protocol Last Admin: 11/19/16 10:23 Dose: 167 mls/hr Piperacillin Sod/Tazobactam Sod (Zosyn 3.375 In Ns 100ml) 100 mls @ 200 mls/hr IVPB Q6 [facility] PRN Reason: Protocol Stop: 11/19/16 18:29 Morphine Sulfate (Morphine) 2 mg IVP Q4H PRN PRN Reason: Pain, moderate (4-7) Last Admin: 11/17/16 22:14 Dose: 2 mg Pantoprazole Sodium (Protonix Ec Tab) 40 mg PO ACB [facility] Last Admin: 11/19/16 10:22 Dose: 40 mg Thiamine HCl (Vitamin B1 Tab) 100 mg PO DAILY [facility] Last Admin: 11/19/16 10:23 Dose: 100 mg - Labs Labs: 11/19/16 06:30 11/19/16 06:30 PT 10.5 Seconds (9.9-11.8) 11/17/16 09:45 INR 0.97 (0.93-1.08) 11/17/16 09:45 APTT 29.6 Seconds (23.7-30.8) 11/09/16 10:59 Attending/Attestation - Attestation I have personally seen and examined this patient.: Yes I have fully participated in the care of the patient.: Yes I have reviewed all pertinent clinical information, including history, physical exam and plan: Yes Notes (Text): 11/19/16 11:31 61 year old male with past medical history of recently diagnosed metastatic lung cancer s/p radiation therapy for brain lesion who presented with complaint of right upper quadrant pain. Ultrasound and CT showed fatty liver without gallstones CT chest showed lung mass and right pleural effusion. He thoracocentesis last week and pleurex catheter placement on Thursday. Repeat CXR this morning is stable. Continue with antibiotics as per ID. He was also started on anticoagulation as his initial dopplers showed right tibial DVT. However repeat doppler is negative. Will discuss with hematology regarding anticoagulation goals. This morning he reports he is feeling better than yesterday. Still gets short of breath at times. He is on intermittent lasix and supplemental oxygen. He is getting radiation therapy. Hematology/oncology is also following. Case was discussed with Dr. Hayden who recommended to continue with radiation therapy and consider bronchial stenting. Will discuss with pulmonary. Will replete and repeat potassium. Delmar Joyner MD Hospitalist.
--- NOTE | 2016-11-19 11:18 | RAD ---
HISTORY: rexpansion pul. edema COMPARISON: 11/18/2016 FINDINGS: LUNGS: There is an extensive alveolar infiltrate in the right lung. There is a minimal interstitial infiltrate in the left lung. Findings are unchanged PLEURA: No significant pleural effusion identified, no pneumothorax apparent. CARDIOVASCULAR: Normal. OSSEOUS STRUCTURES: No significant abnormalities. VISUALIZED UPPER ABDOMEN: Normal. OTHER FINDINGS: None. IMPRESSION: There is an extensive alveolar infiltrate in the right lung. There is a minimal interstitial infiltrate in the left lung. Findings are unchanged
[2016-11-19] MEDS ORDERED: Piperacillin/Tazobact 3.375 gm 100 ML IVPB SCH (12:00)
--- NOTE | 2016-11-19 15:10 | PN ---
DATE: 11/19/2016 REFERRING PHYSICIAN: Dr. Joyner. SUBJECTIVE: He is lying in the bed on high flow oxygen. Has some cough and secretion. No nausea, n o vomiting, no diarrhea. Decreased leg swelling. OBJECTIVE: GENERAL: Mild to moderate distress. VITAL SIGNS: Temp is 98, heart rate is 109, respiratory rate is 20, blood pressure 137/99, pulse ox is 99% on high flow oxygen. HEENT: Moist mucous membrane. Crowded airway. NECK: Supple. No JVD. LUNGS: Have crackles on the right lung, poor air flow, scattered rhonchi on the left lung. HEART: S1 and S2. ABDOMEN: Soft, nontender. No organomegaly. EXTREMITIES: There is trace edema. NEUROLOGIC: Awake, alert, follows simple commands. MEDICATIONS: He is on Brovana 15 mcg inhaled twice a day, Decadron 1 mg daily, doxycycline 100 mg tw ice a day, folic acid 1 mg daily, Lovenox 70 mg subQ twice a day, morphine 2 mg IV q. 4 hours p.r.n., Protonix 40 mg ACB, Pulmicort inhaled twice a day, vancomycin 1 g IV q. 12 hours, vitamin B 100 mg d aily, Zosyn 3.375 IV q. 6 hours. Chest x-ray this morning shows still whiteout of right lung. IMPRESSION AND PLAN: Poorly differentiated adenocarcinoma involving the lung metastasis to the brain , malignant effusion, status post PleurX catheter reexpansion, pulmonary edema, chronic lung disease, history of deep venous thrombosis. Will increase Decadron to 4 mg daily. Continue doxycycline. Co ntinue high flow oxygen. Change Lovenox to DVT prophylaxis. Aspiration precaution. Continue nebuli zer treatment. Case discussed with medical billing and coding specialist. Thank you, and will follow with you. Ashia Fletcher MD cc: [phone] TT: 11/19/2016 15:10:19 Confirmation # [id number] Dictation # [id number] mn
--- NOTE | 2016-11-19 17:27 | CP.PCM.PN ---
Subjective - Date & Time of Evaluation Date of Evaluation: 11/19/16 Time of Evaluation: 16:00 - Subjective Subjective: Infectious Disease Follow Up: November 19, 2016 61 yo male with history of metastatic lung cancer with three week history of abdominal pain that has progressively worsened. Last chemotherapy was two weeks ago. CT displays large mass in Right upper lobe bronchus with obstruction and possible PE with moderate pleural effusion. He also has increased leg swelling and SOB for the past two weeks as well. He is breathing easier today. He had biopsy of the lung mass and thoracentesis by IR during this hospitalization. He is more comfortable. Bilateral leg swelling has improved significantly since admission. Biopsy showing adenocarcinoma that is poorly differentiated with lymphovascular invasion. No new issues but patient feels that his breathing is a little better today. Patient required non-rebreather mask but he feels worse once off the ventimask. Anxious. Objective - Vital Signs/Intake and Output Vital Signs (last 24 hours): Temp Pulse Resp BP Pulse Ox 97 F L 109 H 18 137/99 H 99 11/19/16 11:44 11/19/16 11:44 11/19/16 11:44 11/19/16 11:44 11/17/16 13:35 Intake and Output: 11/19/16 11/19/16 06:59 18:59 Intake Total 360 Output Total 400 Balance -40 - Medications Medications: Current Medications Acetaminophen (Tylenol 325mg Tab) 650 mg PO Q6H PRN PRN Reason: Pain, Mild (1-3) Last Admin: 11/17/16 17:48 Dose: 650 mg Arformoterol Tartrate (Brovana) 15 mcg IH [id number] [facility] Last Admin: 11/19/16 11:02 Dose: 15 mcg Budesonide (Pulmicort Respules) 0.5 mg IH [id number] [facility] Last Admin: 11/19/16 11:02 Dose: 0.5 mg Dexamethasone (Decadron) 4 mg PO DAILY [facility] Doxycycline Hyclate (Doryx) 100 mg PO Q12 [facility] PRN Reason: Protocol Last Admin: 11/19/16 10:21 Dose: 100 mg Enoxaparin Sodium (Lovenox) 40 mg SC Q24H [facility] PRN Reason: Protocol Folic Acid (Folic Acid) 1 mg PO DAILY [facility] Last Admin: 11/19/16 10:21 Dose: 1 mg Vancomycin HCl (Vancomycin 1gm) 1 gm in 250 mls @ 167 mls/hr IVPB Q12H [facility] PRN Reason: Protocol Last Admin: 11/19/16 10:23 Dose: 167 mls/hr Piperacillin Sod/Tazobactam Sod (Zosyn 3.375 In Ns 100ml) 100 mls @ 200 mls/hr IVPB Q6 [facility] PRN Reason: Protocol Stop: 11/19/16 18:29 Morphine Sulfate (Morphine) 2 mg IVP Q4H PRN PRN Reason: Pain, moderate (4-7) Last Admin: 11/17/16 22:14 Dose: 2 mg Pantoprazole Sodium (Protonix Ec Tab) 40 mg PO ACB [facility] Last Admin: 11/19/16 10:22 Dose: 40 mg Thiamine HCl (Vitamin B1 Tab) 100 mg PO DAILY [facility] Last Admin: 11/19/16 10:23 Dose: 100 mg - Labs Labs: 11/19/16 06:30 11/19/16 06:30 PT 10.5 Seconds (9.9-11.8) 11/17/16 09:45 INR 0.97 (0.93-1.08) 11/17/16 09:45 APTT 29.6 Seconds (23.7-30.8) 11/09/16 10:59 - Constitutional Appears: Non-toxic, No Acute Distress, Chronically Ill - Head Exam Head Exam: ATRAUMATIC, NORMOCEPHALIC - Eye Exam Eye Exam: EOMI, PERRL Pupil Exam: NORMAL ACCOMODATION, PERRL - ENT Exam ENT Exam: Mucous Membranes Moist, Normal External Ear Exam, TM's Normal Bilaterally - Neck Exam Neck Exam: Full ROM, Normal Inspection - Respiratory Exam Respiratory Exam: Decreased Breath Sounds, NORMAL BREATHING PATTERN. absent: Rhonchi, Wheezes Additional comments: Mild Right lower lung rales with no air movement in right upper lobe. - Cardiovascular Exam Cardiovascular Exam: REGULAR RHYTHM, RRR, +S1, +S2 - GI/Abdominal Exam GI & Abdominal Exam: Soft, Normal Bowel Sounds. absent: Distended, Tenderness Additional comments: RLQ Hematoma. - Extremities Exam Extremities Exam: Full ROM, Normal Inspection - Neurological Exam Neurological Exam: Alert, Awake, CN II-XII Intact, Oriented x3 - Psychiatric Exam Psychiatric exam: Normal Affect, Normal Mood - Skin Skin Exam: Intact, Normal Color Assessment and Plan - Assessment and Plan (Free Text) Assessment: 61 yo male with metastatic lung cancer to the brain with worsening abdominal pain, lower leg edema, and SOB. Only on dexamethasone on admission. Unable to rule out pneumonia. On Vancomycin, Doxycycline, and Zosyn for antibiotic coverage for now. Will maintain this regimen for the time being. Supportive care. CT scan of chest suggested lesion in C7. Effusion possibly loculated in right lower lobe. For biopsy and thoracentesis... done. Patient is more comfortable now compared to admission. Bilateral leg swelling has improved significantly. Biopsy showing adenocarcinoma that is poorly differentiated with lymphovascular invasion. Can maintain on Doxycycline and Zosyn while in hospital. Has chronic non- productive cough. Increasing SOB the last 48 hours. Would consider no more than 14 days of antibiotics. Can consider stopping antibiotics tomorrow. Thank you for allowing me to participate in the care of this patient, we will follow with you.
--- NOTE | 2016-11-19 22:33 | PN ---
DATE: 11/19/2016 This is the patient's hospital visit on the telemetry floor for Dr. Castillo. SUBJECTIVE: The patient is a 61-year-old male seen sitting up in bed, reports he may be going home t omorrow, status post placement of PleurX catheter on the right side after approximately 2700 mL of fl uid was removed recently, with breathing better. The patient suffers from stage IV metastatic poorly differentiated adenocarcinoma of the lung with documented brain mets with radiation treatment improv ing his condition. With this, he is to get total of 5 days of radiation treatments with consideratio n for anticoagulation to restart as indicated. With this, he is in no acute distress this visit. OBJECTIVE: VITAL SIGNS: Temperature 98.5, pulse 111, respirations 20, blood pressure 128/76, pulse ox 93%. HEENT: Unremarkable. NECK: Supple. HEART: Tachy rate, regular rhythm. LUNGS: Faint crackles at the right base. Occasional rhonchi, left. ABDOMEN: Soft, nontender. EXTREMITIES: Faint +1 edema, bilateral lower extremities. NEUROLOGIC: Awake, alert and oriented. SKIN: Otherwise warm, dry and clear. LABORATORY DATA: The patient's labs were done. White blood cell count of 6.2, hemoglobin 9.9, hemat ocrit , platelet count 141,000 with a chem metabolic panel showing a potassium of 3.5, BUN of 24 , creatinine 1.2. The patient had a chest x-ray done today, which was read as extensive alveolar inf iltrate of right lung, minimal interstitial infiltrate of left lung, findings are unchanged. The pat ient had a Doppler ultrasound yesterday of his lower extremities, showed no evidence of DVT bilateral ly. ASSESSMENT: Stage IV metastatic poorly differentiated adenocarcinoma of the lung with brain metastas es, status post radiation, PleurX catheter right side for recurrent pleural effusion status post thor acenteses, pulmonary edema, chronic obstructive pulmonary disease, history of deep venous thrombosis, possible C7 lesion, adrenal nodules, thrombocytopenia improved, anemia. PLAN: To continue present medical regimen as per Dr. Castillo. His CEA value from 11/14/2016 was 12. 3. He is to continue his present medical regimen with Lovenox to continue in the interim. He is to continue radiation treatments with consideration for possible treatment with Keytruda as per Dr. Arie almanza's protocol with humidification of his oxygen in the interim. If he is discharged, he is to follow up with Dr. Castillo in approximately 1 week's time or earlier in the outpatient setting. We will mo nitor clinically and with labs as indicated. Also hypokalemia, labs to be checked in a.m. Jesus Davis MD cc: [phone] TT: 11/19/2016 22:32:44 Confirmation # [id number] Dictation # [id number]
[2016-11-20 06:57] LABS: ADD MANUAL DIFF? NO
[2016-11-20 07:08] LABS: BASO # 0.01 K/mm3 (0.0-2.0); BASO % 0.2 % (0.0-3.0); EOS % 0.5 % (1.5-5.0); GRAN % 83.4 % (50.0-68.0); HEMATOCRIT 32.8 % (42.0-52.0); LYMPH # 0.7 (1.2-3.4); LYMPH % 11.3 % (22.0-35.0); MEAN CELL VOLUME 90.4 fL (80.0-105.0); MEAN CORPUSCULAR HEMOGLOBIN 28.9 pg (25.0-35.0); MEAN PLATELET VOLUME 10.1 fl (7.0-11.0); MONO # 0.3 (0.1-0.6); MONO % 4.6 % (1.0-6.0); PLATELET COUNT 159 10^3/uL (120.0-450.0); RED CELL DISTRIBUTION WIDTH 18.9 % (11.5-14.5); WHITE BLOOD COUNT 6.4 10^3/ul (4.5-11.0)
[2016-11-20 07:29] LABS: BLOOD UREA NITROGEN 22 mg/dL (7-21); CALCIUM 8.8 mg/dL (8.4-10.5); CARBON DIOXIDE 32 mmol/L (21-33); CHLORIDE 104 mmol/L (98-107); GFR AFRICAN-AMERICAN > 60; GLUCOSE,RANDOM 86 mg/dL (70-110); POTASSIUM 3.9 mmol/L (3.6-5.0); SODIUM 139 mmol/L (132-148)
[2016-11-20] MEDS: Arformoterol 15 mcg/2 ml Inh Sol IH SCH ×2 (07:43→19:51)
[2016-11-20] MEDS: Budesonide 0.5 mg/2 ml Inhal Susp UD IH SCH ×2 (07:43→19:51)
[2016-11-20] MEDS: Pantoprazole 40 mg EC Tab PO SCH (07:59)
--- NOTE | 2016-11-20 09:59 | RAD ---
HISTORY: infiltrate COMPARISON: 11/19/2016 FINDINGS: LUNGS: Complete opacification of the right lung. Increased interstitial infiltrate in the left lung PLEURA: No significant pleural effusion identified, no pneumothorax apparent. CARDIOVASCULAR: Normal. OSSEOUS STRUCTURES: No significant abnormalities. VISUALIZED UPPER ABDOMEN: Normal. OTHER FINDINGS: None. IMPRESSION: Complete opacification of the right lung. Increased interstitial infiltrate in the left lung
[2016-11-20] MEDS: Vancomycin 1gm in NS 250ml 1 GM/250 ML BAG IVPB SCH (10:23)
--- NOTE | 2016-11-20 13:23 | CP.PCM.PN ---
<Lionel Sanchez - Last Filed: 11/20/16 13:14> Subjective - Date & Time of Evaluation Date of Evaluation: 11/20/16 Time of Evaluation: 07:20 - Subjective Subjective: Dr. Sanchez PGY 1 Hospitalist Note Patient seen and evaluated at bedside. He was wearing a nasal canula and ventimask. When asked why he had the mask on, he said he felt he could breathe more comfortably with it. He then took the mask off. He says he sometimes has SOB but no chest pain or productive cough. He denies any dizziness, lightheadedness, nausea, vomiting, fever, chills or abdominal pain. Per nursing , no adverse events over night. He went for radiation this morning and when re- evaluated found to be hypoxic on nasal canula with O2 st of 83%. He was placed on non-rebreather and O2 saturation went up to 94%. Spoke with he and his spouse and were amenable to speaking with palliative nurse. Objective - Vital Signs/Intake and Output Vital Signs (last 24 hours): Temp Pulse Resp BP Pulse Ox 98.7 F 102 H 18 130/92 H 100 11/20/16 12:00 11/20/16 12:00 11/20/16 12:00 11/20/16 12:00 11/20/16 05:27 Intake and Output: 11/20/16 11/20/16 06:59 18:59 Intake Total 250 Output Total 400 Balance -150 - Medications Medications: Current Medications Acetaminophen (Tylenol 325mg Tab) 650 mg PO Q6H PRN PRN Reason: Pain, Mild (1-3) Last Admin: 11/17/16 17:48 Dose: 650 mg Arformoterol Tartrate (Brovana) 15 mcg IH [id number] [facility] Last Admin: 11/20/16 07:43 Dose: 15 mcg Budesonide (Pulmicort Respules) 0.5 mg IH [id number] [facility] Last Admin: 11/20/16 07:43 Dose: 0.5 mg Dexamethasone (Decadron) 4 mg PO DAILY [facility] Doxycycline Hyclate (Doryx) 100 mg PO Q12 [facility] PRN Reason: Protocol Last Admin: 11/20/16 10:21 Dose: 100 mg Enoxaparin Sodium (Lovenox) 40 mg SC Q24H [facility] PRN Reason: Protocol Folic Acid (Folic Acid) 1 mg PO DAILY [facility] Last Admin: 11/20/16 10:21 Dose: 1 mg Furosemide (Lasix) 20 mg PO DAILY [facility] Last Admin: 11/20/16 10:21 Dose: 20 mg Vancomycin HCl (Vancomycin 1gm) 1 gm in 250 mls @ 167 mls/hr IVPB Q12H [facility] PRN Reason: Protocol Last Admin: 11/20/16 10:23 Dose: 167 mls/hr Morphine Sulfate (Morphine) 2 mg IVP Q4H PRN PRN Reason: Pain, moderate (4-7) Last Admin: 11/17/16 22:14 Dose: 2 mg Pantoprazole Sodium (Protonix Ec Tab) 40 mg PO ACB [facility] Last Admin: 11/20/16 07:59 Dose: 40 mg Thiamine HCl (Vitamin B1 Tab) 100 mg PO DAILY [facility] Last Admin: 11/20/16 10:23 Dose: 100 mg - Labs Labs: 11/20/16 05:00 11/20/16 05:00 PT 10.5 Seconds (9.9-11.8) 11/17/16 09:45 INR 0.97 (0.93-1.08) 11/17/16 09:45 APTT 29.6 Seconds (23.7-30.8) 11/09/16 10:59 - Constitutional Appears: Older Than Stated Age, Chronically Ill - Head Exam Head Exam: ATRAUMATIC, NORMOCEPHALIC - Eye Exam Eye Exam: EOMI, PERRL. absent: Normal appearance (right eye cataract) Pupil Exam: absent: NORMAL ACCOMODATION, PERRL - ENT Exam ENT Exam: Mucous Membranes Moist - Respiratory Exam Respiratory Exam: Decreased Breath Sounds (right upper and lower), Rhonchi. absent: Rales, Wheezes, NORMAL BREATHING PATTERN (tchypnic) - Cardiovascular Exam Cardiovascular Exam: REGULAR RHYTHM, +S1, +S2. absent: Gallop, Rubs, Murmur - GI/Abdominal Exam GI & Abdominal Exam: Soft, Normal Bowel Sounds. absent: Tenderness Additional comments: hematoma right lower quadrant - Extremities Exam Extremities Exam: Pedal Edema. absent: Tenderness - Back Exam Back Exam: NORMAL INSPECTION. absent: rash noted, tenderness - Neurological Exam Neurological Exam: Alert, Awake, CN II-XII Intact, Oriented x3 - Psychiatric Exam Psychiatric exam: Normal Affect, Normal Mood - Skin Skin Exam: Dry, Intact, Normal Color, Warm Additional comments: hematoma right lower quadrant Assessment and Plan - Assessment and Plan (Free Text) Assessment: This is a 61Y M with PMH of metastatic lung cancer admitted for pleural effusion of R lung and possible PE. Bilateral lower extremity edema and abdominal hematoma. S/p lung biopsy and thoracentesis, path results show poorly differentiated adenocarcinoma with lymphovascular invasion, cytology positive for malignant non-small cell carcinoma. Breathing has improved on venti-mask and fevers have resolved on abx. Palliative consult. Plan: Pleural effusion * Infection vs malignancy vs CHF * ID consulted help appreciated * Pulmonology consulted, help appreciated * IR consulted, help appreciated * CT chest showed possible PE with pleural effusion on R [see full report] * CTA negative for PE [see full report] * ECHO is unremarkable with EF 58% * Continue Zosyn, and Doxycycline as per ID, however Zosyn continues to fall of SEP * Patient had fever of Tmax- 102 (11/17) remains afebrile * S/p thoracentesis and mass biopsy (11/12/16)- 2000cc drained * repeat thoracentesis (11/18) 2700cc drained * Path results show poorly differentiated adenocarcinoma with lymphovascular invasion * Cytology positive for malignant non-small cell carcinoma * Continue Brovana and pulmicort * Patient SOB improved today (11/19) * Continue Lasix 20mg daily * Chest xray (11/18) almost complete opacification of right hemithorax, nominally improved, increasing ill-defined opacity in left hemithorax. * chest xray (11/20) shows increased infiltrate on left lung * Pleurex tube in place, minimal drainage * Continue monitoring I's and O's * Daily weights * continue dexamethasone 4mg daily as per pulm * f/u ABG Metastatic cancer * Oncology consulted, help appreciated * Continue Dexamethasone 4mg daily * Head CT shows lesion in right cerebella hemisphere, low attenuation changes superiorly and anteromedially to verminal region [see full report] * Consulted Dr. Call for second opinion. * Chemo and radiation as per oncology * PT for physical therapy * Palliative consult, help appreciated Bilateral leg edema * U/S of legs-isolated r tibial DVT * repeat U/S (11/18) shows no evidence of DVT * Decadron dose decreased to 2mg PO daily * ECHO is unremarkable with EF 58% * Will speak with heme/onc about anticoagulation plans * Continue Lovenox 70 BID SC * Continue Papi wraps, SCD's held due to edema Electrolyte Imbalance * replenish as needed Hematoma of R abdomen * Improving * Continue warm compresses * Monitor h/h (stable) * Lovenox injections on other side of abdomen. GI ppx: Protonix DVT ppx: Lovenox Case seen, reviewed and discussed with attending <Ashia Shipman MD - Last Filed: 11/20/16 15:31> Objective - Vital Signs/Intake and Output Vital Signs (last 24 hours): Temp Pulse Resp BP Pulse Ox 98.7 F 102 H 18 130/92 H 100 11/20/16 12:00 11/20/16 12:00 11/20/16 12:00 11/20/16 12:00 11/20/16 05:27 Intake and Output: 11/20/16 11/20/16 06:59 18:59 Intake Total 250 Output Total 400 Balance -150 - Medications Medications: Current Medications Acetaminophen (Tylenol 325mg Tab) 650 mg PO Q6H PRN PRN Reason: Pain, Mild (1-3) Last Admin: 11/17/16 17:48 Dose: 650 mg Arformoterol Tartrate (Brovana) 15 mcg IH [id number] [facility] Last Admin: 11/20/16 07:43 Dose: 15 mcg Budesonide (Pulmicort Respules) 0.5 mg IH [id number] [facility] Last Admin: 11/20/16 07:43 Dose: 0.5 mg Dexamethasone (Decadron) 4 mg PO DAILY [facility] Doxycycline Hyclate (Doryx) 100 mg PO Q12 [facility] PRN Reason: Protocol Last Admin: 11/20/16 10:21 Dose: 100 mg Enoxaparin Sodium (Lovenox) 40 mg SC Q24H [facility] PRN Reason: Protocol Folic Acid (Folic Acid) 1 mg PO DAILY [facility] Last Admin: 11/20/16 10:21 Dose: 1 mg Furosemide (Lasix) 20 mg PO DAILY [facility] Last Admin: 11/20/16 10:21 Dose: 20 mg Furosemide (Lasix) 40 mg IVP DAILY [facility] Vancomycin HCl (Vancomycin 1gm) 1 gm in 250 mls @ 167 mls/hr IVPB Q12H [facility] PRN Reason: Protocol Last Admin: 11/20/16 10:23 Dose: 167 mls/hr Morphine Sulfate (Morphine) 2 mg IVP Q4H PRN PRN Reason: Pain, moderate (4-7) Last Admin: 11/17/16 22:14 Dose: 2 mg Pantoprazole Sodium (Protonix Ec Tab) 40 mg PO ACB [facility] Last Admin: 11/20/16 07:59 Dose: 40 mg Thiamine HCl (Vitamin B1 Tab) 100 mg PO DAILY [facility] Last Admin: 11/20/16 10:23 Dose: 100 mg - Labs Labs: 11/20/16 05:00 11/20/16 05:00 PT 10.5 Seconds (9.9-11.8) 11/17/16 09:45 INR 0.97 (0.93-1.08) 11/17/16 09:45 APTT 29.6 Seconds (23.7-30.8) 11/09/16 10:59 Attending/Attestation - Attestation I have personally seen and examined this patient.: Yes I have fully participated in the care of the patient.: Yes I have reviewed all pertinent clinical information, including history, physical exam and plan: Yes Notes (Text): Patient was seen and examined with medical administrative technician .Agreed with resident assessment and plan. 61 yrs old male with metastatic lung cancer with brain and bony metastasis, malignant pleural effusion and DVT. Patient hypoxic Respiratory failure is getting worse, Chest X rays shows complete opacification of right lung, has left lung congestion, will get ABG, will give extra lasix.The issue of DNR/DNI was discussed with patient and , patient is still full code.Patient case was discussed with his Glass Cleaner who recommended ICU evaluation.Patient case was discussed with ICU attending . Prognosis is guarded. Management plan was discussed in detail with patient Education was provided.
--- NOTE | 2016-11-20 14:04 | CP.PCM.CON ---
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 Social History: Former smoker, no alcohol or drug use. lives with spouse who is very supportive. Family History: Non contributory Review of Systems: Shortness of breath, fatigue, swelling of lower extremities.All other systems reviewed and are negative Past Patient History - Infectious Disease Hx of Infectious Diseases: None - Past Social History Smoking Status: Former Smoker - CARDIAC Hx Cardiac Disorders: No - PULMONARY Hx Chronic Obstructive Pulmonary Disease (COPD): Yes - NEUROLOGICAL Hx Neurological Disorder: No - HEENT Hx HEENT Problems: No - RENAL Hx Chronic Kidney Disease: No - ENDOCRINE/METABOLIC Hx Endocrine Disorders: No - HEMATOLOGICAL/ONCOLOGICAL Hx Blood Transfusions: No Hx Blood Transfusion Reaction: No - INTEGUMENTARY Hx Dermatological Problems: No - MUSCULOSKELETAL/RHEUMATOLOGICAL Hx Musculoskeletal Disorders: No - GASTROINTESTINAL Hx Gastrointestinal Disorders: No - GENITOURINARY/GYNECOLOGICAL Hx Genitourinary Disorders: No - PSYCHIATRIC Hx Psychophysiologic Disorder: No Hx Substance Use: No - SURGICAL HISTORY Hx Surgeries: Yes - ANESTHESIA Hx Anesthesia Reactions: No Hx Malignant Hyperthermia: No Meds Allergies/Adverse Reactions: Allergies Allergy/AdvReac Type Severity Reaction Status Date / Time No Known Allergies Allergy Verified 11/07/16 17:56 - Medications Medications: Current Medications Acetaminophen (Tylenol 325mg Tab) 650 mg PO Q6H PRN PRN Reason: Pain, Mild (1-3) Last Admin: 11/17/16 17:48 Dose: 650 mg Arformoterol Tartrate (Brovana) 15 mcg IH [id number] [facility] Last Admin: 11/20/16 07:43 Dose: 15 mcg Budesonide (Pulmicort Respules) 0.5 mg IH [id number] [facility] Last Admin: 11/20/16 07:43 Dose: 0.5 mg Dexamethasone (Decadron) 4 mg PO DAILY [facility] Doxycycline Hyclate (Doryx) 100 mg PO Q12 [facility] PRN Reason: Protocol Last Admin: 11/20/16 10:21 Dose: 100 mg Enoxaparin Sodium (Lovenox) 40 mg SC Q24H [facility] PRN Reason: Protocol Folic Acid (Folic Acid) 1 mg PO DAILY [facility] Last Admin: 11/20/16 10:21 Dose: 1 mg Furosemide (Lasix) 20 mg PO DAILY [facility] Last Admin: 11/20/16 10:21 Dose: 20 mg Vancomycin HCl (Vancomycin 1gm) 1 gm in 250 mls @ 167 mls/hr IVPB Q12H [facility] PRN Reason: Protocol Last Admin: 11/20/16 10:23 Dose: 167 mls/hr Morphine Sulfate (Morphine) 2 mg IVP Q4H PRN PRN Reason: Pain, moderate (4-7) Last Admin: 11/17/16 22:14 Dose: 2 mg Pantoprazole Sodium (Protonix Ec Tab) 40 mg PO ACB [facility] Last Admin: 11/20/16 07:59 Dose: 40 mg Thiamine HCl (Vitamin B1 Tab) 100 mg PO DAILY [facility] Last Admin: 11/20/16 10:23 Dose: 100 mg Physical Exam - Constitutional Appears: Cachectic, Chronically Ill - Head Exam Head Exam: NORMAL INSPECTION - Eye Exam Eye Exam: Normal appearance, PERRL - ENT Exam ENT Exam: Mucous Membranes Moist, Normal Oropharynx - Neck Exam Neck exam: Positive for: Normal Inspection - Respiratory Exam Respiratory Exam: Decreased Breath Sounds, Rhonchi, Wheezes - Cardiovascular Exam Cardiovascular Exam: REGULAR RHYTHM, +S1, +S2 - GI/Abdominal Exam GI & Abdominal Exam: Normal Bowel Sounds, Soft Additional comments: non tender - Extremities Exam Extremities exam: Positive for: pedal pulses present Additional comments: 2 + edema of both lower extremities - Back Exam Back exam: NORMAL INSPECTION - Skin Skin Exam: Dry, Warm - Additional Findings Additional findings: Palliative performance scale rating 40 % Results - Vital Signs Recent Vital Signs: Last Vital Signs Temp 98.7 F 11/20/16 12:00 Pulse 102 H 11/20/16 12:00 Resp 18 11/20/16 12:00 BP 130/92 H 11/20/16 12:00 Pulse Ox 100 11/20/16 05:27 - Labs Result Diagrams: 11/20/16 05:00 11/20/16 05:00 Labs: Laboratory Results - last 24 hr 11/20/16 11/20/16 05:00 05:00 WBC 6.4 RBC 3.63 Hgb 10.5 L Hct 32.8 L MCV 90.4 MCH 28.9 MCHC 32.0 RDW 18.9 H Plt Count 159 MPV 10.1 Gran % 83.4 H Lymph % (Auto) 11.3 L [place] % (Auto) 4.6 Eos % (Auto) 0.5 L Baso % (Auto) 0.2 Gran # 5.30 Lymph # 0.7 L [place] # 0.3 Eos # 0.0 Baso # 0.01 Sodium 139 Potassium 3.9 Chloride 104 Carbon Dioxide 32 Anion Gap 7 L BUN 22 H Creatinine 1.1 Est GFR ( Amer) > 60 Est GFR (Non-Af Amer) > 60 Random Glucose 86 Calcium 8.8 Assessment & Plan - Assessment and Plan (Free Text) Assessment: 61 year old male with advanced NSCL cancer undergoing palliative RT to brain, pleural effusion s/p chest tube, respiratory insufficiency. Patient is alert and oriented with normal affect. at bedside. Palliative services explained to patient and . We had a very extensive discussion regarding goals of care. Both patient and aware that he has very advanced disease. Patient willing to continue with treatment options such chemotherapy/ biotherapy. Patient is hopeful that he will have some quality time with his children. Both he and his understand that his condition may worsen in the future. It is at that point they will consider other options such as comfort care. We also discussed resuscitation wishes. Benefits and burdens of resuscitation explained. Questions answered. Patient wants full resuscitative efforts at this time, especially if his condition is acute and reversible. Patient will consider DNR/DNI when/if his condition worsens. Patient expressed that he really wants to get home this week.He anticipates spending time with his children. Patient understands that he is not stable enough to leave yet and that doing so may cause his condition to worsen. Psychosocial support give, spiritual support offered. Time spent with patient and in goals of care/ advance care planning discussion, 45 minutes Plan: Case discussed with Dr Nilda Shipman and Dr Nilda Collins. Will assist with advance care planning
[2016-11-20] MEDS: Enoxaparin 80 mg Syringe SC SCH ×2 (15:34→16:24)
[2016-11-20 15:58] LABS: ARTERIAL BLOOD GAS HCO3 25.3 mmol/L (21-28); ARTERIAL BLOOD GAS O2 CAPACITY 14.1 mL/dl (16-24); ARTERIAL BLOOD GAS O2 CONTENT 13.5 ML/dl (15-23); ARTERIAL BLOOD GAS PH 7.48 (7.35-7.45); ARTERIAL BLOOD HGB O2 SAT 92.1 % (95.0-98.0); CARBOXYHEMOGLOBIN 2.7 % (0.5-1.5); HHB 3.9 % (0-5); METHEMOGLOBIN 1.2 % (0.0-3.0)
--- NOTE | 2016-11-20 16:08 | RAD ---
HISTORY: lung mass COMPARISON: Earlier same day FINDINGS: LUNGS: There is improvement in the right-sided alveolar infiltrate. There is a mass in the right lung apex. There is also improvement in the left-sided interstitial infiltrate PLEURA: No significant pleural effusion identified, no pneumothorax apparent. CARDIOVASCULAR: Normal. OSSEOUS STRUCTURES: No significant abnormalities. VISUALIZED UPPER ABDOMEN: Normal. OTHER FINDINGS: None. IMPRESSION: There is improvement in the right-sided alveolar infiltrate. There is a mass in the right lung apex. There is also improvement in the left-sided interstitial infiltrate
--- NOTE | 2016-11-20 16:34 | CP.PCM.CON ---
History of Present Illness - History of Present Illness History of Present Illness: 61 y/o M w/ Undif NSCLCA with large RUL Mass with compression of the R mainstem and Great vessels. I was called by the hospitalist team due to hypoxia and SOB. After reviewing the patient's records and imaging the patient was seen to be resting quite comfortably without distress on Venti-mask. The patient had a alf indwelling Pleural catheter placed for malignant Pleural effusion . Earlier today had drained 400cc and over 24 hrs > 2500cc. Review of Systems - Constitutional Constitutional: As Per HPI - EENT Eyes: Decreased Night Vision. absent: As Per HPI, Blind Spots, Blurred Vision, Change in Vision, Diplopia, Discharge, Dry Eye, Exophthalmos, Floaters, Irritation, Itchy Eyes, Loss of Peripheral Vision, Pain, Photophobia, Requires Corrective Lenses, Sees Flashes, Spots in Vision, Tunnel Vision, Other Visual Disturbances, Loss of Vision, Other Ears: absent: As Per HPI, Decreased Hearing, Ear Discharge, Ear Pain, Tinnitus, Abnormal Hearing, Disequilibrium, Dizziness, Other Nose/Mouth/Throat: absent: As Per HPI, Epistaxis, Nasal Congestion, Nasal Discharge, Nasal Obstruction, Nasal Trauma, Nose Pain, Post Nasal Drip, Sinus Pain, Sinus Pressure, Bleeding Gums, Change in Voice, Dental Pain, Dry Mouth, Dysphagia, Halitosis, Hoarsness, Lip Swelling, Mouth Lesions, Mouth Pain, Odynophagia, Sore Throat, Throat Swelling, Tongue Swelling, Facial Pain, Neck Pain, Neck Mass, Other - Cardiovascular Cardiovascular: absent: As Per HPI, Acrocyanosis, Chest Pain, Chest Pain at Rest , Chest Pain with Activity, Claudication, Diaphoresis, Dyspnea, Dyspnea on Exertion, Edema, Irregular Heart Rhythm, Pain Radiating to Arm/Neck/Jaw, Leg Edema, Leg Ulcers, Lightheadedness, Orthopnea, Palpitations, Paroxysmal Nocturnal Dyspnea, Pedal Edema, Radiating Pain, Rapid Heart Rate, Slow Heart Rate, Syncope, Other - Respiratory Respiratory: Cough, Dyspnea, Dyspnea on Exertion - Gastrointestinal Gastrointestinal: absent: As Per HPI, Abdominal Pain, Belching, Bloating, Change in Bowel Habits, Change in Stool Character, Coffee Ground Emesis, Constipation, Cramping, Diarrhea, Dyspepsia, Dysphagia, Early Satiety, Excessive Flatus, Fecal Incontinence, Heartburn, Hematemesis, Hematochezia, Loose Stools, Melena, Nausea, Odynophagia, Temesmus, Vomiting, Other - Genitourinary Genitourinary: absent: As Per HPI, Change in Urinary Stream, Difficulty Urinating, Dysuria, Flank Pain, Hematuria, Pyuria, Nocturia, Urinary Incontinence, Urinary Frequency, Urinary Hesitance, Urinary Urgency, Voiding Freq/Small Amts, Freq UTI, Hx Renal/Bladder Calculi, Hx /Renal Surgery, Bladder Distension, Other - Integumentary Integumentary: absent: As Per HPI, Acne, Alopecia, Bleeding Lesions, Change in Hair, Change in Nails, Change in Pigmentation, Changing Lesions, Dry Skin, Erythema, Furuncle, Hirsutism, Lesions, New Lesions, Non-Healing Lesions, Photosensitivity, Pruritus, Rash, Skin Pain, Skin Ulcer, Sores, Striae, Swelling , Unusual Bruising, Wounds, Jaundice, Other - Neurological Neurological: absent: As Per HPI, Abnormal Gait, Abnormal Hearing, Abnormal Movements, Abnormal Speech, Behavioral Changes, Burning Sensations, Confusion, Convulsions, Disequilibrium, Dizziness, Numbness, Focal Weakness, Frequent Falls , Headaches, Lack of Coordination, Loss of Vision, Memory Loss, Paresthesias, Radicular Pain, Restless Legs, Sensory Deficit, Syncope, Tingling, Tremor, Vertigo, Weakness, Other Visual Disturbances, Other Past Patient History - Infectious Disease Hx of Infectious Diseases: None - Past Medical History & Family History Past Medical History?: Yes - Past Social History Smoking Status: Former Smoker Alcohol: > 2 Drinks/Day - CARDIAC Hx Cardiac Disorders: No - PULMONARY Hx Chronic Obstructive Pulmonary Disease (COPD): Yes - NEUROLOGICAL Hx Neurological Disorder: No - HEENT Hx HEENT Problems: No - RENAL Hx Chronic Kidney Disease: No - ENDOCRINE/METABOLIC Hx Endocrine Disorders: No - HEMATOLOGICAL/ONCOLOGICAL Hx Blood Transfusions: No Hx Blood Transfusion Reaction: No - INTEGUMENTARY Hx Dermatological Problems: No - MUSCULOSKELETAL/RHEUMATOLOGICAL Hx Musculoskeletal Disorders: No - GASTROINTESTINAL Hx Gastrointestinal Disorders: No - GENITOURINARY/GYNECOLOGICAL Hx Genitourinary Disorders: No - PSYCHIATRIC Hx Psychophysiologic Disorder: No Hx Substance Use: No - SURGICAL HISTORY Hx Surgeries: Yes - ANESTHESIA Hx Anesthesia Reactions: No Hx Malignant Hyperthermia: No Meds Allergies/Adverse Reactions: Allergies Allergy/AdvReac Type Severity Reaction Status Date / Time No Known Allergies Allergy Verified 11/07/16 17:56 - Medications Medications: Current Medications Acetaminophen (Tylenol 325mg Tab) 650 mg PO Q6H PRN PRN Reason: Pain, Mild (1-3) Last Admin: 11/17/16 17:48 Dose: 650 mg Arformoterol Tartrate (Brovana) 15 mcg IH [id number] [facility] Last Admin: 11/20/16 07:43 Dose: 15 mcg Budesonide (Pulmicort Respules) 0.5 mg IH [id number] [facility] Last Admin: 11/20/16 07:43 Dose: 0.5 mg Dexamethasone (Decadron) 4 mg PO DAILY [facility] Doxycycline Hyclate (Doryx) 100 mg PO Q12 [facility] PRN Reason: Protocol Last Admin: 11/20/16 10:21 Dose: 100 mg Enoxaparin Sodium (Lovenox) 40 mg SC Q24H [facility] PRN Reason: Protocol Last Admin: 11/20/16 16:24 Dose: 40 mg Folic Acid (Folic Acid) 1 mg PO DAILY [facility] Last Admin: 11/20/16 10:21 Dose: 1 mg Furosemide (Lasix) 20 mg PO DAILY [facility] Last Admin: 11/20/16 10:21 Dose: 20 mg Furosemide (Lasix) 40 mg IVP DAILY [facility] Last Admin: 11/20/16 16:18 Dose: 40 mg Vancomycin HCl (Vancomycin 1gm) 1 gm in 250 mls @ 167 mls/hr IVPB Q12H [facility] PRN Reason: Protocol Last Admin: 11/20/16 10:23 Dose: 167 mls/hr Morphine Sulfate (Morphine) 2 mg IVP Q4H PRN PRN Reason: Pain, moderate (4-7) Last Admin: 11/17/16 22:14 Dose: 2 mg Pantoprazole Sodium (Protonix Ec Tab) 40 mg PO ACB [facility] Last Admin: 11/20/16 07:59 Dose: 40 mg Thiamine HCl (Vitamin B1 Tab) 100 mg PO DAILY [facility] Last Admin: 11/20/16 10:23 Dose: 100 mg Physical Exam - Head Exam Head Exam: ATRAUMATIC, NORMAL INSPECTION - Eye Exam Eye Exam: EOMI, Normal appearance, PERRL Pupil Exam: NORMAL ACCOMODATION - ENT Exam ENT Exam: Mucous Membranes Moist, Normal Exam - Respiratory Exam Respiratory Exam: Accessory Muscle Use, Decreased Breath Sounds (R base and UL decreased breath sounds. ) - Cardiovascular Exam Cardiovascular Exam: REGULAR RHYTHM - GI/Abdominal Exam GI & Abdominal Exam: Normal Bowel Sounds - Rectal Exam Rectal Exam: Deferred - Exam Exam: NORMAL INSPECTION - Extremities Exam Extremities exam: Positive for: normal inspection Results - Vital Signs Recent Vital Signs: Last Vital Signs Temp 98.7 F 11/20/16 12:00 Pulse 102 H 11/20/16 12:00 Resp 18 11/20/16 12:00 BP 114/82 11/20/16 16:18 Pulse Ox 100 11/20/16 05:27 - Labs Result Diagrams: 11/20/16 05:00 11/20/16 05:00 Labs: Laboratory Results - last 24 hr 11/20/16 11/20/16 11/20/16 05:00 05:00 15:50 WBC 6.4 RBC 3.63 Hgb 10.5 L Hct 32.8 L MCV 90.4 MCH 28.9 MCHC 32.0 RDW 18.9 H Plt Count 159 MPV 10.1 Gran % 83.4 H Lymph % (Auto) 11.3 L [place] % (Auto) 4.6 Eos % (Auto) 0.5 L Baso % (Auto) 0.2 Gran # 5.30 Lymph # 0.7 L [place] # 0.3 Eos # 0.0 Baso # 0.01 pCO2 34 L pO2 62.0 L HCO3 25.3 ABG pH 7.48 H ABG Total CO2 26.3 ABG O2 Saturation 95.9 ABG O2 Content 13.5 L ABG Base Excess 2.0 ABG Hemoglobin 10.4 L ABG Carboxyhemoglobin 2.7 H POC ABG HHb (Measured) 3.9 ABG Methemoglobin 1.2 ABG O2 Capacity 14.1 L Hgb O2 Saturation 92.1 L FiO2 100.0 Sodium 139 Potassium 3.9 Chloride 104 Carbon Dioxide 32 Anion Gap 7 L BUN 22 H Creatinine 1.1 Est GFR ( Amer) > 60 Est GFR (Non-Af Amer) > 60 Random Glucose 86 Calcium 8.8 Assessment & Plan - Assessment and Plan (Free Text) Assessment: 61 y/o M w/ Large RUL mas NSCLCA w/ compression of the R mainstem bronchus and great vessels. No hemoptysis No Respiratory distress. On Venti kenneth ---> can data governance consultant to HFNC 50-60% and 50L Flow or changes to achieve o2 sat > 90%. Would not intubate currently due to such poor prognosis and performance status . Would be unlikely to extubate. Continue with Pleural effusion drainage daily . nebulizers, chest PT . Empiric abx given for possible post obstructive PNA. ONC/ Pulm following.
--- NOTE | 2016-11-20 18:50 | CP.PCM.PN ---
Subjective - Date & Time of Evaluation Date of Evaluation: 11/20/16 Time of Evaluation: 18:00 - Subjective Subjective: Infectious Disease Follow Up: November 20, 2016 61 yo male with history of metastatic lung cancer with three week history of abdominal pain that has progressively worsened. Last chemotherapy was two weeks ago. CT displays large mass in Right upper lobe bronchus with obstruction and possible PE with moderate pleural effusion. He also has increased leg swelling and SOB for the past two weeks as well. He is breathing easier today. He had biopsy of the lung mass and thoracentesis by IR during this hospitalization. He is more comfortable. Bilateral leg swelling has improved significantly since admission. Biopsy showing adenocarcinoma that is poorly differentiated with lymphovascular invasion. No new issues but patient feels that his breathing is a little better today. Pleural catheter placed has drained over 2500 cc since placement. Patient required ventimask mask but he feels worse once off the ventimask. Anxious. Objective - Vital Signs/Intake and Output Vital Signs (last 24 hours): Temp Pulse Resp BP Pulse Ox 99.2 F 109 H 22 114/82 100 11/20/16 18:00 11/20/16 18:00 11/20/16 18:00 11/20/16 18:00 11/20/16 05:27 Intake and Output: 11/20/16 11/20/16 06:59 18:59 Intake Total 250 Output Total 400 Balance -150 - Medications Medications: Current Medications Acetaminophen (Tylenol 325mg Tab) 650 mg PO Q6H PRN PRN Reason: Pain, Mild (1-3) Last Admin: 11/17/16 17:48 Dose: 650 mg Arformoterol Tartrate (Brovana) 15 mcg IH [id number] [facility] Last Admin: 11/20/16 07:43 Dose: 15 mcg Budesonide (Pulmicort Respules) 0.5 mg IH [id number] [facility] Last Admin: 11/20/16 07:43 Dose: 0.5 mg Dexamethasone (Decadron) 4 mg PO DAILY [facility] Doxycycline Hyclate (Doryx) 100 mg PO Q12 [facility] PRN Reason: Protocol Last Admin: 11/20/16 10:21 Dose: 100 mg Enoxaparin Sodium (Lovenox) 40 mg SC Q24H [facility] PRN Reason: Protocol Last Admin: 11/20/16 16:24 Dose: 40 mg Folic Acid (Folic Acid) 1 mg PO DAILY [facility] Last Admin: 11/20/16 10:21 Dose: 1 mg Furosemide (Lasix) 20 mg PO DAILY [facility] Last Admin: 11/20/16 10:21 Dose: 20 mg Furosemide (Lasix) 40 mg IVP DAILY [facility] Last Admin: 11/20/16 16:18 Dose: 40 mg Vancomycin HCl (Vancomycin 1gm) 1 gm in 250 mls @ 167 mls/hr IVPB Q12H [facility] PRN Reason: Protocol Last Admin: 11/20/16 10:23 Dose: 167 mls/hr Morphine Sulfate (Morphine) 2 mg IVP Q4H PRN PRN Reason: Pain, moderate (4-7) Last Admin: 11/17/16 22:14 Dose: 2 mg Pantoprazole Sodium (Protonix Ec Tab) 40 mg PO ACB [facility] Last Admin: 11/20/16 07:59 Dose: 40 mg Thiamine HCl (Vitamin B1 Tab) 100 mg PO DAILY [facility] Last Admin: 11/20/16 10:23 Dose: 100 mg - Labs Labs: 11/20/16 05:00 11/20/16 05:00 PT 10.5 Seconds (9.9-11.8) 11/17/16 09:45 INR 0.97 (0.93-1.08) 11/17/16 09:45 APTT 29.6 Seconds (23.7-30.8) 11/09/16 10:59 - Constitutional Appears: Non-toxic, No Acute Distress, Chronically Ill - Head Exam Head Exam: ATRAUMATIC, NORMOCEPHALIC - Eye Exam Eye Exam: EOMI, PERRL Pupil Exam: NORMAL ACCOMODATION, PERRL - ENT Exam ENT Exam: Mucous Membranes Moist, Normal External Ear Exam, TM's Normal Bilaterally - Respiratory Exam Respiratory Exam: Decreased Breath Sounds. absent: Rhonchi, Wheezes Additional comments: Mild Right lower lung rales with no air movement in right upper lobe. - Cardiovascular Exam Cardiovascular Exam: REGULAR RHYTHM, RRR, +S1, +S2 - GI/Abdominal Exam GI & Abdominal Exam: Soft, Normal Bowel Sounds. absent: Distended, Tenderness - Exam External exam: absent: Erythema - Extremities Exam Extremities Exam: Full ROM, Normal Inspection - Neurological Exam Neurological Exam: Alert, Awake, CN II-XII Intact Additional comments: appears to be AAO x 3 - Psychiatric Exam Psychiatric exam: Normal Affect, Normal Mood - Skin Skin Exam: Intact, Normal Color Assessment and Plan - Assessment and Plan (Free Text) Assessment: 61 yo male with metastatic lung cancer to the brain with worsening abdominal pain, lower leg edema, and SOB. Only on dexamethasone on admission. Unable to rule out pneumonia. On Vancomycin, Doxycycline, and Zosyn for antibiotic coverage for now. Will maintain this regimen for the time being. Supportive care. CT scan of chest suggested lesion in C7. Effusion possibly loculated in right lower lobe. For biopsy and thoracentesis... done. Patient is more comfortable now compared to admission. Bilateral leg swelling has improved significantly. Biopsy showing adenocarcinoma that is poorly differentiated with lymphovascular invasion. Can maintain on Doxycycline and Zosyn while in hospital. Has chronic non- productive cough. Increasing SOB the last 48 hours. Would consider no more than 14 days of antibiotics. Pleural catheter has drained over 2500 mL since placement. Thank you for allowing me to participate in the care of this patient, we will follow with you.
--- NOTE | 2016-11-20 23:56 | PN ---
DATE: 11/20/2016 REFERRING PHYSICIAN: Dr. Shipman SUBJECTIVE: He is lying in the bed, sleepy, arousable, mild to moderate respiratory distress, on hig h flow 100% oxygen. Has some cough sputum production. No nausea, no vomiting, no diarrhea. D oes have leg swelling. Has a right-sided PleurX catheter. OBJECTIVE: GENERAL: Mild to moderate distress secondary to shortness of breath. VITAL SIGNS: Temp is 98.9, heart rate is , respiratory rate is 22, blood pressure 114/82, pulse ox 100% on high flow nasal cannula oxygen. HEENT: Moist mucous membranes. Crowded airway. NECK: Supple. No JVD. LUNGS: Better airflow than yesterday. Left lung has scattered rhonchi with crackles. HEART: S1, S2. ABDOMEN: Soft, nontender. No organomegaly. EXTREMITIES: Does have edema. NEUROLOGIC: Awake, alert, follows simple command. MEDICATIONS: He is on Brovana 15 mcg inhaled twice a day, Decadron 4 mg daily, doxycycline 100 mg t wice a day, folic acid 1 mg daily, Lasix 20 mg daily and 40 mg in the afternoon, Lovenox 40 mg subQ d aily, morphine 2 mg q. 4 hours p.r.n., Protonix 40 mg daily, Pulmicort inhaled twice a day, Tylenol on a p.r.n. basis, vancomycin 1 g IV q. 12 hours, vitamin B 100 mg daily. LABORATORY DATA: Shows hemoglobin 10.5, hematocrit 32.5, WBC 6.4, platelet is 159. Blood gases toda y shows pH 7.48, pCO2 of 34, O2 62 that was on 100% oxygen. Sodium 139, potassium , chloride 10 4, bicarbonate 32, BUN 22, creatinine 1.1, glucose 86, calcium 8.8. Chest x-ray done today shows imp rovement in the effusion on the right side with more aeration. There is tumor in the right apex, also in the left side interstitial infiltrate. 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 I spoke to primary care, Dr. Shipman, today. The patient was evaluated by social worker, Dr. Wick, was recommended to leave the patient on telemetry, especially with poor pr ognosis. From my point of view, I will suggest discontinue Decadron, start Solu-Medrol 40 mg q. 6 ho urs and inhaled bronchodilator. Continue high flow nasal cannula oxygen. Keep head elevated at 45 d egree. Continue diuretics, gastric prophylaxis, deep venous thrombosis prophylaxis. If the patient' s condition does not improve, may need ICU for close monitoring. Keep head elevated at 45 degrees, a spiration precaution. Follow up chest x-ray, CBC, CMP and ABG in the morning. We will follow with manuel mc. Ashia Fletcher MD cc: [phone] TT: 11/20/2016 23:56:35 Confirmation # [id number] Dictation # [id number]
[2016-11-21] MEDS: MethylPREDNISolone 40 mg Vial IVP SCH ×3 (00:22→14:47)
[2016-11-21] MEDS: Vancomycin 1gm in NS 250ml 1 GM/250 ML BAG IVPB SCH ×2 (00:22→09:43)
[2016-11-21 05:27] VITALS: RESP 20
[2016-11-21 06:41] VITALS: TEMP 98.8; O2SAT 97
[2016-11-21 07:23] LABS: ADD MANUAL DIFF? NO
[2016-11-21 07:32] LABS: BASO # 0.01 K/mm3 (0.0-2.0); BASO % 0.2 % (0.0-3.0); GRAN # 6.04 (1.4-6.5); GRAN % 91.6 % (50.0-68.0); HEMATOCRIT 33.2 % (42.0-52.0); LYMPH # 0.4 (1.2-3.4); LYMPH % 6.7 % (22.0-35.0); MEAN CELL VOLUME 89.2 fL (80.0-105.0); MEAN CORPUSCULAR HEMOGLOBIN 28.5 pg (25.0-35.0); MEAN CORPUSCULAR HGB CONC 31.9 g/dl (31.0-37.0); MEAN PLATELET VOLUME 10.2 fl (7.0-11.0); MONO # 0.1 (0.1-0.6); MONO % 1.5 % (1.0-6.0); PLATELET COUNT 174 10^3/uL (120.0-450.0); RED CELL DISTRIBUTION WIDTH 18.4 % (11.5-14.5); WHITE BLOOD COUNT 6.6 10^3/ul (4.5-11.0)
[2016-11-21 07:45] LABS: BLOOD UREA NITROGEN 25 mg/dL (7-21); CALCIUM 8.9 mg/dL (8.4-10.5); CARBON DIOXIDE 31 mmol/L (21-33); CHLORIDE 101 mmol/L (95-110); GFR AFRICAN-AMERICAN > 60; GLUCOSE,RANDOM 126 mg/dL (70-110); POTASSIUM 3.9 mmol/L (3.6-5.0); SODIUM 138 mmol/L (132-148)
[2016-11-21] MEDS: Pantoprazole 40 mg EC Tab PO SCH (08:50)
[2016-11-21] MEDS: Arformoterol 15 mcg/2 ml Inh Sol IH SCH (09:00)
[2016-11-21] MEDS: Budesonide 0.5 mg/2 ml Inhal Susp UD IH SCH (09:01)
--- NOTE | 2016-11-21 09:47 | RAD ---
HISTORY: lung tumor COMPARISON: 11/20/2016 FINDINGS: LUNGS: No change in appearance of right upper lobe lung mass and diffuse infiltrate in both lungs PLEURA: No significant pleural effusion identified, no pneumothorax apparent. CARDIOVASCULAR: Normal. OSSEOUS STRUCTURES: No significant abnormalities. VISUALIZED UPPER ABDOMEN: Normal. OTHER FINDINGS: None. IMPRESSION: No change in appearance of right upper lobe lung mass and diffuse infiltrate in both lungs
[2016-11-21 09:54] VITALS: BP 114/71
[2016-11-21 09:58] LABS: ARTERIAL BLOOD GAS HCO3 28.4 mmol/L (21-28); ARTERIAL BLOOD GAS O2 CAPACITY 15.6 mL/dl (16-24); ARTERIAL BLOOD GAS O2 CONTENT 14.7 ML/dl (15-23); ARTERIAL BLOOD GAS PH 7.46 (7.35-7.45); ARTERIAL BLOOD HGB O2 SAT 90.9 % (95.0-98.0); CARBOXYHEMOGLOBIN 2.7 % (0.5-1.5); HHB 5.3 % (0-5); METHEMOGLOBIN 1.1 % (0.0-3.0)
--- NOTE | 2016-11-21 11:48 | CP.PCM.PN ---
<Lionel Sanchez - Last Filed: 11/21/16 11:45> Subjective - Date & Time of Evaluation Date of Evaluation: 11/21/16 Time of Evaluation: 07:30 - Subjective Subjective: Dr. Sanchez PGY 1 Hospitalist Note Patient seen and evaluated at bedside. He is on high flow oxygen and resting in bed. He states he got worried testerday after coughing up a blood tinged sputum but has not had a reoccurrence. He says he has been breathing better on the high flow oxygen. He denies any chest pain, SOB, fever,chills, nausea, vomiting , diarrhea, or dysuria. He says the pain at the site of his hematoma has resolved. He is awaiting his radiation treatment today. He is hopeful about seeing his son next week. Objective - Vital Signs/Intake and Output Vital Signs (last 24 hours): Temp Pulse Resp BP Pulse Ox 98.8 F 107 H 20 114/71 97 11/21/16 06:00 11/21/16 06:00 11/21/16 06:00 11/21/16 09:42 11/21/16 06:00 Intake and Output: 11/21/16 11/21/16 06:59 18:59 Intake Total 660 Output Total 1150 Balance -490 - Medications Medications: Current Medications Acetaminophen (Tylenol 325mg Tab) 650 mg PO Q6H PRN PRN Reason: Pain, Mild (1-3) Last Admin: 11/17/16 17:48 Dose: 650 mg Arformoterol Tartrate (Brovana) 15 mcg [facility] [id number] Last Admin: 11/21/16 09:00 Dose: 15 mcg Budesonide (Pulmicort Respules) 0.5 mg [facility] [id number] [facility] Last Admin: 11/21/16 09:01 Dose: 0.5 mg Doxycycline Hyclate (Doryx) 100 mg PO Q12 FRANCO PRN Reason: Protocol Last Admin: 11/21/16 09:42 Dose: 100 mg Enoxaparin Sodium (Lovenox) 40 mg SC Q24H FRANCO PRN Reason: Protocol Last Admin: 11/20/16 16:24 Dose: 40 mg Folic Acid (Folic Acid) 1 mg PO DAILY [facility] Last Admin: 11/21/16 09:42 Dose: 1 mg Furosemide (Lasix) 40 mg IVP DAILY [facility] Last Admin: 11/21/16 09:42 Dose: 40 mg Vancomycin HCl (Vancomycin 1gm) 1 gm in 250 mls @ 167 mls/hr IVPB Q12H FRANCO PRN Reason: Protocol Last Admin: 11/21/16 09:43 Dose: 167 mls/hr Methylprednisolone (Solu-Medrol) 40 mg IVP Q8 [facility] Last Admin: 11/21/16 06:19 Dose: 40 mg Morphine Sulfate (Morphine) 2 mg IVP Q4H PRN PRN Reason: Pain, moderate (4-7) Last Admin: 11/17/16 22:14 Dose: 2 mg Pantoprazole Sodium (Protonix Ec Tab) 40 mg PO ACB [facility] Last Admin: 11/21/16 08:50 Dose: 40 mg Thiamine HCl (Vitamin B1 Tab) 100 mg PO DAILY [facility] Last Admin: 11/21/16 09:42 Dose: 100 mg - Labs Labs: 11/21/16 06:30 11/21/16 06:30 PT 10.5 Seconds (9.9-11.8) 11/17/16 09:45 INR 0.97 (0.93-1.08) 11/17/16 09:45 APTT 29.6 Seconds (23.7-30.8) 11/09/16 10:59 - Constitutional Appears: No Acute Distress, Older Than Stated Age, Chronically Ill - Head Exam Head Exam: ATRAUMATIC, NORMOCEPHALIC - Eye Exam Eye Exam: EOMI, PERRL. absent: Normal appearance (right eye cataract) Pupil Exam: NORMAL ACCOMODATION, PERRL - ENT Exam ENT Exam: Mucous Membranes Moist, Normal Oropharynx - Respiratory Exam Respiratory Exam: Decreased Breath Sounds (right upper andlower lobe), Rales, Rhonchi. absent: Wheezes, NORMAL BREATHING PATTERN (tachypnic) - Cardiovascular Exam Cardiovascular Exam: REGULAR RHYTHM, +S1, +S2. absent: Gallop, Rubs, Murmur - GI/Abdominal Exam GI & Abdominal Exam: Soft, Normal Bowel Sounds. absent: Tenderness Additional comments: healing hematoma right lower quadrant - Extremities Exam Extremities Exam: Pedal Edema. absent: Tenderness - Back Exam Back Exam: NORMAL INSPECTION. absent: rash noted, tenderness - Neurological Exam Neurological Exam: Alert, Awake, CN II-XII Intact, Oriented x3 - Psychiatric Exam Psychiatric exam: Depressed, Normal Affect - Skin Skin Exam: Dry, Intact, Normal Color, Warm Additional comments: hematoma right lower quadrant of abdomen Assessment and Plan - Assessment and Plan (Free Text) Assessment: This is a 61Y M with PMH of metastatic lung cancer admitted for pleural effusion of R lung and possible PE. Bilateral lower extremity edema and abdominal hematoma. S/p lung biopsy and thoracentesis, path results show poorly differentiated adenocarcinoma with lymphovascular invasion, cytology positive for malignant non-small cell carcinoma. Critical care consulted and recommended high flow oxygen- patient improved. Palliative care consulted. Plan: Pleural effusion * Infection vs malignancy vs CHF * ID consulted help appreciated * Pulmonology consulted, help appreciated * IR consulted, help appreciated * Critical care consulted, help apprecaited * CT chest showed possible PE with pleural effusion on R [see full report] * CTA negative for PE [see full report] * ECHO is unremarkable with EF 58% * Continue Zosyn, and Doxycycline as per ID, however Zosyn continues to fall of SEP * Patient had fever of Tmax- 102 (11/17) remains afebrile * S/p thoracentesis and mass biopsy (11/12/16)- 2000cc drained * repeat thoracentesis (11/18) 2700cc drained * Path results show poorly differentiated adenocarcinoma with lymphovascular invasion * Cytology positive for malignant non-small cell carcinoma * Continue Brovana and pulmicort * Patient SOB improved today (11/19) * Continue Lasix 40mg daily * Chest xray (11/18) almost complete opacification of right hemithorax, nominally improved, increasing ill-defined opacity in left hemithorax. * chest xray (11/20) shows increased infiltrate on left lung * Chest xray (11/21) shows no change per radiology * Pleurex tube in place, 400 cc's drained yesterday * Continue monitoring I's and O's * Daily weights * continue dexamethasone 4mg daily as per pulm * ABG improved from yesterday * Continue high flow oxygen Metastatic cancer * Oncology consulted, help appreciated * Continue Dexamethasone 4mg daily * Head CT shows lesion in right cerebella hemisphere, low attenuation changes superiorly and anteromedially to verminal region [see full report] * Consulted Dr. Call for second opinion. * Chemo and radiation as per oncology * PT for physical therapy * Palliative consult, help appreciated Bilateral leg edema * U/S of legs-isolated r tibial DVT * repeat U/S (11/18) shows no evidence of DVT * Decadron dose decreased to 2mg PO daily * ECHO is unremarkable with EF 58% * Will speak with heme/onc about anticoagulation plans * Continue Lovenox 70 BID SC * Continue Papi wraps, SCD's held due to edema Electrolyte Imbalance * replenish as needed Hematoma of R abdomen * Improving * Continue warm compresses * Monitor h/h (stable) * Lovenox injections on other side of abdomen. GI ppx: Protonix DVT ppx: Lovenox Case seen, reviewed and discussed with attending <Umberto LOPEZ,Ashia - Last Filed: 11/21/16 15:39> Objective - Vital Signs/Intake and Output Vital Signs (last 24 hours): Temp Pulse Resp BP Pulse Ox 98.8 F 110 H 20 114/71 97 11/21/16 06:00 11/21/16 10:00 11/21/16 06:00 11/21/16 09:42 11/21/16 06:00 Intake and Output: 11/21/16 11/21/16 06:59 18:59 Intake Total 660 537 Output Total 1150 2 Balance -490 535 - Medications Medications: Current Medications Acetaminophen (Tylenol 325mg Tab) 650 mg PO Q6H PRN PRN Reason: Pain, Mild (1-3) Last Admin: 11/17/16 17:48 Dose: 650 mg Arformoterol Tartrate (Brovana) 15 mcg [facility] [id number] [facility] Last Admin: 11/21/16 09:00 Dose: 15 mcg Budesonide (Pulmicort Respules) 0.5 mg [facility] [id number] [facility] Last Admin: 11/21/16 09:01 Dose: 0.5 mg Doxycycline Hyclate (Doryx) 100 mg PO Q12 [facility] PRN Reason: Protocol Last Admin: 11/21/16 09:42 Dose: 100 mg Enoxaparin Sodium (Lovenox) 40 mg SC Q24H [facility] PRN Reason: Protocol Last Admin: 11/21/16 14:47 Dose: 40 mg Folic Acid (Folic Acid) 1 mg PO DAILY [facility] Last Admin: 11/21/16 09:42 Dose: 1 mg Furosemide (Lasix) 40 mg IVP DAILY [facility] Last Admin: 11/21/16 09:42 Dose: 40 mg Vancomycin HCl (Vancomycin 1gm) 1 gm in 250 mls @ 167 mls/hr IVPB Q12H [facility] PRN Reason: Protocol Last Admin: 11/21/16 09:43 Dose: 167 mls/hr Methylprednisolone (Solu-Medrol) 40 mg IVP Q8 [facility] Last Admin: 11/21/16 14:47 Dose: 40 mg Morphine Sulfate (Morphine) 2 mg IVP Q4H PRN PRN Reason: Pain, moderate (4-7) Last Admin: 11/17/16 22:14 Dose: 2 mg Pantoprazole Sodium (Protonix Ec Tab) 40 mg PO ACB [facility] Last Admin: 11/21/16 08:50 Dose: 40 mg Thiamine HCl (Vitamin B1 Tab) 100 mg PO DAILY [facility] Last Admin: 11/21/16 09:42 Dose: 100 mg - Labs Labs: 11/21/16 06:30 11/21/16 06:30 PT 10.5 Seconds (9.9-11.8) 11/17/16 09:45 INR 0.97 (0.93-1.08) 11/17/16 09:45 APTT 29.6 Seconds (23.7-30.8) 11/09/16 10:59 Attending/Attestation - Attestation I have personally seen and examined this patient.: Yes I have fully participated in the care of the patient.: Yes I have reviewed all pertinent clinical information, including history, physical exam and plan: Yes Notes (Text): Patient was seen and examined with medical center representative .Agreed with resident assessment and plan. 61 year old male with PMH of metastatic lung cancer who presented with RUQ pain. US/CT showed no gallstones but fatty liver. Workup also showed RLE DVT, moderate right pleural effusion, lung mass. He is on lovenox and antibiotics. He is s/p thoracentesis and pleurex catheter on Thursday. Patient is hypoxic, was on high flow of oxygen ,now on 5L of oxygen via nasal cannula, saturating 88-92%, he is tolerating well and is not in Respiratory distress, does not want to stay in hospital, He and his want him to be discharged.He will be discharged home on home oxygen/Lovenox for DVT/dexamethasone and Nebs.He has already completed treatment for Pneumonia. He will follow up with and Pulmonary . Prognosis is guarded. The risk of readmission in the hospital is very high. Management plan was discussed in detail with patient and . Education was provided.
[2016-11-21] MEDS: Enoxaparin 80 mg Syringe SC SCH (14:47)
--- NOTE | 2016-11-21 15:03 | CP.PCM.DIS ---
<Lionel Sanchez - Last Filed: 11/21/16 17:05> Provider - Provider Date of Admission: 11/07/16 23:03 Attending physician: Ashia Shipman MD Consults: Dr. Bucky Brown Time Spent in preparation of Discharge (in minutes): 60 Hospital Course - Lab Results Lab Results: Micro Results 11/09/16 04:25 Urine Urine Culture - Final No Growth (<1,000 CFU/ML) Most Recent Lab Values WBC 6.6 10^3/ul (4.5-11.0) 11/21/16 06:30 RBC 3.72 10^6/uL (3.5-6.1) 11/21/16 06:30 Hgb 10.6 gm/dL (14.0-18.0) L 11/21/16 06:30 Hct 33.2 % (42.0-52.0) L 11/21/16 06:30 MCV 89.2 fL (80.0-105.0) 11/21/16 06:30 MCH 28.5 pg (25.0-35.0) 11/21/16 06:30 MCHC 31.9 g/dl (31.0-37.0) 11/21/16 06:30 RDW 18.4 % (11.5-14.5) H 11/21/16 06:30 Plt Count 174 10^3/uL (120.0-450.0) 11/21/16 06:30 MPV 10.2 fl (7.0-11.0) 11/21/16 06:30 Gran % 91.6 % (50.0-68.0) H 11/21/16 06:30 Lymph % (Auto) 6.7 % (22.0-35.0) L 11/21/16 06:30 Garza % (Auto) 1.5 % (1.0-6.0) 11/21/16 06:30 Eos % (Auto) 0.0 % (1.5-5.0) L 11/21/16 06:30 Baso % (Auto) 0.2 % (0.0-3.0) 11/21/16 06:30 Gran # 6.04 (1.4-6.5) 11/21/16 06:30 Lymph # 0.4 (1.2-3.4) L 11/21/16 06:30 Garza # 0.1 (0.1-0.6) 11/21/16 06:30 Eos # 0.0 (0.0-0.7) 11/21/16 06:30 Baso # 0.01 K/mm3 (0.0-2.0) 11/21/16 06:30 Neutrophils % (Manual) 84 % (50.0-70.0) H 11/07/16 20:00 Lymphocytes % (Manual) 9 % (22.0-35.0) L 11/07/16 20:00 Monocytes % (Manual) 5 % (1.0-6.0) 11/07/16 20:00 Eosinophils % (Manual) 2 % (0.0-3.0) 11/07/16 20:00 Giant Platelets Present 11/07/16 20:00 PT 10.5 Seconds (9.9-11.8) 11/17/16 09:45 INR 0.97 (0.93-1.08) 11/17/16 09:45 APTT 29.6 Seconds (23.7-30.8) 11/09/16 10:59 pCO2 40 mm/Hg (35-45) 11/21/16 09:54 pO2 58.0 mm/Hg (80-100) L 11/21/16 09:54 HCO3 28.4 mmol/L (21-28) H 11/21/16 09:54 ABG pH 7.46 (7.35-7.45) H 11/21/16 09:54 ABG Total CO2 29.6 mmol.L (22-28) H 11/21/16 09:54 ABG O2 Saturation 94.5 % (95-98) L 11/21/16 09:54 ABG O2 Content 14.7 ML/dl (15-23) L 11/21/16 09:54 ABG Base Excess 4.2 mmol/L (-2.0-3.0) H 11/21/16 09:54 ABG Hemoglobin 11.5 g/dL (11.7-17.4) L 11/21/16 09:54 ABG Carboxyhemoglobin 2.7 % (0.5-1.5) H 11/21/16 09:54 POC ABG HHb (Measured) 5.3 % (0-5) H 11/21/16 09:54 ABG Methemoglobin 1.1 % (0.0-3.0) 11/21/16 09:54 ABG O2 Capacity 15.6 mL/dl (16-24) L 11/21/16 09:54 Hgb O2 Saturation 90.9 % (95.0-98.0) L 11/21/16 09:54 FiO2 80.0 % 11/21/16 09:54 Sodium 138 mmol/L (132-148) 11/21/16 06:30 Potassium 3.9 mmol/L (3.6-5.0) 11/21/16 06:30 Chloride 101 mmol/L (95-110) 11/21/16 06:30 Carbon Dioxide 31 mmol/L (21-33) 11/21/16 06:30 Anion Gap 10 (10-20) 11/21/16 06:30 BUN 25 mg/dL (7-21) H 11/21/16 06:30 Creatinine 1.1 mg/dL (0.5-1.4) 11/21/16 06:30 Est GFR ( Amer) > 60 11/21/16 06:30 Est GFR (Non-Af Amer) > 60 11/21/16 06:30 Random Glucose 126 mg/dL (70-110) H 11/21/16 06:30 Calcium 8.9 mg/dL (8.4-10.5) 11/21/16 06:30 Total Bilirubin 0.6 mg/dL (0.2-1.3) 11/18/16 06:30 AST 34 U/L (15-59) 11/18/16 06:30 ALT 38 U/L (7-56) 11/18/16 06:30 Alkaline Phosphatase 71 U/L (38-133) 11/18/16 06:30 NT-Pro-B Natriuret Pep 287 pg/mL (0-450) 11/07/16 20:00 Total Protein 5.7 g/dL (5.8-8.3) L 11/18/16 06:30 Albumin 2.6 g/dL (3.0-4.8) L 11/18/16 06:30 Globulin 3.1 gm/dL 11/18/16 06:30 Albumin/Globulin Ratio 0.8 (1.1-1.8) L 11/18/16 06:30 Lipase 25 U/L (23-300) 11/07/16 20:00 Carcinoembryonic Ag 12.3 ng/mL (0.0-3.0) H 11/14/16 07:00 Procalcitonin 0.14 NG/ML (0.19-0.49) L 11/08/16 14:50 TSH 3rd Generation 2.71 mIU/mL (0.46-4.68) 11/08/16 06:30 Urine Color Yellow (YELLOW) 11/09/16 04:25 Urine Appearance Clear (CLEAR) 11/09/16 04:25 Urine pH 6.0 (4.7-8.0) 11/09/16 04:25 Ur Specific [place] <= 1.005 (1.005-1.035) 11/09/16 04:25 Urine Protein Negative mg/dL (<30 mg/dL) 11/09/16 04:25 Urine Glucose (UA) Negative mg/dL (NEGATIVE) 11/09/16 04:25 Urine Ketones Negative mg/dL (NEGATIVE) 11/09/16 04:25 Urine Blood Trace-intact (NEGATIVE) H 11/09/16 04:25 Urine Nitrate Negative (NEGATIVE) 11/09/16 04:25 Urine Bilirubin Negative (NEGATIVE) 11/09/16 04:25 Urine Urobilinogen 0.2 E.U./dL (<1 E.U./dL) 11/09/16 04:25 Ur Leukocyte Esterase Negative Laure/uL (NEGATIVE) 11/09/16 04:25 Urine RBC 0 - 2 /hpf (0-2) 11/09/16 04:25 Urine WBC 0 - 2 /hpf (0-6) 11/09/16 04:25 Ur Epithelial Cells 0 - 2 /hpf (0-5) 11/09/16 04:25 Urine Osmolality 500 mosm/kg (50-645) 11/09/16 04:25 Ur Random Sodium 102 meq/L 11/09/16 04:25 - Hospital Course Hospital Course: H&P: This is a 61Y M with PMH of metastatic lung cancer that came to the ED for abdominal pain x 3 weeks. Patient reports having RUQ abdominal pain that has gotten progressively worse over the past 3 weeks. It is worse with movement and is described as moving back and forth from RUQ to epigastric. It is not associated with food. He does have decreased appetite which he says it is due to chemotherapy He also noticed increased swelling in the leg and SOB for the past two weeks. He finished chemotherapy 2 weeks ago. He also got a power port placed on the L one week ago. In the ED, he had a CT chest/abd/pelvis which showed moderate pleural effusion, possible PE with perfusion defect, obstruction of R upper lobe bronchus due to large mass, and adenopathy. Hospital Course: Patient is a 61 y/o M with diagnosis of metastatic lung cancer who presented to the ED with abdominal pain for three weeks, leg swelling, and SOB. An initial ultrasound of the lower extremities showed evidence of a DVT in the right tibia and he was started on Lovenox. An initial chest xray showed complete opacification of the right hemithorax. A Chest CT was performed which showed a right upper lobe mass, possible PE and pleural effusion. A CTA was performed which was negative for PE. An echo cardiogram was performed which was unremarkable with an EF of 58%. A head CT was performed which showed lesions in the right cerebellar hemisphere, and low attenuation changes supperiorly and alla-medially to the verminal region. Due to his metastatic lung cancer with pleural effusion, hematology and pulmonology were consulted. IR was consulted for a thoracentesis, pleurex catheter placement, and lung mass biopsy. Initially 2000cc of fluid was drained and sent to pathology which was positive for malignant non-small cell carcinoma. The lung mass biopsy showed poorly differentiated adenocarcinoma with lymphovascular invasion. He was started on radiation therapy as per oncology. Repeat chest xray showed increased infiltrate in the left lung. He was placed on IV lasix and breathing improved. He was found to have a hematoma where initial abdominal pain was located. The pain diminished and hematoma began to resolve. A repeat ultrasound of the lower extremities failed to show evidence of DVT. As he has malignancy and non- ambulatory, he was kept on lovenox. He developed SOB and found to desaturate and was placed on a ventimask. His breathing continued to deteriorate and critical care was consulted who recommended high flow oxygen. His steroid dose was increased and he improved on high flow oxygen. Palliative care was consulted and palliative care spoke with family about goals of care. He declined hospice care at this time. He received his final radiation treatment and wished to be discharged. He was placed on a trial of oxygen 5L via nasal canula and his oxygen remained above 88%. Family was adamant about him returning home. He was determined medically stable for discharge. He was advised to: follow up with your primary care physician within a week; follow up with your oncologist and rv repair technician with a week; make your chemotherapy appointments; check your oxygen at home and maintain your oxygen saturation above 88%; resume home medications and take medications as prescribed; refrain from alcohol, tobacco, or drug use;if your symptoms worsen or new condition arises, please return to the emergency room. He and family verbalized understanding and he was discharged with home oxygen, duoneb treatments, decadron, doxycycline, lovenox, and lasix. This is a brief summary of the patient's stay at this facility. For more detail , see patient's full chart. - Date & Time of H&P Date of H&P: 11/08/16 Time of H&P: 01:05 Discharge Exam - Head Exam Head Exam: ATRAUMATIC, NORMOCEPHALIC - Eye Exam Eye Exam: EOMI, PERRL. absent: Normal appearance (cataract right heye) Pupil Exam: NORMAL ACCOMODATION, PERRL - ENT Exam ENT Exam: Mucous Membranes Moist, Normal Oropharynx - Respiratory Exam Respiratory Exam: Decreased Breath Sounds (right upper and lower lobe), Rhonchi. absent: Wheezes, NORMAL BREATHING PATTERN (tachypnic) Additional comments: pleurex drain in place - Cardiovascular Exam Cardiovascular Exam: REGULAR RHYTHM, +S1, +S2. absent: Gallop, Rubs, Systolic Murmur - GI/Abdominal Exam GI & Abdominal Exam: Normal Bowel Sounds, Soft. absent: Tenderness Additional comments: hematoma right lower quadrant - Extremities Exam Extremities exam: pedal edema, pedal pulses present - Back Exam Back exam: NORMAL INSPECTION. absent: rash noted, tenderness - Neurological Exam Neurological exam: Alert, CN II-XII Intact, Oriented x3 - Psychiatric Exam Psychiatric exam: Normal Affect, Normal Mood - Skin Skin Exam: Dry, Intact, Normal Color, Warm Discharge Plan - Discharge Medications Prescriptions: Albuterol/Ipratropium [Duoneb 3 MG/3 Ml-0.5 MG/3 Ml 3 Ml] 3 ml IH Q4 PRN #24 neb PRN Reason: Shortness Of Breath Dexamethasone [Decadron] 4 mg PO DAILY #15 tab Doxycycline Hyclate [Doryx] 100 mg PO Q12 #6 cap Enoxaparin [Lovenox] 40 mg SC Q24H #15 syr Furosemide [Lasix] 40 mg PO DAILY #15 tab - Follow Up Plan Condition: STABLE Disposition: HOME/ ROUTINE Instructions: Pulmonary Embolism (DC), Hyponatremia (DC), Hyponatremia (GEN), Leukocytosis (DC), Leukocytosis (GEN), VQ Scan (Lung Ventilation and Perfusion) (DC) Additional Instructions: You are medically stable for discharge. Please follow up with your primary care physician within a week. Please follow up with your oncologist and rv repair technician with a week. Please make your chemotherapy appointments. Please check your oxygen at home and maintain your oxygen saturation above 88%. You are discharged with duoneb treatments, decadron, doxycycline, lovenox, and lasix. Please resume home medications and take medications as prescribed. Refrain from alcohol, tobacco, or drug use. If your symptoms worsen or new condition arises, please return to the emergency room. Nursing If you begin to experience shortness of breath, chest pain, symptoms return or any changes return to the [facility] emergency room or call 911 See care notes provided for further instructions. Referrals: Pan Castillo MD [Staff Provider] - Ashia Fletcher MD [Staff Provider] - <Ashia Shipman MD - Last Filed: 11/24/16 07:24> Provider - Provider Date of Admission: 11/07/16 23:03 Attending physician: Ashia Shipman MD Hospital Course - Lab Results Lab Results: Micro Results 11/09/16 04:25 Urine Urine Culture - Final No Growth (<1,000 CFU/ML) Most Recent Lab Values WBC 6.6 10^3/ul (4.5-11.0) 11/21/16 06:30 RBC 3.72 10^6/uL (3.5-6.1) 11/21/16 06:30 Hgb 10.6 gm/dL (14.0-18.0) L 11/21/16 06:30 Hct 33.2 % (42.0-52.0) L 11/21/16 06:30 MCV 89.2 fL (80.0-105.0) 11/21/16 06:30 MCH 28.5 pg (25.0-35.0) 11/21/16 06:30 MCHC 31.9 g/dl (31.0-37.0) 11/21/16 06:30 RDW 18.4 % (11.5-14.5) H 11/21/16 06:30 Plt Count 174 10^3/uL (120.0-450.0) 11/21/16 06:30 MPV 10.2 fl (7.0-11.0) 11/21/16 06:30 Gran % 91.6 % (50.0-68.0) H 11/21/16 06:30 Lymph % (Auto) 6.7 % (22.0-35.0) L 11/21/16 06:30 Garza % (Auto) 1.5 % (1.0-6.0) 11/21/16 06:30 Eos % (Auto) 0.0 % (1.5-5.0) L 11/21/16 06:30 Baso % (Auto) 0.2 % (0.0-3.0) 11/21/16 06:30 Gran # 6.04 (1.4-6.5) 11/21/16 06:30 Lymph # 0.4 (1.2-3.4) L 11/21/16 06:30 Garza # 0.1 (0.1-0.6) 11/21/16 06:30 Eos # 0.0 (0.0-0.7) 11/21/16 06:30 Baso # 0.01 K/mm3 (0.0-2.0) 11/21/16 06:30 Neutrophils % (Manual) 84 % (50.0-70.0) H 11/07/16 20:00 Lymphocytes % (Manual) 9 % (22.0-35.0) L 11/07/16 20:00 Monocytes % (Manual) 5 % (1.0-6.0) 11/07/16 20:00 Eosinophils % (Manual) 2 % (0.0-3.0) 11/07/16 20:00 Giant Platelets Present 11/07/16 20:00 PT 10.5 Seconds (9.9-11.8) 11/17/16 09:45 INR 0.97 (0.93-1.08) 11/17/16 09:45 APTT 29.6 Seconds (23.7-30.8) 11/09/16 10:59 pCO2 40 mm/Hg (35-45) 11/21/16 09:54 pO2 58.0 mm/Hg (80-100) L 11/21/16 09:54 HCO3 28.4 mmol/L (21-28) H 11/21/16 09:54 ABG pH 7.46 (7.35-7.45) H 11/21/16 09:54 ABG Total CO2 29.6 mmol.L (22-28) H 11/21/16 09:54 ABG O2 Saturation 94.5 % (95-98) L 11/21/16 09:54 ABG O2 Content 14.7 ML/dl (15-23) L 11/21/16 09:54 ABG Base Excess 4.2 mmol/L (-2.0-3.0) H 11/21/16 09:54 ABG Hemoglobin 11.5 g/dL (11.7-17.4) L 11/21/16 09:54 ABG Carboxyhemoglobin 2.7 % (0.5-1.5) H 11/21/16 09:54 POC ABG HHb (Measured) 5.3 % (0-5) H 11/21/16 09:54 ABG Methemoglobin 1.1 % (0.0-3.0) 11/21/16 09:54 ABG O2 Capacity 15.6 mL/dl (16-24) L 11/21/16 09:54 Hgb O2 Saturation 90.9 % (95.0-98.0) L 11/21/16 09:54 FiO2 80.0 % 11/21/16 09:54 Sodium 138 mmol/L (132-148) 11/21/16 06:30 Potassium 3.9 mmol/L (3.6-5.0) 11/21/16 06:30 Chloride 101 mmol/L (95-110) 11/21/16 06:30 Carbon Dioxide 31 mmol/L (21-33) 11/21/16 06:30 Anion Gap 10 (10-20) 11/21/16 06:30 BUN 25 mg/dL (7-21) H 11/21/16 06:30 Creatinine 1.1 mg/dL (0.5-1.4) 11/21/16 06:30 Est GFR ( Amer) > 60 11/21/16 06:30 Est GFR (Non-Af Amer) > 60 11/21/16 06:30 Random Glucose 126 mg/dL (70-110) H 11/21/16 06:30 Calcium 8.9 mg/dL (8.4-10.5) 11/21/16 06:30 Total Bilirubin 0.6 mg/dL (0.2-1.3) 11/18/16 06:30 AST 34 U/L (15-59) 11/18/16 06:30 ALT 38 U/L (7-56) 11/18/16 06:30 Alkaline Phosphatase 71 U/L (38-133) 11/18/16 06:30 NT-Pro-B Natriuret Pep 287 pg/mL (0-450) 11/07/16 20:00 Total Protein 5.7 g/dL (5.8-8.3) L 11/18/16 06:30 Albumin 2.6 g/dL (3.0-4.8) L 11/18/16 06:30 Globulin 3.1 gm/dL 11/18/16 06:30 Albumin/Globulin Ratio 0.8 (1.1-1.8) L 11/18/16 06:30 Lipase 25 U/L (23-300) 11/07/16 20:00 Carcinoembryonic Ag 12.3 ng/mL (0.0-3.0) H 11/14/16 07:00 Procalcitonin 0.14 NG/ML (0.19-0.49) L 11/08/16 14:50 TSH 3rd Generation 2.71 mIU/mL (0.46-4.68) 11/08/16 06:30 Urine Color Yellow (YELLOW) 11/09/16 04:25 Urine Appearance Clear (CLEAR) 11/09/16 04:25 Urine pH 6.0 (4.7-8.0) 11/09/16 04:25 Ur Specific [place] <= 1.005 (1.005-1.035) 11/09/16 04:25 Urine Protein Negative mg/dL (<30 mg/dL) 11/09/16 04:25 Urine Glucose (UA) Negative mg/dL (NEGATIVE) 11/09/16 04:25 Urine Ketones Negative mg/dL (NEGATIVE) 11/09/16 04:25 Urine Blood Trace-intact (NEGATIVE) H 11/09/16 04:25 Urine Nitrate Negative (NEGATIVE) 11/09/16 04:25 Urine Bilirubin Negative (NEGATIVE) 11/09/16 04:25 Urine Urobilinogen 0.2 E.U./dL (<1 E.U./dL) 11/09/16 04:25 Ur Leukocyte Esterase Negative Laure/uL (NEGATIVE) 11/09/16 04:25 Urine RBC 0 - 2 /hpf (0-2) 11/09/16 04:25 Urine WBC 0 - 2 /hpf (0-6) 11/09/16 04:25 Ur Epithelial Cells 0 - 2 /hpf (0-5) 11/09/16 04:25 Urine Osmolality 500 mosm/kg (50-645) 11/09/16 04:25 Ur Random Sodium 102 meq/L 11/09/16 04:25 Attending/Attestation - Attestation I have personally seen and examined this patient.: Yes I have fully participated in the care of the patient.: Yes I have reviewed all pertinent clinical information, including history, physical exam and plan: Yes Notes (Text): 11/24/16 07:21 Patient was seen and examined with medical accounting clerk .Agreed with resident assessment and plan. 61 year old male with PMH of metastatic lung cancer who was admitted with with RUQ pain. US/CT showed no gallstones but fatty liver. Workup also showed RLE DVT, moderate right pleural effusion, lung mass. He is s/p thoracentesis and pleurex catheter . Patient is hypoxic, was on high flow of oxygen ,now on 5L of oxygen via nasal cannula, saturating > 92%, he is tolerating well and is not in Respiratory distress, does not want to stay in hospital, He and his want him to be discharged.He will be discharged home on home oxygen/ Lovenox for DVT/dexamethasone and Nebs.He is also treated for for possible post obstructive Pneumonia. He will follow up with and Pulmonary . Prognosis is guarded. The risk of readmission in the hospital is very high. Management plan was discussed in detail with patient and . Education was provided.
[2016-11-21 15:23] VITALS: PULSE 110
--- NOTE | 2016-11-21 16:10 | CP.PCM.PN ---
Subjective - Date & Time of Evaluation Date of Evaluation: 11/21/16 Time of Evaluation: 15:00 - Subjective Subjective: Infectious Disease Follow Up: November 21, 2016 61 yo male with history of metastatic lung cancer with three week history of abdominal pain that has progressively worsened. Last chemotherapy was two weeks ago. CT displays large mass in Right upper lobe bronchus with obstruction and possible PE with moderate pleural effusion. He also has increased leg swelling and SOB for the past two weeks as well. He is breathing easier today. He had biopsy of the lung mass and thoracentesis by IR during this hospitalization. He is more comfortable. Bilateral leg swelling has improved significantly since admission. Biopsy showing adenocarcinoma that is poorly differentiated with lymphovascular invasion. No new issues but patient feels that his breathing is a little better today. Pleural catheter placed has drained over 2500 cc since placement. Patient had needed ventimask during this hospitalization. Anxious. He may also be in denial on the seriousness of his lung adenocarcinoma. Objective - Vital Signs/Intake and Output Vital Signs (last 24 hours): Temp Pulse Resp BP Pulse Ox 98.8 F 110 H 20 114/71 97 11/21/16 06:00 11/21/16 10:00 11/21/16 06:00 11/21/16 09:42 11/21/16 06:00 Intake and Output: 11/21/16 11/21/16 06:59 18:59 Intake Total 660 537 Output Total 1150 2 Balance -490 535 - Medications Medications: Current Medications Acetaminophen (Tylenol 325mg Tab) 650 mg PO Q6H PRN PRN Reason: Pain, Mild (1-3) Last Admin: 11/17/16 17:48 Dose: 650 mg Arformoterol Tartrate (Brovana) 15 mcg IH [id number] [facility] Last Admin: 11/21/16 09:00 Dose: 15 mcg Budesonide (Pulmicort Respules) 0.5 mg IH [id number] [facility] Last Admin: 11/21/16 09:01 Dose: 0.5 mg Doxycycline Hyclate (Doryx) 100 mg PO Q12 [facility] PRN Reason: Protocol Last Admin: 11/21/16 09:42 Dose: 100 mg Enoxaparin Sodium (Lovenox) 40 mg SC Q24H [facility] PRN Reason: Protocol Last Admin: 11/21/16 14:47 Dose: 40 mg Folic Acid (Folic Acid) 1 mg PO DAILY [facility] Last Admin: 11/21/16 09:42 Dose: 1 mg Furosemide (Lasix) 40 mg IVP DAILY [facility] Last Admin: 11/21/16 09:42 Dose: 40 mg Vancomycin HCl (Vancomycin 1gm) 1 gm in 250 mls @ 167 mls/hr IVPB Q12H [facility] PRN Reason: Protocol Last Admin: 11/21/16 09:43 Dose: 167 mls/hr Methylprednisolone (Solu-Medrol) 40 mg IVP Q8 [facility] Last Admin: 11/21/16 14:47 Dose: 40 mg Morphine Sulfate (Morphine) 2 mg IVP Q4H PRN PRN Reason: Pain, moderate (4-7) Last Admin: 11/17/16 22:14 Dose: 2 mg Pantoprazole Sodium (Protonix Ec Tab) 40 mg PO ACB [facility] Last Admin: 11/21/16 08:50 Dose: 40 mg Thiamine HCl (Vitamin B1 Tab) 100 mg PO DAILY [facility] Last Admin: 11/21/16 09:42 Dose: 100 mg - Labs Labs: 11/21/16 06:30 11/21/16 06:30 PT 10.5 Seconds (9.9-11.8) 11/17/16 09:45 INR 0.97 (0.93-1.08) 11/17/16 09:45 APTT 29.6 Seconds (23.7-30.8) 11/09/16 10:59 - Constitutional Appears: Non-toxic, No Acute Distress, Chronically Ill - Head Exam Head Exam: ATRAUMATIC, NORMOCEPHALIC - Eye Exam Eye Exam: EOMI, PERRL Pupil Exam: NORMAL ACCOMODATION, PERRL - ENT Exam ENT Exam: Mucous Membranes Moist, Normal External Ear Exam, TM's Normal Bilaterally - Neck Exam Neck Exam: Full ROM, Normal Inspection - Respiratory Exam Respiratory Exam: Decreased Breath Sounds, NORMAL BREATHING PATTERN. absent: Rales, Rhonchi, Wheezes Additional comments: Mild Right lower lung rales with no air movement in right upper lobe. - Cardiovascular Exam Cardiovascular Exam: REGULAR RHYTHM, RRR, +S1, +S2 - GI/Abdominal Exam GI & Abdominal Exam: Soft, Normal Bowel Sounds. absent: Distended, Tenderness - Extremities Exam Extremities Exam: Full ROM, Normal Inspection - Neurological Exam Neurological Exam: Alert, Awake, CN II-XII Intact Additional comments: appears to be AAO x 3 - Psychiatric Exam Psychiatric exam: Normal Affect, Normal Mood - Skin Skin Exam: Intact, Normal Color Assessment and Plan - Assessment and Plan (Free Text) Assessment: 61 yo male with metastatic lung cancer to the brain with worsening abdominal pain, lower leg edema, and SOB. Only on dexamethasone on admission. Unable to rule out pneumonia. On Vancomycin, Doxycycline, and Zosyn for antibiotic coverage for now. Will maintain this regimen for the time being. Supportive care. CT scan of chest suggested lesion in C7. Effusion possibly loculated in right lower lobe. For biopsy and thoracentesis... done. Patient is more comfortable now compared to admission. Bilateral leg swelling has improved significantly. Biopsy showing adenocarcinoma that is poorly differentiated with lymphovascular invasion. Patient may be in denial of the level of severity. Can maintain on Doxycycline and Zosyn while in hospital. Has chronic non- productive cough. Increasing SOB the last 48 hours. Would consider no more than 14 days of antibiotics. Completed now. Pleural catheter has drained over 2500 mL since placement. Thank you for allowing me to participate in the care of this patient, we will follow with you.
--- NOTE | 2016-11-21 20:37 | PN ---
DATE: 11/21/2016 REFERRING PHYSICIAN: Dr. Shipman. SUBJECTIVE: He is sitting side of the bed. Family is at bedside. Ready to leave, threatening to si gn out against medical advice if no discharge. He feels much better than yesterday though, on nasal cannula and feels okay, pulse ox is about 90%. Still having a cough and shortness of breath. No man sea, no vomiting, no diarrhea. Does have small leg swelling. OBJECTIVE: GENERAL: In no acute distress. VITAL SIGNS: Temperature is 98, heart rate is 110, respiratory rate is 22, blood pressure 114/71, pu lse ox 97% on L of nasal cannula. HEENT: Moist mucous membranes. Crowded airway. NECK: Supple. No JVD. LUNGS: Has decreased breath sounds in the right lung. HEART: S1, S2. ABDOMEN: Soft, nontender. No organomegaly. EXTREMITIES: Does have trace edema. NEUROLOGIC: Awake, alert, follows simple commands. MEDICATIONS: Reviewed. No new changes in medication reported. LABORATORY DATA: Shows hemoglobin 10.6, hematocrit 33.2, WBC 6.6, platelet is 174. Blood gases show s pH 7.46, pCO2 of 40, O2 is 58. Sodium 138, potassium , chloride 101, bicarbonate 31, BUN 25, creatinine 1.1, calcium is 8.9. Chest x-ray done today shows improved right effusion and also a left infiltrate. IMPRESSION AND PLAN: Poorly differentiated adenocarcinoma of the lung with malignant effusion. Also , has a brain mass, status post radiation therapy to brain and also radiation to the lungs, status po st PleurX catheter, status post reexpansion, pulmonary edema, chronic obstructive lung disease and a history of deep venous thrombosis. Case discussed with the forensic medical examiner. Spoke to family at bed side. Suggested the patient to stay in the hospital for further care. The patient threatened to sig n out against medical advice. Also recommended he may benefit from subacute type of therapy. The pa yakov refused this and the family understands that his condition may deteriorate. Recommended if the patient does not feel better, to please come back to the Emergency Room for further care. He is liberty ng discharged to home with antibiotics, bronchodilators and p.o. steroids. Will follow up with Dr. Marion vasquez for further care for chemotherapy. Ashia Fletcher MD cc: [phone] TT: 11/21/2016 20:36:58 Confirmation # [id number] Dictation # [id number] dn
== END 2016-11-21 18:31 | disposition home or self-care (01) | DRG 180 ==
LOC: ED 17:17 → ERH 23:03 → 2RNO 11-08 02:23
PROVIDERS: ADMIT Internal Medicine; ATTEND Internal Medicine
PROC: 0W993ZX Drainage of Right Pleural Cavity, Percutaneous Approach, Diagnostic (ICD-10-PCS; 2016-11-11)
PROC: 0BBK3ZX Excision of Right Lung, Percutaneous Approach, Diagnostic (ICD-10-PCS; principal; 2016-11-11 14:00)
PROC: 0B9N30Z Drainage of Right Pleura with Drainage Device, Percutaneous Approach (ICD-10-PCS; 2016-11-17)
DX: C34.01 Malignant neoplasm of right main bronchus (principal); I26.99 Other pulmonary embolism without acute cor pulmonale; J96.91 Respiratory failure, unspecified with hypoxia; J91.0 Malignant pleural effusion; J18.9 Pneumonia, unspecified organism; R64 Cachexia; C79.31 Secondary malignant neoplasm of brain; J44.0 Chronic obstructive pulmonary disease with (acute) lower respiratory infection; E87.1 Hypo-osmolality and hyponatremia; I82.441 Acute embolism and thrombosis of right tibial vein; H33.21 Serous retinal detachment, right eye; Z68.1 Body mass index [BMI] 19.9 or less, adult; D69.6 Thrombocytopenia, unspecified; K76.0 Fatty (change of) liver, not elsewhere classified; E87.6 Hypokalemia; D64.9 Anemia, unspecified; H54.61 Unqualified visual loss, right eye, normal vision left eye; Z87.891 Personal history of nicotine dependence

== ENCOUNTER 2016-12-17 14:22 | Inpatient (IN) | payer OTHER ==
--- NOTE | 2016-12-17 15:25 | ED PDOC ---
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 Patient reports lately he has been feeling short of breath, along with generalized weakness. He states he has felt as though he is disoriented. Patient notes a mild cough, weight loss and mild abdominal pain, but denies any chest pain, nausea, vomiting or other complaints at this time. Oncologist: Dr. Castillo Time/Duration: Other Symptom Onset: Sudden Symptom Course: Worsening Quality: Other Activities at Onset: Rest Context: Home Past Medical History - Provider Review Nursing Documentation Reviewed: Yes - Infectious Disease Hx of Infectious Diseases: None - Cardiac Hx Cardiac Disorders: No - Pulmonary Hx Chronic Obstructive Pulmonary Disease (COPD): Yes Other/Comment: Lung CA - Neurological Hx Neurological Disorder: No - HEENT Hx HEENT Disorder: No - Renal Hx Renal Disorder: No - Endocrine/Metabolic Hx Endocrine Disorders: No - Hematological/Oncological Hx Blood Transfusions: No Hx Blood Transfusion Reaction: No - Integumentary Hx Dermatological Disorder: No - Musculoskeletal/Rheumatological Hx Musculoskeletal Disorders: No - Gastrointestinal Hx Gastrointestinal Disorders: No - Genitourinary/Gynecological Hx Genitourinary Disorders: No - Psychiatric Hx Psychophysiologic Disorder: No Hx Substance Use: No - Surgical History Other/Comment: CA brain, left port, B/L lower extremity edema. - Anesthesia Hx Anesthesia Reactions: No Hx Malignant Hyperthermia: No Family/Social History - Physician Review Nursing Documentation Reviewed: Yes Family/Social History: Unknown Family HX Smoking Status: Former Smoker Hx Alcohol Use: Yes Hx Substance Use: No Allergies/Home Meds Allergies/Adverse Reactions: Allergies No Known Allergies Allergy (Verified 12/17/16 14:54) Home Medications: Home Meds Medication Instructions Recorded Confirmed Folic Acid 1 mg PO DAILY 11/08/16 11/08/16 Thiamine Mononitrate [Vitamin B-1] 100 mg PO DAILY 11/08/16 11/08/16 Review of Systems - Physician Review All systems were reviewed & negative as marked: Yes - Review of Systems Constitutional: Fatigue, Weight Change Respiratory: SOB, Cough Cardiovascular: LEACH. absent: Chest Pain Gastrointestinal: Abdominal Pain. absent: Nausea, Vomiting Physical Exam Vital Signs Reviewed: Yes Vital Signs Temp Pulse Resp BP Pulse Ox 12/17/16 19:16 99.8 F H 12/17/16 19:10 99.0 F 12/17/16 17:38 99 H 16 108/83 100 12/17/16 15:03 18 100 12/17/16 14:42 109 H 26 H 102/77 96 Temperature: Afebrile (99.8 rectal) Blood Pressure: Normal Pulse: Tachycardic Respiratory Rate: Tachypneic Appearance: Positive for: Ill-Appearing Pain Distress: None Mental Status: Positive for: Alert and Oriented X 3 - Systems Exam Head: Present: Atraumatic, Normocephalic Pupils: Present: PERRL Conjunctiva: Present: Normal Mouth: Present: Moist Mucous Membranes Pharnyx: Present: Normal. No: ERYTHEMA, EXUDATE Neck: Present: Normal Range of Motion Respiratory/Chest: Present: Decreased Breath Sounds (on the right side), Tachypneic (mild). No: Respiratory Distress, Accessory Muscle Use Cardiovascular: Present: Normal S1, S2, Tachycardic (mild). No: Murmurs Abdomen: Present: Normal Bowel Sounds. No: Tenderness, Distention, Peritoneal Signs Back: Present: Normal Inspection Upper Extremity: Present: Normal Inspection. No: Cyanosis, Edema Lower Extremity: Present: Normal Inspection. No: Edema Neurological: Present: GCS=15, CN II-XII Intact, Speech Normal Skin: Present: Warm, Dry, Normal Color. No: Rashes Psychiatric: Present: Alert, Oriented x 3, Normal Insight, Normal Concentration Medical Decision Making ED Course and Treatment: 12/17/16 14:55 Impression: A 61 year old male with worsening shortness of breath. Differential Diagnosis include but are not limited to: lung cancer vs. pneumonia vs pleural effusion vs PE Plan: -- EKG -- Chest X-ray -- Reassess and disposition Prior Visits: Notes and results from previous visits were reviewed. The patient last presented to the emergency department on 11/07/16 for evaluation of abdominal pain. Progress Notes: EKG: Ordered, reviewed, and independently interpreted the EKG. Rate : 118 BPM Rhythm : Sinus tachycardia Interpretation : bifascicular T wave in Lead III and aVF, poor R wave progression, normal interval, normal axis Comparison : No previous EKG for comparison. 12/17/16 17:40 Chest X-ray: Creator : Isreal Shearer MD COMPARISON:11/21/2016. FINDINGS: LUNGS:Improved aeration right upper lobe. Dense consolidative changes remain however. More alveolar consolidative changes right lower lobe. PLEURA:Stable right pleural effusion. CARDIOVASCULAR: No radiographic findings to suggest acute or significant cardiovascular disease. Venous access catheter in stable, satisfactory position. OSSEOUS STRUCTURES:No significant abnormalities. VISUALIZED UPPER ABDOMEN:Normal. OTHER FINDINGS:None. IMPRESSION: Pedis interval improvement in aeration right upper lobe. Additional consolidative changes noted previously are unchanged. 12/17/16 19:33 Patient with noted history. CT shows R side consolidation; presumptive lung mass but possible superimposed pneumonia - WBC is 11.8K - will start iv antibiotics. Case discussed with Dr. Castillo, who is aware and agrees with the plan to admit the patient to his services. He notes to consult RENATA Olivera, and Dr. Dr. Fletcher. He notes to get an ICU consult for possible ICU admission. Case discussed with Dr. Khoury, who states he will come down and evaluate the patient. 12/17/16 20:08 Dr. Khoury here with Dr. Davis in the emergency department. Dr. Jeter also seeing the patient. Patient accepted by Dr. Khoury to the ICU. 12/17/16 20:12 Platelets also noted to be at 15K; manual is 24K. Discussed with Dr. Castillo, who said if no fever or bleeding - to hold on platelet transfusion. Will add HIT antibody. - Critical Care Critical Care Minutes: 30 minutes - Lab Interpretations Lab Results: 12/17/16 17:15 12/17/16 16:00 Lab Results 12/17/16 17:15: WBC 11.8 H D, RBC 3.78, Hgb 11.6 L, Hct 35.3 L, MCV 93.4, MCH 30.7, MCHC 32.9, RDW 21.6 H, Plt Count 15 L*, Corrected WBC (Man) 10.7, Neutrophils % (Manual) 86 H, Lymphocytes % (Manual) 12 L, Monocytes % (Manual) 2 , Basophils % (Manual) 2 H, Nucleated RBC % 10, Platelet Evaluation Low, Hypochromasia Slight, Hyperchromasia 1, Microcytosis (manual) Slight 12/17/16 16:30: Blood Type Confirm B POSITIVE 12/17/16 16:00: Blood Type B POSITIVE, Antibody Screen Negative, BBK History Checked No verified bt 12/17/16 16:00: Sodium 129 L, Potassium 4.2, Chloride 94 L, Carbon Dioxide 27, Anion Gap 12, BUN 49 H, Creatinine 1.2, Est GFR ( Amer) > 60, Est GFR ( Non-Af Amer) > 60, Random Glucose 124 H, Calcium 8.9, Magnesium 2.1, Total Bilirubin 0.6, AST 22, ALT 28, Alkaline Phosphatase 87, Lactate Dehydrogenase 1450 H, Total Creatine Kinase < 20 L, Troponin I 0.27 H*, NT-Pro-B Natriuret Pep 98695 H, Total Protein 6.0, Albumin 3.2, Globulin 2.9, Albumin/Globulin Ratio 1.1, Lipase 24 12/17/16 16:00: PT 13.3 H, INR 1.23 H, APTT 26.3 12/17/16 15:15: Manual Plt Count 24 L* - RAD Interpretation Radiology Orders: 12/17/16 15:03 CHEST PORTABLE [RAD] Stat 12/17/16 15:34 ANGIO CHEST PE PROTOCOL [CT] Stat - Medication Orders Current Medication Orders: Sodium Chloride (Sodium Chloride 0.9%) 1,000 mls @ 200 mls/hr IV .Q5H STA Stop: 12/17/16 20:34 Last Admin: 12/17/16 17:37 Dose: 200 mls/hr Vancomycin HCl 1 gm/ Sodium (Chloride) 250 mls @ 133.333 mls/hr IV STAT STA PRN Reason: Protocol Stop: 12/17/16 20:56 Discontinued Medications Sodium Chloride (Sodium Chloride 0.9%) 1,000 mls @ 100 mls/hr IV .Q10H STA Stop: 12/18/16 01:34 Last Admin: 12/17/16 16:19 Dose: 100 mls/hr Cefepime HCl (Maxipime 1gm) 1 gm in 100 mls @ 100 mls/hr IVPB Q24H STA PRN Reason: Protocol Stop: 12/17/16 20:03 Last Admin: 12/17/16 19:41 Dose: 100 mls/hr Iodixanol (Visipaque 320 Mg/Ml 100 Ml) Confirm Administered Dose 100 ml IV .[facility] Stop: 12/17/16 17:42 - Scribe Statement The provider has reviewed the documentation as recorded by the Scribe Regla Gavin Provider Scribe Attestation: All medical record entries made by the Scribe were at my direction and personally dictated by me. I have reviewed the chart and agree that the record accurately reflects my personal performance of the history, physical exam, medical decision making, and the department course for this patient. I have also personally directed, reviewed, and agree with the discharge instructions and disposition. Disposition/Present on Arrival - Present on Arrival Any Indicators Present on Arrival: No History of DVT/PE: No History of Uncontrolled Diabetes: No Urinary Catheter: No History of Decub. Ulcer: No History Surgical Site Infection Following: None - Disposition Have Diagnosis and Disposition been Completed?: Yes Diagnosis: Hypoxemia, Lung cancer, Thrombocytopenia Disposition: HOSPITALIZED Disposition Time: 19:05 Patient Plan: ICU Patient Problems: Current Active Problems Problem Status Onset Hypoxemia Acute Lung cancer Acute Thrombocytopenia Acute Condition: CRITICAL
[2016-12-17 15:29] VITALS: BMI 18.8
[2016-12-17] MEDS ORDERED: Sodium Chloride 0.9% 1,000 ML IV STA ×2 (15:35→16:59)
[2016-12-17 16:51] LABS: ALB/GLOB RATIO 1.1 (1.1-1.8); ALKALINE PHOSPHATASE 87 U/L (38-133); ALT/SGPT 28 U/L (7-56); AST/SGOT 22 U/L (15-59); BILIRUBIN,TOTAL 0.6 mg/dL (0.2-1.3); BLOOD UREA NITROGEN 49 mg/dL (7-21); CALCIUM 8.9 mg/dL (8.4-10.5); CARBON DIOXIDE 27 mmol/L (21-33); CHLORIDE 94 mmol/L (95-110); GFR AFRICAN-AMERICAN > 60; GLUCOSE,RANDOM 124 mg/dL (70-110); LIPASE 24 U/L (23-300); MAGNESIUM 2.1 mg/dL (1.7-2.2); POTASSIUM 4.2 mmol/L (3.6-5.0); SODIUM 129 mmol/L (132-148)
[2016-12-17 16:59] LABS: INR 1.23 (0.93-1.08); PARTIAL THROMBOPLASTIN TIME 26.3 Seconds (23.7-30.8)
[2016-12-17 17:12] LABS: TROPONIN I 0.27 ng/mL
[2016-12-17 17:28] LABS: HEMATOCRIT 35.3 % (42.0-52.0); MEAN CELL VOLUME 93.4 fL (80.0-105.0); MEAN CORPUSCULAR HEMOGLOBIN 30.7 pg (25.0-35.0); MEAN CORPUSCULAR HGB CONC 32.9 g/dl (31.0-37.0); RED CELL DISTRIBUTION WIDTH 21.6 % (11.5-14.5); WHITE BLOOD COUNT 11.8 10^3/ul (4.5-11.0)
[2016-12-17 17:34] LABS: ADD MANUAL DIFF? YES; PLATELET COUNT 15 10^3/uL (120.0-450.0)
--- NOTE | 2016-12-17 17:35 | RAD ---
HISTORY: Shortness of breath. Portable study 15:37. COMPARISON: 11/21/2016. FINDINGS: LUNGS: Improved aeration right upper lobe. Dense consolidative changes remain however. More alveolar consolidative changes right lower lobe. PLEURA: Stable right pleural effusion. CARDIOVASCULAR: No radiographic findings to suggest acute or significant cardiovascular disease. Venous access catheter in stable, satisfactory position. OSSEOUS STRUCTURES: No significant abnormalities. VISUALIZED UPPER ABDOMEN: Normal. OTHER FINDINGS: None. IMPRESSION: Pedis interval improvement in aeration right upper lobe. Additional consolidative changes noted previously are unchanged.
[2016-12-17] MEDS ORDERED: Iodixanol 320 MG/ML 100 ML BOTTLE IV ONE (17:41)
--- NOTE | 2016-12-17 18:32 | CARD ---
APPROVED REPORT EKG Measurement Heart [id number] <Conclusion> Poor data quality, interpretation may be adversely affected Sinus tachycardia Biatrial enlargement Abnormal ECG
--- NOTE | 2016-12-17 18:44 | CT ---
PROCEDURE: CT Chest with contrast (Pulmonary Angiogram) HISTORY: shortness of breath lung CA COMPARISON: Comparison is made to the previous study dated 11/08/2016 TECHNIQUE: Axial computed tomography images were obtained of the chest in the pulmonary arterial phase of enhancement. Coronal and sagittal reformatted images were created and reviewed. Intravenous contrast dose: 100 mL Visipaque Radiation dose: Total exam DLP = 371.41 mGy-cm. This CT exam was performed using one or more of the following dose reduction techniques: Automated exposure control, adjustment of the mA and/or kV according to patient size, and/or use of iterative reconstruction technique. FINDINGS: PULMONARY ARTERIES: No evidence of pulmonary embolism. Narrowing of the right main and upper lobe pulmonary arteries likely due to encasement by tumor. The main pulmonary arteries are otherwise mildly enlarged suggestive of underlying pulmonary hypertension AORTA: No evidence of aneurysm or dissection. LUNGS: Airspace consolidation and opacities at the right lung extending to the right hilum likely represent patient's known lung cancer. Moderate to severe emphysema. PLEURAL SPACES: Right pleural effusion and possible localized effusion at the mid to upper right chest. HEART: [id number] cardiomegaly. LYMPH NODES: Large mediastinal lymphadenopathy and hilar lymphadenopathy consistent with metastasis. BONES, CHEST WALL: Unremarkable. No fracture or destructive lesion OTHER FINDINGS: Unremarkable. IMPRESSION: No evidence of acute pulmonary embolism. Large consolidation at the right lung likely represent patient's known lung cancer. Large mediastinal lymphadenopathy. Right pleural effusion. Possible localize effusion at the mid to upper right chest.
[2016-12-17 18:57] LABS: BASOPHIL 2 % (0.0-1.0); CORRECTED WBC 10.7 K/mm3 (4.5-11.0); HYPOCHROMIA SLIGHT; NEUTROPHIL 86 % (50.0-70.0); NUCLEATED RED BLOOD CELL 10 %; PLATELET ESTIMATE LOW (NORMAL)
[2016-12-17 18:58] LABS: MICROCYTOSIS SLIGHT
[2016-12-17] MEDS ORDERED: Cefepime 1gm in NS 100ml 1 GM/100 ML BAG IVPB STA (19:04)
[2016-12-17] MEDS ORDERED: Sodium Chloride 0.9% 1,000 ML IV SCH (20:30)
--- NOTE | 2016-12-17 20:32 | CP.PCM.CON ---
History of Present Illness - History of Present Illness History of Present Illness: The patient is a 61 year old AAM with a history of COPD and stage IV NSCLC with brain mets (s/p chemo and radiation)(on 2L home O2) and history of DVT (on SC Lovenox) who presented on the evening of 12/17/16 with several days of worsening SOB and generalized weakness. In the ED, he was initially hypoxic on 2L NC ( upper 70's to low 80's) and therefore, an ICU evaluation was requested. Patient reported chills but denied fevers, change in baseline cough, chest pain or wheezing. He also denied AMS, seizures or focal neuro deficits. CT-chest angio rules out acute PE but did show a right-sided effusion with possible co- existing PNA. Review of Systems - Review of Systems All systems: reviewed and no additional remarkable complaints except - Constitutional Constitutional: As Per HPI - EENT Eyes: As Per HPI - Cardiovascular Cardiovascular: As Per HPI - Respiratory Respiratory: As Per HPI - Genitourinary Genitourinary: As Per HPI - Musculoskeletal Musculoskeletal: As Per HPI - Neurological Neurological: As Per HPI Past Patient History - Infectious Disease Hx of Infectious Diseases: None - Past Medical History & Family History Past Medical History?: Yes - Past Social History Smoking Status: Former Smoker - CARDIAC Hx Cardiac Disorders: No - PULMONARY Hx Chronic Obstructive Pulmonary Disease (COPD): Yes Other/Comment: Lung CA - NEUROLOGICAL Hx Neurological Disorder: No - HEENT Hx HEENT Problems: No - RENAL Hx Chronic Kidney Disease: No - ENDOCRINE/METABOLIC Hx Endocrine Disorders: No - HEMATOLOGICAL/ONCOLOGICAL Hx Blood Transfusions: No Hx Blood Transfusion Reaction: No - INTEGUMENTARY Hx Dermatological Problems: No - MUSCULOSKELETAL/RHEUMATOLOGICAL Hx Musculoskeletal Disorders: No - GASTROINTESTINAL Hx Gastrointestinal Disorders: No - GENITOURINARY/GYNECOLOGICAL Hx Genitourinary Disorders: No - PSYCHIATRIC Hx Psychophysiologic Disorder: No Hx Substance Use: No - SURGICAL HISTORY Other/Comment: CA brain, left port, B/L lower extremity edema. - ANESTHESIA Hx Anesthesia Reactions: No Hx Malignant Hyperthermia: No Meds Allergies/Adverse Reactions: Allergies Allergy/AdvReac Type Severity Reaction Status Date / Time No Known Allergies Allergy Verified 12/17/16 14:54 - Medications Medications: Current Medications Sodium Chloride (Sodium Chloride 0.9%) 1,000 mls @ 200 mls/hr IV .Q5H STA Stop: 12/17/16 20:34 Last Admin: 12/17/16 17:37 Dose: 200 mls/hr Vancomycin HCl 1 gm/ Sodium (Chloride) 250 mls @ 133.333 mls/hr IV STAT STA PRN Reason: Protocol Stop: 12/17/16 20:56 Ceftaroline Fosamil 600 mg/ (Sodium Chloride) 100 mls @ 100 mls/hr IVPB Q12 FRANCO PRN Reason: Protocol Sodium Chloride (Sodium Chloride 0.9%) 1,000 mls @ 100 mls/hr IV .Q10H FRANCO Methylprednisolone (Solu-Medrol) 40 mg IVP Q8H FRANCO Ondansetron HCl (Zofran Inj) 4 mg IVP Q6H PRN PRN Reason: Nausea/Vomiting Pantoprazole Sodium (Protonix Ec Tab) 40 mg PO DAILY FRANCO Physical Exam - Constitutional Additional comments: Chronically ill and fatigued appearing; Cachexia; A&OX4; - Head Exam Head Exam: ATRAUMATIC, NORMAL INSPECTION, NORMOCEPHALIC - Eye Exam Eye Exam: Normal appearance Pupil Exam: PERRL - ENT Exam ENT Exam: Mucous Membranes Dry - Neck Exam Neck exam: Positive for: Normal Inspection - Respiratory Exam Additional comments: Decreased breath sounds on right side; Poor inspiratory effort in general; No wheezes or crackles; No accessory muscle use - Cardiovascular Exam Cardiovascular Exam: Tachycardia, REGULAR RHYTHM, +S1, +S2 - GI/Abdominal Exam GI & Abdominal Exam: Normal Bowel Sounds, Soft. absent: Tenderness - Rectal Exam Rectal Exam: Deferred - Extremities Exam Extremities exam: Positive for: normal inspection - Neurological Exam Additional comments: Grossly normal neuro exam; No gross focal deficits Results - Vital Signs Recent Vital Signs: Last Vital Signs Temp 99.8 F H 12/17/16 19:16 Pulse 99 H 12/17/16 17:38 Resp 16 12/17/16 17:38 BP 108/83 12/17/16 17:38 Pulse Ox 100 12/17/16 17:38 - Labs Result Diagrams: 12/24/16 07:00 12/24/16 07:00 - Imaging and Cardiology CT scan - chest Status: Report reviewed by me Assessment & Plan - Assessment and Plan (Free Text) Assessment: A/P: The patient is a 61 year old AAM with a history of COPD and stage IV NSCLC with brain mets (s/p chemo and radiation)(on 2L home O2) and history of DVT (on SC Lovenox), who presents with thrombocytopenia, hypoxia, right pleural effusion and right-sided PNA. 1. Acute on Chronic Hypoxia: -high flow O2 -repeat ABG in AM -empiric IV antibiotics for PNA -acute PE ruled out already -breathing treatments PRN 2. Thrombocytopenia: ddx: HIT (given recently starting SC Lovenox) vs Immunosuppression from recent chemo -will hold SC Lovneox for now -HIT panel already sent -Dr. Solorio (heme/onc) already on board -no obvious signs of bleeding -SCD's 3. Right-sided PNA: -empiric IV antibiotics started by Dr. Jeter (ID) -f/u head-cultures 4. Lower Extremity DVT: -reportedly recently diagnosed -will hold SC Lovenox as stated above due to thromobocytopenia -if pt ultimately cannot tolerate anticoagulation then he may need an IVC filter -SCD's for now 5. Stage IV NSCLC (with brain mets): -s/p recent chemo (reportedly) -palliative care should be involved -seizure ppx -IV Steroids (per request of oncologist) 6. COPD: -breathing treatments PRN -high-flow O2 overnight -no evidence of wheezing on exam GI PPx: Protonix
[2016-12-17] MEDS ORDERED: Albuterol-Ipratrop 3 mg / 0.5 (3 ml) UD IH PRN (20:33)
--- NOTE | 2016-12-17 20:40 | CP.PCM.CON ---
History of Present Illness - History of Present Illness History of Present Illness: Infectious Disease Consultation: December 17, 2016 61 yo male with history of metastatic lung cancer with metastatic disease to the brain and possibly bone presents with worsening shortness of breath and generalized weakness. Patient feels disorientated and has gait abnormalities. The patient with self-perceived weight loss. The patient was started on chemotherapy with last dose about 3 weeks ago. Chest X-ray does not show new changes from noted consolidations in right lung in the past (known lung cancer history). CT Chest shows possible right middle lobe pleural effusion. PMHx: Metastatic lung cancer to brain, loss of vision in Right eye due to detached retina PSHx: Detached retina repair 2001, tonsilectomy, Left power port placement 1 week ago. Allergies: NKDA Social Hx: Heavy smoker stopped 3 months ago, heavy drinker (manuel mostly) stopped 3 weeks ago, no illicit drug use. Lives with daughter. also has cancer. Active Medications Sodium Chloride (Sodium Chloride 0.9%) 1,000 mls @ 200 mls/hr IV .Q5H STA Stop: 12/17/16 20:34 Last Admin: 12/17/16 17:37 Dose: 200 mls/hr Vancomycin HCl 1 gm/ Sodium (Chloride) 250 mls @ 133.333 mls/hr IV STAT STA PRN Reason: Protocol Stop: 12/17/16 20:56 Ceftaroline Fosamil 600 mg/ (Sodium Chloride) 100 mls @ 100 mls/hr IVPB Q12 FRANCO PRN Reason: Protocol Family Hx: Mother alive at 94 yo. ROS: Abdominal pain. SOB. Leg swelling. No fevers, chills, nausea, vomiting, diarrhea, headaches, dizziness, chest pain, melena, hematuria, hematemesis, hematochezia. Past Patient History - Infectious Disease Hx of Infectious Diseases: None - Past Medical History & Family History Past Medical History?: Yes - Past Social History Smoking Status: Former Smoker - CARDIAC Hx Cardiac Disorders: No - PULMONARY Hx Chronic Obstructive Pulmonary Disease (COPD): Yes Other/Comment: Lung CA - NEUROLOGICAL Hx Neurological Disorder: No - HEENT Hx HEENT Problems: No - RENAL Hx Chronic Kidney Disease: No - ENDOCRINE/METABOLIC Hx Endocrine Disorders: No - HEMATOLOGICAL/ONCOLOGICAL Hx Blood Transfusions: No Hx Blood Transfusion Reaction: No - INTEGUMENTARY Hx Dermatological Problems: No - MUSCULOSKELETAL/RHEUMATOLOGICAL Hx Musculoskeletal Disorders: No - GASTROINTESTINAL Hx Gastrointestinal Disorders: No - GENITOURINARY/GYNECOLOGICAL Hx Genitourinary Disorders: No - PSYCHIATRIC Hx Psychophysiologic Disorder: No Hx Substance Use: No - SURGICAL HISTORY Other/Comment: CA brain, left port, B/L lower extremity edema. - ANESTHESIA Hx Anesthesia Reactions: No Hx Malignant Hyperthermia: No Meds Allergies/Adverse Reactions: Allergies Allergy/AdvReac Type Severity Reaction Status Date / Time No Known Allergies Allergy Verified 12/17/16 14:54 - Medications Medications: Current Medications Sodium Chloride (Sodium Chloride 0.9%) 1,000 mls @ 200 mls/hr IV .Q5H STA Stop: 12/17/16 20:34 Last Admin: 12/17/16 17:37 Dose: 200 mls/hr Vancomycin HCl 1 gm/ Sodium (Chloride) 250 mls @ 133.333 mls/hr IV STAT STA PRN Reason: Protocol Stop: 12/17/16 20:56 Ceftaroline Fosamil 600 mg/ (Sodium Chloride) 100 mls @ 100 mls/hr IVPB Q12 FRANCO PRN Reason: Protocol Physical Exam - Constitutional Appears: Non-toxic, No Acute Distress, Cachectic, Chronically Ill - Head Exam Head Exam: ATRAUMATIC, NORMOCEPHALIC Additional comments: poor dentition. - Eye Exam Eye Exam: EOMI, PERRL Pupil Exam: NORMAL ACCOMODATION, PERRL - ENT Exam ENT Exam: Mucous Membranes Moist, Normal External Ear Exam, TM's Normal Bilaterally - Neck Exam Neck exam: Positive for: Full Rom, Normal Inspection - Respiratory Exam Respiratory Exam: Clear to Auscultation Bilateral, NORMAL BREATHING PATTERN. absent: Rales, Rhonchi, Wheezes - Cardiovascular Exam Cardiovascular Exam: REGULAR RHYTHM, RRR, +S1, +S2 - GI/Abdominal Exam GI & Abdominal Exam: Normal Bowel Sounds, Soft. absent: Distended, Tenderness - Extremities Exam Extremities exam: Positive for: full ROM, normal inspection - Neurological Exam Neurological exam: Alert, CN II-XII Intact, Oriented x3 - Psychiatric Exam Psychiatric exam: Normal Affect, Normal Mood - Skin Skin Exam: Intact, Normal Color Results - Vital Signs Recent Vital Signs: Last Vital Signs Temp 99.8 F H 12/17/16 19:16 Pulse 99 H 12/17/16 17:38 Resp 16 12/17/16 17:38 BP 108/83 12/17/16 17:38 Pulse Ox 100 12/17/16 17:38 - Labs Result Diagrams: 12/17/16 17:15 12/17/16 16:00 Assessment & Plan - Assessment and Plan (Free Text) Assessment: 61 yo male with metastatic lung cancer to the brain with general weakness and SOB. On Teflaro for antibiotic coverage for now. Will maintain this regimen for the time being. Supportive care. Possible pneumonia on right middle lobe. Noted elevated creatinine and significantly elevated BNP (normal on last hospitalization). The patient does not have a history of heart disease to my recollection. The patient is current awake and alert and answering questions appropriately. Admitted to MICU for monitoring for now. Supportive care. Thank you for allowing me to participate in the care of this patient, we will follow with you.
[2016-12-17] MEDS ORDERED: Morphine 2 mg/ml ISec IVP PRN (21:15)
[2016-12-17] MEDS: MethylPREDNISolone 40 mg Vial IVP SCH (22:15)
[2016-12-17] MEDS: Nystatin 100,000 Units/ml Oral Susp 5 ml UD PO SCH (22:47)
[2016-12-17 23:11] LABS: TROPONIN I 0.25 ng/mL
[2016-12-17] MEDS: Ceftaroline 600 MG in Sodium Chloride 0.9% 100 ML IVPB SCH (23:20)
--- NOTE | 2016-12-17 23:50 | HP ---
Patient admitted to the ICU. CHIEF COMPLAINT: Increasing shortness of breath. HISTORY OF PRESENT ILLNESS: The patient is a 61-year-old black male who was directed to the Emergenc y Room by Dr. Castillo earlier today as he was to have an office visit, but the patient reporting incr easing shortness of breath and pain in his mid-upper back. 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 The patient w as recently hospitalized. One is referred to those records. He is also status post treatment with K eytruda approximately 1 week ago with the patient also being treated with Lovenox for pulmonary embol ism DVT and status post placement of a PleurX catheter with the patient reporting that his drain ed approximately 70 mL from the catheter yesterday. ALLERGIES: No known allergies. MEDICATIONS: At this point include Decadron 2 mg a day, folic acid, Lasix, Lovenox 40 subQ daily, Pr otonix, Tylenol, and vitamin B1. 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 Stock, status post thoracentesis on his right side by Dr. 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 FAMILY HISTORY AND SOCIAL HISTORY: Heavy smoker, quit 4 months ago, heavy drinker manuel quit 4 kahlil hs ago. Lives with his daughter and also has cancer. Otherwise noncontributory. REVIEW OF SYSTEMS: Essentially negative to questioning except as above. PHYSICAL EXAMINATION: VITAL SIGNS: Temperature 99.8 rectal, pulse 99, respirations 16, blood pressure 108/83, pulse ox 100 % on nasal cannula. HEENT: Unremarkable except for blindness on the right eye. NECK: Supple. HEART: Tachy rate, regular rhythm. LUNGS: Scattered rhonchi. Decreased breath sounds bilaterally. Right-sided PleurX catheter, Aspira catheter. ABDOMEN: Soft, nontender. EXTREMITIES: +1 edema. NEUROLOGIC: Awake, alert and oriented. SKIN: Otherwise, warm, dry and clear. No petechiae to inspection of the oral palate. No active ble eding. LABORATORY: The patient's labs were done, white blood cell count 11.8, hemoglobin 11.6, hematocrit 3 5.3, platelet count of 15,000 with a manual of 24,000. His chem metabolic panel shows sodium of 129, chloride of 94, BUN of 49 with a creatinine of 1.2. His troponin 0.27 with a B-natriuretic peptide of 14,800. LDH of 1450. INR of 1.2. The patient had a CT of the chest done earlier today. It was read as no evidence of pulmonary emboli sm, large consolidation right lung, likely represents known cancer of the lung, large mediastinal lym phadenopathy, right pleural effusion and possible localized effusion at the mid to upper right chest. His chest x-ray was also done earlier today. It was read as interval improvement in aeration , right upper lobe additional consolidative changes noted previously are unchanged with a venous cath eter stable satisfactory position. EKG was done earlier today. It was read as sinus tachycardia, bi atrial enlargement, abnormal EKG. The patient had a PET CT scan done on 12/09/2016. It was read as multiple foci of intense increased FDG uptake seen in the central upper portion of the right lung consistent with the patient's known porter ng cancer, multiple foci of increased FDG uptake in the right pleural associated with small to modera te pleural effusion, lower neck and mediastinal FDG avid lymphadenopathy consistent with metastases, liver lesions with increased FDG uptake consistent with metastases, left adrenal 2 cm FDG lesion at n odule consistent with metastases, multiple upper abdominal FDG avid lymph nodes also suggestive of me tastasis, on the left 2 cm FDG avid subcutaneous lesion upper back and lower neck suspicious for meta stases, left pleural metastases versus left lower rib metastases. It should be noted the patient did have previous testing with a head CT done on 11/08/2016 showing low attenuation lesion, right cerebe llar hemisphere, which could represent metastatic deposit and low attenuation changes extends superio rly anteromedially to the remained region, recommend follow up with pre and post-MRI of the brain, ch ronic white matter low attenuation ischemic changes, metastatic deposits location also cannot be excl uded. ASSESSMENT: Possible pneumonia, right middle lobe, poorly differentiated adenocarcinoma with metasta ses to the brain, status post radiation therapy to left chest pleural effusion, COPD, history of pulm onary embolism, detached retina on the right with blindness, SIADH, severe thrombocytopenia, status p ost treatment with Keytruda 1 week prior, intractable pain of cancer now controlled, elevated troponi n, rule out myocardial infarction, cachexia of malignancy. PLAN: After conversation with Dr. Castillo, Dr. Fernandez, Dr. Jeter and Dr. Khoury, we will admit the patient to the intensive care unit due to multiple comorbidities. We will ask for consults with Dr. Blackmon, c ardiology, for his abnormal troponins; pulmonary consult, Dr. Fletcher for his pleural effusion, PleurX catheter, pneumonia; Dr. Amado Jeter for his suspected pneumonia; and Dr. South for his SIADH. We will continue his present medical regimen, hold his Lovenox due to severe thrombocytopenia. Check ma nual platelet count in the morning with consideration for transfusion of platelets if the platelet co unt is less than 20,000 or active bleeding develops. We will repeat a B natriuretic peptide with pro gnosis for this patient guarded. We will also do HIT testing for heparin-induced thrombocytopenia wi th blood cultures to be done procalcitonin with IV steroids to continue as this may improve his appet ite as the patient reports that his appetite has significantly deteriorated once the steroids were cu t back. We will give analgesics for his pain and oxygen. Jesus Davis MD cc: [phone] TT: 12/17/2016 23:50:10 an
[2016-12-18 00:14] LABS: ARTERIAL BLOOD GAS HCO3 20.8 mmol/L (21-28); ARTERIAL BLOOD GAS PH 7.42 (7.35-7.45)
[2016-12-18] MEDS: MethylPREDNISolone 40 mg Vial IVP SCH ×3 (05:00→20:21)
[2016-12-18 06:32] LABS: ADD MANUAL DIFF? NO
[2016-12-18 06:46] LABS: BASO # 0.01 K/mm3 (0.0-2.0); BASO % 0.1 % (0.0-3.0); GRAN # 9.37 (1.4-6.5); HEMATOCRIT 33.9 % (42.0-52.0); LYMPH # 1.3 (1.2-3.4); LYMPH % 12.1 % (22.0-35.0); MEAN CELL VOLUME 94.4 fL (80.0-105.0); MEAN CORPUSCULAR HEMOGLOBIN 30.6 pg (25.0-35.0); MEAN CORPUSCULAR HGB CONC 32.4 g/dl (31.0-37.0); MONO # 0.3 (0.1-0.6); MONO % 2.8 % (1.0-6.0); RED CELL DISTRIBUTION WIDTH 21.7 % (11.5-14.5)
[2016-12-18 07:19] LABS: ALB/GLOB RATIO 0.9 (1.1-1.8); ALKALINE PHOSPHATASE 83 U/L (38-133); ALT/SGPT 24 U/L (7-56); AST/SGOT 20 U/L (15-59); BILIRUBIN,TOTAL 0.8 mg/dL (0.2-1.3); BLOOD UREA NITROGEN 47 mg/dL (7-21); CALCIUM 8.2 mg/dL (8.4-10.5); CARBON DIOXIDE 24 mmol/L (21-33); CHLORIDE 100 mmol/L (98-107); GFR AFRICAN-AMERICAN > 60; GLUCOSE,RANDOM 118 mg/dL (70-110); PHOSPHOROUS 3.9 mg/dL (2.5-4.5); POTASSIUM 4.3 mmol/L (3.6-5.0); SODIUM 132 mmol/L (132-148); TOTAL PROTEIN 5.6 g/dL (5.8-8.3)
[2016-12-18 07:46] LABS: PLATELET COUNT 13 10^3/uL (120.0-450.0)
[2016-12-18 08:50] LABS: PLATELET ESTIMATE LOW (NORMAL)
[2016-12-18] MEDS ORDERED: Sodium Chloride 0.9% 1,000 ML IV SCH (09:25)
[2016-12-18] MEDS: Pantoprazole 40 mg EC Tab PO SCH (10:19)
[2016-12-18] MEDS: Nystatin 100,000 Units/ml Oral Susp 5 ml UD PO SCH ×4 (10:19→21:37)
[2016-12-18] MEDS: Ceftaroline 600 MG in Sodium Chloride 0.9% 100 ML IVPB SCH ×2 (10:19→22:06)
--- NOTE | 2016-12-18 10:31 | CON ---
DATE: 12/18/2016 ADDENDUM REASON FOR ADDENDUM: The patient's electronic medical record reviewed. The patient had echo 11/09/19 that shows normal LV size, reported normal LV size, normal LV thickness and normal LV function, ej ection fraction calculated 58%, trace mitral regurgitation, trace tricuspid regurgitation, RV systoli c pressure 43. We will follow with you. Thank you, , for providing us the opportunity in taking care of the patient. as jose de jesusi aida before. Ashia Blackmon MD cc: [id number] TT: 12/18/2016 10:30:48 Confirmation # [id number] Dictation # [id number] en
--- NOTE | 2016-12-18 11:00 | CON ---
DATE: 12/18/2016 REASON FOR CONSULTATION: Positive troponin, admitted with shortness of breath, lung CA. BRIEF CLINICAL HISTORY: This is a 61-year-old -[place] male with a past medical history of l laurent CA with metastases, diagnosed in July of this year. Came in with a complaint of shortness of breath. Denies any chest pain, denies any palpitation. Troponin found to be positive, 0.25. Cardio logy consult was called. The patient denies any chest pain. PAST MEDICAL HISTORY: Significant for poorly differentiated carcinoma of the right lung with metasta sis to the brain, history of right retinal detachment 20-30 years ago unrelated to the cancer diagnos ed recently in 07/2016. Status post metastasis to the brain, history of recurrent pleural effusion st atus post thoracentesis and now patient had Pleur-evac for drainage and yesterday drained 70 mL from the Pleur-evac. History of COPD, history of DVT, PE, history of retinal detachment leading to blindn ess of the eye 20-30 years ago unrelated to the cancer, status post Port-A-Cath placement, history of DVT and PE in the recent past. FAMILY HISTORY: Noncontributory. SOCIAL HISTORY: Heavy smoker, quit after the cancer was diagnosed in July, history of alcohol abu se as well. REVIEW OF SYSTEMS: A 14-point as per HPI, negative except HPI. PHYSICAL EXAMINATION: VITAL SIGNS: Temperature afebrile, heart rate 84, blood pressure 135/86, . HEENT: PERRLA. Extraocular muscles intact. NECK: Supple. No carotid bruits. No thyromegaly. CHEST: Clear to auscultation. Decreased air entry at both bases. ABDOMEN: Soft. EXTREMITIES: Clubbing, cyanosis negative. BLOOD WORKUP: WBC 11, hemoglobin 11, hematocrit 33.9, platelet count 13. Chemistry shows sodium 132 , potassium 4.3, chloride 100, carbon dioxide 24, anion gap of 12, BUN 47, creatinine 0.9. Troponin 0.27, 0.27, 0.2. BNP 14,800. History of deep venous thrombosis, pulmonary embolism. CURRENT MEDICATIONS: The patient was taking Lasix, folic acid, enoxaparin, doxycycline, dexamethason e. CT done yesterday that shows right pleural effusion, possible localized effusion at the mid to right upper chest, large consolidation of right lung, likely represents lung cancer. No evidence of acute pulmonary embolism. Fluid overload, congestive heart failure, positive troponin, probably secondary to congestive heart f ailure. RECOMMENDATION: Continue diuretics. Will start Lovenox, but the patient has a very low platelet cou nt, high risk of bleeding, so we will hold it off for now because the platelet count with automatic m achine is 13,000 and manual platelet count is 20,000. We will hold anticoagulation. Continue low-do se beta-garrett as blood pressure is tolerated. Will start baby aspirin and will get echo if not don e within the last month and we will decrease the fluid, give a dose of Lasix. We will follow with nia lebron. Overall, the patient's condition is critical. We will not do aggressive. We will try to treat c onservatively. Ashia Blackmon MD cc: [phone] TT: 12/18/2016 10:59:19 Confirmation # [id number] Dictation # [id number] en
--- NOTE | 2016-12-18 12:20 | CON ---
DATE: 12/18/2016 This is a 61-year-old gentleman with history of lung cancer who reported increased shortness of breath and pain in his mid upper back during his outpatient office visit. He has poorly differentiated adenocarcinoma with metastases to the brain and loss of the vision to the right eye. The patient was found to be borderline hypoxemic in the Emergency Room and ICU consult was called for hypoxemic respiratory failure. CAT scan revealed increased thickness of by intralobular septae, some ground-glass opacities and mass versus consolidation in the right upper lobe. Of note, patient does have a PleurX catheter for malignant pleural effusion. No nausea, no vomiting, no diarrhea, no constipation. PAST MEDICAL HISTORY: As above. The patient had thoracentesis on his right side and whole brain radiotherapy as per Dr. Stock. 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 ALLERGIES: NKDA. MEDICATIONS AT HOME: Decadron, folic acid, Lasix, Lovenox, Protonix, Tylenol, and vitamin B1. REVIEW OF SYSTEMS: Revealed 12-organ system other than mentioned in history of present illness is negative. FAMILY HISTORY: Noncontributory. SOCIAL HISTORY: The patient was a heavy smoker; however, quit about 4 months ago. He also heavy drinker and also quit a month ago. He lives with his daughter and . PHYSICAL EXAMINATION: VITAL SIGNS: Blood pressure 117/87. The patient is on high flow with FiO2 of 60% and 60 liters per minute of flow, heart rate 95, oxygen saturation 97%, respiratory rate 20. The patient talks full sentences. HEAD AND NECK: Atraumatic. LUNGS: Decreased breath sounds bilaterally with a few crackles bibasilar. HEART: Regular rate and rhythm. S1, S2 normal. ABDOMEN: Soft, nontender, nondistended. MUSCULOSKELETAL: 2+ bilateral pedal and ankle edema. NEUROLOGIC: The patient moves all extremities spontaneously. SKIN: Moist. PSYCHIATRIC: The patient is alert and oriented x 3. LABORATORY DATA: WBC 11, hemoglobin 11.0, platelet count 20. Sodium 132, potassium 4.3, chloride 100, carbon dioxide 24, BUN 47, creatinine 0.9 down from 1.2, glucose 118. Lactic acid 1.7, troponin 0.2. ProBNP 10,000. INR 1.13. MEDICATIONS: Tylenol p.r.n., aspirin, folic acid, Lasix 40 mg IV q. 12, cefepime, Solu-Medrol 40 mg IV q. 8, metoprolol, morphine p.r.n., Zofran p.r.n. , Protonix, Teflaro. ASSESSMENT AND PLAN: This is a 61-year-old gentleman who presented with increased shortness of breath and was found to be a little bit fluid overload. Possibility of infectious component cannot be ruled out. Also, the patient has history of chronic obstructive pulmonary disease and chronic obstructive pulmonary disease exacerbation can be present as well. The patient was started on antibiotics. Septic workup initiated. Procalcitonin sent. The patient was also started on Solu-Medrol 40 mg IV q. 8 which will be tapered as well as bronchodilators. We will continue with aggressive diuresis as patient has 2+ bilateral pedal and ankle edema and pro BNP is substantially elevated. Chest CAT scan shows some ground-glass opacification diffusely which also may represent pulmonary edema. We will continue to target euvolemia, euglycemia, normothermia and oxygen saturation more than 90%. We will continue with deep venous thrombosis and gastrointestinal prophylaxis. Fi02 substantially decreased. ccm time 40 min Zay Akbar MD cc: [id number] TT: 12/18/2016 12:18:58 Confirmation # [id number] Dictation # [id number] tn MTDD
--- NOTE | 2016-12-18 15:32 | CON ---
DATE: 12/18/2016 REASON FOR CONSULTATION: Renal insufficiency, shortness of breath. HISTORY OF PRESENTING ILLNESS: A 61-year-old male, previously unknown to me, was sent to the Emergen cy Room at the direction of the oncologist because of shortness of breath. The patient was scheduled for chemotherapy in Dr. Castillo's office. On his way, he was found to be short of breath. He was b rought to the Emergency Room by the transportation staff. As per the , patient has been having i ncreased shortness of breath over the weekend. He received his first chemotherapy 1 week ago. He wa s recently diagnosed with stage IV metastatic lung cancer with brain mets in July of this year. Yessi aguayo underwent radiation therapy for his brain mets. He had a good response with shrinkage of tumor. S ubsequently, he had a right-sided PleurX catheter placed for drainage of malignant pleural effusion. He has been draining the effusion twice a week at home. As per the , he received chemotherapy 1 week ago. In the Emergency Room, he was found to have an elevated creatinine of 1.2. Hence, consultation is re quested. PAST MEDICAL AND SURGICAL HISTORY: Adenocarcinoma of the lung on the right side with brain mets diag nosed in 07/2016. Status post whole brain radiation. Malignant pleural effusion, status post thorace ntesis and PleurX catheter placement. COPD, PE, DVT, history of retinal detachment and blindness on the right eye. No history of any diabetes, no hypertension. FAMILY HISTORY: Noncontributory. SOCIAL HISTORY: Ex-smoker, heavy smoking, 4 packs per day for 25 years, quit 4 months ago, no alcoho l, no IV drug abuse, lives with . ALLERGIES: No known drug allergies. MEDICATIONS AT HOME: Had been Lasix, Lovenox, folic acid, Protonix, vitamin B, Decadron 2 mg a day. REVIEW OF SYSTEMS: All systems are reviewed, pertinent positives as mentioned in the history of pres enting illness, rest unremarkable. He does admit to some weight loss. Appetite is poor. He denies any nausea, vomiting. He denies any diarrhea. He complains of lower extremity swelling. All the ot her systems are reviewed and are unremarkable. PHYSICAL EXAMINATION: GENERAL: Middle-aged male, lying in bed, in the ICU, having a bout of cough at present. VITAL SIGNS: Blood pressure 123/90, heart rate 94, respiratory rate 18, temperature 98, T-max is 99. 8. HEENT: Normocephalic, atraumatic, positive pallor. NECK: Supple, no JVD. LUNGS: Bilateral equal air entry, bilateral rhonchi, decreased breath sounds right side, scattered r honchi left side. CARDIAC: S1, S2, regular rate and rhythm, no murmur, no rub. ABDOMEN: Distended, soft, nontender, bowel sounds present. EXTREMITIES: 2+ pitting edema of the lower extremities. INTAKE AND OUTPUT: 1100/600. LABORATORY DATA: WBC 11, hemoglobin 11, hematocrit 34, platelets 13, manual count is 20, polys 85%, lymphs 12%, monocytes 2.8, eosinophils 0.0. INR 1.2. ABG, pH 7.4, pO2 35, pCO2 32. Sodium 132, pot assium 4.3, chloride 100, CO2 24, BUN 47, creatinine 0.9, glucose 118, calcium 8.2, phosphorus 3.9, m agnesium 2.0. CPK less than 20. Troponin 0.2. BNP 10,000. Albumin 2.7, corrected calcium is 9.2. CURRENT MEDICATIONS: Ceftaroline 600 q. 12, aspirin, folic acid, Lasix 40 IV q. 12, Lopressor 25 b.i .d., morphine 2 mg p.r.n., Protonix, Solu-Medrol 40 IV q. 12, Tylenol, Zofran. ASSESSMENT AND PLAN: A 61-year-old male with history of right eye retinal detachment, right eye blin dness, recently diagnosed metastatic stage IV adenocarcinoma of the right lung with brain mets, diagn osed in 07/2016, received radiation to the brain. Subsequently, had a PleurX catheter placed for jin gnant pleural effusion. Also, there is a history of deep venous thrombosis and pulmonary embolism. Finally, received chemotherapy 1 week ago. Now with shortness of breath, respiratory distress, respi ratory failure, hypoxemia. Also found to have acute kidney injury. Creatinine of 1.2 at the time of admission. There is also a history of syndrome of inappropriate antidiuretic hormone secretion, hyp onatremia. Currently, sodium is mildly decreased. He is also found to have elevated BNP and elevate d troponin, suspicious for acute coronary syndrome. 1. Hypoxemia, respiratory failure, right pleural effusion. 2. Hyponatremia, syndrome of inappropriate antidiuretic hormone secretion. 3. Congestive heart failure, volume overload. 4. Elevated troponins, acute coronary syndrome? 5. Metastatic adenocarcinoma of the right lung with brain mets. 6. Severe hypoalbuminemia. 7. Edema, secondary to hypoalbuminemia. PLAN 1. Check urine sodium, urine osmolality, serum uric acid. 2. Check urinalysis. 3. Continue Lasix 40 IV q. 12. 4. Monitor urine output closely. 5. Continue empiric antibiotics. 6. A 24-hour urine for protein and creatinine clearance. 7. Monitor for bleeding in the setting of severe thrombocytopenia. Case discussed with ICU nurses, case is discussed with ICU residents, case is discussed with patient and at length at bedside. More than 35 minutes are spent in the care of this critically ill patient. Huong [place] MD cc: [id number] TT: 12/18/2016 15:32:14 Confirmation # [id number] Dictation # [id number] en
--- NOTE | 2016-12-18 17:31 | CP.PCM.PN ---
Subjective - Date & Time of Evaluation Date of Evaluation: 12/18/16 Time of Evaluation: 17:00 - Subjective Subjective: Infectious Disease Consultation: December 18, 2016 61 yo male with history of metastatic lung cancer with metastatic disease to the brain and possibly bone presents with worsening shortness of breath and generalized weakness. Patient feels disorientated and has gait abnormalities. The patient with self-perceived weight loss. The patient was started on chemotherapy with last dose about 3 weeks ago. Chest X-ray does not show new changes from noted consolidations in right lung in the past (known lung cancer history). CT Chest shows possible right middle lobe pleural effusion. More information given by the today. Patient has PleurX catheter in the chest that is drained twice a week. Chemotherapy was actually given 1 week ago. Patient still with SOB episodes. Objective - Vital Signs/Intake and Output Vital Signs (last 24 hours): Temp Pulse Resp BP Pulse Ox 97.7 F 89 28 H 112/81 95 12/18/16 10:00 12/18/16 16:00 12/18/16 16:00 12/18/16 16:00 12/18/16 16:00 Intake and Output: 12/18/16 12/18/16 06:59 18:59 Intake Total 1100 470 Output Total 600 900 Balance 500 -430 - Medications Medications: Current Medications Acetaminophen (Tylenol 325mg Tab) 650 mg PO Q6H PRN PRN Reason: Fever >100.4 F Aspirin (Ecotrin) 81 mg PO DAILY [facility] Last Admin: 12/18/16 10:19 Dose: 81 mg Folic Acid (Folic Acid) 1 mg PO DAILY [facility] Last Admin: 12/18/16 10:19 Dose: 1 mg Furosemide (Lasix) 40 mg IVP Q12 [facility] Last Admin: 12/18/16 15:51 Dose: 40 mg Ceftaroline Fosamil 600 mg/ (Sodium Chloride) 100 mls @ 100 mls/hr IVPB Q12 [facility] PRN Reason: Protocol Last Admin: 12/18/16 10:19 Dose: 100 mls/hr Methylprednisolone (Solu-Medrol) 40 mg IVP Q8H [facility] Last Admin: 12/18/16 12:30 Dose: 40 mg Metoprolol Tartrate (Lopressor) 25 mg PO BID [facility] Last Admin: 12/18/16 10:18 Dose: 25 mg Morphine Sulfate (Morphine) 2 mg IVP Q4H PRN PRN Reason: Pain, severe (8-10) Nystatin (Nystatin Oral Susp) 5 ml PO QID [facility] Last Admin: 12/18/16 14:00 Dose: 5 ml Ondansetron HCl (Zofran Inj) 4 mg IVP Q6H PRN PRN Reason: Nausea/Vomiting Pantoprazole Sodium (Protonix Ec Tab) 40 mg PO DAILY [facility] Last Admin: 12/18/16 10:19 Dose: 40 mg - Labs Labs: 12/18/16 06:15 12/18/16 06:15 PT 13.3 Seconds (9.9-11.8) H 12/17/16 16:00 INR 1.23 (0.93-1.08) H 12/17/16 16:00 APTT 26.3 Seconds (23.7-30.8) 12/17/16 16:00 - Constitutional Appears: Non-toxic, No Acute Distress, Chronically Ill - Head Exam Head Exam: ATRAUMATIC, NORMOCEPHALIC - Eye Exam Eye Exam: EOMI, PERRL Pupil Exam: NORMAL ACCOMODATION, PERRL - ENT Exam ENT Exam: Mucous Membranes Moist, Normal External Ear Exam, TM's Normal Bilaterally - Neck Exam Neck Exam: Full ROM, Normal Inspection - Respiratory Exam Respiratory Exam: Clear to Ausculation Bilateral, NORMAL BREATHING PATTERN. absent: Rales, Rhonchi, Wheezes - Cardiovascular Exam Cardiovascular Exam: REGULAR RHYTHM, RRR, +S1, +S2 - GI/Abdominal Exam GI & Abdominal Exam: Soft, Normal Bowel Sounds. absent: Distended, Tenderness - Extremities Exam Additional comments: generally weak with gait abnormalities. Need aid to walk. - Neurological Exam Neurological Exam: Alert, Awake, CN II-XII Intact, Oriented x3 - Psychiatric Exam Psychiatric exam: Normal Affect, Normal Mood - Skin Skin Exam: Intact, Normal Color Assessment and Plan - Assessment and Plan (Free Text) Assessment: 61 yo male with metastatic lung cancer to the brain with general weakness and SOB. On Teflaro for antibiotic coverage for now. Will maintain this regimen for the time being. Supportive care. Possible pneumonia on right middle lobe. Noted elevated creatinine and significantly elevated BNP (normal on last hospitalization). The patient does not have a history of heart disease to my recollection. The patient is current awake and alert and answering questions appropriately. Admitted to MICU for monitoring for now. Supportive care. Septic workup in progress. On Teflaro for antibiotic therapy. Cultures pending. Thank you for allowing me to participate in the care of this patient, we will follow with you.
[2016-12-18 19:00] LABS: URIC ACID 12.1 mg/dL (3.5-8.5)
[2016-12-18 19:43] LABS: TROPONIN I 0.15 ng/mL
--- NOTE | 2016-12-18 22:21 | PN ---
DATE: 12/18/[address] Castillo. 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 Akbar for over 300 mL with the patient otherwise with out complaint, feeling better. He has significant thrombocytopenic indices with a platelet count of 13,000, manual count of 20,000 earlier today with diuresis achieved by Dr. Akbar with good effect, with elevated troponin, with followup with Dr. Blackmon appreciated cardiology, with the patient now francisca iting HIT testing prior to consideration for transfusion of platelets. However, there is no active b leeding at this time. The patient is in a controlled environment. We will monitor clinically and co ntinue with antibiotics as per Dr. Amado Jeter for suspected pneumonia behind his mass in his lung. PHYSICAL EXAMINATION: VITAL SIGNS: Temperature 97.5, pulse is 73, respirations 15, blood pressure 106/72, pulse ox 97%. HEENT: Oxygen. NECK: Supple. HEART: Tachy rate, regular rhythm. LUNGS: PleurX catheter on the right with decreased breath sounds bilaterally. ABDOMEN: Soft, nontender. EXTREMITIES: +1 edema of the feet bilaterally. NEUROLOGIC: Awake and alert. SKIN: Otherwise, warm, dry and clear. LABORATORY DATA: The patient's labs were done. White blood cell count 11.0, hemoglobin 11.0, hemato crit 33.9, platelet count of 13,000 with a manual of 20,000. His chem panel was within normal range except for a uric acid of 12.1 with a troponin of 0.15 down from 0.2 with a B-natriuretic peptide of 10,000 today. Procalcitonin level is 1.48. This patient's blood cultures are negative at 24 hours. ASSESSMENT: Suspected pneumonia, severe thrombocytopenia, recent treatment with Keytruda approximate ly 2 weeks prior. The patient is known to have poorly differentiated adenocarcinoma with metastases to the brain, statu s post radiation, left chest pleural effusion with history of pulmonary embolism. We will hold his a nticoagulation at present due to severe thrombocytopenia, syndrome of inappropriate antidiuretic horm one, elevated troponin, cachexia of malignancy. PLAN: The patient is to continue IV antibiotics. We await the HIT results prior to consideration fo r transfusion of platelets. However, there is no active bleeding and on inspection to the oral kletsel dehe wintun te there are no petechiae appreciated. Plan is to continue present medical regimen. We will monitor clinically and with labs with consultan ts' recommendations to be implemented. Prognosis for this patient is guarded. Jesus Davis MD cc: [phone] TT: 12/18/2016 22:20:05 Confirmation # [id number] Dictation # [id number] jn
[2016-12-18 22:57] LABS: URINE BILIRUBIN NEGATIVE (NEGATIVE); URINE BLOOD NEGATIVE (NEGATIVE); URINE GLUCOSE (UA) NEGATIVE (NEGATIVE); URINE KETONE NEGATIVE (NEGATIVE); URINE LEUKOCYTE ESTERASE NEGATIVE Leu/uL (NEGATIVE); URINE PROTEIN NEGATIVE mg/dL (<30 mg/dL); URINE UROBILINOGEN 0.2 E.U./dL (<1 E.U./dL)
[2016-12-18 22:58] LABS: URINE APPEARANCE CLEAR (CLEAR); URINE COLOR YELLOW (YELLOW)
[2016-12-19] MEDS: MethylPREDNISolone 40 mg Vial IVP SCH ×3 (04:41→20:15)
[2016-12-19 06:16] LABS: GRAN # 9.93 (1.4-6.5); GRAN % 88.2 % (50.0-68.0); HEMATOCRIT 32.7 % (42.0-52.0); LYMPH # 0.8 (1.2-3.4); LYMPH % 7.4 % (22.0-35.0); MEAN CELL VOLUME 95.1 fL (80.0-105.0); MEAN CORPUSCULAR HEMOGLOBIN 30.2 pg (25.0-35.0); MEAN CORPUSCULAR HGB CONC 31.8 g/dl (31.0-37.0); MONO # 0.5 (0.1-0.6); MONO % 4.4 % (1.0-6.0); RED CELL DISTRIBUTION WIDTH 22.3 % (11.5-14.5); WHITE BLOOD COUNT 11.3 10^3/ul (4.5-11.0)
[2016-12-19 06:35] LABS: ALKALINE PHOSPHATASE 75 U/L (38-133); ALT/SGPT 31 U/L (7-56); AST/SGOT 21 U/L (15-59); BILIRUBIN,TOTAL 0.6 mg/dL (0.2-1.3); BLOOD UREA NITROGEN 45 mg/dL (7-21); CALCIUM 8.5 mg/dL (8.4-10.5); CARBON DIOXIDE 25 mmol/L (21-33); CHLORIDE 102 mmol/L (98-107); CHOLESTEROL 227 mg/dL (130-200); GFR AFRICAN-AMERICAN > 60; GLUCOSE,RANDOM 128 mg/dL (70-110); MAGNESIUM 1.9 mg/dL (1.7-2.2); PHOSPHOROUS 4.3 mg/dL (2.5-4.5); POTASSIUM 4.1 mmol/L (3.6-5.0); SODIUM 133 mmol/L (132-148); TOTAL PROTEIN 5.6 g/dL (5.8-8.3)
[2016-12-19 07:11] LABS: TROPONIN I 0.17 ng/mL
[2016-12-19 07:55] LABS: PLATELET COUNT 17 10^3/uL (120.0-450.0)
[2016-12-19 07:56] LABS: ADD MANUAL DIFF? NO
--- NOTE | 2016-12-19 08:16 | CON ---
DATE: 12/18/2016 REFERRING PHYSICIAN: Dr. Jesus Davis. REASON FOR CONSULT: Respiratory failure, unresectable lung cancer, chronic lung disease. HISTORY OF PRESENT ILLNESS: This is a 61-year-old patient with unresectable lung cancer, malignant p leural effusion requiring PleurX catheter. Also has a history of brain tumor requiring brain radiati on, history of pulmonary embolism, DVT, comes into Emergency Room with shortness of breath and respir atory failure. He was placed on high flow oxygen, given bronchodilator, had a CAT scan done which sh ows septal intralobular thickening, has a right lung mass, also has some interstitial changes, right- sided PleurX catheter. Presently lying in the bed on high flow oxygen, sleepy. More than a liter fl uid was removed from the right PleurX catheter. After that, he feels a little better, but still has cough and shortness of breath. PAST MEDICAL HISTORY: Again, past medical history is unresectable lung cancer, malignant effusion re quiring PleurX catheter, history of brain tumor requiring radiation therapy, pulmonary embolism, DVT, chronic lung disease, thrombocytopenia. ALLERGIES: None known. SOCIAL HISTORY: Just recently stopped smoking. Also, history of excessive alcohol abuse which he st opped recently. FAMILY HISTORY: No significant cardiopulmonary disease reported. MEDICATIONS: He is on ceftaroline 600 mg twice a day, Ecotrin 81 mg daily, folic acid 1 mg daily, La six 40 mg IV q. 12 hours, metoprolol tartrate 25 mg twice a day, morphine 2 mg IV q. 4 hours p.r.n., nystatin oral suspension q.i.d., Protonix 40 mg daily, Solu-Medrol 40 mg q. 8 hours, Tylenol p.r.n. b asis, Zofran 4 mg q. 6 hours p.r.n. REVIEW OF SYSTEMS: Denied any headache, no rhinitis. Has a cough and shortness of breath. No chest pain. There is no nausea, no vomiting, no abdominal pain, no dysuria. Does have leg swelling. PHYSICAL EXAMINATION: GENERAL: Lying in the bed, mild to moderate distress. VITAL SIGNS: Temp is 98, heart rate is 87, respiratory rate is 18-30, blood pressure 106/76, pulse o x 95% on high flow nasal cannula. HEENT: Moist mucous membranes. Small oral cavity. Crowded airway. LUNGS: Have decreased breath sounds on the right lung, a few crackles on the left lung. Has a right -sided PleurX catheter. HEART: S1 and S2. ABDOMEN: Soft, nontender. No organomegaly. EXTREMITIES: There is trace edema. NEUROLOGIC: Awake, alert, follows simple commands. LABORATORY DATA: Shows hemoglobin 11.0, hematocrit 33.9, WBC 11.0, platelet count is 13. His INR 1. 23. Blood gases show pH 7.42, pCO2 of 32, O2 35. I am not sure if it is venous. Sodium 132, potass ium 4.3, chloride 100, bicarbonate 24, BUN 27, creatinine 0.9, glucose 118. Uric acid 12, calcium is 8.2, phosphorus 3.9, magnesium is 2.0. AST 20, ALT 24, alk phos is 83. Troponin 0.15. ProBNP is 1 0,000. Procalcitonin 1.48, TSH 0.91. Blood culture has been negative. IMPRESSION AND PLAN: Respiratory failure, has an unresectable lung cancer involving half of right porter ng with a malignant pleural effusion requiring PleurX catheter. There is also hint of for lymphangit ic spread with some alveolitis and interstitial infiltrate, also spread on the left lower lobe area t oo. Has a right endobronchial lesions, chronic obstructive lung disease, thrombocytopenia, also has tumor, metastasis to the brain requiring cranial radiation. His proBNP is also high with leg edema. Case discussed with Dr. Castillo in detail. At this point, he is not a candidate for bronchial stent . I do not see any part of the lung which we can open, mostly seems like it is tumor in the right hi lar and upper lobe area. Rest of the lung also suggestive of lymphangitic spread with the platelets only 15. May need to go ahead aggressively with chemotherapy. Continue high flow oxygen. Continue steroids. Continue inhaled bronchodilator. Continue diuretics. Previous admission, he had an echoc ardiogram done which shows right ventricular systolic pressure was 43 and was reported normal left ve ntricular wall thickening and left ventricle function was also reported normal. So I agree with the present treatment. Continue steroids, antibiotics, inhaled bronchodilator, diuretics. Send heparin- induced thrombocytopenia antibody to assure there is no thrombocytopenia secondary to antibiotics. F or now, avoid any heparin products. Thank you and we will follow with you. Ashia Fletcher MD cc: [id number] TT: 12/19/2016 08:15:56 Confirmation # [id number] Dictation # [id number] tn
[2016-12-19] MEDS: Nystatin 100,000 Units/ml Oral Susp 5 ml UD PO SCH ×4 (09:30→22:30)
[2016-12-19] MEDS: Pantoprazole 40 mg EC Tab PO SCH (09:30)
[2016-12-19] MEDS: Ceftaroline 600 MG in Sodium Chloride 0.9% 100 ML IVPB SCH ×2 (10:20→22:30)
[2016-12-19 12:05] LABS: PLATELET ESTIMATE LOW (NORMAL)
--- NOTE | 2016-12-19 14:34 | PN ---
DATE: 12/19/2016 ADDENDUM ASSESSMENT AND PLAN: 1. Hyponatremia, syndrome of inappropriate antidiuretic hormone secretion. 2. Metastatic lung cancer, adenocarcinoma with brain mets. 3. Severe thrombocytopenia. 4. Congestive heart failure, volume overload, elevated troponins. 5. Severe hypoalbuminemia. PLAN: 1. Restrict p.o. fluids. 2. Continue Lasix 40 IV q. 12. 3. Follow up 24-hour urine for protein and creatinine clearance. 4. Keep urine output more than intake. 5. Continue empiric antibiotics. 6. Monitor for bleeding. Huong [place] MD cc: [id number] TT: 12/19/2016 14:33:18 Confirmation # [id number] Dictation # [id number] en
--- NOTE | 2016-12-19 14:42 | PN ---
DATE: 12/19/2016 This is the patient's hospital visit in intensive care unit. For Dr. Castillo. SUBJECTIVE: The patient is a 61-year-old black male seen sitting up in bed, oxygen on, with his at the bedside, reporting he feels a little bit better today with his shortness of breath improved. 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 The patient's reports that she had drained approximately 700 mL earlier in the week. With this, the patient is to be transferred to the telemetry floor once a bed is available, and we will continue his present medi melody regimen. His platelets are still significantly compromised with the patient's HIT testing not re turned yet. However, there is no active bleeding with the patient being monitored. PHYSICAL EXAMINATION: VITAL SIGNS: Temperature 97.5, pulse 81, respirations 23, blood pressure 120/65, pulse ox 96%. HEENT: Oxygen is on. Tongue is moist and midline with no petechiae are noted to the inspection of t he oral palate. NECK: Supple. HEART: Regular rate, occasional ectopic beat. LUNGS: PleurX catheter on the right. Decreased breath sounds bilaterally. ABDOMEN: Soft, nontender. EXTREMITIES: +1 edema of the feet. NEUROLOGIC: Awake and alert. SKIN: Otherwise, warm, dry and clear. LABORATORY DATA: The patient's labs showed a white blood cell count of 11.3, hemoglobin 10.4, hemato crit 32.7, platelet count 17,000 with a manual of 30,000 today. His chem panel shows a troponin of 0 .17, LDH of 1073, BUN of 45, creatinine of 1.1. The patient's blood cultures are negative at 24 hours. ASSESSMENT: Is that of chronic obstructive pulmonary disease, suspicious for pneumonia with hypoxemi a, pleural effusion, mild respiratory failure, unresectable cancer of the lung with PleurX catheter, severe thrombocytopenia, lung metastasis to the brain, rule out heparin-induced thrombocytopenia, dec onditioning, poorly differentiated adenocarcinoma of the lung, status post radiation, history of pulm onary embolism, anticoagulation on hold, syndrome of inappropriate antidiuretic hormone, elevated tro ponin, cachexia of malignancy. PLAN: For this patient is to continue present medical regimen, await HIT return, with consultants' r ecommendations to be followed. Prognosis for this patient is guarded. Jesus Davis MD cc: [phone] TT: 12/19/2016 14:42:16 Confirmation # [id number] Dictation # [id number] mn
--- NOTE | 2016-12-19 15:45 | PN ---
DATE: 12/19/2016 SUBJECTIVE: The patient is seen in the ICU, is at bedside. He is awake, he is alert. He is st ill on noninvasive ventilation. He complains of intermittent shortness of breath. PHYSICAL EXAMINATION: GENERAL: Middle-aged male, sitting in bed. VITAL SIGNS: Blood pressure 120/65, heart rate 81, respiratory rate 23, temperature 97.5. HEENT: Normocephalic, atraumatic. NECK: Supple, no JVD. LUNGS: Bilateral equal air entry, decreased breath sounds right base, no rhonchi. CARDIAC: S1, S2, regular rate and rhythm, no murmur, no rub. ABDOMEN: Soft, nondistended, nontender, bowel sounds present. EXTREMITIES: 2+ pitting edema of the lower extremities. INTAKE AND OUTPUT: 200/1000. LABORATORY DATA: WBC 11, hemoglobin 10.4, hematocrit 33, platelets 17, manual count 30. Sodium 133, potassium 4.1, chloride 102, CO2 25, BUN 45, creatinine 1.1, glucose 128, calcium 8.5, phosphorus 4. 3, magnesium 1.9. CPK less than 20. Troponin 0.17. Albumin 2.8. Urine sodium 57, urine osmolality 363. Blood cultures, no growth so far. CURRENT MEDICATIONS: Ceftaroline 600 q. 12, Ecotrin, folic acid, Lasix 40 IV q. 12, Lopressor 25 b.i .d., morphine, Nystatin, Protonix, Solu-Medrol. Huong [place] MD cc: [id number] TT: 12/19/2016 14:25:20 Confirmation # [id number] Dictation # [id number] en 12/19/2016 14:43:25
[2016-12-19 15:59] LABS: HEPARIN-IND PLATELET AB Negative (Negative)
--- NOTE | 2016-12-19 17:01 | CP.PCM.PN ---
Subjective - Date & Time of Evaluation Date of Evaluation: 12/19/16 Time of Evaluation: 16:00 - Subjective Subjective: Infectious Disease Follow Up: December 19, 2016 61 yo male with history of metastatic lung cancer with metastatic disease to the brain and possibly bone presents with worsening shortness of breath and generalized weakness. Patient feels disorientated and has gait abnormalities. The patient with self-perceived weight loss. The patient was started on chemotherapy with last dose about 3 weeks ago. Chest X-ray does not show new changes from noted consolidations in right lung in the past (known lung cancer history). CT Chest shows possible right middle lobe pleural effusion. More information given by the today. Patient has PleurX catheter in the chest that is drained twice a week. Chemotherapy was actually given 1 week ago. Patient still with SOB episodes. Renal maintaining a negative fluid balance. Objective - Vital Signs/Intake and Output Vital Signs (last 24 hours): Temp Pulse Resp BP Pulse Ox 97.5 F L 75 18 142/81 98 12/19/16 12:00 12/19/16 16:00 12/19/16 16:00 12/19/16 16:00 12/19/16 16:00 Intake and Output: 12/19/16 12/19/16 06:59 18:59 Intake Total 200 Output Total 1000 Balance -800 - Medications Medications: Current Medications Acetaminophen (Tylenol 325mg Tab) 650 mg PO Q6H PRN PRN Reason: Fever >100.4 F Aspirin (Ecotrin) 81 mg PO DAILY [facility] Last Admin: 12/19/16 09:30 Dose: 81 mg Atorvastatin Calcium (Lipitor) 20 mg PO DIN [facility] Folic Acid (Folic Acid) 1 mg PO DAILY [facility] Last Admin: 12/19/16 09:30 Dose: 1 mg Furosemide (Lasix) 40 mg IVP Q12 [facility] Last Admin: 12/19/16 09:30 Dose: 40 mg Ceftaroline Fosamil 600 mg/ (Sodium Chloride) 100 mls @ 100 mls/hr IVPB Q12 [facility] PRN Reason: Protocol Last Admin: 12/19/16 10:20 Dose: 100 mls/hr Methylprednisolone (Solu-Medrol) 40 mg IVP Q8H [facility] Last Admin: 12/19/16 14:00 Dose: 40 mg Metoprolol Tartrate (Lopressor) 25 mg PO BID [facility] Last Admin: 12/19/16 09:31 Dose: 25 mg Morphine Sulfate (Morphine) 2 mg IVP Q4H PRN PRN Reason: Pain, severe (8-10) Nystatin (Nystatin Oral Susp) 5 ml PO QID [facility] Last Admin: 12/19/16 15:39 Dose: 5 ml Ondansetron HCl (Zofran Inj) 4 mg IVP Q6H PRN PRN Reason: Nausea/Vomiting Pantoprazole Sodium (Protonix Ec Tab) 40 mg PO DAILY [facility] Last Admin: 12/19/16 09:30 Dose: 40 mg - Labs Labs: 12/19/16 06:11 12/19/16 06:11 PT 13.3 Seconds (9.9-11.8) H 12/17/16 16:00 INR 1.23 (0.93-1.08) H 12/17/16 16:00 APTT 26.3 Seconds (23.7-30.8) 12/17/16 16:00 - Constitutional Appears: Non-toxic, No Acute Distress, Chronically Ill - Head Exam Head Exam: ATRAUMATIC, NORMOCEPHALIC - Eye Exam Eye Exam: EOMI, PERRL Pupil Exam: NORMAL ACCOMODATION, PERRL - ENT Exam ENT Exam: Mucous Membranes Moist, Normal External Ear Exam, TM's Normal Bilaterally - Neck Exam Neck Exam: Full ROM, Normal Inspection - Respiratory Exam Respiratory Exam: Clear to Ausculation Bilateral, NORMAL BREATHING PATTERN. absent: Rales, Rhonchi, Wheezes - Cardiovascular Exam Cardiovascular Exam: REGULAR RHYTHM, RRR, +S1, +S2 - GI/Abdominal Exam GI & Abdominal Exam: Soft, Normal Bowel Sounds. absent: Distended, Tenderness - Extremities Exam Additional comments: generally weak with gait abnormalities. Need aid to walk. - Neurological Exam Neurological Exam: Alert, Awake, CN II-XII Intact, Oriented x3 - Psychiatric Exam Psychiatric exam: Normal Affect, Normal Mood - Skin Skin Exam: Intact, Normal Color Assessment and Plan - Assessment and Plan (Free Text) Assessment: 61 yo male with metastatic lung cancer to the brain with general weakness and SOB. On Teflaro for antibiotic coverage for now. Will maintain this regimen for the time being. Supportive care. Possible pneumonia on right middle lobe. Noted elevated creatinine and significantly elevated BNP (normal on last hospitalization). The patient does not have a history of heart disease to my recollection. The patient is current awake and alert and answering questions appropriately. Admitted to MICU for monitoring for now. Supportive care. Septic workup in progress. Continue on Teflaro for antibiotic therapy. Cultures negative to day. Thank you for allowing me to participate in the care of this patient, we will follow with you.
--- NOTE | 2016-12-19 17:22 | CP.PCM.PN ---
Subjective - Date & Time of Evaluation Date of Evaluation: 12/19/16 Time of Evaluation: 14:50 - Subjective Subjective: Infectious Disease Follow Up: December 19, 2016 82 yo female with fatigue and lethargy for the past 2 weeks with progressive shortness of breath. She states a subjective fever and the patient completed a course of therapy with Azithromycin with no improvement. The patient has a past medical history that includes Atrial fibrillation, COPD, hypertension, and prior tobacco use history. Await cultures - negative at 48 hours. Patient had respiratory distress and was transferred to the MICU for further evaluation. The patient is currently on BiPAP. Antibiotic coverage expanded with addition of Cefepime. Patient appears to be improving. The patient had some shortness of breath episodes overnight but she often refuses the use of BiPAP. SOB with mild exertion still. On Cefepime and Vancomycin IV. Noted increase in LFTs to 3-4 times normal. AST and ALT is slowly improving and now resolved. Breathing has not improved by much since transfer to the MICU. The patient went for thoracentesis yesterday. The patient has felt better since thoracentesis but still has episodes of shortness of breath. Chronic lung disease and asthma. No new issues. Her biggest "complaint" is "weakness". Patient may have depression component (has a history). This morning patient was very difficult to arouse. Required transfusion but then suffered a syncopal episode. Patient to be sent to ER for evaluation. Objective - Vital Signs/Intake and Output Vital Signs (last 24 hours): Temp Pulse Resp BP Pulse Ox 97.5 F L 75 18 142/81 98 12/19/16 12:00 12/19/16 16:00 12/19/16 16:00 12/19/16 16:00 12/19/16 16:00 Intake and Output: 12/19/16 12/19/16 06:59 18:59 Intake Total 200 Output Total 1000 Balance -800 - Medications Medications: Current Medications Acetaminophen (Tylenol 325mg Tab) 650 mg PO Q6H PRN PRN Reason: Fever >100.4 F Aspirin (Ecotrin) 81 mg PO DAILY [facility] Last Admin: 12/19/16 09:30 Dose: 81 mg Atorvastatin Calcium (Lipitor) 20 mg PO DIN [facility] Folic Acid (Folic Acid) 1 mg PO DAILY [facility] Last Admin: 12/19/16 09:30 Dose: 1 mg Furosemide (Lasix) 40 mg IVP Q12 [facility] Last Admin: 12/19/16 09:30 Dose: 40 mg Ceftaroline Fosamil 600 mg/ (Sodium Chloride) 100 mls @ 100 mls/hr IVPB Q12 [facility] PRN Reason: Protocol Last Admin: 12/19/16 10:20 Dose: 100 mls/hr Methylprednisolone (Solu-Medrol) 40 mg IVP Q8H [facility] Last Admin: 12/19/16 14:00 Dose: 40 mg Metoprolol Tartrate (Lopressor) 25 mg PO BID [facility] Last Admin: 12/19/16 09:31 Dose: 25 mg Morphine Sulfate (Morphine) 2 mg IVP Q4H PRN PRN Reason: Pain, severe (8-10) Nystatin (Nystatin Oral Susp) 5 ml PO QID [facility] Last Admin: 12/19/16 15:39 Dose: 5 ml Ondansetron HCl (Zofran Inj) 4 mg IVP Q6H PRN PRN Reason: Nausea/Vomiting Pantoprazole Sodium (Protonix Ec Tab) 40 mg PO DAILY [facility] Last Admin: 12/19/16 09:30 Dose: 40 mg - Labs Labs: 12/19/16 06:11 12/19/16 06:11 PT 13.3 Seconds (9.9-11.8) H 12/17/16 16:00 INR 1.23 (0.93-1.08) H 12/17/16 16:00 APTT 26.3 Seconds (23.7-30.8) 12/17/16 16:00 - Constitutional Appears: Non-toxic, No Acute Distress, Chronically Ill - Head Exam Head Exam: ATRAUMATIC, NORMOCEPHALIC - Eye Exam Eye Exam: EOMI, PERRL Pupil Exam: NORMAL ACCOMODATION, PERRL - ENT Exam ENT Exam: Mucous Membranes Moist, Normal External Ear Exam, TM's Normal Bilaterally - Neck Exam Neck Exam: Full ROM, Normal Inspection - Respiratory Exam Respiratory Exam: Decreased Breath Sounds, Clear to Ausculation Bilateral, NORMAL BREATHING PATTERN. absent: Rales, Rhonchi, Wheezes - Cardiovascular Exam Cardiovascular Exam: REGULAR RHYTHM, RRR, +S1, +S2 - GI/Abdominal Exam GI & Abdominal Exam: Soft, Normal Bowel Sounds. absent: Distended, Tenderness - Extremities Exam Extremities Exam: Full ROM, Normal Inspection - Neurological Exam Neurological Exam: Alert, Awake, CN II-XII Intact, Oriented x3 - Psychiatric Exam Psychiatric exam: Normal Affect, Normal Mood - Skin Skin Exam: Intact, Normal Color Assessment and Plan - Assessment and Plan (Free Text) Assessment: 82 yo female with fatigue, shortness of breath, and lethargy despite Azithromycin treatment. The patient with opacity in left mid-lung and blunting of the costophrenic angles on Chest X-ray. Supportive care. Started on Azithromycin and Rocephin for therapy. The patient was short of breath especially with mild exertion. She was evaluated by the MICU and transferred there for further care. Antibiotic coverage extended to Vancomycin, Cefepime, and Azithromycin. She has been refusing BiPAP. Appears to be improving. Supportive care. Check Vancomycin levels. Last chest X-ray (12/06/2016) is still showing bibasilar infiltrates. Patient is still having shortness of breath episodes. No leukocytosis at this time. Severe asthma episodes. Thoracentesis performed several days ago. Patient feeling better since that time but still with shortness of breath episodes. Thoracentesis only removed 450 cc of fluid however. Supportive care. Was on Vancomycin and Cefepime. Off Azithromycin. Still has shortness of breath with mild exertion. Off antibiotics at this point and continue to monitor. She complains of generalized aches and pain and soreness. Syncopal episodes this morning/afternoon. The patient transferred down to ER. Will monitor. Thank you for allowing me to participate in the care of the patient, we will follow with you.
--- NOTE | 2016-12-19 20:12 | PN ---
DATE: 12/19/2016 REFERRING PHYSICIAN: Dr. Davis. SUBJECTIVE: He is sitting side of the bed with the help of therapist and nursing staff, been on high flow on nasal cannula oxygen. Still has cough and shortness of breath. No chest pain, no nausea, n o vomiting or diarrhea. Has leg swelling. OBJECTIVE: GENERAL: Mild to moderate distress. VITAL SIGNS: Temp is 98, heart rate is 71, respiratory rate is 18, blood pressure 108/76, pulse ox 9 6% on high flow oxygen. HEENT: Moist mucous membranes. Crowded airway. NECK: Supple. LUNGS: Has 1/3 up decreased breath sounds on right side, scattered crackles and rhonchi. HEART: S1 and S2. Tachycardic. ABDOMEN: Soft, nontender. No organomegaly. EXTREMITIES: Does have edema. NEUROLOGIC: Awake, alert, follows simple command. MEDICATIONS: He is on ceftaroline 600 mg q. 12 hours, Ecotrin 81 mg daily, folic acid 1 mg daily, L asix 40 mg twice a day, Lipitor 20 mg daily, metoprolol tartrate 25 mg twice a day, morphine 2 mg q. 4 hours p.r.n., nystatin 5 mL q.i.d., Protonix 40 mg daily, Solu-Medrol 40 mg q. 8 hours, Tylenol p.r .n., Zofran p.r.n. LABORATORY DATA: Shows hemoglobin 10.4, hematocrit 32.7, WBC 11.3, platelets is 17. Sodium 133, pot assium 4.1, chloride 102, bicarbonate 25, BUN 45, creatinine 1.1, glucose 128, calcium is 8.5, AST 21 , ALT 31, alkaline phosphatase is 75. LDH is 1073. Troponin is 0.17. Albumin 2.8, cholesterol is 2 53. Heparin-induced platelet antibody is negative. Microbiology: Blood culture is unremarkable. IMPRESSION AND PLAN: Respiratory failure on high flow nasal cannula oxygen, unresectable lung cancer , malignant effusion requiring PleurX catheter, metastatic disease to brain requiring radiation thera py, has interstitial infiltrate, cannot rule out lymphatic spread of the cancer, chronic obstructive lung disease, thrombocytopenia. I spoke to nursing staff. Awaiting echocardiogram to assess right v entricular and left ventricular function which is already actually available, shows pulmonary hyperte nsion. Pulmonary point of view, I will continue steroids, continue him on high flow nasal cannula ox ygen. I spoke to nursing staff and requested if they can drain the PleurX catheter tomorrow, need to ____ consider for chemotherapy. Overall poor prognosis. Follow up labs in the morning and chest x- ray in the morning. Critical care time more than 35 minutes. Thank you and will follow with you. Ashia Fletcher MD cc: [phone] TT: 12/19/2016 20:11:23 Confirmation # [id number] Dictation # [id number] jn
[2016-12-20] MEDS: MethylPREDNISolone 40 mg Vial IVP SCH ×3 (04:18→21:54)
[2016-12-20 06:01] LABS: ALKALINE PHOSPHATASE 73 U/L (38-133); ALT/SGPT 30 U/L (7-56); AST/SGOT 17 U/L (15-59); BILIRUBIN,TOTAL 0.5 mg/dL (0.2-1.3); BLOOD UREA NITROGEN 46 mg/dL (7-21); CALCIUM 8.7 mg/dL (8.4-10.5); CARBON DIOXIDE 28 mmol/L (21-33); CHLORIDE 97 mmol/L (98-107); GFR AFRICAN-AMERICAN > 60; GLUCOSE,RANDOM 135 mg/dL (70-110); POTASSIUM 4.1 mmol/L (3.6-5.0); SODIUM 133 mmol/L (132-148); TOTAL PROTEIN 5.7 g/dL (5.8-8.3)
[2016-12-20 06:36] LABS: HEMATOCRIT 31.8 % (42.0-52.0); MEAN CELL VOLUME 95.2 fL (80.0-105.0); MEAN CORPUSCULAR HEMOGLOBIN 30.8 pg (25.0-35.0); MEAN CORPUSCULAR HGB CONC 32.4 g/dl (31.0-37.0); RED CELL DISTRIBUTION WIDTH 22.1 % (11.5-14.5); WHITE BLOOD COUNT 10.9 10^3/ul (4.5-11.0)
[2016-12-20 06:47] LABS: ADD MANUAL DIFF? YES; PLATELET COUNT 28 10^3/uL (120.0-450.0)
[2016-12-20] MEDS: Nystatin 100,000 Units/ml Oral Susp 5 ml UD PO SCH ×4 (09:20→21:54)
[2016-12-20] MEDS: Pantoprazole 40 mg EC Tab PO SCH (09:20)
[2016-12-20] MEDS: Ceftaroline 600 MG in Sodium Chloride 0.9% 100 ML IVPB SCH ×2 (09:22→21:55)
[2016-12-20 10:12] LABS: ANISOCYTOSIS 1+; BAND 5 % (0-2); HYPOCHROMIA 1+; NEUTROPHIL 90 % (50.0-70.0); PLATELET ESTIMATE LOW (NORMAL); POLYCHROMASIA SLIGHT
[2016-12-20 10:13] LABS: OVALOCYTES SLIGHT; POIKILOCYTOSIS 1+; TEAR DROP CELLS SLIGHT
--- NOTE | 2016-12-20 11:03 | PN ---
DATE: 12/20/2016 SUBJECTIVE: The patient is currently seen in CCU. He is being transferred out later this morning. He appears to be in no acute distress, though he does remain mildly short of breath. He continues on IV antibiotic therapy for possible pneumonia. His sodium level has normalized. He remains mildly p rerenal on diuretic therapy for his lower extremity edema. MEDICATIONS: Medication list reviewed. The patient is on ceftaroline, Ecotrin, folic acid, IV Lasix , Lipitor, Lopressor, p.r.n. morphine, nystatin, Protonix, Solu-Medrol, Tylenol p.r.n., Zofran p.r.n. OBJECTIVE: INTAKE AND OUTPUT: Intake 880, output 1800. VITAL SIGNS: Blood pressure 120/78, temperature 96.7, respiratory rate is 20. Heart rate is 71. HEENT: Shows him to be normocephalic, atraumatic. Conjunctivae are pale. Sclerae are nonicteric. The patient is blind in his right eye. NECK: Supple, no neck vein distention. CHEST: Decreased breath sounds, right lung field. No rhonchi, no wheezing, no rales. CARDIOVASCULAR: S1, S2 irregular. MR/TR. No S3, no S4, no rub. ABDOMEN: Soft. Nondistended, nontender. Bowel sounds are normal. No rebound, no guarding. EXTREMITIES: Show 1+ to 2+ pitting edema of his lower extremity bilaterally. No cyanosis, no clubbi ng. Diminished lower extremity pulses secondary to edema. LABORATORY DATA AND IMAGING: Admitting chest CT shows an extensive right lung infiltrate with a righ t pleural effusion. Positive mediastinal adenopathy, hilar adenopathy consistent with metastatic dis ease. A right pleural effusion. Labs: CBC: White blood cell count today 10.9, hemoglobin 10.2 wit h a platelet count of 28,000. Heparin-induced platelet antibody is negative. Chemistries show alejandra l electrolytes. BUN 46 with a creatinine of 1.0. Glucose is 135. Slight elevation of troponins, bu t stable. Liver enzymes are normal. Albumin is 2.8 with a calcium of 8.7. His uric acid of note wa s 12.1. MICROBIOLOGY: All cultures are negative at 48 hours. ASSESSMENT: 1. Status post mild hyponatremia. The patient has a past history of syndrome of inappropriate antid iuretic hormone. Presently, the patient remains on diuretic therapy with an elevated uric acid level . In all likelihood, diuretics are playing a role in his mild hyponatremia. This appears to have co rrected. 2. Metastatic lung cancer with brain metastasis, status post chemotherapy and radiation therapy. Th e patient has a long history of cigarette smoking. 3. Malignant pleural effusion, status post thoracentesis, status post PleurX catheter. 4. History of chronic obstructive pulmonary disease, currently stable. 5. History of pulmonary embolism and deep venous thrombosis. 6. History of edema of his lower extremity on diuretic therapy. 7. Mild elevation of troponin, likely of no significance. 8. Possible right lung pneumonia superimposed on consolidations in the right lung secondary to malig brian. The patient is on IV antibiotic therapy empirically. PLAN: 1. Would continue diuretic therapy as ordered. Try to keep patient in negative fluid balance with c lose monitoring of his electrolytes. 2. Increased BUN likely secondary to diuretics and steroid therapy. Creatinine remains stable at 1. 0. 3. Continue to monitor accurate I's and O's and daily weights. The patient is being transferred to the floor. 4. Check on 24-hour urine for protein and creatinine clearance. This is pending. 5. Complete a course of empiric antibiotic therapy for possible right-sided pneumonia. 6. Monitor platelet counts closely in light of his severe thrombocytopenia. Monitor for any bleedin g and possible platelet transfusions if necessary as per hematology/oncology. Angel Kaur MD cc: [phone] TT: 12/20/2016 11:02:39 Confirmation # [id number] Dictation # [id number] tn
[2016-12-20 12:23] LABS: URINE COLLECTION TIME 24 HOURS
--- NOTE | 2016-12-20 13:55 | PN ---
DATE: 12/20/2016 REASON FOR CONSULTATION AND FOLLOWUP: Cardiac evaluation, positive troponin. BRIEF CLINICAL HISTORY: This is a 61-year-old -[place] male with past medical history of sebastian g cancer with metastases diagnosed in July of this year came with complaint of shortness of breath . Denies any chest pain. Positive troponin. ____ was called. The patient is stable, lying flat on the bed, shortness of significantly improved. PHYSICAL EXAMINATION: VITAL SIGNS: Temperature afebrile, heart rate 71, blood pressure 102/66. HEENT: PERRLA. Extraocular muscles intact. NECK: Supple. No carotid bruits. No thyromegaly. CHEST: Clear to auscultation. HEART: S1, S2 regular. ABDOMEN: Soft. EXTREMITIES: Clubbing and cyanosis negative. LABORATORY DATA: As follows: WBC 10.9, hemoglobin 10, hematocrit 31.8, platelet count 35. Chemistr y shows sodium 130, potassium 4, chloride 97, anion gap of ____, BUN 24, creatinine 1.0. IMPRESSION: Positive troponin, lung carcinoma, asymptomatic positive troponin. The patient's most r ecent echocardiography done shows ejection fraction 58%, trace mitral regurgitation, trace tricuspid regurgitation, ____ pressure 43 dated 10/30/2015. Lung cancer with metastatic to the brain, history of retinal detachment, not related to carcinoma lung. RECOMMENDATION: Continue gentle diuretics. Continue supportive care. Continue aspirin, continue at orvastatin, continue beta garrett. We will treat patient medically. No invasive cardiac workup is p lanned at this time because of underlying comorbidity Thank you, Dr. Castillo, for providing us the op portunity in taking care of this patient. The patient is asymptomatic. The patient is very severely thrombocytopenic. Ashia Blackmon MD cc: [phone] TT: 12/20/2016 13:55:06 Confirmation # [id number] Dictation # [id number] tammy
--- NOTE | 2016-12-20 14:56 | PN ---
DATE: 12/20/2016 This is patient's hospital visit in the intensive care unit. For Dr. Castillo. SUBJECTIVE: The patient is a 61-year-old male with pneumonia, hypoxemia, pleural effusion, unresecta ble cancer of the lung with PleurX catheter with metastases to the brain. With this, the patient is now to be transferred to the telemetry floor with his PleurX catheter drained approximately 800 mL th e other day and the patient now modestly improved. With this, the patient is otherwise without compl aint. PHYSICAL EXAMINATION: VITAL SIGNS: Temperature 96.7, pulse 71, respirations 24, blood pressure 102/66, pulse ox 97%. HEENT: Unremarkable. Oxygen is on. NECK: Supple. LUNGS: Decreased breath sounds in the right with a PleurX catheter there. HEART: Regular rate, occasional ectopic beat. ABDOMEN: Soft, nontender. EXTREMITIES: +1 edema. NEUROLOGIC: Awake and alert. SKIN: Warm, dry and clear. LABORATORY DATA: The patient's labs were done. White blood cell count 10.9, hemoglobin 10.3, hemato crit 31.8, platelet count 28,000 with a manual count of 35,000 today. Chem metabolic panel shows chlo ride 97, BUN of 46, creatinine 1.0 with a troponin of 0.17 yesterday, with an otherwise normal chem m etabolic panel. ASSESSMENT: Severe thrombocytopenia with no active bleeding, suspected pneumonia, hypoxemia, pleural effusion, stage IV unresectable cancer of the lung with PleurX catheter on the right, lung metastase s to the brain, rule out heparin-induced thrombocytopenia, history of pulmonary embolism, anticoagula tion on hold, syndrome of inappropriate secretion of antidiuretic hormone, elevated troponin, cachexi a of malignancy. PLAN: The patient is to continue his present medical regimen with his HIT testing reported as negati ve. We will cut back on his steroids from 40 IV q. 8 to 30 IV q. 8 with further cutback as per Dr. Mao plata. The patient to be transferred to the telemetry floor. We will monitor clinically and with maria antonia rhodes. Jesus Davis MD cc: [phone] TT: 12/20/2016 14:55:08 Confirmation # [id number] Dictation # [id number] rn
--- NOTE | 2016-12-20 17:54 | PN ---
DATE: 12/20/2016 REFERRING PHYSICIAN: Dr. Jesus Davis. The patient is lying in the bed, sleepy, arousable on nasal cannula oxygen. Transfer out of ICU to [facility]. Still having cough and shortness of breath. No nausea, no vomiting, no diarrhea. No dysu grey, still has leg swelling. OBJECTIVE: GENERAL: No acute distress. VITAL SIGNS: Temperature is 98, heart rate is 71, respiratory rate is 24, blood pressure 102/66, pul se ox 97% nasal cannula. HEENT: Moist mucous membrane. Crowded airway. Mallampati score is 4. NECK: Supple. No JVD. LUNGS: Has decreased breath sounds at the bases, right more than the left. The right chest PleurX c atheter. HEART: S1 and S2. ABDOMEN: Soft, nontender. No organomegaly. EXTREMITIES: Has edema. NEUROLOGIC: Awake, alert, follows simple command. MEDICATIONS: He is on ceftaroline 600 mg twice a day, Ecotrin 81 mg daily, folic acid 1 mg daily, La six 40 mg twice a day, Lipitor 20 mg daily, metoprolol tartrate 25 mg twice a day, morphine is 2 mg q . 4 hours p.r.n., Protonix 40 mg daily, Solu-Medrol 30 mg q. 8 hours, Tylenol p.r.n., Zofran p.r.n. LABORATORY DATA: Shows hemoglobin 10.3, hematocrit 31.8, WBC ____.9, platelet is 28. Sodium 133, po tassium 4.1, chloride 97, bicarbonate 28, BUN 46, creatinine 1.0, glucose 135, calcium is 8.7. AST 1 7, ALT 30, alkaline phosphatase is 73. Albumin is 2.9. MICROBIOLOGY: Blood culture and nasal cultures are unremarkable. IMPRESSION AND PLAN: Respiratory failure requiring noninvasive ventilation presently on nasal cannul a, unresectable lung cancer with malignant effusion with metastatic disease to brain requiring radiat ion, has a PleurX catheter, on the schedule for drainage of the PleurX catheter 3 times a week, also some interstitial infiltrate bilaterally, could have a lymphatic spread, chronic obstructive lung dis ease, thrombocytopenia. Pulmonary point of view better than yesterday. There may be a component sle ep apnea syndrome. Will get BiPAP 12 hours with ____ oxygen while sleeping and daytime. Continue na yeimy cannula. Being followed by oncology services. Need to have further chemotherapy. Gastric proph ylaxis. SCD to lower extremity. Follow up labs in the morning. Thank you and we will follow with manuel mc. Ashia Fletcher MD cc: [phone] TT: 12/20/2016 17:53:28 Confirmation # [id number] Dictation # [id number] jn
--- NOTE | 2016-12-20 18:10 | CP.PCM.PN ---
Subjective - Date & Time of Evaluation Date of Evaluation: 12/20/16 Time of Evaluation: 16:15 - Subjective Subjective: Infectious Disease Follow Up: December 20, 2016 61 yo male with history of metastatic lung cancer with metastatic disease to the brain and possibly bone presents with worsening shortness of breath and generalized weakness. Patient feels disorientated and has gait abnormalities. The patient with self-perceived weight loss. The patient was started on chemotherapy with last dose about 3 weeks ago. Chest X-ray does not show new changes from noted consolidations in right lung in the past (known lung cancer history). CT Chest shows possible right middle lobe pleural effusion. More information given by the today. Patient has PleurX catheter in the chest that is drained twice a week. Chemotherapy was actually given 1 week ago. Patient still with SOB episodes. Renal maintaining a negative fluid balance. Overall, improvement compared to day of admission. Maintaining use of Teflaro for antibiotic treatment. Objective - Vital Signs/Intake and Output Vital Signs (last 24 hours): Temp Pulse Resp BP Pulse Ox 96.7 F L 71 24 102/66 97 12/20/16 08:00 12/20/16 11:00 12/20/16 11:00 12/20/16 11:00 12/20/16 11:00 Intake and Output: 12/20/16 12/20/16 06:59 18:59 Intake Total 520 340 Output Total 800 1050 Balance -280 -710 - Medications Medications: Current Medications Acetaminophen (Tylenol 325mg Tab) 650 mg PO Q6H PRN PRN Reason: Fever >100.4 F Aspirin (Ecotrin) 81 mg PO DAILY [facility] Last Admin: 12/20/16 09:19 Dose: 81 mg Atorvastatin Calcium (Lipitor) 20 mg PO DIN [facility] Last Admin: 12/20/16 17:32 Dose: 20 mg Folic Acid (Folic Acid) 1 mg PO DAILY [facility] Last Admin: 12/20/16 09:19 Dose: 1 mg Furosemide (Lasix) 40 mg IVP Q12 [facility] Last Admin: 12/20/16 09:20 Dose: 40 mg Ceftaroline Fosamil 600 mg/ (Sodium Chloride) 100 mls @ 100 mls/hr IVPB Q12 FRANCO PRN Reason: Protocol Last Admin: 12/20/16 09:22 Dose: 100 mls/hr Methylprednisolone (Solu-Medrol) 30 mg IVP Q8 [facility] Last Admin: 12/20/16 13:55 Dose: 30 mg Metoprolol Tartrate (Lopressor) 25 mg PO BID [facility] Last Admin: 12/20/16 17:32 Dose: 25 mg Morphine Sulfate (Morphine) 2 mg IVP Q4H PRN PRN Reason: Pain, severe (8-10) Nystatin (Nystatin Oral Susp) 5 ml PO QID [facility] Last Admin: 12/20/16 17:26 Dose: 5 ml Ondansetron HCl (Zofran Inj) 4 mg IVP Q6H PRN PRN Reason: Nausea/Vomiting Pantoprazole Sodium (Protonix Ec Tab) 40 mg PO DAILY [facility] Last Admin: 12/20/16 09:20 Dose: 40 mg - Labs Labs: 12/20/16 05:35 12/20/16 10:00 PT 13.3 Seconds (9.9-11.8) H 12/17/16 16:00 INR 1.23 (0.93-1.08) H 12/17/16 16:00 APTT 26.3 Seconds (23.7-30.8) 12/17/16 16:00 - Constitutional Appears: Non-toxic, No Acute Distress, Chronically Ill - Head Exam Head Exam: ATRAUMATIC, NORMOCEPHALIC - Eye Exam Eye Exam: EOMI, PERRL Pupil Exam: NORMAL ACCOMODATION, PERRL - ENT Exam ENT Exam: Mucous Membranes Moist, Normal External Ear Exam, TM's Normal Bilaterally - Neck Exam Neck Exam: Full ROM, Normal Inspection - Respiratory Exam Respiratory Exam: Decreased Breath Sounds, Rhonchi. absent: Rales, Wheezes Additional comments: mild basilar rhonchi. - Cardiovascular Exam Cardiovascular Exam: REGULAR RHYTHM, RRR, +S1, +S2 - GI/Abdominal Exam GI & Abdominal Exam: Soft, Normal Bowel Sounds. absent: Distended, Tenderness - Extremities Exam Additional comments: generalized weakness. gait abnormalities. - Neurological Exam Neurological Exam: Alert, Awake, CN II-XII Intact, Oriented x3 - Psychiatric Exam Psychiatric exam: Normal Affect, Normal Mood - Skin Skin Exam: Intact, Normal Color Assessment and Plan - Assessment and Plan (Free Text) Assessment: 61 yo male with metastatic lung cancer to the brain with general weakness and SOB. On Teflaro for antibiotic coverage for now. Will maintain this regimen for the time being. Supportive care. Possible pneumonia on right middle lobe. Noted elevated creatinine and significantly elevated BNP (normal on last hospitalization). The patient does not have a history of heart disease to my recollection. The patient is current awake and alert and answering questions appropriately. Admitted to MICU for monitoring initially but transferred to telemetry now. Supportive care. Septic workup in progress. Continue on Teflaro for antibiotic therapy. Cultures negative to date. Some improvement in breathing overall. Thank you for allowing me to participate in the care of this patient, we will follow with you.
--- NOTE | 2016-12-20 23:17 | PN ---
DATE: 12/19/2016 REASON FOR CONSULTATION AND FOLLOWUP: Positive troponin, lung cancer with metastasis, shortness of b reath, congestion. BRIEF CLINICAL HISTORY: This is a 61-year-old male with a history of lung CA diagnosed July with metastases to the brain, history of blindness in the right eye not related to cancer, history of COPD , history of DVT, PE and history of Port-A-Cath, who was admitted with shortness of breath, tro ponin positive 0.25. The patient denies any chest pain or shortness of breath. Denies any palpitati ons. PHYSICAL EXAMINATION: VITAL SIGNS: Temperature afebrile, heart rate 84, blood pressure 115/86. HEENT: PERRLA. Extraocular muscles intact. NECK: Supple. No carotid bruits. No thyromegaly. CHEST: Clear to auscultation. HEART: S1, S2 regular. ABDOMEN: Soft. EXTREMITIES: Clubbing and cyanosis negative. LABORATORY DATA: Blood workup as follows: WBC , hemoglobin 10, hematocrit 32.7, platelet count 17. Sodium 130, potassium , chloride 102, carbon dioxide 25, anion gap of , BUN , cr eatinine 1.1. Troponin 0.2, 0.15 and 0.17. Total protein 5.6, albumin 2.0, albumin/globulin ratio 1 . Triglycerides 253, cholesterol 227, LDL 157. IMPRESSION: Hyperlipidemia, positive troponin, severe thrombocytopenia. The patient had a recent ec ho done that showed normal left ventricular size, thickness and function, ejection fraction 58%, trac e mitral regurgitation, trace tricuspid regurgitation, right ventricular systolic pressure 43, dated 11/08/2016. The patient is not on Lovenox or anticoagulation because of severe thrombocytopenia and h igh risk of bleed. the patient can bleed spontaneously. RECOMMENDATION: Continue beta garrett. Continue aspirin as tolerated. Continue Lasix. Continue me toprolol. Will put on a low dose of atorvastatin. No cardiac intervention is planned at this time _ ____ because of the patient's condition, and overall patient's condition, will treat medic ally. Thank you, Dr. Castillo, for providing me the opportunity in taking care of this patient. Will follow with you. Ashia Blackmon MD cc: [phone] TT: 12/19/2016 19:27:16 Confirmation # [id number] Dictation # [id number] dn
[2016-12-21] MEDS: MethylPREDNISolone 40 mg Vial IVP SCH ×3 (06:35→22:11)
[2016-12-21 07:51] LABS: ADD MANUAL DIFF? NO
[2016-12-21 08:03] LABS: BASO # 0.01 K/mm3 (0.0-2.0); BASO % 0.1 % (0.0-3.0); GRAN % 92.3 % (50.0-68.0); HEMATOCRIT 30.7 % (42.0-52.0); LYMPH # 0.3 (1.2-3.4); LYMPH % 2.7 % (22.0-35.0); MEAN CORPUSCULAR HEMOGLOBIN 30.3 pg (25.0-35.0); MEAN CORPUSCULAR HGB CONC 31.9 g/dl (31.0-37.0); MONO # 0.5 (0.1-0.6); MONO % 4.9 % (1.0-6.0); RED CELL DISTRIBUTION WIDTH 22.2 % (11.5-14.5); WHITE BLOOD COUNT 10.7 10^3/ul (4.5-11.0)
[2016-12-21 08:05] LABS: PLATELET COUNT 35 10^3/uL (120.0-450.0)
[2016-12-21 08:28] LABS: ALKALINE PHOSPHATASE 82 U/L (38-133); ALT/SGPT 32 U/L (7-56); AST/SGOT 20 U/L (15-59); BILIRUBIN,TOTAL 0.4 mg/dL (0.2-1.3); BLOOD UREA NITROGEN 45 mg/dL (7-21); CALCIUM 8.8 mg/dL (8.4-10.5); CARBON DIOXIDE 31 mmol/L (21-33); CHLORIDE 96 mmol/L (98-107); GFR AFRICAN-AMERICAN > 60; GLUCOSE,RANDOM 121 mg/dL (70-110); MAGNESIUM 1.9 mg/dL (1.7-2.2); POTASSIUM 3.7 mmol/L (3.6-5.0); SODIUM 134 mmol/L (132-148); TOTAL PROTEIN 5.5 g/dL (5.8-8.3)
[2016-12-21] MEDS: Pantoprazole 40 mg EC Tab PO SCH (10:11)
[2016-12-21] MEDS: Nystatin 100,000 Units/ml Oral Susp 5 ml UD PO SCH ×4 (10:11→22:11)
[2016-12-21] MEDS: Ceftaroline 600 MG in Sodium Chloride 0.9% 100 ML IVPB SCH ×2 (10:12→22:10)
--- NOTE | 2016-12-21 10:52 | PN ---
DATE: 12/21/2016 SUBJECTIVE: The patient is currently seen on 2R. He was transferred from the CCU yesterday. He celestine ears to be stable. He has just completed breakfast. He complains of only mild shortness of breath. He remains on IV antibiotic therapy for possible pneumonia. He remains prerenal on diuretic therapy and steroid therapy. He remains edematous. MEDICATIONS: Medication list reviewed. The patient is currently on ceftaroline, aspirin, folic acid , IV Lasix, Lipitor, Lopressor, p.r.n. morphine, nystatin, Protonix, IV Solu-Medrol, p.r.n. Tylenol, and p.r.n. Zofran. OBJECTIVE: INTAKE AND OUTPUT: Intake 340, output 1050. VITAL SIGNS: Blood pressure 144/69, temperature 98.2, respiratory rate 20 with a pulse of 72. Oxyge n saturation 99%. HEENT: Shows him to be normocephalic, atraumatic. Conjunctivae are pale. Sclerae are nonicteric. The patient is blind in the right eye. NECK: Supple. No neck vein distention. CHEST: Decreased breath sounds, right lung field. No rhonchi, no wheezing, no rales. CARDIOVASCULAR: S1 and S2 are regular. MR/TR. No S3, no S4, no rub. ABDOMEN: Soft. Nondistended, nontender. Bowel sounds are normal. No rebound, no guarding. EXTREMITIES: With legs elevated continued to show 1-2+ pitting edema of his lower extremity. No cya nosis, no clubbing. Diminished lower extremity pulses secondary to edema. LABORATORY DATA AND IMAGING: CBC: White blood cell count 10.7. Hemoglobin is 9.8 with a platelet c ount of 35,000. Manual platelet count is 40,000. Chemistries: Normal electrolytes. Chloride 96, B UN 45 with a creatinine of 0.9. The glucose is 121. Liver enzymes are normal. Albumin is 2.8. Rohan robiology: Blood cultures are negative at 72 hours. ASSESSMENT: 1. Prerenal azotemia secondary to the use of IV Lasix therapy for lower extremity edema and use of s teroid therapy. The patient has a normal creatinine, but will likely continue with an elevated BUN u ntil these medications are adjusted downward. We are monitoring closely for any hyponatremia on diur etic therapy. 2. Status post mild hyponatremia. The patient's sodium level had risen from 121-134. In the past, the patient had a syndrome of inappropriate antidiuretic hormone. The patient appears to have a dilu tional hyponatremia. Of note, elevated uric acid level, but he is on diuretic therapy. 3. Metastatic lung cancer with brain mets, status post chemotherapy and radiation therapy. 4. History of a malignant pleural effusion, status post thoracentesis, status post PleurX catheter. 5. History of chronic obstructive pulmonary disease, currently stable. 6. History of pulmonary embolism and deep venous thrombosis. 7. Edema of the lower extremity. The patient will continue diuretic therapy. 8. Mild elevation of troponin, likely of uncertain significance. 9. Possible right lung pneumonia superimposed on infiltrates and consolidations in the right lung se condary to malignancy. The patient will continue his course of empiric antibiotic therapy. All cult ures are negative. PLAN: 1. Continue diuretic therapy. Attempt to keep the patient in negative fluid balance. We will attem pt to get daily weights. 2. Continue to monitor electrolytes in light of the elevated BUN. His creatinine is stable. 3. Need to monitor accurate I's and O's. 4. 24-hour urines were done and completed. Creatinine clearance was 35 mL per minute with 234 mg of protein in the urine. 5. Monitor platelet counts closely in light of his severe thrombocytopenia. Monitor for any bleedin g and possible platelet transfusions, as per hematology/oncology. Angel Kaur MD cc: [id number] TT: 12/21/2016 10:52:13 Confirmation # [id number] Dictation # [id number] jn
[2016-12-21] MEDS ORDERED: Potassium Chloride 20 mEq ER Tab PO ONE (11:15)
--- NOTE | 2016-12-21 13:05 | PN ---
DATE: 12/21/2016 REASON FOR CONSULTATION AND FOLLOWUP: Cardiac evaluation, positive troponin. BRIEF CLINICAL HISTORY: This is a 61-year-old male with a past medical history sign ificant for lung CA with metastasis diagnosed in July this year. Came with complaint of shortness of breath. Denies any chest pain. Positive troponin. Cardiology consult was called. The patient is stable. Denies any chest pain. Lying flat on the bed. Shortness of breath significantly improve d. PHYSICAL EXAMINATION: VITAL SIGNS: Temperature afebrile, heart rate 78, blood pressure 144/69. HEENT: PERRLA. Extraocular muscles intact. NECK: Supple. No carotid bruits. No thyromegaly. CHEST: Clear to auscultation. HEART: S1, S2 regular. ABDOMEN: Soft. EXTREMITIES: Clubbing, cyanosis negative. BLOOD WORKUP: WBC 10.7, hemoglobin 9.8, hematocrit 30.7, platelet count 35. Chemistry shows sodium 134, potassium 3.3, chloride 97, carbon dioxide 31, anion gap of 11, BUN 45, creatinine 0.9. Total p rotein , albumin 2.8. IMPRESSION: Protein calorie malnutrition, hypokalemia, anemia, severe thrombocytopenia, positive tro ponin, asymptomatic, maximum troponin 0.15, possibly secondary to hemodynamic instability and congest [place] heart failure, lung cancer, inoperable with metastasis, blindness in the right eye. RECOMMENDATION: Given all this patient's comorbidities, asymptomatology and severe thrombocytopenia, treat medically and will not jeb with borderline troponin positive in asymptomatic. The patient i s severe thrombocytopenic and widespread metastasis, cancer lung with widespread metastases and survi jane is not that great. We will treat medically as patient is asymptomatic. Continue metoprolol, con tinue baby aspirin, will start baby aspirin started. Continue metoprolol. Continue nitrate. We amanda l follow with you. Thank you, Dr. Castillo, for providing us the opportunity in taking care of the patient. We will foll ow with you. We will put Imdur 60 mg and monitor him closely. Withholding parameter, hold for systo lic less than 120. Ashia Blackmon MD cc: [id number] TT: 12/21/2016 13:04:09 Confirmation # [id number] Dictation # [id number] en
--- NOTE | 2016-12-21 15:30 | PN ---
DATE: 12/21/2016 This is the patient's hospital visit on the telemetry floor. For Dr. Castillo. SUBJECTIVE: The patient is a 61-year-old male, seen lying awake in bed with pneumonia, hypoxemia, pl eural effusion, unresectable cancer of the lung with PleurX catheter, known metastases to the brain. The patient is now lethargic and somnolent, but otherwise without complaint. OBJECTIVE AND PHYSICAL EXAMINATION: VITAL SIGNS: Temperature 97.5, pulse 64, respirations 18, blood pressure 100/68 with a pulse ox of 9 9%. HEENT: The patient is blind in the right eye. NECK: Supple. HEART: Regular rate. LUNGS: Decreased breath sounds on the right with a PleurX catheter there. ABDOMEN: Soft, nontender. EXTREMITIES: Faint +1 edema, left greater than right. NEUROLOGIC: Awake and alert, but somnolent. The patient's labs were done. White blood cell count of 10.7, hemoglobin 9.8, hematocrit 30.7, plate let count of 35,000, a manual of 40,000. His chem panel shows a BUN of 45, total protein of 5.5. Ot herwise, normal chem metabolic panel. As reported earlier, his heparin-induced platelet antibody is negative. 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 PLAN: After conversation with Dr. Castillo and Dr. Fletcher, is to consider draining the PleurX cathete r 3 times a week with continuation of present medical regimen with his renal status being followed by Dr. Kaur. His troponin is being followed by Dr. Blackmon with medical treatment recommended as the p atient is asymptomatic, he reports. Jesus Davis MD cc: [phone] TT: 12/21/2016 15:30:10 Confirmation # [id number] Dictation # [id number] en
--- NOTE | 2016-12-21 16:46 | CP.PCM.PN ---
Subjective - Date & Time of Evaluation Date of Evaluation: 12/21/16 Time of Evaluation: 15:15 - Subjective Subjective: Infectious Disease Follow Up: December 21, 2016 61 yo male with history of metastatic lung cancer with metastatic disease to the brain and possibly bone presents with worsening shortness of breath and generalized weakness. Patient feels disorientated and has gait abnormalities. The patient with self-perceived weight loss. The patient was started on chemotherapy with last dose about 3 weeks ago. Chest X-ray does not show new changes from noted consolidations in right lung in the past (known lung cancer history). CT Chest shows possible right middle lobe pleural effusion. More information given by the today. Patient has PleurX catheter in the chest that is drained twice a week. Chemotherapy was actually given 1 week ago. Patient still with SOB episodes. Renal maintaining a negative fluid balance. Overall, improvement compared to day of admission. Maintaining use of Teflaro for antibiotic treatment. Still with some degree of shortness of breath but I'm not sure if this can be completely resolved due to underlying lung cancer. Objective - Vital Signs/Intake and Output Vital Signs (last 24 hours): Temp Pulse Resp BP Pulse Ox 97.5 F L 64 18 100/68 99 12/21/16 12:00 12/21/16 12:00 12/21/16 12:00 12/21/16 12:00 12/21/16 06:00 - Medications Medications: Current Medications Acetaminophen (Tylenol 325mg Tab) 650 mg PO Q6H PRN PRN Reason: Fever >100.4 F Aspirin (Ecotrin) 81 mg PO DAILY [facility] Last Admin: 12/21/16 10:11 Dose: 81 mg Atorvastatin Calcium (Lipitor) 20 mg PO DIN [facility] Last Admin: 12/20/16 17:32 Dose: 20 mg Folic Acid (Folic Acid) 1 mg PO DAILY [facility] Last Admin: 12/21/16 10:11 Dose: 1 mg Furosemide (Lasix) 40 mg IVP DAILY [facility] Ceftaroline Fosamil 600 mg/ (Sodium Chloride) 100 mls @ 100 mls/hr IVPB Q12 [facility] PRN Reason: Protocol Last Admin: 12/21/16 10:12 Dose: 100 mls/hr Isosorbide Mononitrate (Imdur) 60 mg PO DAILY [facility] Last Admin: 12/21/16 11:48 Dose: 60 mg Methylprednisolone (Solu-Medrol) 30 mg IVP Q8 [facility] Last Admin: 12/21/16 14:48 Dose: 30 mg Metoprolol Tartrate (Lopressor) 25 mg PO BID [facility] Last Admin: 12/21/16 10:11 Dose: 25 mg Morphine Sulfate (Morphine) 2 mg IVP Q4H PRN PRN Reason: Pain, severe (8-10) Nystatin (Nystatin Oral Susp) 5 ml PO QID [facility] Last Admin: 12/21/16 14:48 Dose: 5 ml Ondansetron HCl (Zofran Inj) 4 mg IVP Q6H PRN PRN Reason: Nausea/Vomiting Pantoprazole Sodium (Protonix Ec Tab) 40 mg PO DAILY [facility] Last Admin: 12/21/16 10:11 Dose: 40 mg - Labs Labs: 12/21/16 07:30 12/21/16 07:30 PT 13.3 Seconds (9.9-11.8) H 12/17/16 16:00 INR 1.23 (0.93-1.08) H 12/17/16 16:00 APTT 26.3 Seconds (23.7-30.8) 12/17/16 16:00 - Constitutional Appears: Non-toxic, No Acute Distress, Chronically Ill - Head Exam Head Exam: ATRAUMATIC, NORMOCEPHALIC - Eye Exam Eye Exam: EOMI, PERRL Pupil Exam: NORMAL ACCOMODATION, PERRL - ENT Exam ENT Exam: Mucous Membranes Moist, Normal External Ear Exam, TM's Normal Bilaterally - Neck Exam Neck Exam: Full ROM, Normal Inspection - Respiratory Exam Respiratory Exam: Decreased Breath Sounds, Rhonchi, NORMAL BREATHING PATTERN. absent: Rales, Wheezes Additional comments: mild basilar rhonchi. - Cardiovascular Exam Cardiovascular Exam: REGULAR RHYTHM, RRR, +S1, +S2 - GI/Abdominal Exam GI & Abdominal Exam: Soft, Normal Bowel Sounds. absent: Distended, Tenderness - Extremities Exam Additional comments: generalized weakness. gait abnormalities. - Neurological Exam Neurological Exam: Alert, Awake, CN II-XII Intact, Oriented x3 - Psychiatric Exam Psychiatric exam: Normal Affect, Normal Mood - Skin Skin Exam: Intact, Normal Color Assessment and Plan - Assessment and Plan (Free Text) Assessment: 61 yo male with metastatic lung cancer to the brain with general weakness and SOB. On Teflaro for antibiotic coverage for now. Will maintain this regimen for the time being. Supportive care. Possible pneumonia on right middle lobe. Noted elevated creatinine and significantly elevated BNP (normal on last hospitalization). The patient does not have a history of heart disease to my recollection. The patient is current awake and alert and answering questions appropriately. Admitted to MICU for monitoring initially but transferred to telemetry now. Supportive care. Septic workup in progress. Continue on Teflaro for antibiotic therapy. Cultures negative to date. Some improvement in breathing overall. Thank you for allowing me to participate in the care of this patient, we will follow with you.
--- NOTE | 2016-12-21 17:18 | PN ---
DATE: 12/21/2016 REFERRING PHYSICIAN: Dr. Jesus Davis. SUBJECTIVE: He is lying in the bed, head at 45 degree, on nasal cannula oxygen. Mild shortness of b reath, mild cough. No sputum production. No nausea, vomiting or diarrhea. Does have leg swelling. OBJECTIVE: GENERAL: In no acute distress. VITAL SIGNS: Temperature is 98, heart rate is 64, respiratory rate is 20, blood pressure 100/68, pul se ox 99% on nasal cannula. HEENT: Moist mucous membrane. Crowded airway. Mallampati score is 4. NECK: Supple. No JVD. LUNGS: Decreased breath sounds in the right lung. HEART: S1, S2. ABDOMEN: Soft, nontender. No organomegaly. EXTREMITIES: There is edema. NEUROLOGIC: Awake, alert, follows simple commands. MEDICATIONS: He is on ceftaroline 600 mg q.12 hours, Ecotrin 81 mg daily, folic acid 1 mg daily, Imd ur 60 mg daily, Lasix 40 mg IV daily, Lipitor 20 mg daily, metoprolol tartrate 25 mg twice a day, mor phine 2 mg q.4 hours p.r.n., nystatin orally 5 mL q.i.d., Protonix 40 mg daily, Solu-Medrol 30 mg q.8 hours, Tylenol on a p.r.n. basis, Zofran on a p.r.n. basis. LABORATORY DATA: Shows hemoglobin 9.8, hematocrit 30.7, WBC 10.7, platelet count is 35. Sodium 134, potassium , chloride 96, bicarbonate is 31, BUN 45, creatinine 0.9, glucose 121, calcium is 8.8 , phosphorus 3.0, magnesium is 1.9, AST 20, ALT 32, alk phos is 82, albumin is 2.8. IMPRESSION AND PLAN: Respiratory failure requiring noninvasive ventilation, presently on nasal cannu la, lung cancer with malignant effusion, metastatic disease to the brain requiring brain radiation, h as a PleurX catheter in the right chest cavity requiring drainage 3 times a week, interstitial infilt rate, may have lymphatic spread of the tumor, chronic obstructive lung disease, thrombocytopenia. Ca se discussed with oncology services. Continue bronchodilator. Keep head elevated at 45 degree. Ant ibiotics. Gastric prophylaxis. Sequential compression devices to lower extremity. Out of bed to ch air if possible. Restart chemotherapy. Thank you and will follow with you. Ashia Fletcher MD cc: [phone] TT: 12/21/2016 17:17:58 Confirmation # [id number] Dictation # [id number] dn
[2016-12-22] MEDS: MethylPREDNISolone 40 mg Vial IVP SCH ×3 (05:38→22:19)
[2016-12-22 07:10] LABS: ADD MANUAL DIFF? NO
[2016-12-22 07:18] LABS: GRAN # 10.09 (1.4-6.5); HEMATOCRIT 29.6 % (42.0-52.0); LYMPH # 0.4 (1.2-3.4); LYMPH % 3.2 % (22.0-35.0); MEAN CELL VOLUME 95.5 fL (80.0-105.0); MEAN CORPUSCULAR HGB CONC 32.4 g/dl (31.0-37.0); MONO # 0.5 (0.1-0.6); MONO % 4.8 % (1.0-6.0); PLATELET COUNT 46 10^3/uL (120.0-450.0)
[2016-12-22 07:36] LABS: ALB/GLOB RATIO 1.1 (1.1-1.8); ALKALINE PHOSPHATASE 83 U/L (38-133); ALT/SGPT 32 U/L (7-56); AST/SGOT 21 U/L (15-59); BILIRUBIN,TOTAL 0.5 mg/dL (0.2-1.3); BLOOD UREA NITROGEN 47 mg/dL (7-21); CALCIUM 8.9 mg/dL (8.4-10.5); CARBON DIOXIDE 32 mmol/L (21-33); CHLORIDE 95 mmol/L (98-107); GFR AFRICAN-AMERICAN > 60; GLUCOSE,RANDOM 112 mg/dL (70-110); PHOSPHOROUS 2.7 mg/dL (2.5-4.5); POTASSIUM 4.9 mmol/L (3.6-5.0); SODIUM 133 mmol/L (132-148); TOTAL PROTEIN 5.6 g/dL (5.8-8.3)
[2016-12-22] MEDS: Ceftaroline 600 MG in Sodium Chloride 0.9% 100 ML IVPB SCH ×2 (09:34→22:18)
[2016-12-22] MEDS: Nystatin 100,000 Units/ml Oral Susp 5 ml UD PO SCH ×4 (09:35→22:18)
[2016-12-22] MEDS: Pantoprazole 40 mg EC Tab PO SCH (09:36)
--- NOTE | 2016-12-22 14:08 | PN ---
DATE: 12/22/2016 SUBJECTIVE: The patient is currently seen on 2R. He is lying supine in bed. He is still continuing to complain of lower extremity edema. He has mild shortness of breath. He is completing a course o f antibiotic therapy for a possible pneumonia. The patient remains prerenal on diuretic therapy and steroid therapy. MEDICATIONS: List reviewed. The patient remains on ceftaroline, aspirin, folic acid, Imdur, Lasix, Lipitor, Lopressor, p.r.n. morphine, nystatin, Protonix, Solu-Medrol, Tylenol p.r.n., Zofran p.r.n. OBJECTIVE: INTAKE AND OUTPUT: Intake 1260, output 450. VITAL SIGNS: Weight 127 pounds. Blood pressure 112/74, heart rate of 85, temperature is 97.6. Resp iratory rate is 20. HEENT: Normocephalic, atraumatic. Conjunctivae pale. Sclerae nonicteric. The patient is blind in the right eye. NECK: Supple, no neck vein distention. CHEST: Decreased breath sounds right lung field. No rhonchi, no wheezing, no rales. CARDIOVASCULAR: S1, S2 are regular. MR/TR. No S3, no S4, no rub. ABDOMEN: Soft. Nondistended, nontender. Bowel sounds are normal. No rebound, no guarding. EXTREMITIES: With legs elevated in bed, he has 1-2+ pitting edema of his lower extremity. No cyanos is or clubbing. Diminished lower extremity pulses secondary to edema. LABORATORY DATA AND IMAGING: CBC today: White blood cell count 11.0, hemoglobin 9.6, platelet count is 46,000 with a manual platelet count of 50,000. Chemistries show sodium of 133 with a potassium 4 .9. Chloride 95 with a CO2 of 32, BUN is 47 with a creatinine of 0.8. Glucose is 112. Albumin is 2 .9. Liver enzymes are normal. ASSESSMENT: 1. Prerenal azotemia, secondary to diuretic therapy and steroid therapy. Creatinine remains normal. BUN remains stable, but elevated. The patient is being monitored for any developing hyponatremia o n diuretic therapy. 2. Status post mild hyponatremia. The patient, in the past, had a diagnosis of syndrome of inapprop riate antidiuretic hormone secretion. The patient appears to at present have a dilutional hyponatrem ia. Uric acid level has been elevated on diuretic therapy. 3. History of metastatic lung cancer with brain mets, status post chemotherapy and radiation therapy . 4. History of malignant pleural effusion, status post thoracentesis, status post PleurX catheter. 5. History of chronic obstructive pulmonary disease, currently stable. 6. History of pulmonary embolism and deep venous thrombosis, stable. 7. History of edema of the lower extremity. The patient will continue diuretic therapy as noted abo ve. 8. Mild elevation of troponin, but no evidence for acute coronary syndrome. 9. Possible right lung pneumonia superimposed on infiltrates and consolidation in the right lung sec ondary to his known malignancy. The patient will continue a course of empiric antibiotic therapy. A ll cultures to date have been negative. PLAN: 1. Continue to monitor patient closely on telemetry. 2. Continue diuretic therapy. Will attempt to keep patient in negative fluid balance. Follow weigh ts on a daily basis. 3. 24-hour urines were completed. The patient's creatinine clearance was 35 mL a minute with 234 mg of protein in the urine. Total volume was 1800 mL. 4. Continue to monitor platelet counts closely. No evidence for any bleeding. The patient is being followed closely by hematology/oncology. Platelet transfusion on a p.r.n. basis. Angel Kaur MD cc: [phone] TT: 12/22/2016 14:07:55 Confirmation # [id number] Dictation # [id number] en
--- NOTE | 2016-12-22 14:42 | PN ---
DATE: 12/22/2016 REASON FOR CONSULTATION AND FOLLOWUP: Cardiac evaluation, positive troponin. BRIEF CLINICAL HISTORY: This is a 61-year-old -[place] male with a past medical history sign ificant for lung CA with metastasis diagnosed in July. Came in with shortness of breath. Troponi n found to be positive and cardiology consult was called. The patient's denies any chest pain, short ness of breath, any palpitation. is at the bedside. PHYSICAL EXAMINATION: VITAL SIGNS: Temperature afebrile, heart rate 85, blood pressure 112/74. HEENT: PERRLA. Extraocular muscles intact. NECK: Supple. No carotid bruits. No thyromegaly. CHEST: Clear to auscultation. HEART: S1, S2 regular. ABDOMEN: Soft. EXTREMITIES: Clubbing, cyanosis negative. WBC 11, hemoglobin 9. , hematocrit 29.6, platelet count 50. Chemistry shows sodium , potass ium 4.9, chloride 95, carbon dioxide 32, anion gap of 11, BUN 46, creatinine 0.8. IMPRESSION: Borderline troponin positive, congestive heart failure, cancer of lung with metastasis t o the brain, asymptomatic, severe thrombocytopenia, lung cancer, renal insufficiency. RECOMMENDATION: Aggressive medical treatment. No plan for cardiac catheterization as mentioned yest david. Continue aspirin. Continue atorvastatin. Continue gentle Lasix, continue metoprolol, contin ue nitrate. We will follow with you. Thank you, Dr. Castillo, for providing us the opportunity in taking care of the patient. Discussed wi th the at the bedside, explained the patient's condition and plan. Ashia Blackmon MD cc: [phone] TT: 12/22/2016 14:41:37 Confirmation # [id number] Dictation # [id number] en
--- NOTE | 2016-12-22 16:02 | CP.PCM.PN ---
Subjective - Date & Time of Evaluation Date of Evaluation: 12/22/16 Time of Evaluation: 14:15 - Subjective Subjective: Infectious Disease Follow Up: December 22, 2016 61 yo male with history of metastatic lung cancer with metastatic disease to the brain and possibly bone presents with worsening shortness of breath and generalized weakness. Patient feels disorientated and has gait abnormalities. The patient with self-perceived weight loss. The patient was started on chemotherapy with last dose about 3 weeks ago. Chest X-ray does not show new changes from noted consolidations in right lung in the past (known lung cancer history). CT Chest shows possible right middle lobe pleural effusion. More information given by the today. Patient has PleurX catheter in the chest that is drained twice a week. Chemotherapy was actually given 1 week ago. Patient still with SOB episodes. Overall, improvement compared to day of admission. Maintaining use of Teflaro for antibiotic treatment. Still with some degree of shortness of breath but I' m not sure if this can be completely resolved due to underlying lung cancer. Patient with very limited options. Objective - Vital Signs/Intake and Output Vital Signs (last 24 hours): Temp Pulse Resp BP Pulse Ox 97.1 F L 67 18 101/64 99 12/22/16 12:00 12/22/16 14:00 12/22/16 12:00 12/22/16 12:00 12/21/16 16:00 Intake and Output: 12/22/16 12/22/16 06:59 18:59 Intake Total 240 Output Total 450 Balance -210 - Medications Medications: Current Medications Acetaminophen (Tylenol 325mg Tab) 650 mg PO Q6H PRN PRN Reason: Fever >100.4 F Aspirin (Ecotrin) 81 mg PO DAILY [facility] Last Admin: 12/22/16 09:36 Dose: 81 mg Atorvastatin Calcium (Lipitor) 20 mg PO DIN [facility] Last Admin: 12/21/16 17:29 Dose: Not Given Folic Acid (Folic Acid) 1 mg PO DAILY [facility] Last Admin: 12/22/16 09:35 Dose: 1 mg Furosemide (Lasix) 40 mg IVP DAILY [facility] Last Admin: 12/22/16 09:35 Dose: 40 mg Ceftaroline Fosamil 600 mg/ (Sodium Chloride) 100 mls @ 100 mls/hr IVPB Q12 [facility] PRN Reason: Protocol Last Admin: 12/22/16 09:34 Dose: 100 mls/hr Isosorbide Mononitrate (Imdur) 60 mg PO DAILY [facility] Last Admin: 12/22/16 09:35 Dose: 60 mg Methylprednisolone (Solu-Medrol) 30 mg IVP Q8 [facility] Last Admin: 12/22/16 13:51 Dose: 30 mg Metoprolol Tartrate (Lopressor) 25 mg PO BID [facility] Last Admin: 12/22/16 09:35 Dose: 25 mg Morphine Sulfate (Morphine) 2 mg IVP Q4H PRN PRN Reason: Pain, severe (8-10) Nystatin (Nystatin Oral Susp) 5 ml PO QID [facility] Last Admin: 12/22/16 13:51 Dose: 5 ml Ondansetron HCl (Zofran Inj) 4 mg IVP Q6H PRN PRN Reason: Nausea/Vomiting Pantoprazole Sodium (Protonix Ec Tab) 40 mg PO DAILY [facility] Last Admin: 12/22/16 09:36 Dose: 40 mg - Labs Labs: 12/22/16 05:30 12/22/16 05:30 PT 13.3 Seconds (9.9-11.8) H 12/17/16 16:00 INR 1.23 (0.93-1.08) H 12/17/16 16:00 APTT 26.3 Seconds (23.7-30.8) 12/17/16 16:00 - Constitutional Appears: Non-toxic, No Acute Distress, Chronically Ill - Head Exam Head Exam: ATRAUMATIC, NORMOCEPHALIC - Eye Exam Eye Exam: EOMI, PERRL Pupil Exam: NORMAL ACCOMODATION, PERRL - ENT Exam ENT Exam: Mucous Membranes Moist, Normal External Ear Exam, TM's Normal Bilaterally - Neck Exam Neck Exam: Full ROM, Normal Inspection - Respiratory Exam Respiratory Exam: Decreased Breath Sounds, Rhonchi, NORMAL BREATHING PATTERN. absent: Rales, Wheezes Additional comments: mild basilar rhonchi - Cardiovascular Exam Cardiovascular Exam: REGULAR RHYTHM, RRR, +S1, +S2 - GI/Abdominal Exam GI & Abdominal Exam: Soft, Normal Bowel Sounds. absent: Distended, Tenderness - Extremities Exam Additional comments: generalized weakness. gait abnormalities. - Neurological Exam Neurological Exam: Alert, Awake, CN II-XII Intact, Oriented x3 - Psychiatric Exam Psychiatric exam: Normal Affect, Normal Mood - Skin Skin Exam: Intact, Normal Color Assessment and Plan - Assessment and Plan (Free Text) Assessment: 61 yo male with metastatic lung cancer to the brain with general weakness and SOB. On Teflaro for antibiotic coverage for now. Will maintain this regimen for the time being. Supportive care. Possible pneumonia on right middle lobe. Noted elevated creatinine and significantly elevated BNP (normal on last hospitalization). The patient does not have a history of heart disease to my recollection. The patient is current awake and alert and answering questions appropriately. Admitted to MICU for monitoring initially but currently in telemetry now. Supportive care. Septic workup in progress. Continue on Teflaro for antibiotic therapy. Looking for 7-10 days of antibiotic therapy. Cultures negative to date. Some improvement in breathing overall. Overall, improvement compared to day of admission. Maintaining use of Teflaro for antibiotic treatment. Still with some degree of shortness of breath but I' m not sure if this can be completely resolved due to underlying lung cancer. Thank you for allowing me to participate in the care of this patient, we will follow with you.
--- NOTE | 2016-12-22 20:55 | PN ---
DATE: 12/22/2016 PULMONARY PROGRESS NOTE REFERRING PHYSICIAN: Dr. Jesus Davis. SUBJECTIVE: The patient is lying in the bed, head at 45 degrees, sleepy and not very good appetite, on supplemental oxygen, feeling okay, gets short of breath with exertion. No chest pain, no nausea, no vomiting, no diarrhea. Decreased leg swelling. OBJECTIVE: GENERAL: No acute distress. VITAL SIGNS: Temperature is 98, heart rate is 75, respiratory rate is 20, blood pressure 115/74, pul se ox 99% on 5 liters nasal cannula. HEENT: Small oral cavity. Crowded airway. NECK: Supple, no JVD. LUNGS: Decreased breath sounds. The right lung has a right-sided PleurX catheter. HEART: S1, S2. ABDOMEN: Soft, nontender. No organomegaly. EXTREMITIES: There is no edema. NEUROLOGIC: Sleepy, arousable, follows simple command. MEDICATIONS: He is on ceftaroline 600 mg twice a day, Ecotrin 81 mg daily, folic acid 1 mg daily, Im dur 60 mg daily, Lasix 40 mg daily, Lipitor 20 mg daily, metoprolol tartrate 25 mg twice a day, morph ine 2 mg IV q. 4 hours p.r.n., nystatin oral suspension q.i.d., Protonix 40 mg daily, Solu-Medrol 30 mg q. 8 hours, Tylenol on a p.r.n. basis, Zofran on a p.r.n. basis. LABORATORY DATA: Shows hemoglobin 9.6, hematocrit 29.6, WBC 11.0, platelet count is 46. Sodium 133, potassium 4.9, chloride 95, bicarbonate 32, BUN 47, creatinine 0.8, glucose 112, calcium is 8.9, gonzalo sphorus 2.7, magnesium 2.0. AST 21, ALT 32, alk phos is 83, albumin is 2.9. MICROBIOLOGY: Blood culture has been negative. IMPRESSION AND PLAN: Respiratory failure requiring noninvasive ventilation, presently on nasal cannu la, lung cancer, malignant effusion requiring PleurX catheter, metastatic disease to the brain requir ing radiation therapy, interstitial infiltrates could be lymphatic spread, chronic obstructive lung d isease, thrombocytopenia, cardiomyopathy. Pulmonary point of view, doing better. Continue supplemen ellie oxygen. Bronchodilator. Decrease Solu-Medrol to 20 q. 8 hours. Gastric prophylaxis. SCDs to l ower extremities. Physical therapy, out of bed to chair. Follow up labs in the morning. Thank you and will follow with you. Ashia Fletcher MD cc: [phone] TT: 12/22/2016 20:54:13 Confirmation # [id number] Dictation # [id number] mn
[2016-12-23] MEDS: MethylPREDNISolone 40 mg Vial IVP SCH ×3 (06:49→21:52)
--- NOTE | 2016-12-23 08:19 | PN ---
DATE: 12/22/2016 This is the patient's hospital visit on the telemetry floor. For Dr. Castillo. 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 His anticoagulation is on hold due to seriously lo w platelets with modest improvement in platelet count. He is otherwise seen today without complaint, being treated for pneumonia. OBJECTIVE AND PHYSICAL EXAMINATION: VITAL SIGNS: Temperature 97.1, pulse 67, respirations 18, blood pressure 101/64 with a pulse ox of 9 9%. HEENT: Unremarkable. The patient appears cachectic. NECK: Supple. HEART: Regular rate. LUNGS: Decreased breath sounds on the right where his PleurX catheter is. ABDOMEN: Soft, nontender. EXTREMITIES: Faint +1 edema, improved. NEUROLOGIC: Awake, alert, but lethargic or somnolent. SKIN: Otherwise, warm, dry and clear. The patient's labs were done. White blood cell count of 11.0, hemoglobin 9.6, hematocrit 29.6, plate let count of 46,000 with a manual of 56,000 today. Earlier in his hospital stay, his platelet count dropped to 13,000 with a manual of 20. Today it is 46,000 with a manual of 50,000. However, his ant icoagulation is still on hold. His chem metabolic panel showed a BUN of 47, creatinine 0.[address] Kaur, renal, addressing his e lectrolyte imbalances and renal function. As previously described, his HIT testing was negative for heparin-induced thrombocytopenia. 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 PLAN: After conversation with Dr. Castillo, is to continue the present medical regimen. We will disc ontinue his telemetry as his troponin was being followed by Dr. Blackmon, cardiology, with medical treatm ent recommended and continue antibiotics as per Dr. Jeter with pulmonary treatments as per Dr. Justine. Prognosis for this patient is guarded. Jesus Davis MD cc: [id number] TT: 12/22/2016 17:12:52 Confirmation # [id number] Dictation # [id number]
[2016-12-23 08:29] LABS: HEMATOCRIT 31.5 % (42.0-52.0); MEAN CELL VOLUME 96.9 fL (80.0-105.0); MEAN CORPUSCULAR HEMOGLOBIN 30.8 pg (25.0-35.0); MEAN CORPUSCULAR HGB CONC 31.7 g/dl (31.0-37.0); PLATELET COUNT 49 10^3/uL (120.0-450.0); RED CELL DISTRIBUTION WIDTH 21.9 % (11.5-14.5); WHITE BLOOD COUNT 11.1 10^3/ul (4.5-11.0)
[2016-12-23 08:38] LABS: ALB/GLOB RATIO 1.1 (1.1-1.8); ALKALINE PHOSPHATASE 80 U/L (38-133); ALT/SGPT 34 U/L (7-56); AST/SGOT 20 U/L (15-59); BILIRUBIN,TOTAL 0.7 mg/dL (0.2-1.3); BLOOD UREA NITROGEN 52 mg/dL (7-21); CALCIUM 8.9 mg/dL (8.4-10.5); CARBON DIOXIDE 31 mmol/L (21-33); CHLORIDE 97 mmol/L (98-107); GFR AFRICAN-AMERICAN > 60; GLUCOSE,RANDOM 114 mg/dL (70-110); MAGNESIUM 2.2 mg/dL (1.7-2.2); PHOSPHOROUS 3.7 mg/dL (2.5-4.5); POTASSIUM 4.3 mmol/L (3.6-5.0); SODIUM 135 mmol/L (132-148); TOTAL PROTEIN 5.7 g/dL (5.8-8.3)
--- NOTE | 2016-12-23 11:29 | PN ---
DATE: 12/23/2016 SUBJECTIVE: The patient is currently seen on 2R. He appears to be comfortable sitting up in bed. H e has significant reduction in his lower extremity edema. He is no longer complaining of shortness o f breath. He is completing a course of antibiotic therapy for possible pneumonia. He does remain pr erenal on diuretic and steroid therapy. MEDICATIONS: Medication list reviewed. The patient is on ceftaroline, Ecotrin, folic acid, Imdur, I V Lasix, Lipitor, Lopressor, morphine p.r.n., nystatin, Protonix, Solu-Medrol, Tylenol p.r.n. and Zof ran p.r.n. OBJECTIVE: INTAKE AND OUTPUT: 1000 in, 200 out, perhaps not accurate. Weight is 108 pounds 10 ounces. VITAL SIGNS: Blood pressure is 140/87, temperature 97.8, respiratory rate 17 with a pulse of 69. HEENT: Normocephalic, atraumatic. Conjunctivae are pale. Sclerae are nonicteric. The patient is b david in his right eye. NECK: Supple, no neck vein distention. CHEST: Clear to auscultation and percussion with slight decreased breath sounds at the right base. CARDIOVASCULAR: S1, S2 irregular. MR/TR. No S3, no S4, no rub. ABDOMEN: Soft. Nondistended, nontender. Bowel sounds are normal. No rebound, no guarding. EXTREMITIES: With his legs elevated, there is no edema of his lower extremity and no proximal thigh edema. This has resolved. No cyanosis or clubbing. LABORATORY DATA AND IMAGING: CBC: White blood cell count today was 11.1 with a hemoglobin of 10.0, platelet count is 49,000. Chemistries today: Sodium 135, potassium 4.3, chloride 97 with a CO2 of 3 1. BUN is up to 52 with a creatinine of 0.8. Glucose is 114. Calcium 8.9, phosphorus 3.7, magnesiu m 2.2. Albumin was 3.0. MICROBIOLOGY: All cultures are negative. ASSESSMENT: 1. Prerenal azotemia secondary to diuretic therapy and steroid therapy. The patient appears to be e uvolemic at present. I will discontinue diuretic therapy and perhaps steroid therapy can be tapered over time. No evidence of hyponatremia on diuretic therapy. Electrolytes are otherwise acceptable. 2. Past history of hyponatremia. Past history of syndrome of inappropriate antidiuretic hormone sec retion. The patient on presentation on admission was felt to have a mild dilutional hyponatremia. U hossein acid level had been elevated, possibly secondary to use of diuretic therapy. 3. History of metastatic lung cancer with brain metastasis,, status post chemotherapy and radiation therapy. 4. History of malignancy, pleural effusion, status post thoracocentesis, status post PleurX catheter . 5. History of chronic obstructive pulmonary disease, stable. 6. History of pulmonary embolism, deep venous thrombosis, stable. 7. Status post lower extremity edema. This has resolved. I will discontinue diuretic therapy. 8. Mild elevation of troponin, but no evidence for acute coronary syndrome. 9. Possible right lower lobe pneumonia superimposed on infiltrates and consolidation of the right porter ng secondary to malignancy. The patient is completing a course of antibiotic therapy. All cultures have been negative. PLAN: 1. We will discontinue diuretic therapy. 2. Continue to monitor patient closely on telemetry. 3. A 24-hour urine is completed. Creatinine clearance was 35 mL per minute with 234 mg of protein i n the urine, possibly suggestive of chronic kidney disease stage III despite having a creatinine of 0 .8. 4. Continue to monitor platelet counts. No evidence for bleeding. Transfuse platelets on a p.r.n. basis as per hematology/oncology. Angel Kaur MD cc: [id number] TT: 12/23/2016 11:28:16 Confirmation # [id number] Dictation # [id number] tn
[2016-12-23] MEDS: Ceftaroline 600 MG in Sodium Chloride 0.9% 100 ML IVPB SCH ×2 (12:43→21:52)
[2016-12-23] MEDS: Nystatin 100,000 Units/ml Oral Susp 5 ml UD PO SCH ×4 (12:43→21:52)
[2016-12-23] MEDS: Pantoprazole 40 mg EC Tab PO SCH (12:43)
--- NOTE | 2016-12-23 13:14 | PN ---
DATE: 12/23/2016 REASON FOR CONSULTATION: Cardiac evaluation, positive troponin. BRIEF CLINICAL HISTORY: A 61-year-old -[place] male with past medical history significant fo r lung cancer with metastasis, diagnosed in July, came in with complaint of shortness of breath. Troponin found to be positive and cardiac consult was called. The patient denies any chest pain, julia rtness of breath, any palpitation. yesterday was at the bedside. Discussed at length with the . PHYSICAL EXAMINATION: VITAL SIGNS: Temperature afebrile, heart rate 69, blood pressure 140/87. HEENT: PERRLA. Extraocular muscles intact. NECK: Supple. No carotid bruit or thyromegaly. CHEST: Clear to auscultation. HEART: S1, S2 regular. ABDOMEN: Soft. EXTREMITIES: Clubbing and cyanosis negative. LABORATORY DATA: Blood workup as follows: WBC , hemoglobin 10, hematocrit 31.5, platelet count 49. Chemistry shows sodium 135, potassium 4.3, chloride 97, carbon dioxide 31, anion gap of 11, BUN 52, creatinine 0.8. Positive troponin. IMPRESSION: Congestive heart failure, cancer of lungs with metastasis, blind in the right eye, asymp tomatic, severe thrombocytopenia, renal insufficiency, multiple comorbidities, not a candidate for ca rdiac catheterization, so no plan for cardiac catheterization, medical treatment because the patient is asymptomatic and severe thrombocytopenic, and also widespread cancer with metastasis. RECOMMENDATION: Suggest to continue beta-garrett. Continue aspirin. Continue atorvastatin. Contin ue nitrate. We will follow. Discussed with the . Thank you, Dr. Castillo, for providing the opportunity in taking care of the patient. We will discont inue telemetry. Medical treatment. Ashia Blackmon MD cc:Pan Castillo MD [id number] TT: 12/23/2016 13:14:25 Confirmation # [id number] Dictation # [id number] uziel
--- NOTE | 2016-12-23 16:46 | CP.PCM.PN ---
Subjective - Date & Time of Evaluation Date of Evaluation: 12/23/16 Time of Evaluation: 15:00 - Subjective Subjective: Infectious Disease Follow Up: December 22, 2016 61 yo male with history of metastatic lung cancer with metastatic disease to the brain and possibly bone presents with worsening shortness of breath and generalized weakness. Patient feels disorientated and has gait abnormalities. The patient with self-perceived weight loss. The patient was started on chemotherapy with last dose about 3 weeks ago. Chest X-ray does not show new changes from noted consolidations in right lung in the past (known lung cancer history). CT Chest shows possible right middle lobe pleural effusion. More information given by the today. Patient has PleurX catheter in the chest that is drained twice a week. Chemotherapy was actually given 1 week ago. Patient still with SOB episodes. Overall, improvement compared to day of admission. Maintaining use of Teflaro for antibiotic treatment. Still with some degree of shortness of breath but I' m not sure if this can be completely resolved due to underlying lung cancer. Patient with very limited options. Objective - Vital Signs/Intake and Output Vital Signs (last 24 hours): Temp Pulse Resp BP Pulse Ox 97.4 F L 73 22 109/71 90 L 12/23/16 12:00 12/23/16 12:43 12/23/16 12:00 12/23/16 12:43 12/23/16 06:00 Intake and Output: 12/23/16 12/23/16 06:59 18:59 Intake Total 180 780 Output Total 0 Balance 180 780 - Medications Medications: Current Medications Acetaminophen (Tylenol 325mg Tab) 650 mg PO Q6H PRN PRN Reason: Fever >100.4 F Aspirin (Ecotrin) 81 mg PO DAILY [facility] Last Admin: 12/23/16 12:43 Dose: 81 mg Atorvastatin Calcium (Lipitor) 20 mg PO DIN [facility] [place] Last Admin: 12/22/16 18:06 Dose: 20 mg Folic Acid (Folic Acid) 1 mg PO DAILY [facility] [place] Last Admin: 12/23/16 12:43 Dose: 1 mg Ceftaroline Fosamil 600 mg/ (Sodium Chloride) 100 mls @ 100 mls/hr IVPB Q12 [facility] PRN Reason: Protocol Last Admin: 12/23/16 12:43 Dose: 100 mls/hr Isosorbide Mononitrate (Imdur) 60 mg PO DAILY [facility] [place] Last Admin: 12/23/16 12:42 Dose: 60 mg Methylprednisolone (Solu-Medrol) 20 mg IVP Q8 [facility] Last Admin: 12/23/16 15:41 Dose: 20 mg Metoprolol Tartrate (Lopressor) 25 mg PO BID [facility] Last Admin: 12/23/16 12:43 Dose: 25 mg Morphine Sulfate (Morphine) 2 mg IVP Q4H PRN PRN Reason: Pain, severe (8-10) Nystatin (Nystatin Oral Susp) 5 ml PO QID [facility] Last Admin: 12/23/16 15:24 Dose: Not Given Ondansetron HCl (Zofran Inj) 4 mg IVP Q6H PRN PRN Reason: Nausea/Vomiting Pantoprazole Sodium (Protonix Ec Tab) 40 mg PO DAILY [facility] [place] Last Admin: 12/23/16 12:43 Dose: 40 mg - Labs Labs: 12/23/16 08:21 12/23/16 08:21 PT 13.3 Seconds (9.9-11.8) H 12/17/16 16:00 INR 1.23 (0.93-1.08) H 12/17/16 16:00 APTT 26.3 Seconds (23.7-30.8) 12/17/16 16:00 - Constitutional Appears: Non-toxic, No Acute Distress, Chronically Ill - Head Exam Head Exam: ATRAUMATIC, NORMOCEPHALIC - Eye Exam Eye Exam: EOMI, PERRL Pupil Exam: NORMAL ACCOMODATION, PERRL - ENT Exam ENT Exam: Mucous Membranes Moist, Normal External Ear Exam, TM's Normal Bilaterally - Neck Exam Neck Exam: Full ROM, Normal Inspection - Respiratory Exam Respiratory Exam: Decreased Breath Sounds, Rhonchi. absent: Rales, Wheezes Additional comments: mild basilar rhonchi - Cardiovascular Exam Cardiovascular Exam: REGULAR RHYTHM, RRR, +S1, +S2 - GI/Abdominal Exam GI & Abdominal Exam: Soft, Tenderness, Normal Bowel Sounds. absent: Distended - Extremities Exam Additional comments: generalized weakness. gait abnormalities. - Neurological Exam Neurological Exam: Alert, Awake, CN II-XII Intact, Oriented x3 - Psychiatric Exam Psychiatric exam: Normal Affect, Normal Mood - Skin Skin Exam: Intact, Normal Color Assessment and Plan - Assessment and Plan (Free Text) Assessment: 61 yo male with metastatic lung cancer to the brain with general weakness and SOB. On Teflaro for antibiotic coverage for now. Will maintain this regimen for the time being. Supportive care. Possible pneumonia on right middle lobe. Noted elevated creatinine and significantly elevated BNP (normal on last hospitalization). The patient does not have a history of heart disease to my recollection. The patient is current awake and alert and answering questions appropriately. Admitted to MICU for monitoring initially but currently in telemetry now. Supportive care. Septic workup in progress. Continue on Teflaro for antibiotic therapy. Looking for 7-10 days of antibiotic therapy. Cultures negative to date. Some improvement in breathing overall. Overall, improvement compared to day of admission. Maintaining use of Teflaro for antibiotic treatment. Still with some degree of shortness of breath but I' m not sure if this can be completely resolved due to underlying lung cancer. Thank you for allowing me to participate in the care of this patient, we will follow with you.
--- NOTE | 2016-12-24 00:01 | PN ---
DATE: 12/23/2016 The patient is currently in room 372. SUBJECTIVE: The patient is seen, appears to be comfortably sitting up in bed, has significant reduct ion in his lower extremity edema, is no longer complaining of shortness of breath. He is now getting drained through PleurX catheter 3 times a week, completed a course of antibiotic therapy for possibl e pneumonia, he remains prerenal on diuretic and steroid therapy. MEDICATIONS: The patient's medication list was reviewed. He is on a ceftaroline, Ecotrin, folic aci d, Imdur, IV Lasix, Lipitor, Lopressor, morphine p.r.n. as needed, nystatin, Protonix, Solu-Medrol, T ylenol and Zofran p.r.n. PHYSICAL EXAMINATION: GENERAL: The patient feels tired. He is no longer in pain. Appetite is fair to poor. He is no magy david short of breath. The patient weighs 180 pounds 10 ounces. VITAL SIGNS: Stable. Blood pressure is 140/87, T-max is 98.4, respirations 17, pulse is 69. HEENT: Head is normocephalic, atraumatic. Conjunctivae pale. Sclerae are anicteric. The patient i s blind in his right eye. NECK: Reveals it to be supple. No jugular venous distention noted. There is no evidence of adenopa thy. LUNGS: Reveals it to be clear to percussion on the left side. The patient has decreased breath soun ds on the right side in the apex and in the base. Bronchial breath sounds are heard. CARDIOVASCULAR: Reveals S1 and S2 to be irregular. Mitral and tricuspid regurg are heard. No S3 or S4. No rub is heard. ABDOMEN: Soft, nondistended. Bowel sounds are present. No rebound, rigidity or guarding is noted. EXTREMITIES: There is edema of his lower extremity, no proximal thigh edema, which has resolved. Th ere is no cyanosis or clubbing noted. LABORATORY DATA: Reveals a white count of 11, hemoglobin of 10, platelet count has risen to 49,000 f rom 10,000. HIT testing was negative. Chemistries reveal a sodium of 135, K of 4.3, chloride 97 wit h a CO2 of 31, BUN 52 with a creatinine of 4.8, glucose is 114, calcium is 8.9, phosphorus 3.7, magne sium 2.2, albumin is 3. Blood cultures and all other cultures are negative. ASSESSMENT NOTES AND PLAN: The patient has stage IV metastatic adenocarcinoma of the lung with signi ficant obstruction to the right mainstem, right upper lobe, right middle lobe with lymphangitic also evident on the CAT scan with thickened alveolar . The patient is also thrombocytopenic, w hich is gradually improving, probably related to a combination of infection and the recent treatment with Keytruda. The patient has prerenal azotemia secondary to the diuretic and steroid therapy. His tory of metastatic stage IV lung cancer with brain metastasis, history of malignant pleural effusion for which he has a PleurX catheter and he is undergoing tapping 3 times a week. History of chronic o bstructive lung disease, history of pulmonary embolism and DVT in the recent past for which he was on Lovenox, which has been on hold now for several days because of significant thrombocytopenia. He is status post lower extremity edema which is resolved, mild elevation of troponin with no evidence of acute coronary syndrome, possible right lower lobe pneumonia superimposed infiltrate and consolidatio n of the right lung secondary to postobstructive pneumonitis. The patient is completing antibiotic t herapy. PLAN: We will continue current treatment. I had a long discussion with the patient and the . W e will add something to stimulate his appetite with liquid Megace, which may be an option at this darren e. I told the patient and the that if that is the case, we can even add small amounts of Osei l to stimulate his appetite. Routine post exam instructions have been given to the patient. Labs covarrubias ve been requested for the a.m. Blood work for the a.m. have been requested. I told the patient and the that if the patient continues to improve with his platelet count, I will plan on giving his next dose of Keytruda prior to letting him go home. If not, we could let him go home now and then br ing him as an outpatient to give the treatment. The patient is going to let me know over the next 24 hours as to what he would like me to do once the counts come up. TIME SPENT: More than 90 minutes. Pan Castillo MD cc: [id number] TT: 12/24/2016 00:00:42 Confirmation # [id number] Dictation # [id number] mn
--- NOTE | 2016-12-24 03:15 | PN ---
DATE: 12/23/2016 REFERRING PHYSICIAN: Dr. eJsus Davis. SUBJECTIVE: He is lying in the bed, head at 45 degree, on nasal cannula oxygen. Overall, feels bett er. Still has a mild cough and shortness of breath. No chest pain. No nausea. No vomiting. No di arrhea. No dysuria. Does have leg swelling. OBJECTIVE: GENERAL: No acute distress. VITAL SIGNS: Temperature is 98, heart rate is 84, respiratory rate is 20, blood pressure 104/59, pul se ox 90% on nasal cannula. HEENT: Small oral cavity. Crowded airway. NECK: Supple. No JVD. LUNGS: Decreased breath sounds at the bases, right more than the left. HEART: S1 and S2. ABDOMEN: Soft, nontender. No organomegaly. EXTREMITIES: Does have edema. NEUROLOGIC: Awake, alert, follows simple command. MEDICATIONS: He is on Ecotrin 81 mg daily, folic acid 1 mg daily, Imdur 60 mg daily, Lipitor 20 mg d aily, metoprolol tartrate 25 mg twice a day, morphine 2 mg q. 4 hours p.r.n., nystatin 5 mL q.i.d., P rotonix 40 mg daily, Solu-Medrol 20 mg q. 8 hours, Tylenol p.r.n. on a basis, Zofran on a p.r.n. basi s. LABORATORY DATA: Shows hemoglobin 10. , hematocrit 31.5, WBC 11.1, platelet is 49. Sodium 135, potassium 4.3, chloride 97, bicarbonate 31, BUN 52, creatinine 0.8, glucose 114, calcium is 8.9, gonzalo sphorus 3.7, AST 20, ALT 34, alkaline phosphatase is 80, albumin is 3.0. MICROBIOLOGY: Blood culture is negative. IMPRESSION AND PLAN: Respiratory failure requiring noninvasive ventilation, presently on nasal cannu la, lung cancer, malignant effusion requiring PleurX catheter, metastatic disease to the brain requir ing radiation therapy in the past, interstitial infiltrates, may have lymphatic , chronic obstru ctive lung disease, thrombocytopenia, cardiomyopathy. Pulmonary point of view, doing okay. Decrease Solu-Medrol to 20 q. 12 hours. Bronchodilator. Gastric prophylaxis. Sequential compression device to lower extremity. Oncology followup. Thank you and we will follow. Ashia Fletcher MD cc: [id number] TT: 12/24/2016 03:14:28 Confirmation # [id number] Dictation # [id number] tn
[2016-12-24 07:32] LABS: HEMATOCRIT 28.3 % (42.0-52.0); MEAN CELL VOLUME 96.9 fL (80.0-105.0); MEAN CORPUSCULAR HEMOGLOBIN 30.5 pg (25.0-35.0); MEAN CORPUSCULAR HGB CONC 31.4 g/dl (31.0-37.0); PLATELET COUNT 45 10^3/uL (120.0-450.0); RED CELL DISTRIBUTION WIDTH 21.5 % (11.5-14.5); WHITE BLOOD COUNT 9.9 10^3/ul (4.5-11.0)
[2016-12-24 07:36] LABS: ALB/GLOB RATIO 1.1 (1.1-1.8); ALKALINE PHOSPHATASE 90 U/L (38-133); ALT/SGPT 31 U/L (7-56); AST/SGOT 23 U/L (15-59); BILIRUBIN,TOTAL 0.6 mg/dL (0.2-1.3); BLOOD UREA NITROGEN 43 mg/dL (7-21); CALCIUM 8.8 mg/dL (8.4-10.5); CARBON DIOXIDE 31 mmol/L (21-33); CHLORIDE 99 mmol/L (98-107); GFR AFRICAN-AMERICAN > 60; GLUCOSE,RANDOM 116 mg/dL (70-110); MAGNESIUM 2.1 mg/dL (1.7-2.2); PHOSPHOROUS 3.3 mg/dL (2.5-4.5); POTASSIUM 4.5 mmol/L (3.6-5.0); SODIUM 135 mmol/L (132-148); TOTAL PROTEIN 5.3 g/dL (5.8-8.3)
[2016-12-24] MEDS: Megestrol Acetate 40 mg/ml Cup PO SCH (11:28)
[2016-12-24] MEDS: Nystatin 100,000 Units/ml Oral Susp 5 ml UD PO SCH ×4 (11:29→21:35)
[2016-12-24] MEDS: Pantoprazole 40 mg EC Tab PO SCH (11:30)
[2016-12-24] MEDS: MethylPREDNISolone 40 mg Vial IVP SCH ×2 (11:41→21:36)
--- NOTE | 2016-12-24 12:33 | CP.PCM.CON ---
History of Present Illness - History of Present Illness History of Present Illness: Palliative consult requested by patients family Dr Castillo notified of consult Reason Goals of care/hospice discussion 61 year old male with history of metastatic lung cancer who presented with shortness of breath and mid upper back pain. He was found to be hypoxemic and admitted to ICU for further management. 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 Social History: Former smoker, regular alcohol use. , lives with spouse Family History: Non contributory. Advance Care Planning: The patient does not have an Advance Directive.s Review of Systems: Unable to obtain, patient is altered. Past Patient History - Infectious Disease Hx of Infectious Diseases: None - Past Medical History & Family History Past Medical History?: Yes - Past Social History Smoking Status: Former Smoker - CARDIAC Hx Cardiac Disorders: No - PULMONARY Hx Respiratory Disorders: Yes Hx Chronic Obstructive Pulmonary Disease (COPD): Yes (was heavy smoker) Other/Comment: Lung CA,rt...pe and dvt - NEUROLOGICAL Hx Neurological Disorder: No - HEENT Hx HEENT Problems: Yes Hx Blind: Yes (rt eye) Other/Comment: rt eye ret.detachment.. repaired 2001 - RENAL Hx Chronic Kidney Disease: No - ENDOCRINE/METABOLIC Hx Endocrine Disorders: No - HEMATOLOGICAL/ONCOLOGICAL Hx Blood Disorders: Yes Hx Cancer: Yes Hx Chemotherapy: Yes Hx Metastesis: Yes Other/Comment: rt lung ca diagnosed jul 2016,brain mets - INTEGUMENTARY Hx Dermatological Problems: No - MUSCULOSKELETAL/RHEUMATOLOGICAL Hx Falls: No - GASTROINTESTINAL Hx Gastrointestinal Disorders: No - GENITOURINARY/GYNECOLOGICAL Hx Genitourinary Disorders: No - PSYCHIATRIC Hx Substance Use: No - SURGICAL HISTORY Other/Comment: CA brain, left port, B/L lower extremity edema. tonsillectomy - ANESTHESIA Hx Anesthesia Reactions: No Hx Malignant Hyperthermia: No Meds Allergies/Adverse Reactions: Allergies Allergy/AdvReac Type Severity Reaction Status Date / Time No Known Allergies Allergy Verified 12/17/16 14:54 - Medications Medications: Current Medications Acetaminophen (Tylenol 325mg Tab) 650 mg PO Q6H PRN PRN Reason: Fever >100.4 F Aspirin (Ecotrin) 81 mg PO DAILY [facility] Last Admin: 12/24/16 11:30 Dose: 81 mg Atorvastatin Calcium (Lipitor) 20 mg PO DIN [facility] Last Admin: 12/23/16 18:05 Dose: 20 mg Folic Acid (Folic Acid) 1 mg PO DAILY [facility] Last Admin: 12/24/16 11:30 Dose: 1 mg Isosorbide Mononitrate (Imdur) 60 mg PO DAILY [facility] Last Admin: 12/24/16 11:30 Dose: 60 mg Megestrol Acetate (Megace) 400 mg PO DAILY [facility] Last Admin: 12/24/16 11:28 Dose: 400 mg Methylprednisolone (Solu-Medrol) 20 mg IVP Q12 [facility] Metoprolol Tartrate (Lopressor) 25 mg PO BID [facility] Last Admin: 12/24/16 11:30 Dose: 25 mg Morphine Sulfate (Morphine) 2 mg IVP Q4H PRN PRN Reason: Pain, severe (8-10) Nystatin (Nystatin Oral Susp) 5 ml PO QID [facility] Last Admin: 12/24/16 11:29 Dose: 5 ml Ondansetron HCl (Zofran Inj) 4 mg IVP Q6H PRN PRN Reason: Nausea/Vomiting Pantoprazole Sodium (Protonix Ec Tab) 40 mg PO DAILY [facility] Last Admin: 12/24/16 11:30 Dose: 40 mg Physical Exam - Constitutional Appears: Cachectic, Chronically Ill - Head Exam Head Exam: NORMAL INSPECTION - ENT Exam ENT Exam: Mucous Membranes Moist, Normal Oropharynx - Neck Exam Neck exam: Positive for: Normal Inspection - Respiratory Exam Respiratory Exam: Decreased Breath Sounds, NORMAL BREATHING PATTERN - Cardiovascular Exam Cardiovascular Exam: REGULAR RHYTHM, +S1, +S2 - GI/Abdominal Exam GI & Abdominal Exam: Diminished Bowel Sounds, Soft Additional comments: no tenderness or guarding - Extremities Exam Extremities exam: Positive for: full ROM, pedal edema, pedal pulses present - Back Exam Back exam: NORMAL INSPECTION - Neurological Exam Neurological exam: Altered - Skin Skin Exam: Dry, Warm - Additional Findings Additional findings: Palliative performance scale rating 30% Results - Vital Signs Recent Vital Signs: Last Vital Signs Temp 97.9 F 12/24/16 08:21 Pulse 74 12/24/16 11:30 Resp 22 12/24/16 08:21 BP 110/74 12/24/16 11:30 Pulse Ox 95 12/24/16 08:21 - Labs Result Diagrams: 12/25/16 07:30 12/24/16 07:00 Labs: Laboratory Results - last 24 hr 12/24/16 12/24/16 07:00 07:00 WBC 9.9 RBC 2.92 L Hgb 8.9 L Hct 28.3 L MCV 96.9 MCH 30.5 MCHC 31.4 RDW 21.5 H Plt Count 45 L* Sodium 135 Potassium 4.5 Chloride 99 Carbon Dioxide 31 Anion Gap 10 BUN 43 H Creatinine 0.7 Est GFR ( Amer) > 60 Est GFR (Non-Af Amer) > 60 Random Glucose 116 H Calcium 8.8 Phosphorus 3.3 Magnesium 2.1 Total Bilirubin 0.6 AST 23 ALT 31 Alkaline Phosphatase 90 Total Protein 5.3 L Albumin 2.7 L Globulin 2.5 Albumin/Globulin Ratio 1.1 Assessment & Plan - Assessment and Plan (Free Text) Assessment: 61 year old male admitted with hypoxemia, pancytopenia. History of lung cancer with metastases to brain. The patient is bedbound. He will opens his eyes when spoken to, but intermittently able to engage in meaningful conversation. He does not appear to be in pain. The patient and are known to me from previous admission. During that time we had discussed goals of care. Both patient and wanted to pursue available treatment options. We had also discussed advance care planning. Benefits and burdens of aggressive resuscitation explained. The patient stated that he wanted to remain a full code and that when the time came his would make decision to initiate DNR/DNI. Patient's asked to meet with me today to discuss hospice option. Hospice services explained in detail. Family undecided at this point. They intend to speak with before making decision as to whether to proceed with hospice or to try additional immunotherapy treatment. Psychosocial support given. Time spent in discussion with regarding goals of care, hospice services , 45 minutes Plan: Will discuss case with Dr Castillo - Date & Time Date: 12/24/16 Time: 15:00
--- NOTE | 2016-12-24 13:51 | CP.PCM.PN ---
Subjective - Date & Time of Evaluation Date of Evaluation: 12/24/16 Time of Evaluation: 12:30 - Subjective Subjective: Infectious Disease Follow Up: December 24, 2016 61 yo male with history of metastatic lung cancer with metastatic disease to the brain and possibly bone presents with worsening shortness of breath and generalized weakness. Patient feels disorientated and has gait abnormalities. The patient with self-perceived weight loss. The patient was started on chemotherapy with last dose about 3 weeks ago. Chest X-ray does not show new changes from noted consolidations in right lung in the past (known lung cancer history). CT Chest shows possible right middle lobe pleural effusion. More information given by the today. Patient has PleurX catheter in the chest that is drained twice a week. Chemotherapy was actually given 1 week ago. Patient still with SOB episodes. Overall, improvement compared to day of admission. Maintaining use of Teflaro for antibiotic treatment. Still with some degree of shortness of breath but I' m not sure if this can be completely resolved due to underlying lung cancer. The patient is more difficult to arouse. Patient with very limited options. Seen by Palliative care today. Objective - Vital Signs/Intake and Output Vital Signs (last 24 hours): Temp Pulse Resp BP Pulse Ox 97.9 F 74 22 110/74 95 12/24/16 08:21 12/24/16 11:30 12/24/16 08:21 12/24/16 11:30 12/24/16 08:21 Intake and Output: 12/24/16 12/24/16 06:59 18:59 Intake Total 120 Balance 120 - Medications Medications: Current Medications Acetaminophen (Tylenol 325mg Tab) 650 mg PO Q6H PRN PRN Reason: Fever >100.4 F Aspirin (Ecotrin) 81 mg PO DAILY [facility] Last Admin: 12/24/16 11:30 Dose: 81 mg Atorvastatin Calcium (Lipitor) 20 mg PO DIN [facility] Last Admin: 12/23/16 18:05 Dose: 20 mg Folic Acid (Folic Acid) 1 mg PO DAILY [facility] Last Admin: 12/24/16 11:30 Dose: 1 mg Isosorbide Mononitrate (Imdur) 60 mg PO DAILY [facility] Last Admin: 12/24/16 11:30 Dose: 60 mg Megestrol Acetate (Megace) 400 mg PO DAILY [facility] Last Admin: 12/24/16 11:28 Dose: 400 mg Methylprednisolone (Solu-Medrol) 20 mg IVP Q12 [facility] Metoprolol Tartrate (Lopressor) 25 mg PO BID [facility] Last Admin: 12/24/16 11:30 Dose: 25 mg Morphine Sulfate (Morphine) 2 mg IVP Q4H PRN PRN Reason: Pain, severe (8-10) Nystatin (Nystatin Oral Susp) 5 ml PO QID [facility] Last Admin: 12/24/16 11:29 Dose: 5 ml Ondansetron HCl (Zofran Inj) 4 mg IVP Q6H PRN PRN Reason: Nausea/Vomiting Pantoprazole Sodium (Protonix Ec Tab) 40 mg PO DAILY [facility] Last Admin: 12/24/16 11:30 Dose: 40 mg - Labs Labs: 12/24/16 07:00 12/24/16 07:00 PT 13.3 Seconds (9.9-11.8) H 12/17/16 16:00 INR 1.23 (0.93-1.08) H 12/17/16 16:00 APTT 26.3 Seconds (23.7-30.8) 12/17/16 16:00 - Constitutional Appears: Non-toxic, No Acute Distress, Chronically Ill - Head Exam Head Exam: ATRAUMATIC, NORMOCEPHALIC - Eye Exam Eye Exam: EOMI, PERRL Pupil Exam: NORMAL ACCOMODATION, PERRL - ENT Exam ENT Exam: Mucous Membranes Moist, Normal External Ear Exam, TM's Normal Bilaterally - Neck Exam Neck Exam: Full ROM, Normal Inspection - Respiratory Exam Respiratory Exam: Decreased Breath Sounds. absent: Rales, Wheezes - Cardiovascular Exam Cardiovascular Exam: REGULAR RHYTHM, RRR, +S1, +S2 - GI/Abdominal Exam GI & Abdominal Exam: Soft, Normal Bowel Sounds. absent: Distended, Tenderness - Extremities Exam Additional comments: generalized weakness. gait abnormalities. - Neurological Exam Neurological Exam: Alert, Awake, CN II-XII Intact, Oriented x3 - Psychiatric Exam Additional comments: fatigued and more difficult to arouse. - Skin Skin Exam: Intact, Normal Color Assessment and Plan - Assessment and Plan (Free Text) Assessment: 61 yo male with metastatic lung cancer to the brain with general weakness and SOB. On Teflaro for antibiotic coverage for now. Will maintain this regimen for the time being. Supportive care. Possible pneumonia on right middle lobe. Noted elevated creatinine and significantly elevated BNP (normal on last hospitalization). The patient does not have a history of heart disease to my recollection. The patient is current awake and alert and answering questions appropriately. Admitted to MICU for monitoring initially but currently in telemetry now. Supportive care. Septic workup in progress. Continue on Teflaro for antibiotic therapy. Looking for 7-10 days of antibiotic therapy. Cultures negative to date. Some improvement in breathing overall. Maintaining use of Teflaro for antibiotic treatment. Still with some degree of shortness of breath but I'm not sure if this can be completely resolved due to underlying lung cancer. He is becoming more difficult to arouse. Thank you for allowing me to participate in the care of this patient, we will follow with you.
--- NOTE | 2016-12-24 15:47 | PN ---
DATE: 12/24/2016 REFERRING PHYSICIAN: Dr. Jesus Davis. SUBJECTIVE: He is lying in the bed, on nasal cannula oxygen, comfortable, talked to grandson at beds nathan, also. Palliative care at the bedside. The patient feels better. Cough is decreased. No short ness of breath at rest. No nausea, vomiting, diarrhea. No leg pain, no leg swelling. OBJECTIVE: GENERAL: No acute distress. VITAL SIGNS: Temperature is 98, heart rate is 74, respiratory rate is 22, blood pressure 110/74, pul se ox 95% on nasal cannula. HEENT: Small oral cavity. Crowded airway. NECK: Supple. No JVD. LUNGS: Has decreased breath sounds on the right base, has a right PleurX catheter. HEART: S1, S2. ABDOMEN: Soft, nontender. No organomegaly. EXTREMITIES: There is no edema. NEUROLOGIC: Sleepy, arousable, follows simple command. MEDICATIONS: He is on Ecotrin 81 mg daily, folic acid 1 mg daily, Imdur 60 mg daily, Lipitor 20 mg d aily, metoprolol tartrate 25 mg twice a day, Megace 400 mg daily, morphine 2 mg IV q. 4 hours p.r.n., nystatin oral suspension p.r.n. basis, Protonix 40 mg daily, Solu-Medrol is 20 mg IV q. 12 hours, Ty lenol on a p.r.n. basis, Zofran on a p.r.n. basis. LABORATORY DATA: Shows hemoglobin 8.9, hematocrit 28.3, WBC 9.9, platelet is 45. Sodium 132, potass ium 4.5, chloride 99, bicarbonate 31, BUN 43, creatinine 0.7, glucose 116, calcium is 8.8, phosphorus 3.3, magnesium 2.1, AST 23, ALT 31, alkaline phosphatase is 90, albumin is 2.7. MICROBIOLOGY: Blood culture, nasal culture, there is no growth. IMPRESSION AND PLAN: Respiratory failure requiring noninvasive ventilation, presently on nasal cannu la, lung cancer, malignant effusion requiring PleurX catheter, metastatic disease to the brain requir ing radiation therapy, interstitial infiltrate, may have lymphatic spread, obstructive lung disease, thrombocytopenia, cardiomyopathy, heart failure, renal insufficiency. Case discussed in detail with the daughter, grandson and the patient, all their questions answered to their satisfaction. They amanda l be talking to Dr. Castillo for further chemotherapy care. Risks and benefits will be discussed with him. For now, continue bronchodilator, keep head elevated at 45 degrees, bronchodilator, gastric pr ophylaxis, sequential compression devices to lower extremity. Overall poor prognosis. Thank you and we will follow with you. Ashia Fletcher MD cc: [phone] TT: 12/24/2016 15:46:24 Confirmation # [id number] Dictation # [id number]
--- NOTE | 2016-12-24 17:21 | PN ---
DATE: 12/24/2016 SUBJECTIVE: The patient is seen lying in bed. Family members are at bedside. He appeared comfortab le. He reports no pain at this time. PHYSICAL EXAMINATION: GENERAL: Thinly built, elderly male, lying in bed. VITAL SIGNS: Blood pressure 110/74, heart rate 74, respiratory rate 22, temperature 97.9. HEENT: Normocephalic, atraumatic. NECK: Supple, no JVD. LUNGS: Bilateral equal air entry, decreased breath sounds right side. EXTREMITIES: No lower extremity edema. LABORATORY DATA: WBC 9.9, hemoglobin 8.9, hematocrit 28, platelets 45. Sodium 135, potassium 4.5, c hloride 99, CO2 31, BUN 43, creatinine 0.7, glucose 116, calcium 8.8, phosphorus 3.3, magnesium 2.1. MEDICATIONS: List reviewed. ASSESSMENT: 1. Metastatic lung cancer with brain mets. 2. Malignant right pleural effusion. 3. Respiratory failure, pneumonia. 4. Prerenal azotemia, resolving. 5. Chronic obstructive pulmonary disease. 6. History of deep vein thrombosis and pulmonary embolism. PLAN: 1. Long discussion with patient and family, they have decided to make the patient comfort care only. 2. At this time, will discontinue followup. His renal function is reverted back to normal. 3. Hospice evaluation in progress. The patient wishes to go home. Huong [place] MD cc: [phone] TT: 12/24/2016 17:20:32 Confirmation # [id number] Dictation # [id number]
--- NOTE | 2016-12-24 20:03 | PN ---
DATE: 12/24/2016 This is on the medical floor: For Dr. Castillo: SUBJECTIVE: The patient is a 61-year-old male seen lying awake in bed, lethargic, but arousable, wit h the patient now having his PleurX catheter drained 3 times a week, being treated for pneumonia with his significant thrombocytopenia persisting with mild anemic indices noted today. His hemoglobin wa s 10.0 yesterday with an 8.9 today. We will repeat it tomorrow with consideration for transfusion sh ould it be necessary. Also, palliative care with Ms. Kathy Brown was done with the patient to co nsider this with the family members as he suffers from unresectable stage IV cancer of the lung with metastases to the brain with probable pneumonia at this point. His anticoagulation is on hold due to platelets being low due to the patient's history of pulmonary embolism and deep venous thrombosis. He is blind in the right eye. PHYSICAL EXAMINATION: VITAL SIGNS: Temperature 97, pulse 66, respirations 18, blood pressure 100/66 with an oxygen saturat ion of 94%. HEENT: Unremarkable. The patient is blind in the right eye. NECK: Supple. HEART: Regular rate, occasional ectopic beat. LUNGS: PleurX catheter on the right side. Occasional rhonchi. ABDOMEN: Soft, nontender. EXTREMITIES: +1 edema of the lower extremities bilaterally. NEUROLOGIC: Somnolent but arousable. SKIN: Otherwise, warm, dry and clear. LABORATORY DATA: The patient's labs were done. White blood cell count of 9.9, hemoglobin 8.9, hemat ocrit of 28.3, platelet count of 45,000. Yesterday's hemoglobin was 10.0, prior to that it was 9.6. We will check his labs tomorrow with consideration for transfusion. His chem metabolic panel shows a BUN of 43 with a total protein of 5.3, otherwise normal chem metabolic panel. ASSESSMENT: Stage IV metastatic adenocarcinoma of the lung with right main stem obstruction with a P leurX catheter on the right, to be drained 3 times a week; thrombocytopenia, possibly secondary to in fection versus Keytruda treatment; electrolyte abnormality, history of metastases to the brain, chron ic obstructive pulmonary disease, history of pulmonary embolism and deep venous thrombosis, with sue tment on hold due to thrombocytopenia. PLAN: After conversation with Dr. Castillo, to repeat his labs in the morning. We will ask for a con sult with Kathy Brown Hospice Nurse with the patient to continue his present medical regimen as p er consultants' recommendations. Megace was started for his appetite. Prognosis for this patient is guarded. The patient remains full code. This is to addressed with Kevin and family members ; consideration for hospice care and DNR. Jesus Davis MD cc: [phone] TT: 12/24/2016 20:02:49 Confirmation # [id number] Dictation # [id number] dn
--- NOTE | 2016-12-25 08:02 | PN ---
DATE: 12/24/2016 The patient is in room 372, bed 1. REASON FOR CONSULTATION: Positive troponin, congestive heart failure, cancer of the lung with metast asis. HISTORY OF PRESENT ILLNESS: A 61-year-old -Armenian male with past medical history significan t for carcinoma of the lung with metastasis diagnosed in 07/2016, was admitted with shortness of breat h, troponin found to be positive. The patient denies any chest pain, shortness of breath, or palpita tion. The patient is lying flat in bed without any respiratory distress at present. PHYSICAL EXAMINATION: VITAL SIGNS: Blood pressure 110/74, respirations 22, pulse 74, temperature 97.9. HEAD: Normocephalic. EYES: Pupils normal. Conjunctivae are slightly pale. NECK: JVP low. Carotids equal. THORAX: AP diameter normal. LUNGS: No significant rales. CARDIOVASCULAR: S1, S2. ABDOMEN: Soft, nontender, no organomegaly. EXTREMITIES: No clubbing, no cyanosis. LABORATORY DATA: WBC 9.9, hemoglobin 8.9, hematocrit 28.3, platelets 45. Sodium 135, potassium 4.5, BUN 43, creatinine 0.7, random sugar 116. Calcium, phosphorus, magnesium normal. Total protein 5.3 , albumin 2.7. DIAGNOSES: Carcinoma of the lung with metastasis, congestive heart failure, blind in the right eye, severe thrombocytopenia, renal insufficiency, anemia. PLAN: The patient is asymptomatic. The patient is not a candidate for any intervention like cardiac catheterization because of his other comorbidities and conditions mentioned above. We will continue medical therapy, aspirin 81 mg daily, isosorbide mono 60 mg daily, Lipitor 20 mg daily, metoprolol 2 5 b.i.d., Protonix 40 mg daily, Solu-Medrol 20 mg IV q. 12 hours. Ashia Chun MD cc: [phone] TT: 12/24/2016 13:08:49 Confirmation # [id number] Dictation # [id number]
[2016-12-25 08:31] LABS: MEAN CELL VOLUME 101.3 fL (80.0-105.0); MEAN CORPUSCULAR HEMOGLOBIN 30.7 pg (25.0-35.0); MEAN CORPUSCULAR HGB CONC 30.3 g/dl (31.0-37.0); PLATELET COUNT 41 10^3/uL (120.0-450.0); RED CELL DISTRIBUTION WIDTH 21.7 % (11.5-14.5); WHITE BLOOD COUNT 10.2 10^3/ul (4.5-11.0)
[2016-12-25] MEDS: Megestrol Acetate 40 mg/ml Cup PO SCH (09:58)
[2016-12-25] MEDS: MethylPREDNISolone 40 mg Vial IVP SCH (09:59)
[2016-12-25] MEDS: Nystatin 100,000 Units/ml Oral Susp 5 ml UD PO SCH ×2 (09:59→13:31)
[2016-12-25] MEDS: Pantoprazole 40 mg EC Tab PO SCH (10:00)
--- NOTE | 2016-12-25 12:34 | CP.PCM.PN ---
Subjective - Date & Time of Evaluation Date of Evaluation: 12/25/16 Time of Evaluation: 13:00 - Subjective Subjective: Lethargic, opens eyes when spoken to. Appears comfortable Objective - Vital Signs/Intake and Output Vital Signs (last 24 hours): Temp Pulse Resp BP Pulse Ox 97.8 F 67 22 117/80 99 12/25/16 08:14 12/25/16 10:00 12/25/16 08:14 12/25/16 10:00 12/25/16 08:14 Intake and Output: 12/25/16 12/25/16 06:59 18:59 Intake Total 480 Balance 480 - Medications Medications: Current Medications Acetaminophen (Tylenol 325mg Tab) 650 mg PO Q6H PRN PRN Reason: Fever >100.4 F Aspirin (Ecotrin) 81 mg PO DAILY [facility] Last Admin: 12/25/16 10:00 Dose: 81 mg Atorvastatin Calcium (Lipitor) 20 mg PO DIN [facility] Last Admin: 12/24/16 17:46 Dose: 20 mg Folic Acid (Folic Acid) 1 mg PO DAILY [facility] Last Admin: 12/25/16 10:00 Dose: 1 mg Isosorbide Mononitrate (Imdur) 60 mg PO DAILY [facility] Last Admin: 12/25/16 10:00 Dose: 60 mg Megestrol Acetate (Megace) 400 mg PO DAILY [facility] Last Admin: 12/25/16 09:58 Dose: 400 mg Methylprednisolone (Solu-Medrol) 20 mg IVP Q12 [facility] Last Admin: 12/25/16 09:59 Dose: 20 mg Metoprolol Tartrate (Lopressor) 25 mg PO BID [facility] Last Admin: 12/25/16 10:00 Dose: 25 mg Morphine Sulfate (Morphine) 2 mg IVP Q4H PRN PRN Reason: Pain, severe (8-10) Nystatin (Nystatin Oral Susp) 5 ml PO QID [facility] Last Admin: 12/25/16 09:59 Dose: 5 ml Ondansetron HCl (Zofran Inj) 4 mg IVP Q6H PRN PRN Reason: Nausea/Vomiting Pantoprazole Sodium (Protonix Ec Tab) 40 mg PO DAILY [facility] Last Admin: 12/25/16 10:00 Dose: 40 mg - Labs Labs: 12/25/16 07:30 12/24/16 07:00 PT 13.3 Seconds (9.9-11.8) H 12/17/16 16:00 INR 1.23 (0.93-1.08) H 12/17/16 16:00 APTT 26.3 Seconds (23.7-30.8) 12/17/16 16:00 - Constitutional Appears: Cachectic, Chronically Ill - Head Exam Head Exam: NORMAL INSPECTION - Eye Exam Eye Exam: Normal appearance - Respiratory Exam Respiratory Exam: Decreased Breath Sounds, NORMAL BREATHING PATTERN - Cardiovascular Exam Cardiovascular Exam: REGULAR RHYTHM, +S1, +S2 - GI/Abdominal Exam GI & Abdominal Exam: Soft, Normal Bowel Sounds - Extremities Exam Extremities Exam: Normal Capillary Refill, Pedal Edema - Back Exam Back Exam: NORMAL INSPECTION - Skin Skin Exam: Dry, Warm Assessment and Plan - Assessment and Plan (Free Text) Assessment: 61 year old male with history of metastatic lung cancer, s/p immunotherapy, s/p whole brain radiation therapy, pleural effusion, PleurX catheter. Patients family has decided on hospice care in the home. They are meeting with [facility] hospice care consultant today. requesting patient be made DNR/ DNI. Psychosocial support given. Plan: Discussed with Dr. Callie Castillo, Hospice referral Resuscitation status DNR/DNI
--- NOTE | 2016-12-25 12:58 | PN ---
DATE: 12/25/2016 The patient in 372, bed 1. REASON FOR CONSULTATION AND FOLLOWUP: Positive troponin, congestive heart failure, cancer of the sebastian g with metastasis. HISTORY OF PRESENT ILLNESS: A 61-year-old -Cypriot male with past medical history significan t for carcinoma of the lung with metastasis diagnosed in 07/2016, was admitted with shortness of samuel th, troponin found to be positive. The patient also found to have malignant pleural effusion on the right for which the patient had PleurX catheter and has been draining fluid. The patient lying flat in bed without any cardiac symptoms at present. PHYSICAL EXAMINATION: VITAL SIGNS: Blood pressure 117/80, respirations 22, pulse 67, temperature 97.8. HEAD: Normocephalic. EYES: Pupils normal. Conjunctivae are slightly pale. NECK: JVP low. Carotid equal. THORAX: AP diameter normal. LUNGS: Diminished breath sounds on the right lung base. CARDIOVASCULAR: S1, S2. ABDOMEN: Soft. No tenderness, no organomegaly. EXTREMITIES: No clubbing, no cyanosis. LABORATORY DATA: WBC 10.2, hemoglobin 9.4, hematocrit 31.0, platelets 41. Sodium 135, potassium 4.5 , BUN 43, creatinine 0.7, random sugar 116. Calcium, phosphorus, magnesium, AST, ALT normal. Total protein 5.3, albumin 2.7. DIAGNOSES: Carcinoma of the lung with metastasis, congestive heart failure; right pleural effusion, malignant; blind in the right eye, severe thrombocytopenia, renal insufficiency, chronic obstructive pulmonary disease, right PleurX catheter. PLAN: The patient is asymptomatic from cardiac point of view. The patient's fluid is being drained 3 times a week through PleurX catheter from the right pleural effusion. The patient is getting aspir in 81 mg daily, folic acid 1 mg daily, isosorbide 60 daily, Lipitor 20 daily, metoprolol 25 b.i.d., m ethylprednisolone 20 mg IV q. 12 hours, Protonix 40 daily. Although patient's troponin elevated, the patient has so many comorbidities that he is not a candidate for any invasive procedure, so will con tinue present medical therapy as mentioned above. Ashia Cuhn MD cc: [id number] TT: 12/25/2016 12:57:33 Confirmation # [id number] Dictation # [id number] mn
--- NOTE | 2016-12-25 14:29 | CP.PCM.PN ---
Subjective - Date & Time of Evaluation Date of Evaluation: 12/25/16 Time of Evaluation: 13:15 - Subjective Subjective: Infectious Disease Follow Up: December 25, 2016 61 yo male with history of metastatic lung cancer with metastatic disease to the brain and possibly bone presents with worsening shortness of breath and generalized weakness. Patient feels disorientated and has gait abnormalities. The patient with self-perceived weight loss. The patient was started on chemotherapy with last dose about 3 weeks ago. Chest X-ray does not show new changes from noted consolidations in right lung in the past (known lung cancer history). CT Chest shows possible right middle lobe pleural effusion. More information given by the today. Patient has PleurX catheter in the chest that is drained twice a week. Chemotherapy was actually given 1 week ago. Patient still with SOB episodes. Overall, improvement compared to day of admission. Maintaining use of Teflaro for antibiotic treatment. Still with some degree of shortness of breath but I' m not sure if this can be completely resolved due to underlying lung cancer. The patient is more difficult to arouse. Patient with very limited options. Seen by Palliative care today. Family deciding on home hospice now. Objective - Vital Signs/Intake and Output Vital Signs (last 24 hours): Temp Pulse Resp BP Pulse Ox 97.8 F 67 22 117/80 99 12/25/16 08:14 12/25/16 10:00 12/25/16 08:14 12/25/16 10:00 12/25/16 08:14 Intake and Output: 12/25/16 12/25/16 06:59 18:59 Intake Total 480 Balance 480 - Medications Medications: Current Medications Acetaminophen (Tylenol 325mg Tab) 650 mg PO Q6H PRN PRN Reason: Fever >100.4 F Aspirin (Ecotrin) 81 mg PO DAILY [facility] Last Admin: 12/25/16 10:00 Dose: 81 mg Atorvastatin Calcium (Lipitor) 20 mg PO DIN [facility] Last Admin: 12/24/16 17:46 Dose: 20 mg Folic Acid (Folic Acid) 1 mg PO DAILY [facility] Last Admin: 12/25/16 10:00 Dose: 1 mg Isosorbide Mononitrate (Imdur) 60 mg PO DAILY [facility] Last Admin: 12/25/16 10:00 Dose: 60 mg Megestrol Acetate (Megace) 400 mg PO DAILY [facility] Last Admin: 12/25/16 09:58 Dose: 400 mg Methylprednisolone (Solu-Medrol) 20 mg IVP Q12 [facility] Last Admin: 12/25/16 09:59 Dose: 20 mg Metoprolol Tartrate (Lopressor) 25 mg PO BID [facility] Last Admin: 12/25/16 10:00 Dose: 25 mg Morphine Sulfate (Morphine) 2 mg IVP Q4H PRN PRN Reason: Pain, severe (8-10) Nystatin (Nystatin Oral Susp) 5 ml PO QID [facility] Last Admin: 12/25/16 13:31 Dose: 5 ml Ondansetron HCl (Zofran Inj) 4 mg IVP Q6H PRN PRN Reason: Nausea/Vomiting Pantoprazole Sodium (Protonix Ec Tab) 40 mg PO DAILY [facility] Last Admin: 12/25/16 10:00 Dose: 40 mg - Labs Labs: 12/25/16 07:30 12/24/16 07:00 PT 13.3 Seconds (9.9-11.8) H 12/17/16 16:00 INR 1.23 (0.93-1.08) H 12/17/16 16:00 APTT 26.3 Seconds (23.7-30.8) 12/17/16 16:00 - Constitutional Appears: Non-toxic, No Acute Distress, Confused, Chronically Ill - Head Exam Head Exam: ATRAUMATIC, NORMOCEPHALIC - Eye Exam Eye Exam: EOMI, PERRL Pupil Exam: NORMAL ACCOMODATION, PERRL - ENT Exam ENT Exam: Mucous Membranes Moist, Normal External Ear Exam, TM's Normal Bilaterally - Neck Exam Neck Exam: Full ROM, Normal Inspection - Respiratory Exam Respiratory Exam: Decreased Breath Sounds, Wheezes, NORMAL BREATHING PATTERN. absent: Rales, Rhonchi - Cardiovascular Exam Cardiovascular Exam: REGULAR RHYTHM, RRR, +S1, +S2 - GI/Abdominal Exam GI & Abdominal Exam: Distended, Soft, Normal Bowel Sounds. absent: Tenderness - Extremities Exam Extremities Exam: Full ROM Additional comments: generalized weakness - Neurological Exam Neurological Exam: CN II-XII Intact Additional comments: lethargic today. - Psychiatric Exam Additional comments: confused and not following commands. - Skin Skin Exam: Intact, Normal Color Assessment and Plan - Assessment and Plan (Free Text) Assessment: 61 yo male with metastatic lung cancer to the brain with general weakness and SOB. On Teflaro for antibiotic coverage for now. Will maintain this regimen for the time being. Supportive care. Possible pneumonia on right middle lobe. Noted elevated creatinine and significantly elevated BNP (normal on last hospitalization). The patient does not have a history of heart disease to my recollection. The patient is current awake and alert and answering questions appropriately. Admitted to MICU for monitoring initially but currently in telemetry now. Supportive care. Septic workup in progress. Continue on Teflaro for antibiotic therapy. Looking for 7-10 days of antibiotic therapy. Cultures negative to date. Some improvement in breathing overall. Maintaining use of Teflaro for antibiotic treatment. Still with some degree of shortness of breath but I'm not sure if this can be completely resolved due to underlying lung cancer. He is becoming more difficult to arouse and is confused. The family has decided on home hospice care. Thank you for allowing me to participate in the care of this patient, we will follow with you.
[2016-12-25 16:03] VITALS: BP 110/82; PULSE 72; RESP 20; TEMP 98.2; O2SAT 96
--- NOTE | 2016-12-25 21:50 | PN ---
DATE: 12/25/2016 REFERRING PHYSICIAN: Dr. Jesus Davis. SUBJECTIVE: He is lying in the bed, quiet, on supplemental oxygen, arousable, goes back to sleep. N ot much cough, mild short of breath. No vomiting, no hematuria, no diarrhea, no leg swelling. OBJECTIVE: GENERAL: No acute distress. VITAL SIGNS: Temperature is 98, heart rate is 72, respiratory rate is 20, blood pressure 110/82, pul se ox 96% on 5 liters nasal cannula. HEENT: Moist mucous membranes. Crowded airway. NECK: Supple. No JVD. LUNGS: Has decreased breath sounds on the right base. HEART: S1, S2. ABDOMEN: Soft, nontender. No organomegaly. EXTREMITIES: There is no edema. NEUROLOGIC: Sleepy, arousable, lethargic. MEDICATIONS: Reviewed. No new changes in medication reported. LABORATORY DATA: Shows hemoglobin 9.4, hematocrit 31.0, WBC 10.2, platelet is 41. Yesterday sodium 135. MICROBIOLOGY: Blood culture and nose swab are unremarkable. IMPRESSION AND PLAN: Respiratory failure requiring noninvasive ventilation, presently on nasal cannu la oxygen, unresectable lung cancer, malignant effusion, history of brain mets requiring radiation t herapy, bilateral interstitial infiltrate, could be lymphatic spread of the tumor, obstructive lung d isease, thrombocytopenia, cardiomyopathy, renal failure. Palliative care consult reviewed. Infectio us disease consult reviewed. The patient was made DNR and DNI. Family looking for hospice. The pat ient will be transferred home for home hospice. Thank you. Ashia Fletcher MD cc: [phone] TT: 12/25/2016 21:49:36 Confirmation # [id number] Dictation # [id number] tammy
--- NOTE | 2016-12-26 01:34 | DS ---
Discharge from the medical floor. He will be on hospice after conversation with Marce Salas ___ __, the patient's family, and patient. 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 He is blind in the right eye. With this, t he patient is otherwise now resting comfortably in no acute distress. OBJECTIVE: PHYSICAL EXAMINATION: VITAL SIGNS: Temperature 98.2, pulse 72, respirations 20, blood pressure 110/82, pulse ox 96%. HEENT: Blind in right eye. NECK: Supple. HEART: Regular rate. LUNGS: PleurX catheter on the right with decreased breath sounds, occasional rhonchi. ABDOMEN: Soft, nontender. EXTREMITIES: +1 edema bilaterally. NEUROLOGIC: Somnolent, but arousable. SKIN: Warm, dry. LABORATORY DATA: The patient's labs were done, white blood cell count of 10.2, hemoglobin of 9.4, he matocrit 31.0, platelet count of 41,000 with a of 60,000. His chem metabolic panel shows a BUN of 43, creatinine of 0.7. Otherwise normal chem metabolic panel. 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 PLAN: As above with hospice. The patient will be transferred to hospice with hospice protocols with DNR/DNI implemented. Jesus Davis MD cc: [phone] TT: 12/26/2016 01:34:19 mn
== END 2016-12-25 19:00 | disposition hospice, home (50) | DRG 180 ==
LOC: ED 14:22 → ERH 19:06 → CCU 12-18 00:21 → 2RNO 12-20 11:27 → 3RSO 12-23 18:26
PROVIDERS: ADMIT Family Medicine; ATTEND Family Medicine
PROC: 5A09357 Assistance with Respiratory Ventilation, Less than 24 Consecutive Hours, Continuous Positive Airway Pressure (ICD-10-PCS; principal; 2016-12-21)
DX: C34.91 Malignant neoplasm of unspecified part of right bronchus or lung (principal); C79.31 Secondary malignant neoplasm of brain; J96.91 Respiratory failure, unspecified with hypoxia; J91.0 Malignant pleural effusion; J18.9 Pneumonia, unspecified organism; I13.0 Hypertensive heart and chronic kidney disease with heart failure and stage 1 through stage 4 chronic kidney disease, or unspecified chronic kidney disease; N17.9 Acute kidney failure, unspecified; R64 Cachexia; N18.3 Chronic kidney disease, stage 3 (moderate); I50.9 Heart failure, unspecified; E22.2 Syndrome of inappropriate secretion of antidiuretic hormone; J44.0 Chronic obstructive pulmonary disease with (acute) lower respiratory infection; H33.21 Serous retinal detachment, right eye; E46 Unspecified protein-calorie malnutrition; Z68.1 Body mass index [BMI] 19.9 or less, adult; D69.6 Thrombocytopenia, unspecified; H54.41 Blindness, right eye, normal vision left eye; Z66 Do not resuscitate; I27.2 Other secondary pulmonary hypertension; E78.5 Hyperlipidemia, unspecified; E87.6 Hypokalemia; D64.9 Anemia, unspecified; T50.2X5A Adverse effect of carbonic-anhydrase inhibitors, benzothiadiazides and other diuretics, initial encounter; R79.89 Other specified abnormal findings of blood chemistry; Z51.5 Encounter for palliative care; Z99.81 Dependence on supplemental oxygen; Z86.711 Personal history of pulmonary embolism; Z86.718 Personal history of other venous thrombosis and embolism; Z74.01 Bed confinement status; Z92.3 Personal history of irradiation; Z92.21 Personal history of antineoplastic chemotherapy; Z87.891 Personal history of nicotine dependence